=== PATIENT | male | born 1940 | race Caucasian/White ===

== ENCOUNTER 2018-02-08 20:47 | Inpatient (IN) | payer OTHER ==
[~2018-02-08] VITALS: Ht 165.1 cm; Wt 65.0 kg
--- NOTE | 2018-02-08 21:52 | ED GENERAL ADULT ---
History of Present Illness General Chief Complaint: General Adult Stated Complaint: HEMATURIA/COUGH, FAMILY WANTS HIM CHECKED OUT Source: family, EMS Exam Limitations: dementia Vital Signs & Intake/Output Vital Signs & Intake/Output Vital Signs Date Time Temp Pulse Resp B/P B/P Pulse O2 O2 Flow FiO2 Mean Ox Delivery Rate 02/09 0331 99 Nasal 2.0L Cannula 02/09 0224 98.7 91 18 130/75 99 Nasal 2.0L Cannula 02/09 0033 989.0 89 18 112/56 99 Nasal 2.0L Cannula 02/08 2254 98.6 96 18 134/63 94 Room Air 02/08 2237 Room Air 02/08 2130 100.3 02/082 99.3 96 20 129/59 95 Room Air ED Intake and Output 02/09 0000 02/08 1200 Intake Total Output Total 50 Balance -50 Output, Urine 50 Patient 170 lb Weight Weight Estimated Measurement Method Allergies Coded Allergies: No Known Allergies (02/09/18) Triage Note: [facility]IBA FROM [facility] PER REQUEST OF FAMILY. REPORTEDLY PT HAS HAD A COUGH AND HEMATURIA. PT ARRIVED AWAKE ALERT, SAWANT IN PLACE WTIH CLOUDY YELLOW URINE. PT WITH HISTORY OF DEMENTIA. NOT ABLE TO CARRY ON COHERENT CONVERSATION OR ANSWER THIS NURSES QUESTIONS . Triage Nurses Notes Reviewed? yes Onset: Gradual Duration: day(s): Timing: constant HPI: 77 y/o male with h/o dementia, BPH (chronic indwelling sawant catheter), HTN, DM, hypothyroid presenting from [facility] with worsening of his baseline dementia, cough, and hematuria over the past few days. Pt is unable to provider any hx, has no complaints on arrival. VS are WNL. (oNa Frank) Reconcile Medications Atenolol 25 MG TABLET 1 TAB PO DAILY BP (Reported) Donepezil HCl (Aricept) 10 MG TABLET 1 TAB PO DAILY DEMENTIA (Reported) Insulin Glargine,Hum.rec.anlog (Lantus Solostar) 100 UNIT/ML (3 ML) INSULN.PEN 36 UNIT SC QPM DIABETES (Reported) Levothyroxine Sodium 88 MCG TABLET 1 TAB PO DAILY HYPOTHYROIDISM (Reported) Magnesium Oxide (Magnesium) 400 MG TABLET 1 TAB PO DAILY LOW ELECTROLYTES ( Reported) Melatonin 5 MG TABLET 1 TAB PO QPM SLEEP (Reported) Memantine HCl (Namenda) 10 MG TABLET 1 TAB PO DAILY DEMENTIA (Reported) Metformin HCl 1,000 MG TABLET 1 TAB PO BID DIABETES (Reported) Rivaroxaban (Xarelto) 20 MG TABLET 1 TAB PO QPM ? DVT (Reported) with food (Isha WASSERMAN,Ugo Ortega) Past History Travel History Traveled to [place] past 21 day No Medical History Any Pertinent Medical History? see below for history Neurological: dementia Cardiovascular: hypertension Renal: benign prost hyperplasia Endocrine: diabetes, hypothyroidism Surgical History Surgical History: none Psychosocial History What is your primary language Gibraltarian Tobacco Use: Cognitive Impairment ETOH Use: 6 Illicit Drug Use: UTD Family History Hx Contributory? No (Noa Frank) Review of Systems Review of Systems Constitutional: Reports: no symptoms. EENTM: Reports: no symptoms. Respiratory: Reports: see HPI. Cardiovascular: Reports: no symptoms. GI: Reports: no symptoms. Genitourinary: Reports: see HPI. Musculoskeletal: Reports: no symptoms. Skin: Reports: no symptoms. Neurological/Psychological: Reports: no symptoms. Hematologic/Endocrine: Reports: no symptoms. Immunologic/Allergic: Reports: no symptoms. (Noa Frank) Physical Exam Physical Exam General Appearance: well developed/nourished, no apparent distress, alert, awake , comfortable Head: atraumatic, normal appearance Eyes: Bilateral: normal appearance. Neck: normal inspection Respiratory: normal breath sounds, lungs clear Cardiovascular: regular rate/rhythm Gastrointestinal: soft, non-tender Back: normal inspection Extremities: normal inspection Neurologic/Psych: awake, alert Skin: intact, normal color, warm/dry Comments: Sawant in place with bright red drainage. Core Measures ACS in differential dx? No CVA/TIA Diagnosis: No Sepsis Present: No Sepsis Focused Exam Completed? No (Noa Frank) Progress Differential Diagnoses I considered the following diagnoses in my evaluation of the patient: [Infection vs metabolic derangement, low concern for acute neuro event] Plan of Care: Orders Procedure Date/time Status Nothing by Mouth 02/09 B Active CBC WITHOUT DIFFERENTIAL 02/09 600 Active BASIC ELECTROLYTES PLUS BUN&CR 02/09 600 Active Turn and Reposition 02/09 033 Active Skin Integrity Protocol 02/09 033 Active Weight 02/09 025 Active Vital Signs 02/09 253 Active Teach/Educate 02/09 253 Active Pain Treatment and Response 05/30 0253 Active Nutritional Intake, Monitor 02/09 0253 Active Isolation 02/09 0253 Active Intake & Output 02/09 0253 Active Patient Care Conference 02/09 0253 Active Activity/Ambulation 02/09 0253 Active SPECIMEN TO BE OBTAINED 02/09 0245 Active FingerStick- Glucose 02/09 0233 Active SWALLOW EVALUATION 02/09 0225 Active PT Evaluate & Treat 02/09 0225 Active Pathway - chart 02/09 022 Active House Staff 02/09 0225 Active Code Status 02/09 0225 Active Patient Data 02/09 0054 Active Saline Lock 02/09 0021 Active Misc Message 02/09 0021 Active ED Holding Orders 02/09 0021 Active Admit to inpatient 02/09 0021 Active Vital Signs 02/09 0021 Active Code Status 02/09 0021 Complete FingerStick- Glucose 02/09 0016 Active Lab Add-on Test 02/09 UNK Active VTE Mechanical Prophylaxis 02/09 UNK Active Vital Signs 02/09 UNK Complete Intake & Output 02/09 UNK Active ACETONE 02/09 UNK Active STREP PNEUMO URINARY ANTIGEN 02/08 224 Complete LEGIONELLA URINARY ANTIGEN 02/08 224 Complete Intake & Output 02/08 223 Complete CULTURE,URINE 02/08 2153 Active URINALYSIS 02/08 2153 Complete TROPONIN LEVEL 02/08 2153 Complete CBC WITHOUT DIFFERENTIAL 02/08 2153 Complete BASIC METABOLIC PANEL 02/08 2153 Complete EKG 02/08 2153 Active Current Medications Sig/Nu Start time Last Medication Dose Stop Time Status Admin Ceftazidime 2,000 MG ONCE ONE 02/09 2345 CAN (Fortaz) 02/09 2346 Atenolol 25 MG DAILY 02/09 09 AC (Tenormin) Donepezil HCl 10 MG DAILY 02/09 09 AC (Aricept) Memantine 10 MG DAILY 02/09 09 AC (Namenda) Levothyroxine Sodium 0.088 MG DAILY AC 02/09 0700 AC (Synthroid) Insulin Human Regular 0 Q6 02/09 0232 AC (NovoLIN R) Insulin Detemir 15 UNITS BID 02/09 023 AC (Levemir) Ceftazidime 2,000 MG ONCE ONE 02/09 0015 CAN (Fortaz) 02/09 0016 Non-Formulary 3.375 UNIT ONCE ONE 02/085 CAN Medication 05/29 2346 (NON FORMULARY) Ceftriaxone Sodium 1,000 MG ONCE ONE 02/08 233 CAN (Rocephin) 02/081 Laboratory Tests 02/08/182248: Urinalysis MOD H, Urine Color PINK H, Urine Clarity HAZY H, Urine pH 6.0, Ur Specific [place] 1.010, Urine Protein 100 H, Urine Ketones NEG, Urine Nitrite NEG, Urine Bilirubin NEG, Urine Urobilinogen 0.2, Ur Leukocyte Esterase MOD H, Ur Microscopic SEDIMENT EXAMINED, Urine RBC >75 H, Urine WBC 15-25 H, Ur Epithelial Cells FEW, Urine Bacteria FEW H, Urine Mucus FEW, Urine Hemoglobin LARGE H, Urine Glucose 500 H 02/08/182211: Anion Gap 12, Estimated GFR > 60, BUN/Creatinine Ratio 39.0 H, Glucose 345 H, Calcium 8.9, Troponin I < 0.01, CBC w Diff NO MAN DIFF REQ, RBC 3.61 L, MCV 87.9, MCH 30.2, MCHC 34.3, RDW 14.7 H, MPV 8.6, Gran % 76.1 H, Lymphocytes % 12.1 L, Monocytes % 10.9 H, Eosinophils % 0.8, Basophils % 0.1, Absolute Granulocytes 5.1, Absolute Lymphocytes 0.8 L, Absolute Monocytes 0.7 H, Absolute Eosinophils 0.1, Absolute Basophils 0 Microbiology 02/08 2249 URINE ROUT: Legionella Antigen - COMP 02/08 2249 URINE ROUT: Streptococcus pneumoniae Antigen (M - COMP 02/08 2249 URINE ROUT: Urine Culture - RECD CXR suspicious for pneumonia UA suspicious for UTI Covered with vanc/zosyn to cover for both UTI and HCAP Labs remarkable for hypoNa to 127, hypoCl to 93, and hyperK to 5.5 (no EKG changes) EKG is non-ischemic, trop neg Will admit to gen med Discussed with hospitalist, MOD, and EDMD. Initial ED EKG: rhythm (sinus), no ST T wave changes (Noa Frank) Departure Departure Disposition: STILL A PATIENT Condition: Stable Clinical Impression Primary Impression: Pneumonia Secondary Impressions: UTI (urinary tract infection) Referrals: Ryley WASSERMAN,Shannon Alcocer (PCP/Family) Departure Forms: Customer Survey General Discharge Information (Noa Frank) PA/COUNCILMAN Co-Sign Statement Statement: ED Attending supervision documentation- [x I saw and evaluated the patient. I have also reviewed all the pertinent lab results and diagnostic results. I agree with the findings and the plan of care as documented in the PA's/COUNCILMAN's documentation. 02/09/18, 0:23... Pt comfortable in ED, resting, labs/imaging suggestive of pneumonia, possible uti. pt merits iv fluids, 02 support, iv abx. [] I have reviewed the ED Record and agree with the PA's/COUNCILMAN's documentation. [] Additions or exceptions (if any) to the PAs/COUNCILMAN's note and plan are summarized below: [] (Isha WASSERMAN,Ugo Ortega) Critical Care Note Critical Care Note Critical Care Time: non-applicable (Noa Frank)
[2018-02-08 22:29] LABS: ABSOLUTE BASOPHIL COUNT 0 /CUMM (0.0-0.2); ABSOLUTE EOSINOPHIL COUNT 0.1 /CUMM (0.0-0.7); ABSOLUTE GRANULOCYTE CT 5.1 /CUMM (1.4-6.5); ABSOLUTE LYMPH COUNT 0.8 /CUMM (1.2-3.4); ABSOLUTE MONOCYTE COUNT 0.7 /CUMM (0.10-0.60); BASOPHIL % 0.1 % (0.0-2.0); EOSINOPHIL % 0.8 % (0-5); GRANULOCYTE % 76.1 % (42.2-75.2); HEMATOCRIT 31.7 % (42-52); MEAN CORPUSCULAR HGB 30.2 PG (27.0-31.0); MEAN CORPUSCULAR HGB CONC 34.3 G/DL (33.0-37.0); MEAN CORPUSCULAR VOLUME 87.9 FL (80.0-94.0); MEAN PLATELET VOLUME 8.6 FL (7.4-10.4); PLATELET COUNT 180 /CUMM (130-400); RBC DISTRIBUTION WIDTH 14.7 % (11.5-14.5); RED BLOOD CELL CT 3.61 /CUMM (4.70-6.10); WHITE BLOOD CELL COUNT 6.8 /CUMM (4.8-10.8)
--- NOTE | 2018-02-08 23:01 | RADIOLOGY REPORT ---
EXAMINATION: XR PORTABLE CHEST CLINICAL INFORMATION: Cough COMPARISON: None TECHNIQUE: Portable frontal view of the chest was obtained. FINDINGS: Median sternotomy wires appear intact. Lung volumes are low. Patchy basilar opacities. No pleural effusion or pneumothorax. The cardiomediastinal silhouette is within normal limits. IMPRESSION: Hypoexpanded lungs with patchy basilar opacities which could represent atelectasis or developing pneumonia.
--- NOTE | 2018-02-09 00:12 | History & Physical ---
JeredLorena 02/09/18 0002: General Information and HPI MD Statement: I have seen and personally examined JUANA TEJEDA and documented this H&P. The patient is a 77 year old M who presented with a patient stated chief complaint of [AMS]. Source of Information: patient, old records, EMS, [facility] Exam Limitations: no limitations History of Present Illness: Ms. Tejeda is a 77yo M w/ PMH of osteomyelitis of sacral bones, stage 4 coccyx ulcer, dementia, BPH (chronic indwelling altamirano catheter), HTN, DM, hypothyroidism, hx of DVT (2017?) BIBA from [facility] with cough and hematuria. Patient was alert/awake however not conversational, only followed commands partially. [facility] was contacted for detailed history. Per staff, patient vomited x 1, non-bloody/liquid, 2 days ago, otherwise no symptoms not even today, however patient's visited today, and stated that patient was gasping for air, but all vital signs were normal, no cough or hematuria. However, would want to bring the patient out to the hospital for further evaluation. Per staff, patient 's roomate was sick with some cold symptoms in the past week. Patient had a low Temp 99 on 02/07 but no fever in the past week. At [facility], patient was alert but not oriented, and confused ever since he was admitted in [facility], came with chronic altamirano. Patient is in need of assisted feeding, mechanical soft/thin liquid, and nursing staff denied any previous choking event. Nursing staff was unsure why patient was started on Xarelto in 2017, possibly due to DVT based on document. Patient only sees Dr. Shannon Hedrick at [place] as PCP and not seeing other doctors. Per nursing staff from [facility], patient had no complain of recent travel/ sick contacts, fever/lightheadedness/diaphoresis/night sweat/weight change/cough /SOB/Chest Pain/Palpitation/Abdominal pain/bowel movement or urinary abnormality , or other skin/musculoskeletal/neurological/mood disorders, or dietary/appetite change. Allergies/Medications Allergies: Coded Allergies: No Known Allergies (02/09/18) Home Med list Atenolol 25 MG TABLET 1 TAB PO DAILY BP (Reported) Donepezil HCl (Aricept) 10 MG TABLET 1 TAB PO DAILY DEMENTIA (Reported) Insulin Glargine,Hum.rec.anlog (Lantus Solostar) 100 UNIT/ML (3 ML) INSULN.PEN 36 UNIT SC QPM DIABETES (Reported) Levothyroxine Sodium 88 MCG TABLET 1 TAB PO DAILY HYPOTHYROIDISM (Reported) Magnesium Oxide (Magnesium) 400 MG TABLET 1 TAB PO DAILY LOW ELECTROLYTES ( Reported) Melatonin 5 MG TABLET 1 TAB PO QPM SLEEP (Reported) Memantine HCl (Namenda) 10 MG TABLET 1 TAB PO DAILY DEMENTIA (Reported) Metformin HCl 1,000 MG TABLET 1 TAB PO BID DIABETES (Reported) Rivaroxaban (Xarelto) 20 MG TABLET 1 TAB PO QPM ? DVT (Reported) with food Past History Travel History Traveled to [place] past 21 day No Medical History Neurological: dementia Cardiovascular: hypertension Renal: benign prost hyperplasia Endocrine: diabetes, hypothyroidism Surgical History Surgical History: none Past Family/Social History Psychosocial History Smoking Status: Unknown If Ever Smoked ETOH Use: 6 Illicit Drug Use: UTD Review of Systems Review of Systems Constitutional: Reports: see HPI. Exam & Diagnostic Data Last 24 Hrs of Vital Signs/I&O Vital Signs Date Time Temp Pulse Resp B/P B/P Pulse O2 O2 Flow FiO2 Mean Ox Delivery Rate 02/08 2254 98.6 96 18 134/63 94 Room Air 02/087 Room Air 02/08 2130 100.3 02/082 99.3 96 20 129/59 95 Room Air Intake & Output 02/09 0800 02/09 0000 02/08 1600 Intake Total Output Total 50 Balance -50 Output, Urine 50 Patient 77.111 kg Weight Weight Estimated Measurement Method Physical Exam General Appearance Alert, Cooperative, No Acute Distress, partially follow command minimally conversational Skin documented stage 4 decubitus ulcer Skin Temp/Moisture Exam: Warm/Dry Sepsis Skin Exam (color): Normal for Ethnicity HEENT Atraumatic, not opening his eyes Neck Supple, No JVD Cardiovascular Regular Rate, Normal S1, Normal S2 Lungs Normal Air Movement, distant rhonchi on left lung base Abdomen Normal Bowel Sounds, not soft, however no grimace when pressed Neurological demented and minimal conversational, could not assess Extremities No Edema, Normal Pulses Last 24 Hrs of Labs/Andrés: Laboratory Tests 02/08/182248: Urinalysis MOD H, Urine Color PINK H, Urine Clarity HAZY H, Urine pH 6.0, Ur Specific [place] 1.010, Urine Protein 100 H, Urine Ketones NEG, Urine Nitrite NEG, Urine Bilirubin NEG, Urine Urobilinogen 0.2, Ur Leukocyte Esterase MOD H, Ur Microscopic SEDIMENT EXAMINED, Urine RBC >75 H, Urine WBC 15-25 H, Ur Epithelial Cells FEW, Urine Bacteria FEW H, Urine Mucus FEW, Urine Hemoglobin LARGE H, Urine Glucose 500 H 02/08/18 2212: Anion Gap 12, Estimated GFR > 60, BUN/Creatinine Ratio 39.0 H, Glucose 345 H, Calcium 8.9, Troponin I < 0.01, CBC w Diff NO MAN DIFF REQ, RBC 3.61 L, MCV 87.9, MCH 30.2, MCHC 34.3, RDW 14.7 H, MPV 8.6, Gran % 76.1 H, Lymphocytes % 12.1 L, Monocytes % 10.9 H, Eosinophils % 0.8, Basophils % 0.1, Absolute Granulocytes 5.1, Absolute Lymphocytes 0.8 L, Absolute Monocytes 0.7 H, Absolute Eosinophils 0.1, Absolute Basophils 0 Microbiology 02/08 2249 URINE ROUT: Urine Culture - RECD Assessment/Plan Assessment: On admission, Vitals: Tmax 100.3, Tachycardia 96, RR 20, BP 134/63, 94% RA -CBC: H/H 10.9/31.7 stable at baseline -BMP: Hyponatremia 127, HyperK 5.5, -UA/Microbiology: ??UTI -CXR: Suspicious for PNA -EKG: NSR w/o significant ST-T abnormalities. no HyperK EKG changes Problem list/Assessment/Hospital Course: #HCAP vs Community acquired pneumonia #UTI? #Sepsis (fever, tachycardia, source of infection): however no leukocytosis #Hyponatremia #Hyperglycemia #Hyperkalemia #Chronic altamirano w/ ???hematuria? #Hx of DVT #PMHs of osteomyelitis of sacral bones, stage 4 coccyx ulcer, dementia, BPH ( chronic indwelling altamirano catheter), HTN, DM, hypothyroidism, - Admit to general medicine, vitals per protocol - supplemental O2 if needed. TRC/Nebulizer if needed. - Novolog SS/AccuChek - Start antibiotics including ceftazidine/azithromycin for pneumonia, and would also cover for possible UTI, with previous urine cx growing Proteus/Pseudomonas, however likely colonization due to chronic altamirano. - Hold xarelto for now for possible hematuria, however the urine collection bag showed mostly yellowish urine. - Continue all other home meds - Pending cultures. - Pending urology consult in the AM. - Pending wound consult for decubitus ulcer. - Contact patient's at [phone] for more info if needed in the AM. - Daily BEP and monitor Na with slow correction. - Pending swallow eval for advance diet. At [facility], patient was on Mechanical Soft/Thin Liquid with feeding assitant. DVT prophylaxis ALPS NPO Full Code As Ranked By This Provider Problem List: 1. UTI (urinary tract infection) 2. Pneumonia Core Measures/Misc (05/30) Acute Coronary Syndrome ACS Diagnosis: No Congestive Heart Failure Congestive Heart Failure Diagnosis No Cerebrovascular Accident CVA/TIA Diagnosis: No VTE (View Protocol) VTE Risk Factors Age>40 No Mechanical VTE Prophylaxis d/t N/A MechProphylax Ordered No VTE Pharm Prophylaxis d/t Other (hematuria) Sepsis (View protocol) Sepsis Present: Yes If YES complete Sepsis Event Note If YES complete Sepsis Event Note Juan Eagle 02/09/18 0422: Core Measures/Misc (05/30) Sepsis (View protocol) If YES complete Sepsis Event Note If YES complete Sepsis Event Note Resident Review Statement Resident Statement: examined this patient, discussed with financial analyst intern, agreed with financial analyst intern Other Findings: Mr Tejeda is a 77 year old man w/ a PMHx of Dementia, BPH ( chronic indwelling altamirano cath ), HTN, DM, hypothyroid was brought in from [facility] with a chief concern of dyspnea, that was noted by the patient's when she visited him. Most of the history was obtained from the extended facility, and was limited to only a few review of systems. The patient did not have any recent change in his mentation, illness in the last 2 years. He had one episode of vomiting, which was nonbloody. He was reported to have low-grade temperature of 99.0. No cough, chest pain or palpitations reported. He has chronic indwelling Altamirano catheter, which did not have any bloody tinge, until he was seen in the ER. Noted to have dyspnea by the patient 's family, but the F denied any such symptoms. Since the patient has dementia , the history and examination was limited. At the time of admission, vitals temp 98.9, ND 96, RR 18, 134/63, Ox 94 RA. General Exam: AAOx0, No acute distress, responding to verbal stimulus Skin: No rashes;HEENT: PERRLA, EOMI;Neck: Supple, No JVD; No cervical lymphadenopathy;CVS : Reg Rate, Normal S1,S2, No MGR;Resp: Limited examination of lungs, rhonchi; Abdomen: Soft, No tenderness, Normal Bowel Sounds;Neuro: Examination was limited ;Extremities: No cyanosis, no pedal edema. Stage 4 decubitus sacral ulcer, associated w/ bad odor. Pertinent lab findings- WBC 6.8( Gran 76% ), Hb 10.9, Plt count 180 Sodium 127 ( corrected 133 ), K 5.5, Cl 93, HCo3 22,AG 12, glucose 345 BUN 39, Cr 1.0 UA protein 100, ULE mod, RBC 75, WBC 15-25, urine glucose 500. CXR Hypoexpanded lungs with patchy basilar opacities which could represent atelectasis or developing pneumonia. Etiology in this case with no clear symptoms of any infection, but has possibility of having pneumonia, and urinary tract infection given chances of community-acquired pneumonia from atypical organisms and indwelling Altamirano catheter with previous growth of Pseudomonas. Although he has low-grade fever, there is no evidence of leukocytosis at this time. Mortality is usually higher in elderly patients with coexisting conditions such as diabetes. In regards to his hyponatremia, and elevated blood sugar levels is likely from uncontrolled diabetes. There is no evidence of anion gap metabolic acidosis, or has low bicarbonate that is suggestive of acidosis. Given possible history suggestive of aspiration, chemical pneumonitis with oral and gastric anaerobes, he is likely but would not cover for any anaerobes at this time. He also has hematuria, and chronic indwelling Altamirano catheter which needs to be evaluated. - Admit the patient to general medicine service. -Empiric antibiotics with ceftazidime to cover for pseudomonas, and azithromycin for atypical community-acquired pneumonia pending urine culture. -Follow blood culture, lower respiratory culture, strep pneumo and Legionella antigen. -Monitor vitals closely -Follow CBCs daily -Nothing by mouth at this time, pending swallow evaluation -Levemir 15 units twice a day -Novolin nothing by mouth sliding scale. -Check hemoglobin A1c -Check acetone, and follow labs especially basic electrolyte panel. -Continue Namenda and Aricept. -Hold Xarelto, given hematuria and pending urological evaluation. Restart when able. Housekeeping checklist: #1 DVT prophylaxis-subcutaneous heparin #2 CODE STATUS-full code #3 nothing by mouth pending swallow evaluation. Consults-urology. Davide WASSERMAN, [facility] 02/09/18 0442: Core Measures/Misc (05/30) Sepsis (View protocol) If YES complete Sepsis Event Note If YES complete Sepsis Event Note Attending MD Review Statement Attending Statement Attending MD Statement: examined this patient, discuss w/resident/PA/PURCHASING CLERK, agreed w/resident/PA/PURCHASING CLERK, reviewed images, amended to note Attending Assessment/Plan: 77 yo M a resident of [facility], with advanced alzheimer's dementia, BPH with chronic indwelling catheter, HTN, T2DM, DVT on xarelto, osteomyelitis of vertebral/ sacral region, decubitus ulcer, is sent in at the request of the family for evaluation of dyspnea and hematuria. Patient unable to provide any history due to dementia. Limited history obtained from [facility]CF. Patient was noted to dyspneic after an episode of vomiting. Sick contacts at the [facility] Vitals: Tmax 100.3, HR 90-96, BP 112/56, sats 99% on 2L. Chest: bilateral rhonchi anteriorly++. Patient does not respond to questions due to underlying dementia. Dry mucosa and gurgling sounds heard on inspiration. Sacral ulcer stage 4 +. Labs: no leukocytosis, Na 127, K 5.5, BUN 39, creat 1.0, glucose 345, trop neg. UA proteinuria with moderate LE, RBC> 75, WBC 15-25, few bacteria. CXR: hypoexpanded lungs with patchy basilar opacities possible atelectasis or developing pneumonia. EKG: sinus rhythm, PVC's, Qtc 435. Assessment and plan: 1. SIRS low grade fever and tachycardia, but no leukocytosis or tachypnea 2. Possible source could be pneumonia HCAP vs aspiration, or the stage 4 decubitus ulcer. He has a chronic indwelling altamirano and he will have chronic bacterial colonization. 3. Pseudohyponatremia corrected sodium is 131-133 4. Uncontrolled Type 2 diabetes 5. Hematuria in this patient with chronic indwelling altamirano catheter for BPH - Admit to General medicine - Panculture - Urine legionella and strep Ag - TRC nebs - IV ceftaz and vanco was given in ER, we will continue with Ceftaz and azithro - Gentle IV hydration - NPO, swallow eval - Diabetes management - Urology consult for hematuria this seems to be resolving, altamirano was changed in ER - Follow urine cultures - Hold xarelto and resume based on Urology recs - Wound consult for decubitus ulcer DVT ppx Alps. Full code.
[2018-02-09] MEDS ORDERED: XARELTO20 M2 PO (02:26)
[2018-02-09] MEDS ORDERED: ATENOLOL25 M1 PO (02:26)
[2018-02-09] MEDS ORDERED: LEVOTHYROXINE88 MCG PO (02:27)
[2018-02-09] MEDS ORDERED: MELATONIN5 M7 PO (02:27)
[2018-02-09] MEDS ORDERED: LANTUS SOL100 UNIT/1 SC (02:28)
[2018-02-09] MEDS ORDERED: NAMENDA10 M2 PO (02:29)
[2018-02-09] MEDS ORDERED: MAGNESIUM400 MG PO (02:29)
[2018-02-09] MEDS ORDERED: ARICEPT10 M1 PO (02:30)
[2018-02-09] MEDS ORDERED: METFORMIN HCL1000 M1 PO (02:44)
[2018-02-09 04:13] VITALS: BP 132/60
--- NOTE | 2018-02-09 05:34 | Admission Certification ---
Admission Certification Certification Statement - As attending physician, I certify that at the time of - admission, based on clinical presentation, severity of - symptoms, need for further diagnostic testing and - therapeutic interventions, and risk of adverse outcomes - without in-hospital treatment, in my clinical assessment, - this patient requires an acute hospital stay for a minimum - of two nights or longer. I have also considered psychsocial - factors such as support system, advanced age, financial - issues, cognitive issues, and failed out-patient treatments, - past re-admission history, safety of patient, and lack of - compliance as applicable. Specific rationale supporting this admission is: Pneumonia requiring antibiotics, hematuria that needs further evaluation.
--- NOTE | 2018-02-09 08:52 | Cons- Wound Care ---
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 Details are unavailable Allergies/Medications Allergies: Coded Allergies: No Known Allergies (02/09/18) Home Med List: Atenolol 25 MG TABLET 1 TAB PO DAILY BP (Reported) Donepezil HCl (Aricept) 10 MG TABLET 1 TAB PO DAILY DEMENTIA (Reported) Insulin Glargine,Hum.rec.anlog (Lantus Solostar) 100 UNIT/ML (3 ML) INSULN.PEN 36 UNIT SC QPM DIABETES (Reported) Levothyroxine Sodium 88 MCG TABLET 1 TAB PO DAILY HYPOTHYROIDISM (Reported) Magnesium Oxide (Magnesium) 400 MG TABLET 1 TAB PO DAILY LOW ELECTROLYTES ( Reported) Melatonin 5 MG TABLET 1 TAB PO QPM SLEEP (Reported) Memantine HCl (Namenda) 10 MG TABLET 1 TAB PO DAILY DEMENTIA (Reported) Metformin HCl 1,000 MG TABLET 1 TAB PO BID DIABETES (Reported) Rivaroxaban (Xarelto) 20 MG TABLET 1 TAB PO QPM ? DVT (Reported) with food Review of Systems Review of Systems: Unobtainable Past History Travel History Traveled to [place] past 21 day No Medical History Neurological: dementia Cardiovascular: hypertension Renal: benign prost hyperplasia Endocrine: diabetes, hypothyroidism Surgical History Surgical History: 1 Psychosocial History Where Do You Live? Extended Care Facility Smoking Status: Unknown If Ever Smoked ETOH Use: 6 Illicit Drug Use: UTD Exam & Diagnostic Data Vital Signs and I&O Vital Signs Result Date Time Pulse Ox 95 02/09 0413 B/P 132/60 02/09 0413 O2 Delivery Nasal Cannula 02/09 413 O2 Flow Rate 2.0L 02/09 041 Temp 98.1 02/09 041 Pulse 84 02/09 0413 Resp 18 02/09 0413 Intake & Output 02/09 0000 02/08 1600 02/08 0800 Intake Total Output Total 50 Balance -50 Output, Urine 50 Patient 170 lb Weight Weight Estimated Measurement Method Physical Exam: Exam of the coccyx shows there to be approximately 1.2 x 0.7 cm stage IV ulcer undermined red fill the wound is unable to be fully probe digitally because of its size there is no exposed bone there is no significant odor drainage or periwound erythema Assessment/Plan Impression/Plan: 77-year-old gentleman with advanced dementia reportedly has had a chronic stage IV decubitus ulcer of the coccyx complicated by osteomyelitis. Diagnostic and treatment interventions are unavailable. At this time recommend aggressive offloading wound care can be Aquacel silver AG. Obtain old records regarding diagnosis and treatment of sacral osteomyelitis to determine need for further evaluation Consult Acknowledgment - Thank you for your consult request.
[2018-02-09 09:17] LABS: ABSOLUTE BASOPHIL COUNT 0 /CUMM (0.0-0.2); ABSOLUTE EOSINOPHIL COUNT 0.1 /CUMM (0.0-0.7); ABSOLUTE LYMPH COUNT 0.9 /CUMM (1.2-3.4); ABSOLUTE MONOCYTE COUNT 0.6 /CUMM (0.10-0.60); BASOPHIL % 0.1 % (0.0-2.0); EOSINOPHIL % 1.4 % (0-5); GRANULOCYTE % 72.6 % (42.2-75.2); HEMATOCRIT 28.6 % (42-52); MEAN CORPUSCULAR HGB CONC 34.1 G/DL (33.0-37.0); MEAN CORPUSCULAR VOLUME 88.1 FL (80.0-94.0); PLATELET COUNT 159 /CUMM (130-400); RBC DISTRIBUTION WIDTH 14.8 % (11.5-14.5); RED BLOOD CELL CT 3.24 /CUMM (4.70-6.10); WHITE BLOOD CELL COUNT 5.5 /CUMM (4.8-10.8)
--- NOTE | 2018-02-09 12:30 | PN- Att Addend ---
Attending Addendum Attending Brief Note Patient seen and examined. No issues overnight reported by nursing staff. Remains afebrile and hemodynamically stable. Resting comfortably and not in any acute distress. Nonverbal although nursing staff reports that she occasionally responds to questioning. I spoke with the patient's PCP Dr. Shannon Belle. She reports that this is the patient's baseline. I reached out to the patient's but was unable to get through to her. Apparently patient was brought to the ER to be "checked out" Questionable basilar opacity was noted and therefore patient was admitted for management of pneumonia. Patient does not answer any questions. He is not coughing. He is not short of breath. He is saturating 99% on 2 L of oxygen. He did have low-grade fever of 100.3. Laboratory Tests 02/09/18 0758: Acetone Level Cancelled 02/09/18 0758: Anion Gap 8, Estimated GFR > 60, BUN/Creatinine Ratio 33.0 H, CBC w Diff NO MAN DIFF REQ, RBC 3.24 L, MCV 88.1, MCH 30.0, MCHC 34.1, RDW 14.8 H, MPV 9.0, Gran % 72.6, Lymphocytes % 15.7 L, Monocytes % 10.2 H, Eosinophils % 1.4, Basophils % 0.1, Absolute Granulocytes 4.0, Absolute Lymphocytes 0.9 L, Absolute Monocytes 0.6, Absolute Eosinophils 0.1, Absolute Basophils 0, Acetone Level NEGATIVE 02/08/18 2249: Urinalysis MOD H, Urine Color PINK H, Urine Clarity HAZY H, Urine pH 6.0, Ur Specific [place] 1.010, Urine Protein 100 H, Urine Ketones NEG, Urine Nitrite NEG, Urine Bilirubin NEG, Urine Urobilinogen 0.2, Ur Leukocyte Esterase MOD H, Ur Microscopic SEDIMENT EXAMINED, Urine RBC >75 H, Urine WBC 15-25 H, Ur Epithelial Cells FEW, Urine Bacteria FEW H, Urine Mucus FEW, Urine Hemoglobin LARGE H, Urine Glucose 500 H 02/08/18 2212: Anion Gap 12, Estimated GFR > 60, BUN/Creatinine Ratio 39.0 H, Glucose 345 H, Hemoglobin A1c 7.9 H, Calcium 8.9, Troponin I < 0.01, CBC w Diff NO MAN DIFF REQ, RBC 3.61 L, MCV 87.9, MCH 30.2, MCHC 34.3, RDW 14.7 H, MPV 8.6, Gran % 76.1 H, Lymphocytes % 12.1 L, Monocytes % 10.9 H, Eosinophils % 0.8, Basophils % 0.1, Absolute Granulocytes 5.1, Absolute Lymphocytes 0.8 L, Absolute Monocytes 0.7 H, Absolute Eosinophils 0.1, Absolute Basophils 0 Microbiology 02/09 09 BLOOD: Blood Culture - RECD 02/09 814 BLOOD: Blood Culture - RECD 02/08 2249 URINE ROUT: Legionella Antigen - COMP 02/08 2249 URINE ROUT: Streptococcus pneumoniae Antigen (M - COMP 02/08 2249 URINE ROUT: Urine Culture - RES Vital Signs Date Time Temp Pulse Resp B/P B/P Pulse O2 O2 Flow FiO2 Mean Ox Delivery Rate 02/09 0413 98.1 84 18 132/60 95 Nasal 2.0L Cannula 02/09 0331 99 Nasal 2.0L Cannula 02/09 0224 98.7 91 18 130/75 99 Nasal 2.0L Cannula 02/09 0033 989.0 89 18 112/56 99 Nasal 2.0L Cannula 02/08 2254 98.6 96 18 134/63 94 Room Air 02/08 2237 Room Air 02/08 2130 100.3 02/08 2052 99.3 96 20 129/59 95 Room Air General appearance: Not in any acute distress. HEENT: Anicteric, no pallor, pupils equal and reactive. Neck: Supple with no jugular venous distention. Heart: S1-S2 regular with no audible murmur. Lungs: Adequate and symmetric air entry bilaterally with no added sounds. Abdomen: Nondistended with normal bowel sounds. Soft, nontender with no palpable masses. Extremities: No pedal edema. No cyanosis. Skin: Intact Problems: 1. Systemic inflammatory response 2. Abnormal chest x-ray 3. Hyponatremia; resolving 4. Hyperkalemia; resolved 5. Dementia 6. Stage IV decubitus ulcer with a past history of osteomyelitis according to his PCP. Plan: -Obtain noncontrast CT scan of the chest to further evaluate the pulmonary lesion. -We will continue IV antibiotic therapy pending results of the CT scan. -Mobilize patient as tolerated. -Contact family to better understand their concerns -Resume anticoagulation therapy. -Discharge planning back to the [facility] facility in the next 24-48 hours
--- NOTE | 2018-02-09 12:46 | Cons- Urology ---
General Information and HPI Consulting Request Date of Consult: 02/09/18 Requested By: Davide WASSERMAN,Ehsan Reason for Consult: gross hematuria Source of Information: old records Exam Limitations: poor historian History of Present Illness: This is a 77yo male w PMH of osteomyelitis of sacral bones with a stage 4 coccyx ulcer, dementia, BPH (chronic indwelling altamirano catheter), HTN, DM, hypothyroidism, hx of DVT on Xarelto BIBA from [facility] with cough and hematuria. As reported in the H&P- [facility] was contacted for detailed history. Per staff, patient vomited x 1, non-bloody/liquid, 2 days ago, otherwise no symptoms not even today, however patient's visited today, and stated that patient was gasping for air, but all vital signs were normal, no cough or hematuria. However, would want to bring the patient out to the hospital for further evaluation. Per staff, patient's roomate was sick with some cold symptoms in the past week. Patient had a low Temp 99 on 02/07 but no fever in the past week. At [facility], patient was alert but not oriented, and confused ever since he was admitted in [facility], came with chronic altamirano. Patient is in need of assisted feeding, mechanical soft/thin liquid, and nursing staff denied any previous choking event. Patient only sees Dr. Shannon Hedrick at [place] as PCP and not seeing other doctors. Allergies/Medications Allergies: Coded Allergies: No Known Allergies (02/09/18) Home Med List: Atenolol 25 MG TABLET 1 TAB PO DAILY BP (Reported) Donepezil HCl (Aricept) 10 MG TABLET 1 TAB PO DAILY DEMENTIA (Reported) Insulin Glargine,Hum.rec.anlog (Lantus Solostar) 100 UNIT/ML (3 ML) INSULN.PEN 36 UNIT SC QPM DIABETES (Reported) Levothyroxine Sodium 88 MCG TABLET 1 TAB PO DAILY HYPOTHYROIDISM (Reported) Magnesium Oxide (Magnesium) 400 MG TABLET 1 TAB PO DAILY LOW ELECTROLYTES ( Reported) Melatonin 5 MG TABLET 1 TAB PO QPM SLEEP (Reported) Memantine HCl (Namenda) 10 MG TABLET 1 TAB PO DAILY DEMENTIA (Reported) Metformin HCl 1,000 MG TABLET 1 TAB PO BID DIABETES (Reported) Rivaroxaban (Xarelto) 20 MG TABLET 1 TAB PO QPM ? DVT (Reported) with food Past History Medical History Neurological: dementia Cardiovascular: hypertension Renal: benign prost hyperplasia Endocrine: diabetes, hypothyroidism Surgical History Pertinent Surgical History: 1 Psychosocial History Where Do You Live? Extended Care Facility Smoking Status: Unknown If Ever Smoked ETOH Use: 6 Illicit Drug Use: UTD Review of Systems Review of Systems Constitutional: Reports: see HPI. EENTM: Reports: see HPI. Cardiovascular: Reports: see HPI. Respiratory: Reports: see HPI. GI: Reports: see HPI. Genitourinary: Reports: hematuria. Musculoskeletal: Reports: see HPI. Skin: Reports: see HPI. Neurological/Psychological: Reports: see HPI. Hematologic/Endocrine: Reports: see HPI. Immunologic/Allergic: Reports: see HPI. Exam & Diagnostic Data Vital Signs and I&O Vital Signs Date Time Temp Pulse Resp B/P B/P Pulse O2 O2 Flow FiO2 Mean Ox Delivery Rate 02/09 0413 98.1 84 18 132/60 95 Nasal 2.0L Cannula 02/09 0331 99 Nasal 2.0L Cannula 02/09 0224 98.7 91 18 130/75 99 Nasal 2.0L Cannula 02/09 0033 989.0 89 18 112/56 99 Nasal 2.0L Cannula 02/08 2254 98.6 96 18 134/63 94 Room Air 02/08 2237 Room Air 02/08 2130 100.3 02/08 2052 99.3 96 20 129/59 95 Room Air Intake & Output 02/09 1600 02/09 0800 02/09 0000 02/08 1600 02/08 0800 02/08 0000 Intake Total Output Total 1200 50 Balance -1200 -50 Number 1 Bowel Movements Output, Urine 1200 50 Patient 58.967 kg 77.111 kg Weight Weight Bed scale Estimated Measurement Method Physical Exam: asleep and comfortable ABD; soft, ND/NT altamirano in place with pink tinged urine output Physical Exam General Appearance: no apparent distress, comfortable Head: atraumatic, normal appearance Eyes: Bilateral: normal appearance. Respiratory: no respiratory distress, quiet respiration Gastrointestinal: soft, non-tender Rectal: deferred Neurologic/Psych: no motor/sensory deficits (asleep) Skin: normal color, warm/dry Last 24 Hours of Labs: Laboratory Tests 02/09 02/09 0758 0758 Chemistry Sodium (137 - 145 mmol/L) 134 L Potassium (3.5 - 5.1 mmol/L) 4.9 Chloride (98 - 107 mmol/L) 101 Carbon Dioxide (22 - 30 mmol/L) 25 Anion Gap (5 - 16) 8 BUN (9 - 20 mg/dL) 33 H Creatinine (0.7 - 1.2 mg/dL) 1.0 Estimated GFR (>60 ml/min) > 60 BUN/Creatinine Ratio (7 - 25 %) 33.0 H Hematology CBC w Diff NO MAN DIFF REQ WBC (4.8 - 10.8 /CUMM) 5.5 RBC (4.70 - 6.10 /CUMM) 3.24 L Hgb (14.0 - 18.0 G/DL) 9.7 L Hct (42 - 52 %) 28.6 L MCV (80.0 - 94.0 [place]) 88.1 MCH (27.0 - 31.0 PG) 30.0 MCHC (33.0 - 37.0 G/DL) 34.1 RDW (11.5 - 14.5 %) 14.8 H Plt Count (130 - 400 /CUMM) 159 MPV (7.4 - 10.4 FL) 9.0 Gran % (42.2 - 75.2 %) 72.6 Lymphocytes % (20.5 - 51.1 %) 15.7 L Monocytes % (1.7 - 9.3 %) 10.2 H Eosinophils % (0 - 5 %) 1.4 Basophils % (0.0 - 2.0 %) 0.1 Absolute Granulocytes (1.4 - 6.5 /CUMM) 4.0 Absolute Lymphocytes (1.2 - 3.4 /CUMM) 0.9 L Absolute Monocytes (0.10 - 0.60 /CUMM) 0.6 Absolute Eosinophils (0.0 - 0.7 /CUMM) 0.1 Absolute Basophils (0.0 - 0.2 /CUMM) 0 Toxicology Acetone Level (NEGATIVE) Cancelled NEGATIVE 02/08 02/08 6386 [id number] Chemistry Sodium (137 - 145 mmol/L) 127 L Potassium (3.5 - 5.1 mmol/L) 5.5 H Chloride (98 - 107 mmol/L) 93 L Carbon Dioxide (22 - 30 mmol/L) 22 Anion Gap (5 - 16) 12 BUN (9 - 20 mg/dL) 39 H Creatinine (0.7 - 1.2 mg/dL) 1.0 Estimated GFR (>60 ml/min) > 60 BUN/Creatinine Ratio (7 - 25 %) 39.0 H Glucose (65 - 99 mg/dL) 345 H Hemoglobin A1c (4.2 - 5.8 %) 7.9 H Calcium (8.4 - 10.2 mg/dL) 8.9 Troponin I (<0.11 ng/ml) < 0.01 Hematology CBC w Diff NO MAN DIFF REQ WBC (4.8 - 10.8 /CUMM) 6.8 RBC (4.70 - 6.10 /CUMM) 3.61 L Hgb (14.0 - 18.0 G/DL) 10.9 L Hct (42 - 52 %) 31.7 L MCV (80.0 - 94.0 FL) 87.9 MCH (27.0 - 31.0 PG) 30.2 MCHC (33.0 - 37.0 G/DL) 34.3 RDW (11.5 - 14.5 %) 14.7 H Plt Count (130 - 400 /CUMM) 180 MPV (7.4 - 10.4 FL) 8.6 Gran % (42.2 - 75.2 %) 76.1 H Lymphocytes % (20.5 - 51.1 %) 12.1 L Monocytes % (1.7 - 9.3 %) 10.9 H Eosinophils % (0 - 5 %) 0.8 Basophils % (0.0 - 2.0 %) 0.1 Absolute Granulocytes (1.4 - 6.5 /CUMM) 5.1 Absolute Lymphocytes (1.2 - 3.4 /CUMM) 0.8 L Absolute Monocytes (0.10 - 0.60 /CUMM) 0.7 H Absolute Eosinophils (0.0 - 0.7 /CUMM) 0.1 Absolute Basophils (0.0 - 0.2 /CUMM) 0 Urines Urinalysis MOD H Urine Color (YEL,AMB,STR) PINK H Urine Clarity (CLEAR) HAZY H Urine pH (5.0 - 8.0) 6.0 Ur Specific [place] (1.001 - 1.035) 1.010 Urine Protein (NEG,<30 MG/DL) 100 H Urine Ketones (NEG) NEG Urine Nitrite (NEG) NEG Urine Bilirubin (NEG) NEG Urine Urobilinogen (0.1 - 1.0 EU/dl) 0.2 Ur Leukocyte Esterase (NEG) MOD H Ur Microscopic SEDIMENT EXAMINED Urine RBC (0 - 5 /HPF) >75 H Urine WBC (0 - 2 /HPF) 15-25 H Ur Epithelial Cells (NONE,FEW) FEW Urine Bacteria (NEG/NONE) FEW H Urine Mucus (FEW,NONE) FEW Urine Hemoglobin (NEG) LARGE H Urine Glucose (N MG/DL) 500 H Assessment/Plan Assessment/Plan 77yo male with chronic med issues including BPH with chronic indwelling altamirano. He had pink urine on admission and has a hx of Xarelto due to DVT. Given his indwelling cathter, he likely has an Urologist. No need for intervention at this time. He can FU with his Urologist or FU in [facility] offices but no need for intervention at this time as an inpatient. Neg urine culture. FU prn. Consult Acknowledgment - Thank you for your consult request.
--- NOTE | 2018-02-09 14:28 | Discharge Summary ---
See Addendum Visit Information Visit Dates Admission Date: 02/09/18 Discharge Date: 02/15/18 Hospital Course Course Attending Physician: Shubham Clarke MD Primary Care Physician: Ryley WASSERMAN,Shannon Alcocer Hospital Course: The patient is 77-year-old gentleman with past medical history of osteomyelitis of sacral bone, stage IV coccyx ulcer dementia and BPH chronic indwelling Foleys catheter, hypertension, diabetes mellitus, hypothyroidism, DVT on Xarelto. He was brought in from [facility] for evaluation of infectious process, because when he was visited by family he appeared to be gasping for air. Vitals on admission stable. He was afebrile. He did not have any white count on admission labs however had few electrolyte abnormalities like hyponatremia and hyperkalemia. UA was dirty chest x-ray showed Hypoexpanded lungs with patchy basilar opacities which could represent atelectasis or developing pneumonia. Patient has dementia and sometimes his verbal and sometimes does not speak at all. So history taking was not possible. Our differentials included hospital- acquired pneumonia since he is coming from a facility and UTI in the presence of dirty urine. Urine culture did not show any growth and he was started on a treatment for gram-negative pneumonia with ceftazidime and azithromycin. Patient remained afebrile without a white count, and we were not convinced that he has HCAP. Hence a CT scan without contrast was ordered which showed -Mass in the right lower lobe measuring 4.6 cm. -Mottled destruction of the left posterior seventh rib related to metastatic disease. -Bulky metastases within the liver with largest lesion measuring on the order of 8.5 cm. The patient antibiotics have been discontinued after the CAT scan result. LFTs show elevated transaminases along with elevated alkaline phosphatase and total bilirubin and direct bilirubin are within normal limits. Likely secondary to metastatic process. Dr. Clarke reached out to patient's insisted on getting inpatient biopsy. IR was contacted for IR guided liver biopsy and Xarelto was held for 3 days in anticipation of biopsy Patient has been having episodes of hypoglycemia in the morning hence his night Levemir dose is being adjusted 9 units at present . The episodes of hypoglycemia most likely secondary to liver metastasis. I have reached out to oncology services and palliative services. They want to wait up on biopsy results to decide future management. IR guided liver biopsy was done on 02/14. Xarelto is resumed post IR biopsy. Of note pt has history of DVT probably due to hypercoagulable state secondary to cancer and remains high risk for PE/DVT. For now will continue Levemir as the previous dose, we advise to check finger sticks q 4 and adjust insulin accordingly. Patient will require outpatient hematology/oncology follow-up for further management. Pending biopsy results there should be goals of discussion and follow-up with palliative services. Patient is being maintained on Puree Nector diet after swallow evaluation. FC at present, Code status needs to be addressed pending biopsy results. Patient has a chronic indwelling Cameron's catheter and which was changed in ED and he will be discharged with it Allergies: Coded Allergies: No Known Allergies (02/09/18) Disposition Summary Disposition Principal Diagnosis: Liver and Lung mass Additional Diagnosis: liver mass Discharge Disposition: SNF Discharge Instructions General Discharge Information Code Status: Full Code Patient's Diet: puree and nector Patient's Activity: as tolerated Follow-Up Instructions/Appts: please follow up with PCP upon discharge. Medications at Discharge Discharge Medications: Stop taking the following medications: Insulin Glargine,Hum.rec.anlog (Lantus Solostar) 100 UNIT/ML (3 ML) INSULN.PEN Inject into fatty tissue Every night Continue taking these medications: Rivaroxaban (Xarelto) 20 MG TABLET 1 Tablet ORAL Every night Instructions: with food Comments: Last Taken: 02/15/18 Time: 1020AM Atenolol (Atenolol) 25 MG TABLET 1 Tablet ORAL DAILY Comments: Last Taken: 02/15/18 Time: 1020AM Levothyroxine Sodium (Levothyroxine Sodium) 88 MCG TABLET 1 Tablet ORAL DAILY Comments: Last Taken: 02/15/18 Time: 600AM Melatonin (Melatonin) 5 MG TABLET 1 Tablet ORAL Every night Comments: NOT GIVEN Memantine HCl (Namenda) 10 MG TABLET 1 Tablet ORAL DAILY Magnesium Oxide (Magnesium) 400 MG TABLET 1 Tablet ORAL DAILY Comments: NOT GIVEN Donepezil HCl (Aricept) 10 MG TABLET 1 Tablet ORAL DAILY Comments: Last Taken: 02/15/18 Time: 1020AM Metformin HCl (Metformin HCl) 1,000 MG TABLET 1 Tablet ORAL TWICE DAILY Comments: NOT GIVEN Start taking the following new medications: Insulin-Lantus (Lantus) 100 UNIT/ML VIAL 0 Inject into fatty tissue SEE INSTRUCTIONS Qty = 1 No Refills Instructions: TAKE 15 UNITS IN MORNING TAKE 9 UNITS AT BEDTIME Comments: NOT GIVEN Copies To: Ryley WASSERMAN,Shannon Alcocer Attending MD Review Statement Documenting Attending: Shubham Clarke MD Other Findings: Discharged in stable condition.
[2018-02-09 15:32] VITALS: BP 120/60
--- NOTE | 2018-02-09 16:13 | CT SCAN REPORT ---
EXAMINATION: CT CHEST WITHOUT CONTRAST CLINICAL INFORMATION: Patchy basilar opacity on chest x-ray. Atelectasis versus pneumonia. COMPARISON: Chest radiograph 02/08/2018. TECHNIQUE: Multidetector volumetric CT imaging of the chest was done. Axial MIP volume rendering provided. Sagittal and coronal reformatted images were obtained. DLP: 338 mGy-cm FINDINGS: LUNGS/PLEURA: There is a 4.6 x 3.0 cm mass in the right lower lobe. There is bulky right hilar adenopathy and right-sided bronchovascular nodular thickening measuring up to 3.5 cm. Left-sided bronchovascular thickening is also noted. There is diffuse bronchial wall thickening. Mild areas of patchy atelectasis are present in the left lower lobe. There is no pleural effusion. MEDIASTINUM: Bilateral hilar adenopathy as above. 1.0 cm carinal lymph node. Top normal heart size without pericardial effusion. Postoperative changes of CABG. Atheromatous changes in the aorta, great vessel origins, and coronary arteries. AXILLA: No lymphadenopathy. UPPER ABDOMEN: Multiple bulky hepatic disease the largest in the right lobe is ill-defined but measures on the order of 8.5 cm. No definite intrahepatic ductal dilatation. Cholelithiasis without cholecystitis. Adrenal glands appear normal. OSSEOUS STRUCTURES: Mottled destruction of the left posterior seventh rib compatible with metastatic disease involvement. No evidence of pathologic fracture in the thoracic spine. IMPRESSION: - Mass in the right lower lobe measuring 4.6 cm. - Mottled destruction of the left posterior seventh rib related to metastatic disease. - Bulky metastases within the liver with largest lesion measuring on the order of 8.5 cm. This critical result was discussed with Blanca Alston on 02/09/2018 4:08 PM, and it was ascertained that the content and urgency of the report was understood at the time of direct communication.
--- NOTE | 2018-02-09 16:59 | Event Note ---
Event Note Event Note: S: Received a call from [facility] radiology regarding critical imaging results. B the patient is 77-year-old gentleman with past medical history of osteomyelitis of sacral bone, stage IV coccyx ulcer dementia and BPH chronic indwelling Foleys catheter, hypertension, diabetes mellitus, hypothyroidism, DVT on Xarelto. He was brought in from [facility] for evaluation of underlying infection. -Differential included pneumonia versus UTI. Urine culture does not show any growth use was currently being treated for HCAP With ceftazidime and azithromycin. -We ordered a CT scan without contrast for better evaluation. Because patient was not having a white count and chest x-ray was suspicious for pneumonia versus atelectasis with patchy basilar opacities. A/P -CT scan was positive for Mass in the right lower lobe measuring 4.6 cm. - Mottled destruction of the left posterior seventh rib related to metastatic disease. - Bulky metastases within the liver with largest lesion measuring on the order of 8.[address] Clarke and resident have been notified It does not appear like that patient has pneumonia We are going to discontinue the IV antibiotics We are going to get in touch with IR in the morning for possible biopsy I'm going to update patient's family regarding results. Going to order a baseline LFTs considering a hepatic metastasis Update tried to call the listed number in the system. It goes to machine and was not given option to record the message
[2018-02-09 22:05] VITALS: BP 132/60
[2018-02-10 05:23] VITALS: BP 134/62
[2018-02-10 08:33] LABS: ABSOLUTE BASOPHIL COUNT 0 /CUMM (0.0-0.2); ABSOLUTE EOSINOPHIL COUNT 0.1 /CUMM (0.0-0.7); ABSOLUTE GRANULOCYTE CT 4.9 /CUMM (1.4-6.5); ABSOLUTE LYMPH COUNT 0.9 /CUMM (1.2-3.4); ABSOLUTE MONOCYTE COUNT 0.6 /CUMM (0.10-0.60); BASOPHIL % 0.1 % (0.0-2.0); EOSINOPHIL % 1.4 % (0-5); GRANULOCYTE % 75.4 % (42.2-75.2); HEMATOCRIT 30.2 % (42-52); MEAN CORPUSCULAR HGB CONC 34.1 G/DL (33.0-37.0); MEAN PLATELET VOLUME 9.2 FL (7.4-10.4); PLATELET COUNT 173 /CUMM (130-400); RBC DISTRIBUTION WIDTH 14.5 % (11.5-14.5); RED BLOOD CELL CT 3.43 /CUMM (4.70-6.10); WHITE BLOOD CELL COUNT 6.6 /CUMM (4.8-10.8)
--- NOTE | 2018-02-10 09:16 | PN- Housestaff ---
Gamaliel WASSERMAN,Blanca 02/10/18 0916: Subjective Follow-up For: Lung mass Hepatic metastasis is suspected Subjective: Seen and examined. Resting comfortably. Does not offer any complaints. Talking today Review of Systems Constitutional: Reports: see HPI. Objective Last 24 Hrs of Vital Signs/I&O Vital Signs Date Time Temp Pulse Resp B/P B/P Pulse O2 O2 Flow FiO2 Mean Ox Delivery Rate 02/10 1149 80 90/50 02/10 0523 98.2 70 20 134/62 97 Room Air 02/10 0000 Room Air 02/09 2205 98.6 74 20 132/60 97 Room Air 02/09 1600 Room Air 02/09 1532 120/60 Intake & Output 02/10 1600 02/10 0800 02/10 0000 Intake Total 360 600 Output Total 650 650 Balance -290 -50 Intake, Oral 360 600 Number 1 3 Bowel Movements Output, Urine 650 650 Physical Exam General Appearance: Alert, Oriented X3, Cooperative Cardiovascular: Normal S1, Normal S2 Lungs: Clear to Auscultation Abdomen: Normal Bowel Sounds, Soft, No Tenderness Neurological: Normal Speech Current Medications: Current Medications Sig/Nu Start time Last Medication Dose Route Stop Time Status Admin Atenolol 25 MG DAILY 02/09 0900 AC 02/10 PO 1149 Azithromycin 500 MG 0700 02/10 0700 CAN Sodium Chloride 250 ML IV Ceftazidime 1,000 MG Q8 02/09 1400 DC 02/09 IV 1526 Donepezil HCl 10 MG DAILY 02/09 0900 AC 02/10 PO 1142 Insulin Aspart 0 TIDAC 02/09 1700 AC SC Insulin Detemir 15 UNITS BID 02/09 0231 AC 02/10 SC 1146 Insulin Human Regular 0 Q6 02/09 0232 DC 02/09 SC 0652 Levothyroxine Sodium 0.088 MG DAILY AC 02/09 0700 AC 02/10 PO 0620 Memantine 10 MG DAILY 02/09 0900 AC 02/10 PO 1144 Rivaroxaban 20 MG 1700 02/09 1700 AC 02/09 PO 1631 Last 24 Hrs of Lab/Andrés Results Last 24 Hrs of Labs/Mics: Laboratory Tests 02/10/18 0650: Anion Gap 8, Estimated GFR > 60, BUN/Creatinine Ratio 25.6 H, Total Bilirubin 0.3, Direct Bilirubin 0.1, AST 159 H, ALT 78 H, Alkaline Phosphatase 316 H, Total Protein 6.1 L, Albumin 3.1 L, CBC w Diff NO MAN DIFF REQ, RBC 3.43 L, MCV 88.0, MCH 30.0, MCHC 34.1, RDW 14.5, MPV 9.2, Gran % 75.4 H, Lymphocytes % 14.5 L, Monocytes % 8.6, Eosinophils % 1.4, Basophils % 0.1, Absolute Granulocytes 4.9, Absolute Lymphocytes 0.9 L, Absolute Monocytes 0.6, Absolute Eosinophils 0.1, Absolute Basophils 0 Assessment/Plan Assessment: The patient is 77-year-old gentleman with past medical history of osteomyelitis of sacral bone, stage IV coccyx ulcer dementia and BPH chronic indwelling Foleys catheter, hypertension, diabetes mellitus, hypothyroidism, DVT on Xarelto. He was brought in from [facility] for evaluation of underlying infection. Differential included pneumonia versus UTI. Urine culture does not show any growth , he was being treated for HCAP gram-negative pneumonia with ceftazidime and azithromycin. We ordered a CT scan without contrast for better evaluation. Because patient was not having a white count and chest x-ray was suspicious for pneumonia versus atelectasis with patchy basilar opacities. -CT scan was positive for Mass in the right lower lobe measuring 4.6 cm. - Mottled destruction of the left posterior seventh rib related to metastatic disease. - Bulky metastases within the liver with largest lesion measuring on the order of 8.5 cm. The patient's antibiotics were discontinued yesterday. LFTs show elevated transaminases along with elevated alkaline phosphatase and total bilirubin and direct bilirubin are within normal limits. Attending Dr. Clarke tried to reach patient's regarding the diagnosis of malignancy and discussion of goals of care however we are unable to reach will try later during the evening as well. I have talked to interventional radiology Dr. Milan who believed that ultrasound -guided liver biopsy can be done after discussion with patient's . Patient will require to come off anticoagulation for biopsy. The patient does not need to be inpatient for biopsy. He will require further follow-up with hematology/ oncology services We will continue symptomatic management along with management of the sacral ulcer.H/H remained stable on Xarelto. After discussion with patient's and his Xarelto might need to be held in anticipation of biopsy Problem List: 1. Lung mass 2. Liver mass Pain Ratin Pain Location: prn Pain Goal: Pain 4 or less Pain Plan: prn Tomorrow's Labs & Rationales: none Nilton Clarke MDjose daviddanae 02/10/18 1318: Attending MD Review Statement Attending Statement Attending MD Statement: examined this patient, discuss w/resident/PA/PATROL POLICE LIEUTENANT, agreed w/resident/PA/PATROL POLICE LIEUTENANT, reviewed EMR data (avail), discussed with nursing, discussed with case mgmt, amended to note Attending Assessment/Plan: Patient seen and examined. No issues overnight reported by nursing staff. Affect remains unchanged. He remains nonverbal. He is afebrile. He is hemodynamically stable. Results of CT scan ordered yesterday noted. We did reach out to the patient's today. I did ask for family meeting however patient reported to the mental health case manager that she is unable to come to the hospital for a meeting. I did call her number but did not get through and was unable to leave a voice message. (Ryanne Tejeda [phone]) This was discussed with the interventional radiology service. The liver lesion is amenable to biopsy should the family wish to proceed with any further workup. Plan: -Antibiotic therapy has been discontinued in the absence of evidence of pneumonia on CT imaging. -No evidence of bleeding acutely. Continue anticoagulation therapy. -Continue efforts to reach out to the patient's to discuss CT findings of malignancy and to discuss goals of care. -Continue management of his decubitus ulcer as recommended by the wound care service. -Further disposition to be determined after discussion with patients .
[2018-02-10 14:37] VITALS: BP 100/60
[2018-02-10 22:46] VITALS: BP 135/56
[2018-02-11 06:04] VITALS: BP 128/62
--- NOTE | 2018-02-11 08:52 | PN- Housestaff ---
Gamaliel WASSERMAN,[facility] 02/11/18 0851: Subjective Follow-up For: Lung mass Hepatic metastasis is suspected Subjective: Seen and examined. episode of hypoglycemia today in the morning with blood sugar ranges 50, improved up to 175 after juice and breakfast. Patient is not as verbal today. Review of Systems Constitutional: Reports: see HPI. Objective Last 24 Hrs of Vital Signs/I&O Vital Signs Date Time Temp Pulse Resp B/P B/P Pulse O2 O2 Flow FiO2 Mean Ox Delivery Rate 02/11 1400 97.9 63 18 100/72 93 Room Air 02/11 1124 84 132/60 02/11 0604 98.0 70 20 128/62 94 Room Air 02/10 2246 98.0 71 20 135/56 92 Intake & Output 02/11 1600 02/11 0800 02/11 0000 Intake Total 490 450 360 Output Total 400 240 350 Balance 90 210 10 Intake, IV 10 Intake, Oral 480 450 360 Number 4 Bowel Movements Output, Urine 400 240 350 Physical Exam General Appearance: Alert, Oriented X3, Cooperative Cardiovascular: Normal S1, Normal S2 Lungs: Clear to Auscultation Abdomen: Soft Current Medications: Current Medications Sig/Nu Start time Last Medication Dose Route Stop Time Status Admin Atenolol 25 MG DAILY 02/09 0900 AC 02/11 PO 1124 Donepezil HCl 10 MG DAILY 02/09 0900 AC 02/11 PO 1124 Insulin Aspart 0 TIDAC 02/09 1700 AC 02/10 SC 1731 Insulin Detemir 10 UNITS AT BEDTIME 02/11 2100 AC SC Insulin Detemir 15 UNITS DAILY 02/11 1100 AC 02/11 SC 1125 Insulin Detemir 15 UNITS BID 02/09 0231 DC 02/10 SC 2112 Levothyroxine Sodium 0.088 MG DAILY AC 02/09 0700 AC 02/11 PO 0541 Memantine 10 MG DAILY 02/09 0900 AC 02/11 PO 1124 Patient Medication 1 ED ONE ONE 02/11 1545 DC Teaching ED 02/11 1546 Rivaroxaban 20 MG 1700 02/09 1700 DC 02/10 PO 1734 Assessment/Plan Assessment: The patient is 77-year-old gentleman with past medical history of osteomyelitis of sacral bone, stage IV coccyx ulcer dementia and BPH chronic indwelling Foleys catheter, hypertension, diabetes mellitus, hypothyroidism, DVT on Xarelto. He was brought in from [facility] for evaluation of underlying infection. Differential included pneumonia versus UTI. Urine culture does not show any growth , he was being treated for HCAP gram-negative pneumonia with ceftazidime and azithromycin. We ordered a CT scan without contrast for better evaluation. Because patient was not having a white count and chest x-ray was suspicious for pneumonia versus atelectasis with patchy basilar opacities. -CT scan was positive for Mass in the right lower lobe measuring 4.6 cm. - Mottled destruction of the left posterior seventh rib related to metastatic disease. - Bulky metastases within the liver with largest lesion measuring on the order of 8.5 cm. The patient antibiotics have been discontinued after the CAT scan result. LFTs show elevated transaminases along with elevated alkaline phosphatase and total bilirubin and direct bilirubin are within normal limits. Attending reached out pt's today. She was very emotional about patient's diagnosis and wants the biopsy to be done inpatient.t Xarelto has to be held for 3 days. Anticoagulation has been discontinued and patient will be planned for IR guided liver biopsy on Wednesday. I have reached out to oncology services and palliative services. they want to wait up on biopsy results to decide future management. To address patient's hypoglycemic episodes were going to reduce the Levemir dose of night to 10 units and hold off night insulin coverage. Problem List: 1. Lung mass Pain Ratin Pain Location: prn Pain Goal: Pain 4 or less Pain Plan: n/a Tomorrow's Labs & Rationales: cbc bep [facility] 02/11/18 1125: Attending MD Review Statement Attending Statement Attending MD Statement: examined this patient, discuss w/resident/PA/RAILWAY SIGNAL OPERATOR, agreed w/resident/PA/RAILWAY SIGNAL OPERATOR, discussed with family, reviewed EMR data (avail), discussed with nursing, discussed with case mgmt, amended to note Attending Assessment/Plan: Patient seen and examined. Nursing staff reports that this morning glucose levels were less than 50. Level improved after eating breakfast. Nursing staff reports that he has been compliant with his meals. He has been eating about 75% of his meals. Patient is on his home insulin regimen. It is unclear why he became hypoglycemic this morning. I was finally able to reach his this morning. I did discuss with her the imaging findings and concern for malignancy. She became very emotional. She was very adamant about having diagnostic testing done. She however did state that she would likely not pursue any treatment if it does automatic glove turner and former to be malignancy. I did suggest that further testing in the form of biopsy could be done in the outpatient setting. Patient however became very emotionally again and wants the biopsy to be done while the patient is in the hospital. Patient remains lethargic. Nonverbal. Does not appear to be in acute distress. Problems: 1. Hepatic and pulmonary mass; likely malignant. 2. Dementia 3. Stage IV decubitus ulcer 4. History of DVT on anticoagulation with Xarelto. 5. Insulin-dependent diabetes mellitus with episode of hypoglycemia this morning. Plan: -Reduced dose of nighttime long-acting insulin to 10 units daily. No bedtime insulin coverage. -Monitor glucose levels over the next 24-48 hours ratio no repeat episodes of hypoglycemia and ensure that patient does not become significantly hypoglycemic with the adjustment of his insulin regimen. -Oncology consultation. -Hold Xarelto. Schedule patient for liver biopsy by the interventional radiology service. -Palliative care consultation.
[2018-02-11 14:00] VITALS: BP 100/72
[2018-02-11] MEDS ORDERED: LANTUS100 UNIT/1 SC (14:39)
--- NOTE | 2018-02-11 14:39 | Patient Discharge Instructions ---
Discharge Instructions General Discharge Information You were seen/treated for: Lung Mass Liver Mass Diabetes - Episodes of low sugar Special Instructions: -Please follow-up with your primary care doctor for biopsy results -Please follow-up with hematology services for further management -Please follow-up with palliative care -Please note that your insulin has been changed -Please check your blood sugar every 4 hours for low blood sugar Diet Recommended Diet: Diabetic Additional DIET Information: Nector Puree Activity Activity Self Limited: Yes Acute Coronary Syndrome Inclusion Criteria At DC or during hospital stay patient has or had the following: ACS DIAGNOSIS No Discharge Core Measures Meds if any: Prescribed or Continued at Discharge Meds if any: NOT Prescribed or Continued at Discharge Congestive Heart Failure Inclusion Criteria At DC or during hospital stay patient has or had the following: CHF DIAGNOSIS No Discharge Core Measures Meds if any: Prescribed or Continued at Discharge Meds if any: NOT Prescribed or Continued at Discharge Cerebrovascular accident Inclusion Criteria At DC or during hospital stay patient has or had the following: CVA/TIA Diagnosis No Discharge Core Measures Meds if any: Prescribed or Continued at Discharge Meds if any: NOT Prescribed or Continued at Discharge Venous thromboembolism Inclusion Criteria VTE Diagnosis No VTE Type NONE VTE Confirmed by (Test) NONE Discharge Core Measures - Per Current guidelines, there needs to be overlap - treatment for the first 5 days of Warfarin therapy. - If discharged on Warfarin prior to 5 days of - overlap therapy, the patient will need to be - assessed for post discharge needs including - *Post discharge parental anticoagulation - *Warfarin and/or parental anticoagulation education - *Follow up date to check INR post discharge At least 5 days overlap therapy as Inpatient No Meds if any: Prescribed or Continued at Discharge Note: Overlap Therapy is Warfarin and Anticoagulant Meds if any: NOT Prescribed or Continued at Discharge
--- NOTE | 2018-02-11 15:10 | Cons- Palliative Care ---
General Information and HPI Consulting Request Date of Consult: 02/11/18 Requested By: Vince WASSERMAN,Shubham Reason for Consult: care/transition planning Source old records, W10, housestaff Exam Limitations unable to give history History of Present Illness: 77M admitted from [facility] for evaluation of change in level of consciousness - now identified with mass on CT scan. Scan is suggestive of advanced metastatic disease based on bony destruction, hilar adenopathy, and presence of hepatic lesion. Histologic identification is pending. Review of patient's records indicates that he resides at [facility] - suffers from multiple medical problems in addition to advanced dementia. He is unable to offer any medical history. No advance directives or treatment limitations are in place at this time. Allergies/Medications Allergies: Coded Allergies: No Known Allergies (02/09/18) Home Med List: Atenolol 25 MG TABLET 1 TAB PO DAILY BP (Reported) Donepezil HCl (Aricept) 10 MG TABLET 1 TAB PO DAILY DEMENTIA (Reported) Insulin Glargine,Hum.rec.anlog (Lantus Solostar) 100 UNIT/ML (3 ML) INSULN.PEN 36 UNIT SC QPM DIABETES (Reported) Insulin-Lantus (Lantus) 100 UNIT/ML VIAL 0 SC SEE ADMIN CRITERIA DM TAKE 15 UNITS IN MORNING TAKE 10 UNITS AT BEDTIME Levothyroxine Sodium 88 MCG TABLET 1 TAB PO DAILY HYPOTHYROIDISM (Reported) Magnesium Oxide (Magnesium) 400 MG TABLET 1 TAB PO DAILY LOW ELECTROLYTES ( Reported) Melatonin 5 MG TABLET 1 TAB PO QPM SLEEP (Reported) Memantine HCl (Namenda) 10 MG TABLET 1 TAB PO DAILY DEMENTIA (Reported) Metformin HCl 1,000 MG TABLET 1 TAB PO BID DIABETES (Reported) Rivaroxaban (Xarelto) 20 MG TABLET 1 TAB PO QPM ? DVT (Reported) with food Current Medications: Current Medications Sig/Nu Start time Last Medication Dose Route Stop Time Status Admin Atenolol 25 MG DAILY 02/09 0900 AC 02/11 PO 1124 Donepezil HCl 10 MG DAILY 02/09 0900 AC 02/11 PO 1124 Insulin Aspart 0 TIDAC 02/09 1700 AC 02/10 SC 1731 Insulin Detemir 10 UNITS AT BEDTIME 02/11 2100 AC SC Insulin Detemir 15 UNITS DAILY 02/11 1100 AC 02/11 SC 1125 Insulin Detemir 15 UNITS BID 02/09 0231 DC 02/10 SC 2112 Levothyroxine Sodium 0.088 MG DAILY AC 02/09 0700 AC 02/11 PO 0541 Memantine 10 MG DAILY 02/09 0900 AC 02/11 PO 1124 Patient Medication 1 ED ONE ONE 02/10 1630 DC 02/10 Teaching ED 02/10 1631 1734 Rivaroxaban 20 MG 1700 02/09 1700 DC 02/10 PO 1734 Review of Systems Review of Systems: unable to provide ROS secondary to advanced dementia Past History Medical History Neurological: dementia Cardiovascular: hypertension Renal: benign prost hyperplasia Endocrine: diabetes, hypothyroidism Surgical History Surgical History: 1 Psychosocial History Where Do You Live? Extended Care Facility Smoking Status: Unknown If Ever Smoked ETOH Use: 6 Illicit Drug Use: UTD Karnofsky Performance Scale: 30 Living Will? unknown Power of Gradall Operator/HCP? yes Name of POA/HCP: spouse Other Social History: resides at [facility] Employment History Employment: Retired Exam & Diagnostic Data Last 24 Hrs of Vitals/I&Os: Vital Signs Date Time Temp Pulse Resp B/P B/P Pulse O2 O2 Flow FiO2 Mean Ox Delivery Rate 02/11 1400 97.9 63 18 100/72 93 Room Air 02/11 1124 84 132/60 02/11 0604 98.0 70 20 128/62 94 Room Air 02/10 2246 98.0 71 20 135/56 92 Intake & Output 02/11 1600 02/11 0800 02/11 0000 Intake Total 490 450 360 Output Total 400 240 350 Balance 90 210 10 Intake, IV 10 Intake, Oral 480 450 360 Number 4 Bowel Movements Output, Urine 400 240 350 Physical Exam General Appearance: no apparent distress, awake, comfortable, thin Head: atraumatic, normal appearance Eyes: Bilateral: normal appearance. Neck: normal inspection, supple, full range of motion Respiratory: normal breath sounds, lungs clear Cardiovascular: regular rate/rhythm Gastrointestinal: normal bowel sounds, soft, non-tender Extremities: normal inspection, no edema Neurologic/Psych: awake, alert, disoriented x 3, legs held in flexion + orobuccal dyskinesia Skin: intact Assessment/Plan Assessment [address] evidence of lung mass - likely representing metasatic neoplasm Patient's Condition: serious Prognosis: poor Is Patient Decisional? no Case Discussed With: house staff Other Recommendations: 1. At this time, it will be important to gather adequate information necessary to enable patient's decision-maker(s) to make informed descisions. 2. While biopsy may not be absolutely necessary to decision making, it can be of use in terms of guiding care. After this occurs, it will be helpful to identify the medically indicated interventions/options the team wishes to offer or recommend. There is no need to discuss interventions that are not medically indicated (eg. curative treatments). 3. By definition, cure of metastatic disease is not likely, hence aggressive treatment should be avoided as it offers no benefit to patient. 4. Once diagnosis has been confirmed, a hospice consultation may also be considered - hospice care can be provided to patient in facility 5. Goals of care and advance directives should be ascertained as soon as possible - performing resuscitation in the setting of terminal disease offers little benefit to the patient and may in fact lead to unnecessary suffering for patient and family. 6. The palliative care team will be available for a meeting if required. Consult Acknowledgment - Thank you for your consult request.
[2018-02-11 21:58] VITALS: BP 112/52
[2018-02-12 06:20] VITALS: BP 116/58
--- NOTE | 2018-02-12 08:09 | PN- Housestaff ---
Gamaliel WASSERMAN,Blanca 02/12/18 0808: Subjective Follow-up For: Lung mass suspected malignancy Hepatic metastasis Subjective: Seen and examined resting comfortably does not offer any complaints no more. Review of Systems Constitutional: Reports: see HPI. Objective Last 24 Hrs of Vital Signs/I&O Vital Signs Date Time Temp Pulse Resp B/P B/P Pulse O2 O2 Flow FiO2 Mean Ox Delivery Rate 02/12 1400 97.7 78 20 100/58 95 Room Air 02/12 0832 119/61 02/12 0800 93 Room Air 02/12 0620 97.9 73 16 116/58 94 Room Air 02/12 0000 Room Air 02/11 2158 98.3 72 18 112/52 96 Intake & Output 02/12 1600 02/12 0800 02/12 0000 Intake Total 450 600 Output Total 200 350 Balance 250 -350 600 Intake, Oral 450 600 Number 1 1 Bowel Movements Output, Urine 200 350 Patient 137 lb 137 lb Weight Weight Bed scale Measurement Method Physical Exam General Appearance: Alert, Oriented X3 Cardiovascular: Normal S1, Normal S2 Lungs: Clear to Auscultation Abdomen: Soft Current Medications: Current Medications Sig/Nu Start time Last Medication Dose Route Stop Time Status Admin Atenolol 25 MG DAILY 02/09 09 AC 02/12 PO 0832 Donepezil HCl 10 MG DAILY 02/09 0900 AC 02/12 PO 0833 Insulin Aspart 0 TIDAC 02/09 1700 AC 02/10 GA 1731 Insulin Detemir 10 UNITS AT BEDTIME 02/11 2100 AC 02/11 SC 2047 Insulin Detemir 15 UNITS DAILY 02/11 1100 AC 02/12 SC 0833 Levothyroxine Sodium 0.088 MG DAILY AC 02/09 0700 AC 02/12 PO 0638 Memantine 10 MG DAILY 02/09 0900 AC 02/12 PO 0833 Patient Medication 1 ED ONE ONE 02/11 1545 TN Teaching ED 02/11 1546 Last 24 Hrs of Lab/Andrés Results Last 24 Hrs of Labs/Mics: Laboratory Tests 02/12/18 0750: PT 12.1, INR 1.11 Assessment/Plan Assessment: The patient is 77-year-old gentleman with past medical history of osteomyelitis of sacral bone, stage IV coccyx ulcer dementia and BPH chronic indwelling Foleys catheter, hypertension, diabetes mellitus, hypothyroidism, DVT on Xarelto. He was brought in from [facility] for evaluation of underlying infection. Differential included pneumonia versus UTI. Urine culture does not show any growth , he was being treated for HCAP gram-negative pneumonia with ceftazidime and azithromycin. We ordered a CT scan without contrast for better evaluation. Because patient was not having a white count and chest x-ray was suspicious for pneumonia versus atelectasis with patchy basilar opacities. -CT scan was positive for Mass in the right lower lobe measuring 4.6 cm. - Mottled destruction of the left posterior seventh rib related to metastatic disease. - Bulky metastases within the liver with largest lesion measuring on the order of 8.5 cm. The patient antibiotics have been discontinued after the CAT scan result. LFTs show elevated transaminases along with elevated alkaline phosphatase and total bilirubin and direct bilirubin are within normal limits. Patient'S anticoagulation remains on hold for 3 days planning for IR guided liver biopsy on Wednesday I have reached out to oncology services and palliative services. they want to wait up on biopsy results to decide future management. To address patient's hypoglycemic episodes reduceD the Levemir dose of night to 10 units and hold off night insulin coverage. Patient's insulin in the morning was 89 Problem List: 1. Lung mass 2. Liver mass Pain Ratin Pain Location: N/A Pain Goal: Pain 4 or less Pain Plan: PRN Tomorrow's Labs & Rationales: NONE Carlitos Cortez MD 02/12/18 0939: Attending MD Review Statement Attending Statement Attending Statement: examined this patient, discuss w/resident/PA/MORGUE TECHNICIAN, agreed w/resident/PA/MORGUE TECHNICIAN, discussed with family, reviewed EMR data (avail), discussed with nursing, discussed with case mgmt, reviewed images, amended to note Attending Assessment/Plan: Carlitos Samuel M.D. have examined this patient, reviewed available EMR data, personally reviewed images, discussed with resident/PA/MORGUE TECHNICIAN, discussed management plan with housestaff and nursing staff, discussed managment plan all of healthcare providers, discussed management plan with patient and/or family, agreed with resident/PA/MORGUE TECHNICIAN. The past history and parts of the chart have been autopopulated. Impression 77 year old man * lung mass RLL 4.6cm with liver masses likely mets, and likely mets to bone ( 7th rib) * hypoglycemia resolved - likely secondary to liver process * dementia * stage IV decubitus ulcer * hx of DVT on xarelto * DM/insulin dependent Plan -IR guided bx of liver on Wednesday -xarelto held -monitor glucose, currently stable -palliative care consultation appreciated DVT prophylaxis at all times - ALPS
[2018-02-12 09:12] LABS: PT 12.1 SEC (9.4-12.5)
[2018-02-12 14:00] VITALS: BP 100/58
[2018-02-12 22:40] VITALS: BP 125/59
[2018-02-13 06:20] VITALS: BP 120/58
--- NOTE | 2018-02-13 08:13 | PN- Housestaff ---
Gamaliel WASSERMAN,Blanca 02/13/18 0813: Subjective Follow-up For: Lung mass Hepatic metastases Subjective: Seen and examined. Condition remains unchanged. Hemodynamically stable. Morning blood sugars are continuing to be running low, I'm going to adjust the night dose of Levemir and decrease it to 8 units. Closely follow the morning sugars Review of Systems Constitutional: Reports: see HPI. Objective Last 24 Hrs of Vital Signs/I&O Vital Signs Date Time Temp Pulse Resp B/P B/P Pulse O2 O2 Flow FiO2 Mean Ox Delivery Rate 02/13 0907 110/60 / 0620 98.2 65 20 120/58 95 Room Air 02/12 2240 98.2 69 20 125/59 97 Room Air 02/12 1400 97.7 78 20 100/58 95 Room Air Intake & Output 02/13 1600 02/13 0800 02/13 0000 Intake Total 600 Output Total 400 350 Balance -400 250 Intake, Oral 600 Number 1 Bowel Movements Output, Stool 0 Output, Urine 400 350 Patient 143 lb Weight Weight Bed scale Measurement Method Physical Exam General Appearance: Cooperative Cardiovascular: Normal S1, Normal S2 Lungs: Clear to Auscultation Abdomen: Soft Current Medications: Current Medications Sig/Nu Start time Last Medication Dose Route Stop Time Status Admin Atenolol 25 MG DAILY 02/09 0900 AC 02/13 PO 0907 Donepezil HCl 10 MG DAILY 02/09 09 AC 02/13 PO 0905 Insulin Aspart 0 TIDAC 02/09 1700 AC 02/12 SC 1658 Insulin Detemir 10 UNITS AT BEDTIME 02/11 2100 AC 02/12 SC 2155 Insulin Detemir 15 UNITS DAILY 02/11 1100 AC 02/13 SC 0917 Levothyroxine Sodium 0.088 MG DAILY AC 02/09 0700 AC 02/13 PO 0557 Memantine 10 MG DAILY 02/09 0900 AC 02/13 PO 0905 Assessment/Plan Assessment: The patient is 77-year-old gentleman with past medical history of osteomyelitis of sacral bone, stage IV coccyx ulcer dementia and BPH chronic indwelling Foleys catheter, hypertension, diabetes mellitus, hypothyroidism, DVT on Xarelto. He was brought in from [facility] for evaluation of underlying infection. Differential included pneumonia versus UTI. Urine culture does not show any growth , he was being treated for HCAP gram-negative pneumonia with ceftazidime and azithromycin. We ordered a CT scan without contrast for better evaluation. Because patient was not having a white count and chest x-ray was suspicious for pneumonia versus atelectasis with patchy basilar opacities. -CT scan was positive for Mass in the right lower lobe measuring 4.6 cm. - Mottled destruction of the left posterior seventh rib related to metastatic disease. - Bulky metastases within the liver with largest lesion measuring on the order of 8.5 cm. The patient antibiotics have been discontinued after the CAT scan result. LFTs show elevated transaminases along with elevated alkaline phosphatase and total bilirubin and direct bilirubin are within normal limits. Patient'S anticoagulation remains on hold for 3 days planning for IR guided liver biopsy on Wednesday I have reached out to oncology services and palliative services. they want to wait up on biopsy results to decide future management. He continues to have morning fingersticks with today being 80. I am going to further adjust patient's night Levemir to 8 units At present patient's CODE STATUS is full code as of care will be discussed after liver biopsy results/DVT prophylaxis achieved with the ALPSDaniella remains on her for biopsy/Puree Nector diet Problem List: 1. Lung mass 2. Liver mass Pain Ratin Pain Location: prn Pain Goal: Pain 4 or less Pain Plan: prn Tomorrow's Labs & Rationales: none Carlitos Cortez MD 02/13/18 0947: Attending MD Review Statement Attending Statement Attending Statement: examined this patient, discuss w/resident/PA/ROLLING MILL OPERATOR, agreed w/resident/PA/ROLLING MILL OPERATOR, discussed with family, reviewed EMR data (avail), discussed with nursing, discussed with case mgmt, reviewed images, amended to note Attending Assessment/Plan: Attending Assessment/Plan: Carlitos Samuel M.D. have examined this patient, reviewed available EMR data, personally reviewed images, discussed with resident/PA/ROLLING MILL OPERATOR, discussed management plan with housestaff and nursing staff, discussed managment plan all of healthcare providers, discussed management plan with patient and/or family, agreed with resident/PA/ROLLING MILL OPERATOR. The past history and parts of the chart have been autopopulated. Impression 77 year old man * lung mass RLL 4.6cm with liver masses likely mets, and likely mets to bone ( 7th rib) * hypoglycemia resolved - likely secondary to liver process * dementia * stage IV decubitus ulcer * hx of DVT on xarelto * DM/insulin dependent Plan -IR guided bx of liver on Wednesday -xarelto held -monitor glucose, currently stable -palliative care consultation appreciated DVT prophylaxis at all times - ALPS
[2018-02-13 15:07] VITALS: BP 112/60
[2018-02-13 22:10] VITALS: BP 116/53
[2018-02-14 06:20] VITALS: BP 114/58
--- NOTE | 2018-02-14 07:07 | PN- Housestaff ---
Gamaliel WASSERMAN,Blanca 02/14/18 0706: Subjective Follow-up For: Lung mass liver mass Subjective: Seen and examined. Not talking today. Going to IR for liver biopsy Review of Systems Constitutional: Reports: see HPI. Objective Last 24 Hrs of Vital Signs/I&O Vital Signs Date Time Temp Pulse Resp B/P B/P Pulse O2 O2 Flow FiO2 Mean Ox Delivery Rate 02/14 0855 63 114/58 02/14 0620 98.5 63 20 114/58 95 Room Air 02/13 2210 98.8 89 24 116/53 96 Room Air 02/13 1507 97.6 74 20 112/60 97 Intake & Output 02/14 1600 02/14 0800 02/14 0000 Intake Total 400 600 Output Total 300 350 Balance 400 -300 250 Intake, IV 400 Intake, Oral 600 Number 1 2 2 Bowel Movements Output, Urine 300 350 Physical Exam General Appearance: Alert, Oriented X3 Cardiovascular: Normal S1, Normal S2 Lungs: Clear to Auscultation, Normal Air Movement Abdomen: Normal Bowel Sounds, Soft Current Medications: Current Medications Sig/Nu Start time Last Medication Dose Route Stop Time Status Admin Atenolol 25 MG DAILY 02/09 0900 AC 02/14 PO 0855 Dextrose/Sodium 1,000 ML Q20H 02/14 0830 DC 02/14 Chloride IV 02/15 0429 0904 Donepezil HCl 10 MG DAILY 02/09 0900 AC 02/14 PO 0855 Fentanyl Citrate 0 .STK-MED ONE 02/14 1335 DC .ROUTE Insulin Aspart 0 TIDAC 02/09 1700 AC 02/13 TN 1625 Insulin Detemir 8 UNITS ONCE ONE 02/14 0830 DC 02/14 SC 02/14 0831 0855 Insulin Detemir 8 UNITS AT BEDTIME 02/13 2100 AC 02/13 TN 2026 Insulin Detemir 15 UNITS DAILY 02/11 1100 AC 02/13 SC 0917 Insulin Human Regular 0 Q6 02/14 0822 DC 02/14 TN 1148 Levothyroxine Sodium 0.088 MG DAILY AC 02/09 0700 AC 02/14 PO 0547 Memantine 10 MG DAILY 02/09 0900 AC 02/14 PO 0855 Midazolam HCl 0 .STK-MED ONE 02/14 1335 DC .ROUTE Assessment/Plan Assessment: The patient is 77-year-old gentleman with past medical history of osteomyelitis of sacral bone, stage IV coccyx ulcer dementia and BPH chronic indwelling Foleys catheter, hypertension, diabetes mellitus, hypothyroidism, DVT on Xarelto. He was brought in from [facility] for evaluation of infectious process, because when he was visited by family he appeared to be gasping for air. Vitals on admission stable. He was afebrile. He did not have any white count on admission labs however had few electrolyte abnormalities like hyponatremia and hyperkalemia. UA was dirty chest x-ray showed Hypoexpanded lungs with patchy basilar opacities which could represent atelectasis or developing pneumonia. Patient has dementia and sometimes his verbal and sometimes does not speak at all. So history taking was not possible. Our differentials included hospital- acquired pneumonia since he is coming from a facility and UTI in the presence of stability urine. Urine culture did not show any growth and he was started on a treatment for gram-negative pneumonia with ceftazidime and azithromycin. Patient remained afebrile without a white count, and we were not convinced that he has HCAP. Hence a CT scan without contrast was ordered which showed -Mass in the right lower lobe measuring 4.6 cm. -Mottled destruction of the left posterior seventh rib related to metastatic disease. -Bulky metastases within the liver with largest lesion measuring on the order of 8.5 cm. The patient antibiotics have been discontinued after the CAT scan result. LFTs show elevated transaminases along with elevated alkaline phosphatase and total bilirubin and direct bilirubin are within normal limits. Likely secondary to metastatic process. Dr. Clarke reached out to patient's insisted on getting inpatient biopsy. IR was contacted for IR guided liver biopsy and Xarelto was held for 3 days in anticipation of biopsy Patient has been having episodes of hypoglycemia in the morning hence his Levemir dose was adjusted from 15 units to 10 and later decreased to 8 units. The episodes of hypoglycemia most likely secondary to liver metastasis. I have reached out to oncology services and palliative services. They want to wait up on biopsy results to decide future management. * IR guided liver biopsy was done on 02/14 * Xarelto needs to be resumed from tomorrow 02/15. Of note pt has history of DVT and probably due to hypercoagulable state secondary to cancer and remains high risk for PE/DVT * we will djust patient's night dose of Levemir as per morning readings * Patient will require outpatient hematology/oncology follow-up for further management * Pending biopsy results there should be goals of discussion and follow-up with palliative services * Patient is being maintained on Puree Nector diet after swallow evaluation * FC at present, Code status needs to be addressed pending biopsy results Problem List: 1. UTI (urinary tract infection) Pain Ratin Pain Location: n/a Pain Goal: Pain 4 or less Pain Plan: prn Tomorrow's Labs & Rationales: cbc after biopsy Shubham Clarke MD 02/14/18 1317: Attending MD Review Statement Attending Statement Attending MD Statement: examined this patient, discuss w/resident/PA/ESE TEACHER, agreed w/resident/PA/ESE TEACHER, reviewed EMR data (avail), discussed with nursing, discussed with case mgmt, amended to note Attending Assessment/Plan: Patient seen and examined. No issues overnight reported by nursing staff. Remains nonverbal. On examination is not in any acute distress. He has remained afebrile hemodynamically stable altered his admission. He has no clinical evidence of urinary tract infection. Urine cultures grew multiple colony-forming units suggesting contamination. Plan: -Patient is scheduled to undergo liver biopsy today. -Postprocedure pain management with Tylenol as needed for pain. -Anticipate discharge back to his custodial facility tomorrow. -Check hemoglobin level in a.m. -If patient remains clinically stable overnight with no bleeding and hemoglobin level is stable, may resume anticoagulation therapy tomorrow. - wishes to pursue hospice care once the patient returns to the custodial facility. I would recommend following up with on-call service for results of the biopsy and any treatment options if indicated.
--- NOTE | 2018-02-14 07:07 | Transfer of Care Summary ---
Hospital Course Course Hospital Course: The patient is 77-year-old gentleman with past medical history of osteomyelitis of sacral bone, stage IV coccyx ulcer dementia and BPH chronic indwelling Foleys catheter, hypertension, diabetes mellitus, hypothyroidism, DVT on Xarelto. He was brought in from [facility] for evaluation of infectious process, because when he was visited by family he appeared to be gasping for air. Vitals on admission stable. He was afebrile. He did not have any white count on admission labs however had few electrolyte abnormalities like hyponatremia and hyperkalemia. UA was dirty chest x-ray showed Hypoexpanded lungs with patchy basilar opacities which could represent atelectasis or developing pneumonia. Patient has dementia and sometimes his verbal and sometimes does not speak at all. So history taking was not possible. Our differentials included hospital- acquired pneumonia since he is coming from a facility and UTI in the presence of dirty urine. Urine culture did not show any growth and he was started on a treatment for gram-negative pneumonia with ceftazidime and azithromycin. Patient remained afebrile without a white count, and we were not convinced that he has HCAP. Hence a CT scan without contrast was ordered which showed -Mass in the right lower lobe measuring 4.6 cm. -Mottled destruction of the left posterior seventh rib related to metastatic disease. -Bulky metastases within the liver with largest lesion measuring on the order of 8.5 cm. The patient antibiotics have been discontinued after the CAT scan result. LFTs show elevated transaminases along with elevated alkaline phosphatase and total bilirubin and direct bilirubin are within normal limits. Likely secondary to metastatic process. Dr. Clarke reached out to patient's insisted on getting inpatient biopsy. IR was contacted for IR guided liver biopsy and Xarelto was held for 3 days in anticipation of biopsy Patient has been having episodes of hypoglycemia in the morning hence his night Levemir dose is being adjusted 9 units at present . The episodes of hypoglycemia most likely secondary to liver metastasis. I have reached out to oncology services and palliative services. They want to wait up on biopsy results to decide future management. * IR guided liver biopsy was done on 02/14 * Xarelto needs to be resumed from tomorrow 02/15. Of note pt has history of DVT probably due to hypercoagulable state secondary to cancer and remains high risk for PE/DVT * Please adjust patient's night dose of Levemir as per morning readings tomorrow at present 9 units and adjust on CMR as well * Please follow up on H/H after biopsy in am * Patient will require outpatient hematology/oncology follow-up for further management * Pending biopsy results there should be goals of discussion and follow-up with palliative services * Patient is being maintained on Puree Nector diet after swallow evaluation * FC at present, Code status needs to be addressed pending biopsy results * Patient has a chronic indwelling Cameron's catheter and which was changed in ED and he will be discharged with it Assessment/Plan: see above
[2018-02-14] MEDS ORDERED: LANTUS SOL100 UNIT/1 SC (14:47)
[2018-02-14] MEDS ORDERED: LANTUS100 UNIT/1 SC ×2 (14:50→14:52)
[2018-02-14 16:00] VITALS: BP 145/64
--- NOTE | 2018-02-14 16:23 | ULTRASOUND REPORT ---
EXAMINATION: Ultrasound-guided liver biopsy CLINICAL INFORMATION: 77-year-old male with lung and hepatic lesions. COMPARISON: Chest CT 02/09/2018 INTERVENTIONAL RADIOLOGIST: Dimitris Milan M.D. MEDICATION: -1% lidocaine was used for local anesthetic. TECHNIQUE/FINDINGS: Informed consent was obtained from the patient's prior to the procedure. During this process, the procedure and potential alternatives were explained, along with the intended outcome and benefits. The risks of the procedure, as well as the risk of not doing the procedure, were discussed. The patient's was given the opportunity to ask questions regarding the procedure. A consent form which documents this discussion was placed in the medical record. A time out procedure was performed. Sonographic evaluation of the liver demonstrates a suitable percutaneous window for biopsy of a lesion within the inferior right hepatic lobe. The skin of the right upper quadrant was sterilely prepped and draped. 1% lidocaine was administered for local anesthesia. Under continuous sonographic guidance, a 17-gauge guiding needle was advanced into the hepatic parenchyma. Two 18-gauge cores were sequentially obtained and sent to pathology. The needle stayed within the liver parenchyma throughout the entire procedure. Gelfoam was injected into the needle as it was withdrawn. Pressure was held until hemostasis was achieved. A sterile dressing was placed. The patient tolerated the procedure well without evidence of immediate complication. The patient was then monitored post procedure and discharged back to the floor in stable condition with written instructions. IMPRESSION: Successful ultrasound-guided liver biopsy. Pathology pending.
[2018-02-14 22:38] VITALS: BP 135/50
[2018-02-15 05:55] VITALS: BP 148/56
--- NOTE | 2018-02-15 07:14 | PN- Housestaff ---
Ady WASSERMAN,Cornell 02/15/18 0714: Subjective Follow-up For: Lung mass Liver mass s/p biopsy H/O DVT on Xarelto DM- labile sugars Subjective: Patient was seen and examined today. Patient answering in one word. Reports no pain. Denies pain at site of biospy. Denies fever, chills, sweats, chest pain, SOB, abdominal pain, n/v. No acute events overnight. Review of Systems Constitutional: Reports: see HPI. Objective Last 24 Hrs of Vital Signs/I&O Vital Signs Date Time Temp Pulse Resp B/P B/P Pulse O2 O2 Flow FiO2 Mean Ox Delivery Rate 02/15 0555 97.4 72 22 148/56 95 Room Air / 2238 97.9 88 20 135/50 95 /04 1600 98.0 62 18 145/64 95 Room Air / 0855 63 114/58 Intake & Output 02/15 0800 02/15 0000 02/14 1600 Intake Total 130 600 400 Output Total 400 700 350 Balance -270 -100 50 Intake, IV 10 400 Intake, Oral 120 600 Number 1 2 2 Bowel Movements Output, Urine 400 700 350 Physical Exam General Appearance: Alert, Cooperative, No Acute Distress, resting comfortably in bed, one word answers Skin Temp/Moisture Exam: Warm/Dry HEENT: Atraumatic, Mucous Membr. moist/pink Cardiovascular: Regular Rate, Normal S1, Normal S2 Lungs: Clear to Auscultation, Normal Air Movement Abdomen: Normal Bowel Sounds, Soft, No Tenderness, dressing in place at site of biopsy on RUQ, no tenderness or erythema aroud the area Extremities: No Clubbing, No Cyanosis, No Edema, Normal Pulses, No Tenderness/ Swelling Current Medications: Current Medications Sig/Nu Start time Last Medication Dose Route Stop Time Status Admin Atenolol 25 MG DAILY 02/09 0900 AC 02/14 PO 0855 Dextrose 25 GM ONCE ONE 02/14 1730 DC 02/14 IV 02/14 1731 1731 Dextrose/Sodium 1,000 ML Q20H 02/14 0830 DC 02/14 Chloride IV 02/15 0429 0904 Donepezil HCl 10 MG DAILY 02/09 0900 AC 02/14 PO 0855 Fentanyl Citrate 0 .STK-MED ONE 02/14 1335 DC .ROUTE Gelatin 1 UNIT .STK-MED ONE 02/14 1619 DC TOP 02/14 1620 Insulin Aspart 0 TIDAC 02/09 1700 AC 02/13 WA 1625 Insulin Detemir 4 UNITS ONCE ONE 02/14 2200 DC 02/14 SC 02/14 220 2209 Insulin Detemir 9 UNITS AT BEDTIME 02/14 2100 AC SC Insulin Detemir 8 UNITS ONCE ONE 02/14 0830 DC 02/14 SC 02/14 0831 0855 Insulin Detemir 8 UNITS AT BEDTIME 02/13 2100 DC 02/13 WA 2026 Insulin Detemir 15 UNITS DAILY 02/11 1100 AC 02/13 SC 0917 Insulin Human Regular 0 Q6 02/14 0822 DC 02/14 SC 1148 Levothyroxine Sodium 0.088 MG DAILY AC 02/09 0700 AC 02/15 PO 0557 Lidocaine 1 ML .STK-MED ONE 02/14 1619 DC ID 02/14 1620 Memantine 10 MG DAILY 02/09 0900 AC 02/14 PO 0855 Midazolam HCl 0 .STK-MED ONE 02/14 1335 DC .ROUTE Rivaroxaban 20 MG DAILY 02/15 0900 AC PO Last 24 Hrs of Lab/Andrés Results Last 24 Hrs of Labs/Mics: Laboratory Tests 02/15/18 0635: CBC w Diff Pending, WBC Pending, RBC Pending, Hgb Pending, Hct Pending, MCV Pending, MCH Pending, MCHC Pending, RDW Pending, Plt Count Pending, MPV Pending Assessment/Plan Assessment: Patient is a 77 y/o male with PMH of osteomyelitis of sacral bone, sacral decubitus ulcer - stage IV at the area of the coccyx, dementia, HTN, DM, Hypothyroidism, DVT on Xarelto presenting this admission from [facility] due to concern for infection after appearing to be gasping for air. Patient was worked up for infection and initial concern for pneumonia with Xray showing hypoexpanded lungs with patchy basilar opacities leading to further work up with Chest CT which revealed a RLL lung mass, mottled destruction of the 7th posterior rib and liver mets with a large liver mass of approximately 8.5 cm. Patient has dementia and at baseline is minimally verbal. Patient's makes his healthcare decisions and requested patient undergo biopsy for further evaluation. Patient had a liver biopsy performed by IR on 02/14 after his xarelto was held for 72 hours. H/H is stable. Patient's xarelto was continued today. Work up for an infectious process which included HCAP and UTI was done. Patient was initially covered with Ceftaz and Azithromycin for 1 day. Patient remained afebrile with no leukocytosis, improvement in his breathing and Chest CT showing no evidence of pneumonia. While the u/a was +leukocyte esterase and 15-25 WBC, there was no growth in urine culture and antibiotics were not continued. Patient's sugars throughout the admission were labile. Patient had multiple episodes of BG of 50s. Patient's insulin regimen was adjusted. Patient will be discharged levemir 9 units qhs and 15 units qam and novolog SS. Patient is to be have his sugars checked every 4 hours for closer monitoring. Problems: 1. Presumed lung cancer with metastatic disease to liver and bone, biopsy results of liver mass pending 2. Hyponatremia - resolved 3. Hyperkalemia - resolved 4. H/O DM - with labile sugars 5. H/O DVT on Xarelto, HTN, Dementia - minimally verbal, bedbound with brando lift Plan: [facility] Palliative care consulted Follow up biopsy results with oncology and primary care physician Will discharge on adjusted levemir - 9units qHS and 15 units AM Will resume Xarelto today Continue home meds Patient will be discharge to [facility] today Patient is to follow up with palliative care pending biopsy results. DVT PPx: Xarelto Diet: Diabetic Code: Full code - discussion of hospice was started with - however she would like to consider this after discharge and once biospy results are obtained. Problem List: 1. Lung mass 2. Liver mass Pain Ratin Pain Location: n/a Pain Goal: Remain pain free Pain Plan: n/a Tomorrow's Labs & Rationales: none - dc to [facility] today Shubham Clarke MD 02/15/18 1438: Attending MD Review Statement Attending Statement Attending MD Statement: examined this patient, discuss w/resident/PA/SUBSTATION OPERATOR CONVERSION, agreed w/resident/PA/SUBSTATION OPERATOR CONVERSION, reviewed EMR data (avail), discussed with nursing, discussed with case mgmt, amended to note Attending Assessment/Plan: Patient seen and examined. Liver biopsy was successfully done yesterday. Patient tolerated procedure well. No complaints of pain this morning. Hemoglobin level is stable. Examination of the site shows no evidence of bleeding or erythema that would suggest infection. Is medically stable to be returned back to residential facility. We are recommending that patient follow up with the oncology service as an outpatient for results of the biopsy and discussion regarding treatment options if indicated. is looking to proceed with hospice care at the residential facility. Patient was hypoglycemic last evening. He was hypoglycemic earlier on during this hospitalization. His insulin regimen was adjusted at that time. His hypoglycemia yesterday may have been related to his n.p.o. status for the biopsy. Recommend continuing him on the adjusted insulin regimen with close monitoring of his glucose levels at the residential facility.
[2018-02-15 08:29] LABS: ABSOLUTE BASOPHIL COUNT 0 /CUMM (0.0-0.2); ABSOLUTE EOSINOPHIL COUNT 0.1 /CUMM (0.0-0.7); ABSOLUTE GRANULOCYTE CT 6.5 /CUMM (1.4-6.5); ABSOLUTE LYMPH COUNT 1.2 /CUMM (1.2-3.4); ABSOLUTE MONOCYTE COUNT 0.7 /CUMM (0.10-0.60); BASOPHIL % 0.3 % (0.0-2.0); EOSINOPHIL % 1.2 % (0-5); GRANULOCYTE % 76.8 % (42.2-75.2); HEMATOCRIT 30.9 % (42-52); MEAN CORPUSCULAR HGB 29.8 PG (27.0-31.0); MEAN CORPUSCULAR HGB CONC 33.9 G/DL (33.0-37.0); MEAN CORPUSCULAR VOLUME 88.1 FL (80.0-94.0); MEAN PLATELET VOLUME 9.4 FL (7.4-10.4); PLATELET COUNT 207 /CUMM (130-400); RBC DISTRIBUTION WIDTH 14.7 % (11.5-14.5); RED BLOOD CELL CT 3.51 /CUMM (4.70-6.10); WHITE BLOOD CELL COUNT 8.5 /CUMM (4.8-10.8)
[2018-02-15 13:00] VITALS: BP 148/56
== END 2018-02-15 13:00 | DRG 435 ==
LOC: ERH 20:47 → ERHI 02-09 00:21 → 2NA 02-09 00:21 → ENRESERV 02-09 02:17 → 2NA 02-09 02:58 → ENPENDDIS 02-15 12:17 → 2NA 02-15 13:00
PROVIDERS: Internal Medicine; Internal Medicine Endocrinology, Diabetes & Metabolism; Physician Assistant
PROC: 0FB03ZX Excision of Liver, Percutaneous Approach, Diagnostic (ICD-10-PCS; principal; 2018-02-14)
DX: C78.7 Secondary malignant neoplasm of liver and intrahepatic bile duct (principal); L89.154 Pressure ulcer of sacral region, stage 4; E87.1 Hypo-osmolality and hyponatremia; C79.51 Secondary malignant neoplasm of bone; E11.649 Type 2 diabetes mellitus with hypoglycemia without coma; R31.9 Hematuria, unspecified; E87.5 Hyperkalemia; G30.9 Alzheimer's disease, unspecified; N40.1 Benign prostatic hyperplasia with lower urinary tract symptoms; E03.9 Hypothyroidism, unspecified; Z79.01 Long term (current) use of anticoagulants; Z79.84 Long term (current) use of oral hypoglycemic drugs; Z79.4 Long term (current) use of insulin; Z86.718 Personal history of other venous thrombosis and embolism; Z74.01 Bed confinement status
CPT/HCPCS: 2NASP; 36415; 36592; 71045; 81001; 82436; 87040; 87086; 87449; 87450; 88307; 93005; 93010; 96365; 96375; J0456; J0713; J1815; J2001; J3370; J3490; J7040; J7042

== ENCOUNTER 2018-03-28 23:38 | Inpatient (IN) | payer OTHER ==
[~2018-03-28] VITALS: Ht 165.1 cm; Wt 69.2 kg
[~2018-03-28 23:38] MED LIST: ARICEPT10 M1 PO; ATENOLOL25 M1 PO; LANTUS SOL100 UNIT/1 SC; LANTUS100 UNIT/1 SC; LEVOTHYROXINE88 MCG PO; MAGNESIUM400 MG PO; MELATONIN5 M7 PO; METFORMIN HCL1000 M1 PO; NAMENDA10 M2 PO; XARELTO20 M2 PO
--- NOTE | 2018-03-28 23:54 | ED GENERAL ADULT ---
History of Present Illness General Chief Complaint: General Adult Stated Complaint: BIBA ECF 'LETHARGIC, TEMP, COUGH' Source: old records, EMS, [facility] Exam Limitations: dementia Vital Signs & Intake/Output Vital Signs & Intake/Output Vital Signs Date Time Temp Pulse Resp B/P B/P Pulse O2 O2 Flow FiO2 Mean Ox Delivery Rate 03/298 98.1 03/29 0211 98.1 85 18 101/65 95 Room Air 03/29 0106 98.6 03/29 0047 98.6 03/28 2342 100.7 102 18 112/55 98 Nasal 2.0L Cannula Allergies Coded Allergies: No Known Allergies (02/09/18) Reconcile Medications Atenolol 25 MG TABLET 1 TAB PO DAILY BP (Reported) Donepezil HCl (Aricept) 10 MG TABLET 1 TAB PO DAILY DEMENTIA (Reported) Insulin-Lantus (Lantus) 100 UNIT/ML VIAL 0 SC SEE ADMIN CRITERIA DM TAKE 15 UNITS IN MORNING TAKE 9 UNITS AT BEDTIME Levothyroxine Sodium 88 MCG TABLET 1 TAB PO DAILY HYPOTHYROIDISM (Reported) Magnesium Oxide (Magnesium) 400 MG TABLET 1 TAB PO DAILY LOW ELECTROLYTES ( Reported) Melatonin 5 MG TABLET 1 TAB PO QPM SLEEP (Reported) Memantine HCl (Namenda) 10 MG TABLET 1 TAB PO DAILY DEMENTIA (Reported) Metformin HCl 1,000 MG TABLET 1 TAB PO BID DIABETES (Reported) Rivaroxaban (Xarelto) 20 MG TABLET 1 TAB PO QPM ? DVT (Reported) with food Triage Nurses Notes Reviewed? yes HPI: Patient sent in from his nursing facility for a low-grade temp and fatigue. Patient has dementia and is unable to provide any history. Past History Travel History Traveled to [place] past 21 day No Medical History Any Pertinent Medical History? 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 No Review of Systems Review of Systems Constitutional: Reports: see HPI. Physical Exam Physical Exam General Appearance: well developed/nourished, awake Head: atraumatic Eyes: Bilateral: PERRL, EOMI. Ears, Nose, Throat: normal pharynx, normal ENT inspection Neck: normal inspection, supple Respiratory: normal breath sounds, chest non-tender, no respiratory distress, lungs clear Cardiovascular: regular rate/rhythm, normal peripheral pulses Gastrointestinal: normal bowel sounds, soft, non-tender Back: normal inspection Extremities: normal inspection, normal capillary refill, normal range of motion, no edema Neurologic/Psych: awake Skin: intact, normal color, warm/dry Core Measures ACS in differential dx? No CVA/TIA Diagnosis: No Sepsis Present: No Sepsis Focused Exam Completed? No Progress Differential Diagnoses I considered the following diagnoses in my evaluation of the patient: [PNEUMONIA , UTI, ELECTROLYTE ABNORMALITY] Plan of Care: Orders Procedure Date/time Status LACTIC ACID 03/29 0312 Active Add-on Test (ER Only) 03/29 0150 Active CULTURE,URINE 03/29 0100 Active BLOOD CULTURE 03/29 0012 Active LACTIC ACID 03/29 0012 Complete URINALYSIS 03/28 2351 Complete TROPONIN LEVEL 03/28 2351 Complete COMPREHENSIVE METABOLIC PANEL 03/28 2351 Complete CBC WITHOUT DIFFERENTIAL 03/28 2351 Complete EKG 03/28 2351 Active Current Medications Sig/Nu Start time Last Medication Dose Stop Time Status Admin Sodium Chloride 1,000 ML BOLUS ONE 03/29 0345 UNVr (Normal Saline 0.9%) 03/29 0444 Laboratory Tests 03/29/18 0328: Lactic Acid Pending 03/29/18 0100: Urinalysis HEAVY H, Urine Color YEL, Urine Clarity CLDY H, Urine pH 8.5 H, Ur Specific [place] 1.020, Urine Protein 100 H, Urine Ketones TRACE H, Urine Nitrite NEG, Urine Bilirubin NEG, Urine Urobilinogen 1.0, Ur Leukocyte Esterase LARGE H, Ur Microscopic SEDIMENT EXAMINED, Urine RBC 5-10 H, Urine WBC 5-10 H , Urine Bacteria MANY H, Urine Mucus FEW, Urine Hemoglobin MOD H, Urine Glucose NEG 03/29/18 0013: Lactic Acid 5.2 H 03/29/18 0013: Anion Gap 13, Estimated GFR > 60, BUN/Creatinine Ratio 40.9 H, Glucose 307 H, Calcium 8.7, Total Bilirubin 0.5, AST 254 H, ALT 122 H, Alkaline Phosphatase 399 H, Troponin I < 0.01, Total Protein 6.0 L, Albumin 2.8 L, Globulin 3.2, Albumin/Globulin Ratio 0.9 L, CBC w Diff MAN DIFF ORDERED, RBC 3.00 L, MCV 83.3, MCH 27.9, MCHC 33.4, RDW 15.5 H, MPV 9.5, Gran % 84.7 H, Lymphocytes % 6.5 L, Monocytes % 8.7, Eosinophils % 0, Basophils % 0.1, Absolute Granulocytes 10.0 H, Segmented Neutrophils 76 H, Band Neutrophils 12 H, Absolute Lymphocytes 0.8 L, Lymphocytes 6 L, Monocytes 6, Absolute Monocytes 1.0 H, Absolute Eosinophils 0, Absolute Basophils 0, Platelet Estimate ADEQUATE, Basophilic Stippling 1+ Microbiology 03/29 0100 URINE ROUT: Urine Culture - RECD 03/29 0055 BLOOD: Blood Culture - RECD 03/29 0013 BLOOD: Blood Culture - RECD Diagnostic Imaging: Viewed by Me: Radiology Read. Discussed w/RAD: Radiology Read. Radiology Impression: PATIENT: JUANA LEON PRESENT AGE: 77 PATIENT ACCOUNT NO: [id number] : 42 LOCATION: [facility] ORDERING PHYSICIAN: Perry Talavera MD SERVICE DATE: 03/29/18 EXAM TYPE: CAT - CT ABD & PELVIS W IV CONTRAST EXAMINATION: CT ABDOMEN AND PELVIS WITH CONTRAST CLINICAL INFORMATION: Elevated LFTs, fever COMPARISON: Chest CT without contrast TECHNIQUE: Multidetector volumetric imaging was performed of the abdomen and pelvis following IV administration of 95 mL of Optiray 320 intravenous contrast. Sagittal and coronal reformatted images were obtained on the technologist's workstation. DLP: 502.83 mGy-cm FINDINGS: LUNG BASES: There is partial visualization of a masslike density in the right lower lobe measuring approximately 4.9 x 3.4 cm. Right hilar/peribronchial adenopathy is suspected. Overall appearance is similar to chest CT of 02/09/2018. LIVER, GALLBLADDER, AND BILIARY TREE: Several hepatic masses are again identified, the largest of which lies in the region of the margie hepatis and measures approximately 9.7 cm in diameter. Most of the remaining lesions are present in the inferior right lobe. Abnormal appearance of the right and left portal veins with regions of hypoattenuation is suspicious for partial mass extension into the vasculature without complete occlusion. No biliary ductal dilatation is present. The gallbladder is contracted and not adequately evaluated. PANCREAS: Unremarkable. SPLEEN: Unremarkable. ADRENAL GLANDS: Unremarkable. KIDNEYS AND URETERS: No hydronephrosis or obstructing calculus bilaterally. There are several scattered right renal calculi measuring up to approximately 6 mm in size. BLADDER: Collapsed with a Cameron catheter in place. Diffuse mural prominence. A calcification is present along the left aspect of the Cameron catheter balloon measuring 5 mm in diameter. GASTROINTESTINAL TRACT: The small and large bowel are unremarkable. The appendix is unremarkable. ABDOMINAL WALL: No significant hernia is appreciated. LYMPH NODES: Normal. VASCULAR: There is atherosclerotic calcification along the aorta and iliac arteries. PELVIC VISCERA : Unremarkable. OSSEOUS STRUCTURES: There is partial visualization of a posterolateral left seventh rib fracture. Degenerative changes are noted in the spine. IMPRESSION: 1. Several hepatic masses, largest in the region of the margie hepatis measuring approximately 9.7 cm in diameter. Appearance is suspicious for metastatic disease and similar to noncontrast CT of 02/09/2018. Suspect tumor extension into portions of the right and left portal veins with partial thrombosis. 2. Collapsed gallbladder, not adequately evaluated. 3. Partial visualization of right lower lobe pulmonary mass and suspected right hilar/peribronchial adenopathy. Overall appearance is similar to chest CT of . 4. Partial visualization of posterolateral left seventh rib fracture. 5. Collapsed urinary bladder with Cameron catheter in place. A 5 mm calcification is present adjacent to the catheter balloon, favoring a bladder calculus. DICTATED BY: Ruiz Rodrigues MD DATE/TIME DICTATED:03/29/18305 COTTON AGENT:SERGIO DATE/TIME TRANSCRIBED:03/29/18305 CONFIDENTIAL, DO NOT COPY WITHOUT APPROPRIATE AUTHORIZATION. <Electronically signed in Other Vendor System> SIGNED BY: Ruiz Rodrigues MD 03/29/18 0321 CXR Impression: PATIENT: JUANA LEON PRESENT AGE: 77 PATIENT ACCOUNT NO: [id number] : 42 LOCATION: [facility] ORDERING PHYSICIAN: Perry Talavera MD SERVICE DATE: 03/28/184384 EXAM TYPE: RAD - XRY-PORTABLE CHEST XRAY EXAMINATION: XR PORTABLE CHEST CLINICAL INFORMATION: Weakness COMPARISON: 02/09/2018 TECHNIQUE: Portable frontal view of the chest was obtained. FINDINGS: The lungs are hypoinflated. Previously identified right lower lobe mass is not well visualized radiographically. Prominence of the right infrahilar region may reflect adenopathy. No appreciable pneumothorax, though the right lung apex is not fully included in the [id number]. No significant pleural effusion or overt pulmonary edema. The cardiomediastinal contour is unremarkable. Sternal wires are present. No acute osseous findings are seen. IMPRESSION: No acute consolidation identified. Previously identified right lower lobe mass is not adequately visualized radiographically; right infrahilar prominence may reflect adenopathy. DICTATED BY: Ruiz Rodrigues MD DATE/TIME DICTATED:03/29/1829 COTTON AGENT:SERGIO DATE/TIME TRANSCRIBED:29 CONFIDENTIAL, DO NOT COPY WITHOUT APPROPRIATE AUTHORIZATION. < Electronically signed in Other Vendor System> SIGNED BY: Ruiz Rodrigues MD 03/29/1835 Initial ED EKG: s tach at 104, nsstt changes, no change from prior Prior EKG: unchanged Comments: CALLED: SHE NOTICED AN ACUTE CHANGE IN HIS MENTATION TODAY. Departure Departure Disposition: STILL A PATIENT Condition: Stable Clinical Impression Primary Impression: Lactic acidosis Secondary Impressions: Elevated LFTs, Fever Referrals: Ryley WASSERMAN,Shannon Alcocer (PCP/Family) Departure Forms: Customer Survey General Discharge Information Admission Note Spoke With: Shubham Clarke MD Documentation of Exam: Documentation of any treatments & extenuating circumstances including Concerns Regarding Discharge (functional status, medication knowledge or non-compliance, living conditions, etc.) that warrant an admission rather than observation: [ Patient has an elevated lactic acid as well as an elevated white count in the setting of a low-grade fever. 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
--- NOTE | 2018-03-29 00:36 | RADIOLOGY REPORT ---
EXAMINATION: XR PORTABLE CHEST CLINICAL INFORMATION: Weakness COMPARISON: 02/09/2018 TECHNIQUE: Portable frontal view of the chest was obtained. FINDINGS: The lungs are hypoinflated. Previously identified right lower lobe mass is not well visualized radiographically. Prominence of the right infrahilar region may reflect adenopathy. No appreciable pneumothorax, though the right lung apex is not fully included in the [id number]. No significant pleural effusion or overt pulmonary edema. The cardiomediastinal contour is unremarkable. Sternal wires are present. No acute osseous findings are seen. IMPRESSION: No acute consolidation identified. Previously identified right lower lobe mass is not adequately visualized radiographically; right infrahilar prominence may reflect adenopathy.
[2018-03-29 01:16] LABS: ABSOLUTE BASOPHIL COUNT 0 /CUMM (0.0-0.2); ABSOLUTE EOSINOPHIL COUNT 0 /CUMM (0.0-0.7); ABSOLUTE LYMPH COUNT 0.8 /CUMM (1.2-3.4); BASOPHIL % 0.1 % (0.0-2.0); EOSINOPHIL % 0 % (0-5); GRANULOCYTE % 84.7 % (42.2-75.2); MEAN CORPUSCULAR HGB 27.9 PG (27.0-31.0); MEAN CORPUSCULAR HGB CONC 33.4 G/DL (33.0-37.0); MEAN CORPUSCULAR VOLUME 83.3 FL (80.0-94.0); MEAN PLATELET VOLUME 9.5 FL (7.4-10.4); PLATELET COUNT 163 /CUMM (130-400); RBC DISTRIBUTION WIDTH 15.5 % (11.5-14.5); WHITE BLOOD CELL COUNT 11.8 /CUMM (4.8-10.8)
--- NOTE | 2018-03-29 03:21 | CT SCAN REPORT ---
EXAMINATION: CT ABDOMEN AND PELVIS WITH CONTRAST CLINICAL INFORMATION: Elevated LFTs, fever COMPARISON: Chest CT 02/09/2018 without contrast TECHNIQUE: Multidetector volumetric imaging was performed of the abdomen and pelvis following IV administration of 95 mL of Optiray 320 intravenous contrast. Sagittal and coronal reformatted images were obtained on the technologist's workstation. DLP: 502.83 mGy-cm FINDINGS: LUNG BASES: There is partial visualization of a masslike density in the right lower lobe measuring approximately 4.9 x 3.4 cm. Right hilar/peribronchial adenopathy is suspected. Overall appearance is similar to chest CT of 02/09/2018. LIVER, GALLBLADDER, AND BILIARY TREE: Several hepatic masses are again identified, the largest of which lies in the region of the margie hepatis and measures approximately 9.7 cm in diameter. Most of the remaining lesions are present in the inferior right lobe. Abnormal appearance of the right and left portal veins with regions of hypoattenuation is suspicious for partial mass extension into the vasculature without complete occlusion. No biliary ductal dilatation is present. The gallbladder is contracted and not adequately evaluated. PANCREAS: Unremarkable. SPLEEN: Unremarkable. ADRENAL GLANDS: Unremarkable. KIDNEYS AND URETERS: No hydronephrosis or obstructing calculus bilaterally. There are several scattered right renal calculi measuring up to approximately 6 mm in size. BLADDER: Collapsed with a Cameron catheter in place. Diffuse mural prominence. A calcification is present along the left aspect of the Cameron catheter balloon measuring 5 mm in diameter. GASTROINTESTINAL TRACT: The small and large bowel are unremarkable. The appendix is unremarkable. ABDOMINAL WALL: No significant hernia is appreciated. LYMPH NODES: Normal. VASCULAR: There is atherosclerotic calcification along the aorta and iliac arteries. PELVIC VISCERA: Unremarkable. OSSEOUS STRUCTURES: There is partial visualization of a posterolateral left seventh rib fracture. Degenerative changes are noted in the spine. IMPRESSION: 1. Several hepatic masses, largest in the region of the margie hepatis measuring approximately 9.7 cm in diameter. Appearance is suspicious for metastatic disease and similar to noncontrast CT of 02/09/2018. Suspect tumor extension into portions of the right and left portal veins with partial thrombosis. 2. Collapsed gallbladder, not adequately evaluated. 3. Partial visualization of right lower lobe pulmonary mass and suspected right hilar/peribronchial adenopathy. Overall appearance is similar to chest CT of 02/09/2018. 4. Partial visualization of posterolateral left seventh rib fracture. 5. Collapsed urinary bladder with Cameron catheter in place. A 5 mm calcification is present adjacent to the catheter balloon, favoring a bladder calculus.
--- NOTE | 2018-03-29 04:04 | History & Physical ---
Oswaldo Arriaza 03/29/18 0404: General Information and HPI MD Statement: I have seen and personally examined JUANA TEJEDA and documented this H&P. The patient is a 77 year old M who presented with a patient stated chief complaint of [fever and AMS]. 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 He was BIBA from [facility] with low grade fever and lethargy. Patient has advanced dementia and is mostly nonverbal therefore hx obtained from chart and speaking with [facility] retirement facility caregivers. Patient had a previous hospitalization at [facility] from January - February 2018 for what was originally thought to be pneumonia but clinical investigation revealed to be malignancy of right lung. After biopsy, patient was sent back to [facility]. After confirmation of biopsy results, patient was put on hospice care at the SNF. Patient was brought to ED today, after decided she wanted him to be treated for recent fever and altered mental status. According to Marcos Baltazar, she changed advanced care directives from 'hospice care with CPR'. According to Marcos Baltazar, patient was more lethargic and less responsive than baseline along with a low grade fever from Wednesday (February 24) onwards. Patient was placed on 2L oxygen and there was still no improvement in his symptoms. SNF caregivers deny pt had any cough, chills, nightsweats, significant weight loss, loss of appeitite, abdominal pain, change in urinary frequency. He was on only nectar thick diet for past 6 weeks. Since arrival in the ED, patient has spiked a max temperature of 100.7F, and has had mutlitple loose bowel movements. Allergies/Medications Allergies: Coded Allergies: No Known Allergies (02/09/18) Home Med list Atenolol 25 MG TABLET 1 TAB PO DAILY BP (Reported) Donepezil HCl (Aricept) 10 MG TABLET 1 TAB PO DAILY DEMENTIA (Reported) Insulin-Lantus (Lantus) 100 UNIT/ML VIAL 0 SC SEE ADMIN CRITERIA DM TAKE 15 UNITS IN MORNING TAKE 9 UNITS AT BEDTIME Levothyroxine Sodium 88 MCG TABLET 1 TAB PO DAILY HYPOTHYROIDISM (Reported) Magnesium Oxide (Magnesium) 400 MG TABLET 1 TAB PO DAILY LOW ELECTROLYTES ( Reported) Melatonin 5 MG TABLET 1 TAB PO QPM SLEEP (Reported) Memantine HCl (Namenda) 10 MG TABLET 1 TAB PO DAILY DEMENTIA (Reported) Metformin HCl 1,000 MG TABLET 1 TAB PO BID DIABETES (Reported) Rivaroxaban (Xarelto) 20 MG TABLET 1 TAB PO QPM ? DVT (Reported) with food Compliance With Home Meds: UNKNOWN Past History Travel History Traveled to [place] past 21 day No Medical History Neurological: dementia EENT: NONE Cardiovascular: hypertension, hyperlipidemia, ATHEROSCLEROTIC HEART HEART FAILURE Respiratory: NONE Gastrointestinal: NONE Hepatic: NONE Renal: benign prost hyperplasia Musculoskeletal: MALNUTRITION Psychiatric: NONE Endocrine: diabetes, hypothyroidism Blood Disorders: NONE Cancer(s): MALIGNANT NEOPLASM R LUNG ACOUSTICAL ENGINEER/Reproductive: NONE History of MRSA: No History of VRE: No History of CDIFF: No Surgical History Surgical History: none Past Family/Social History Psychosocial History Smoking Status: Unknown If Ever Smoked Living Will? unknown Power of Military Analyst/HCP? yes Name of POA/HCP: spouse Review of Systems Review of Systems Constitutional: Reports: see HPI. EENTM: Reports: see HPI. Cardiovascular: Reports: see HPI. Respiratory: Reports: see HPI. GI: Reports: see HPI. Genitourinary: Reports: see HPI. Musculoskeletal: Reports: see HPI. Skin: Reports: see HPI. Neurological/Psychological: Reports: see HPI. Hematologic/Endocrine: Reports: see HPI. Immunologic/Allergic: Reports: see HPI. All Other Systems: Reviewed and Negative Exam & Diagnostic Data Last 24 Hrs of Vital Signs/I&O Vital Signs Date Time Temp Pulse Resp B/P B/P Pulse O2 O2 Flow FiO2 Mean Ox Delivery Rate 03/29 0845 98.0 95 18 121/58 99 Nasal 2.0L Cannula 03/29 0619 97.7 95 18 122/57 95 Room Air 03/29 0440 94 18 122/70 98 Nasal 2.0L Cannula 03/29 0218 98.1 03/29 021 98.1 85 18 101/65 95 Room Air 03/29 0106 98.6 03/29 0047 98.6 03/28 2342 100.7 102 18 112/55 98 Nasal 2.0L Cannula Intake & Output 03/29 1600 03/29 0800 03/29 0000 Intake Total 2100 Output Total 725 Balance 1375 Intake, IV 2100 Output, Urine 725 Patient 135 lb Weight Weight Estimated Measurement Method Physical Exam General Appearance Mild Distress Skin Temp/Moisture Exam: Warm/Dry Sepsis Skin Exam (color): Normal for Ethnicity HEENT Atraumatic Neck Supple Cardiovascular Regular Rate, Normal S1, Normal S2 Lungs Clear to Auscultation Abdomen Normal Bowel Sounds, Soft Neurological awake Extremities Normal Pulses Last 24 Hrs of Labs/Andrés: Laboratory Tests 03/29/18 0624: Anion Gap 10, Estimated GFR > 60, BUN/Creatinine Ratio 43.3 H, Lactic Acid 3.0 H, CBC w Diff NO MAN DIFF REQ, RBC 2.92 L, MCV 83.6, MCH 27.5, MCHC 32.9 L, RDW 15.6 H, MPV 8.4, Gran % 84.0 H, Lymphocytes % 7.5 L, Monocytes % 8.4, Eosinophils % 0.1, Basophils % 0, Absolute Granulocytes 7.0 H, Absolute Lymphocytes 0.6 L, Absolute Monocytes 0.7 H, Absolute Eosinophils 0, Absolute Basophils 0 03/29/18 0328: Lactic Acid 3.6 H 03/29/18 0100: Urinalysis HEAVY H, Urine Color YEL, Urine Clarity CLDY H, Urine pH 8.5 H, Ur Specific [place] 1.020, Urine Protein 100 H, Urine Ketones TRACE H, Urine Nitrite NEG, Urine Bilirubin NEG, Urine Urobilinogen 1.0, Ur Leukocyte Esterase LARGE H, Ur Microscopic SEDIMENT EXAMINED, Urine RBC 5-10 H, Urine WBC 5-10 H , Urine Bacteria MANY H, Urine Mucus FEW, Urine Hemoglobin MOD H, Urine Glucose NEG 03/29/18 0013: Lactic Acid 5.2 H 03/29/18 0013: Anion Gap 13, Estimated GFR > 60, BUN/Creatinine Ratio 40.9 H, Glucose 307 H, Calcium 8.7, Total Bilirubin 0.5, AST 254 H, ALT 122 H, Alkaline Phosphatase 399 H, Troponin I < 0.01, Total Protein 6.0 L, Albumin 2.8 L, Globulin 3.2, Albumin/Globulin Ratio 0.9 L, CBC w Diff MAN DIFF ORDERED, RBC 3.00 L, MCV 83.3, MCH 27.9, MCHC 33.4, RDW 15.5 H, MPV 9.5, Gran % 84.7 H, Lymphocytes % 6.5 L, Monocytes % 8.7, Eosinophils % 0, Basophils % 0.1, Absolute Granulocytes 10.0 H, Segmented Neutrophils 76 H, Band Neutrophils 12 H, Absolute Lymphocytes 0.8 L, Lymphocytes 6 L, Monocytes 6, Absolute Monocytes 1.0 H, Absolute Eosinophils 0, Absolute Basophils 0, Platelet Estimate ADEQUATE, Basophilic Stippling 1+ Microbiology 03/29 548 STOOL: Clostridium difficile Toxin A & B - RECD 03/29 548 STOOL: Stool Culture - RECD 03/29 100 URINE ROUT: Urine Culture - RECD 03/29 005 BLOOD: Blood Culture - RECD 03/29 001 BLOOD: Blood Culture - RECD Diagnostic Data EKG Results Qtc 435 AR 145 HR 108 Assessment/Plan Assessment: #Fever could be 2/2 UTI, Osteomyelitis, C difficile, or Metastatic Lung Ca - Pt received Vanco and Ceftazidime - Follow up blood, urine, stool cx #Lactic Acidosis - Trend lactic acid #Chronic Anemia - trend CBC - guaic stool #Hx of DVT - Continue Xarelto #Sacral Decubitus Ulcer - MRI spine to evaluate for osetomyelitis #Dementia & Immobility - PT #Metastaic Cancer & Hospice Care -Contact to discuss care options -Pain pathway Admit pt to general medicine service DVT ppx Full Code for now (unless Proxy/ changes) As Ranked By This Provider Problem List: 1. Altered mental status 2. Lactic acidosis 3. Elevated LFTs 4. Fever 5. Lung mass 6. Liver mass Core Measures/Misc (05/30) Acute Coronary Syndrome ACS Diagnosis: No Congestive Heart Failure Congestive Heart Failure Diagnosis No Cerebrovascular Accident CVA/TIA Diagnosis: No VTE (View Protocol) VTE Risk Factors Cancer/chemo/othr therapy No Mechanical VTE Prophylaxis d/t N/A MechProphylax Ordered No VTE Pharm Prophylaxis d/t NA PharmProphylax ordered Sepsis (View protocol) Sepsis Present: Yes If YES complete Sepsis Event Note If YES complete Sepsis Event Note Inpatient Sepsis Exam Sepsis Cardiac Exam: Tachycardia Sepsis Resp Exam: CTA Sepsis Cap Refill Exam: <2 Sec Sepsis Peripheral Pulse Exam: Normal Sepsis Peripheral Pulse Location: Dorsalis Pedis Sepsis Skin Color Exam: Normal for Ethnicity Skin Temp/Moisture Exam: Warm/Dry Chelo Buckner MD 03/29/18 0410: Core Measures/Misc (05/30) Sepsis (View protocol) If YES complete Sepsis Event Note If YES complete Sepsis Event Note Resident Review Statement Resident Statement: examined this patient, discussed with international bank manager, agreed with international bank manager, reviewed EMR data (avail), discussed with nursing, reviewed images Other Findings: Ms. Tejeda is a 77yo M w/ PMH of osteomyelitis of sacral bones, stage 4 coccyx ulcer, dementia, BPH (chronic indwelling altamirano catheter), HTN, DM, hypothyroidism, hx of DVT (2017?),poorly differenciated Lung Ca , BIBA from [facility] with low grade fever and lethargy. Patient has hx of dementia, unable to provide any hx. Hx obtained from [facility] who reported patient being more lethargic than usual(less responsive than his baseline) and had a low grade fever. Denied any cough, SOB, diarrhea, constipation, urinary incontinence or frequency. Patient was put on 2L of oxygen per the 's request without any change in O2 sat. IN the ER patient was reported to have multiple episodes of loose/watery bowel movements which were guaiac positive. Vitals on admission were TMax of 100.7, heart rate 102, respiratory rate 18, BP 112/55 and O2 sat 98% on 2 L later 95% on RA. Patient non-verbal on exam,Poor attempt to follow commands. Heart regular with Normal S1, S2, Lungs CTA, Abdomen Non-tender with hyeractive bowel sounds. No peripheral edema. Non stagable Sacral Decubitus Ulcer. altamirano in place but migrated through the penile shaft. Labs were significant for WBC count of 11.8 with left shift and bandemia, hemoglobin 8.4/25.0, RDW 15.5, sodium 132, potassium 4.5, chloride 97, BUN/3045/ 1.1, glucose 307, lactic acid 5.2, AST 254, ALC 122, alkaline phosphatase 399 with normal total bilirubin. Urine positive with 5-10 WBCs and possibly leukocyte esterase in the setting of an indwelling catheter. CXR; negative for any acute pathology. CT abdomen and pelvis with Contrast was negative for any acute pathology but showed multiple hepatic masses suspicious for metastatic disease. Problem List; 1. Fever could be 2/2 UTI, Osteomyelitis, OR Metastatic Lung Ca 2. Lactic acidosis 3. Mild transaminitis 4. Chronic Anemia, H&H currently lower than baseline(10.5/30.9 on february 15 --> 8.4/25.0). Stools are guaiac positive. 5. Chronic medical conditions. - Admit the Patient to Gen Med Floor - Patient received vancomycin and ceftaz in the ER, will continue. - Trend Lactic acid - f/u blood, urine and stool cx - Follow-up C. difficile - MRI of the lumbosacral spine to rule out osteomyelitis. - Hold Metformin and start the patient on NSS. - Continue rest of home medications including Xarelto. - Discussion with regarding further goals of care, as according to the Nursing Facility he was hopsice Care and recently made ?? "Hospice care with CPR " per the wishes. Will Keep him full code until further discussion with the . DVT Prophylaxis; ALPS and Xarelto Further discussion with regarding code status Shubham Clarke MD 03/29/18 0518: Core Measures/Misc (05/30) Sepsis (View protocol) If YES complete Sepsis Event Note If YES complete Sepsis Event Note Attending MD Review Statement Attending Statement Attending MD Statement: examined this patient, discuss w/resident/PA/METAL TESTER, agreed w/resident/PA/METAL TESTER, reviewed EMR data (avail), discussed with nursing, amended to note Attending Assessment/Plan: Patient is a 77-year-old male with medical history significant for chronic stage IV decubitus ulcer with osteomyelitis of the underlying bone, benign prostatic hypertrophy with chronic indwelling Altamirano catheter, deep vein thrombosis on anticoagulation with Xarelto, Hypertension, diabetes mellitus and dementia. Patient was hospitalized in [facility] from January - February 2018 after family members reported that he was gasping for air. Initially thought to have pneumonia however workup revealed a right lower lobe lung mass with motor destruction of the ribs as well as bulky metastatic liver lesions. Biopsy was done and patient was transferred back to the retirement facility. Biopsy results revealed poorly differentiated carcinoma. It was confirmed that his primary care provider Dr. Shannon Belle received this report as well as a retirement facility. After obtaining the results patient was placed on hospice care at the retirement facility. According to the ER provider patient was brought to the emergency room today with complaints of fever and altered mental status. According to the ER provider patient's wanted patient evaluated and treated. In the emergency room he had a temperature 100.7 with an elevated white cell count. Chest x-ray showed previously identified lung mass. CT abdomen and pelvis showed previously identified metastatic liver disease. Patient was started on vancomycin and cefazolin and referred to the medical service for further evaluation and management. On evaluating the patient is nonverbal. It is noted that during his last hospitalization patient was nonverbal for the most part during the hospitalization currently afebrile and hemodynamically stable. Nursing staff reports that he has had several loose bowel movements while in the mid and serum. On examination heart sounds are regular. Lungs are clear to auscultation bilaterally. Abdomen is soft and nontender. He has no peripheral edema. He has a stage IV decubitus ulcer with no surrounding erythema or drainage. He was having profuse watery diarrhea. Altamirano catheter is in place however it appears to have migrated through the penile shaft and is directly inserted at the base of the penile shaft. Laboratory data showed mild leukocytosis of 11.8. No function is stable. He has transaminitis elevated compared to previous. Problems: 1. Fever 2. Metastatic cancer 3. History of deep vein thrombosis 4. Partial portal vein thrombosis 5. Dementia 6. Hospice care at the retirement [facility] Plan: -Admit to inpatient medical service. -Continue attempts to reach patient's to discuss goals of care. -Differential for his fever include his malignancy, osteomyelitis, urinary tract infections, bacteremia. -Continue broad-spectrum antibiotic coverage with vancomycin and ceftaz. -Follow-up on ng-cultures. -Obtain MRI of the lumbosacral spine to evaluate for osteomyelitis. Obtain records from the [facility] for comparison. -Continue anticoagulation therapy with Xarelto. -Please recall the palliative care service to help in goals of care discussion with the patient's family.
--- NOTE | 2018-03-29 05:19 | Admission Certification ---
Admission Certification Certification Statement - As attending physician, I certify that at the time of - admission, based on clinical presentation, severity of - symptoms, need for further diagnostic testing and - therapeutic interventions, and risk of adverse outcomes - without in-hospital treatment, in my clinical assessment, - this patient requires an acute hospital stay for a minimum - of two nights or longer. I have also considered psychsocial - factors such as support system, advanced age, financial - issues, cognitive issues, and failed out-patient treatments, - past re-admission history, safety of patient, and lack of - compliance as applicable. Specific rationale supporting this admission is: Hospitalization is required for further workup for patient's fever.
[2018-03-29] MEDS ORDERED: LANTUS100 UNIT/1 SC (05:25)
[2018-03-29 06:28] LABS: ABSOLUTE BASOPHIL COUNT 0 /CUMM (0.0-0.2); ABSOLUTE EOSINOPHIL COUNT 0 /CUMM (0.0-0.7); ABSOLUTE LYMPH COUNT 0.6 /CUMM (1.2-3.4); ABSOLUTE MONOCYTE COUNT 0.7 /CUMM (0.10-0.60); BASOPHIL % 0 % (0.0-2.0); EOSINOPHIL % 0.1 % (0-5); HEMATOCRIT 24.4 % (42-52); MEAN CORPUSCULAR HGB 27.5 PG (27.0-31.0); MEAN CORPUSCULAR HGB CONC 32.9 G/DL (33.0-37.0); MEAN CORPUSCULAR VOLUME 83.6 FL (80.0-94.0); MEAN PLATELET VOLUME 8.4 FL (7.4-10.4); PLATELET COUNT 136 /CUMM (130-400); RBC DISTRIBUTION WIDTH 15.6 % (11.5-14.5); RED BLOOD CELL CT 2.92 /CUMM (4.70-6.10); WHITE BLOOD CELL COUNT 8.3 /CUMM (4.8-10.8)
--- NOTE | 2018-03-29 07:14 | PN- Housestaff ---
Delmar Azul 03/29/18 0714: Subjective Follow-up For: AMS and fever Subjective: Patient was seen and examined at the bedside. Patient is largely nonverbal, but did respond that he did not need anything. Review of Systems Constitutional: Reports: see HPI. Objective Last 24 Hrs of Vital Signs/I&O Vital Signs Date Time Temp Pulse Resp B/P B/P Pulse O2 O2 Flow FiO2 Mean Ox Delivery Rate 03/29 1518 98.3 90 20 118/50 96 Nasal 2.0L Cannula 03/29 1500 97 Room Air 2.0L 03/29 1416 98.7 78 20 114/64 98 Nasal 2.0L Cannula 03/29 1055 98.0 88 20 118/64 97 Room Air 03/29 0845 98.0 95 18 121/58 99 Nasal 2.0L Cannula 03/29 0619 97.7 95 18 122/57 95 Room Air 03/29 0440 94 18 122/70 98 Nasal 2.0L Cannula 03/29 0218 98.1 03/29 0211 98.1 85 18 101/65 95 Room Air 03/29 0106 98.6 03/29 0047 98.6 03/28 2342 100.7 102 18 112/55 98 Nasal 2.0L Cannula Intake & Output 03/29 1600 03/29 0800 03/29 0000 Intake Total 2100 Output Total 700 725 Balance -700 1375 Intake, IV 2100 Output, Urine 700 725 Patient 135 lb 135 lb Weight Weight Bed scale Estimated Measurement Method Physical Exam General Appearance: Alert, No Acute Distress, nonverbal, altered mental status on presentation assumed to continue Skin: significant lesion on coccyx Skin Temp/Moisture Exam: Warm/Dry HEENT: Atraumatic, PERRLA, EOMI Neck: Supple, No JVD, No thryomegaly Cardiovascular: Regular Rate, Normal S1, Normal S2, No Murmurs Lungs: Clear to Auscultation, Normal Air Movement Abdomen: Soft, No Hepatospenomegaly Neurological: nonverbal; decreased muscular tone and strength; unable to assess sensation Extremities: No Clubbing, No Cyanosis, No Edema Current Medications: Current Medications Sig/Nu Start time Last Medication Dose Route Stop Time Status Admin Acetaminophen 0 .STK-MED ONE 03/29 0044 DC IV Acetaminophen 1,000 MG ONCE ONE 03/29 0015 DC 03/29 N/A 1 UNIT IV 03/29 0029 0047 Ceftazidime 1,000 MG Q8H 03/29 1200 AC 03/29 IV 1207 Ceftazidime 0 .STK-MED ONE 03/29 0407 DC .ROUTE Ceftazidime 1,000 MG ONCE ONE 03/29 0400 DC 03/29 IV 03/29 0401 0415 Donepezil HCl 10 MG AT BEDTIME 03/29 2100 AC PO Donepezil HCl 10 MG DAILY 03/29 0900 CAN PO Insulin Aspart 0 TIDAC 03/29 0800 AC 03/29 SC 1744 Insulin Detemir 9 UNITS AT BEDTIME 03/29 2100 AC SC Insulin Detemir 15 UNITS DAILY 03/29 0900 AC 03/29 SC 1028 Levothyroxine Sodium 0.088 MG DAILY 03/29 0900 CAN PO Levothyroxine Sodium 0.088 MG 0900 03/29 0900 AC 03/29 PO 1030 Levothyroxine Sodium 0.088 MG DAILY AC 03/29 0700 DC PO Magnesium Oxide 400 MG DAILY 03/29 0900 CAN PO Magnesium Oxide 400 MG DAILY 03/29 0900 AC 03/29 PO 1028 Melatonin 5 MG QPM 03/29 2100 CAN PO Melatonin 5 MG QPM 03/29 2100 AC PO Memantine 10 MG DAILY 03/29 0900 CAN PO Memantine 10 MG DAILY 03/29 0900 AC 03/29 PO 1028 Rivaroxaban 20 MG 1700 03/29 1700 AC 03/29 PO 1743 Rivaroxaban 20 MG DAILY 03/29 0900 CAN PO Sodium Chloride 1,000 ML Q10H 03/29 0630 AC 03/29 IV 1727 Sodium Chloride 1,000 ML BOLUS ONE 03/29 0400 DC 03/29 IV 03/29 0459 0404 Sodium Chloride 1,000 ML BOLUS ONE 03/29 0345 DC 03/29 IV 03/29 0444 0404 Sodium Chloride 1,000 ML BOLUS ONE 03/29 0200 DC 03/29 IV 03/29 0259 0202 Vancomycin HCl 1,000 MG Q12H 03/29 1600 AC 03/29 Sodium Chloride 250 ML IV 1726 Vancomycin HCl 0 .STK-MED ONE 03/29 0407 DC .ROUTE Vancomycin HCl 1,000 MG ONCE ONE 03/29 0400 DC 03/29 Sodium Chloride 250 ML IV 03/29 0459 0415 Last 24 Hrs of Lab/Andrés Results Last 24 Hrs of Labs/Mics: Laboratory Tests 03/29/18 0624: Anion Gap 10, Estimated GFR > 60, BUN/Creatinine Ratio 43.3 H, Lactic Acid 3.0 H, CBC w Diff NO MAN DIFF REQ, RBC 2.92 L, MCV 83.6, MCH 27.5, MCHC 32.9 L, RDW 15.6 H, MPV 8.4, Gran % 84.0 H, Lymphocytes % 7.5 L, Monocytes % 8.4, Eosinophils % 0.1, Basophils % 0, Absolute Granulocytes 7.0 H, Absolute Lymphocytes 0.6 L, Absolute Monocytes 0.7 H, Absolute Eosinophils 0, Absolute Basophils 0 03/29/18 0328: Lactic Acid 3.6 H 03/29/18 0100: Urinalysis HEAVY H, Urine Color YEL, Urine Clarity CLDY H, Urine pH 8.5 H, Ur Specific [place] 1.020, Urine Protein 100 H, Urine Ketones TRACE H, Urine Nitrite NEG, Urine Bilirubin NEG, Urine Urobilinogen 1.0, Ur Leukocyte Esterase LARGE H, Ur Microscopic SEDIMENT EXAMINED, Urine RBC 5-10 H, Urine WBC 5-10 H , Urine Bacteria MANY H, Urine Mucus FEW, Urine Hemoglobin MOD H, Urine Glucose NEG 03/29/18 0013: Lactic Acid 5.2 H 03/29/18 0013: Anion Gap 13, Estimated GFR > 60, BUN/Creatinine Ratio 40.9 H, Glucose 307 H, Calcium 8.7, Total Bilirubin 0.5, AST 254 H, ALT 122 H, Alkaline Phosphatase 399 H, Troponin I < 0.01, Total Protein 6.0 L, Albumin 2.8 L, Globulin 3.2, Albumin/Globulin Ratio 0.9 L, CBC w Diff MAN DIFF ORDERED, RBC 3.00 L, MCV 83.3, MCH 27.9, MCHC 33.4, RDW 15.5 H, MPV 9.5, Gran % 84.7 H, Lymphocytes % 6.5 L, Monocytes % 8.7, Eosinophils % 0, Basophils % 0.1, Absolute Granulocytes 10.0 H, Segmented Neutrophils 76 H, Band Neutrophils 12 H, Absolute Lymphocytes 0.8 L, Lymphocytes 6 L, Monocytes 6, Absolute Monocytes 1.0 H, Absolute Eosinophils 0, Absolute Basophils 0, Platelet Estimate ADEQUATE, Basophilic Stippling 1+ Microbiology 03/29 1528 URINE ROUT: Urine Culture - ORD 03/29 0548 STOOL: Clostridium difficile Toxin A & B - RES 03/29 0548 STOOL: Stool Culture - RES 03/29 0100 URINE ROUT: Urine Culture - RECD 03/29 0055 BLOOD: Blood Culture - RECD 03/29 0013 BLOOD: Blood Culture - RECD Orders Radiology Findings: Several hepatic masses, largest ~10 cm in area of margie hepatis Posterolateral left seventh rib fracture Assessment/Plan Assessment: Patient is a 77yo M w/ PMH significant for 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 He was BIBA from [facility] with low grade fever and lethargy. Problem list/plan Fever -could be due to UTI, osteo, metastatic lung ca -patient received vanc and ceftaz in ER, continued -f/u blood,urine,stool cultures -f/u C diff -MRI of lumbosacral spine to rule out osteomyelitis Lactic acidosis -trend lactic acid Diabetes -Hold metformin and start patient on NSS Anemia -watchful waiting Chronic medical conditions -continue home meds DVT prophylaxis: Continued with xarelto Patient is "full code"; meeting needed to discuss goals of care with patient's ; she was unable by phone today Problem List: 1. Fever 2. Lactic acidosis 3. Lung mass 4. Liver mass Pain Ratin (unable to assess) Pain Location: none elicited Pain Goal: maintain comfort Pain Plan: Acetaminophen Tomorrow's Labs & Rationales: CBC, BEP, Lactic acid Abelardo Vallecillo 03/29/18 1329: Attending Review Statement Attending Statement Attending MD Statement: examined this patient, discuss w/resident/PA/MILK OF LIME SLAKER, agreed w/resident/PA/MILK OF LIME SLAKER, discussed with family, reviewed EMR data (avail), discussed with nursing, discussed with case mgmt, reviewed images, amended to note Attending Assessment/Plan: 77 o/m with pmh of metastatic cancer with poorly differentiated cacrinoma of liver biopsy, h/o DVT on xarelto, stage 4 decubiti ulcer, benign prostatic hypertrophy with chronic indwelling Altamirano catheter, Hypertension, diabetes mellitus and dementia resident of retirement facility. Patient presented with low grade fevers tmax 100.7 with mild leukocytosis on admission. He is started on broad spectrum antibiotics. He is poor historian. History obtained from previos charts. Lactic acidosis could be from severe dehydration resulting form diarrhea which is impriovng with fluids. C diff negative. Fever with malignancy. Abnormal UA raises concern for UTI. Continue broad- spectrum antibiotic coverage with vancomycin and ceftaz. Follow-up on ng- cultures. Continue anticoagulation therapy with Xarelto. Palliative care consulted and planned family meeting tomorrow.
--- NOTE | 2018-03-29 13:17 | Cons- Palliative Care ---
General Information and HPI Consulting Request Date of Consult: 03/29/18 Requested By: Abelardo Vallecillo MD Reason for Consult: care/transition planning, eval for hospice care Source old records, W10, Nursing admitting supervisor at [facility] Exam Limitations unable to give history, dementia History of Present Illness: Mr. 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 Patient was on hospice services after discovering the metastatic lesion however was full code and insisted to continue have INSURANCE PLAN SPECIALIST visits and treatments while he was in [facility] per nursing admitting supervisor. Per nursing admitting supervisor at [facility], multiple conversation with the patient's regarding his advanced medical directives were held however the insists to be aggressive with his treatment and continue to have the full code. Note that the used to speak only to the supervisors and does not like to talk to other medical team members including nurses or aids. is his only significant others, patient does not have any other relatives or children per nursing admitting supervisor. In ED patient was found to have low-grade fever with T-max 100.7, mild leukocytosis with left shift and elevated lactic acid. Currently afebrile, leukocytosis improved. He had multiple loose stool and C. difficile was sent. There are no radiological evidence of any new infection. Patient is on IV antibiotic vancomycin and ceftazidime for presumptively aspiration pneumonia. Patient was unable to give us any history or answer any of our questions. Allergies/Medications Allergies: Coded Allergies: No Known Allergies (02/09/18) Home Med List: Atenolol 25 MG TABLET 1 TAB PO DAILY BP (Reported) Donepezil HCl (Aricept) 10 MG TABLET 1 TAB PO DAILY DEMENTIA (Reported) Insulin-Lantus (Lantus) 100 UNIT/ML VIAL 0 SC SEE ADMIN CRITERIA DM TAKE 15 UNITS IN MORNING TAKE 9 UNITS AT BEDTIME Levothyroxine Sodium 88 MCG TABLET 1 TAB PO DAILY HYPOTHYROIDISM (Reported) Magnesium Oxide (Magnesium) 400 MG TABLET 1 TAB PO DAILY LOW ELECTROLYTES ( Reported) Melatonin 5 MG TABLET 1 TAB PO QPM SLEEP (Reported) Memantine HCl (Namenda) 10 MG TABLET 1 TAB PO DAILY DEMENTIA (Reported) Metformin HCl 1,000 MG TABLET 1 TAB PO BID DIABETES (Reported) Rivaroxaban (Xarelto) 20 MG TABLET 1 TAB PO QPM ? DVT (Reported) with food Review of Systems Review of Systems Constitutional: Denies: see HPI. 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 unknown Power of Doweler/HCP? yes Name of POA/HCP: spouse Exam & Diagnostic Data Last 24 Hrs of Vitals/I&Os: Vital Signs Date Time Temp Pulse Resp B/P B/P Pulse O2 O2 Flow FiO2 Mean Ox Delivery Rate 03/29 1416 98.7 78 20 114/64 98 Nasal 2.0L Cannula 03/29 1055 98.0 88 20 118/64 97 Room Air 03/29 0845 98.0 95 18 121/58 99 Nasal 2.0L Cannula 03/29 0619 97.7 95 18 122/57 95 Room Air 03/29 0440 94 18 122/70 98 Nasal 2.0L Cannula 03/29 0218 98.1 03/29 0211 98.1 85 18 101/65 95 Room Air 03/29 0106 98.6 03/29 0047 98.6 03/28 2342 100.7 102 18 112/55 98 Nasal 2.0L Cannula Intake & Output 03/29 1600 03/29 0800 03/29 0000 Intake Total 2100 Output Total 725 Balance 1375 Intake, IV 2100 Output, Urine 725 Patient 61.235 kg Weight Weight Estimated Measurement Method Physical Exam General Appearance: no apparent distress, comfortable Head: atraumatic, normal appearance Cardiovascular: regular rate/rhythm Gastrointestinal: normal bowel sounds, soft, non-tender Back: cocxyigeal ulcer bandged Extremities: normal inspection, normal capillary refill, normal range of motion, no edema Neurologic/Psych: lethergic Diagnostic Data Lab/Micro/Pathology Results: Laboratory Tests 03/29/18 0624: Anion Gap 10, Estimated GFR > 60, BUN/Creatinine Ratio 43.3 H, Lactic Acid 3.0 H, CBC w Diff NO MAN DIFF REQ, RBC 2.92 L, MCV 83.6, MCH 27.5, MCHC 32.9 L, RDW 15.6 H, MPV 8.4, Gran % 84.0 H, Lymphocytes % 7.5 L, Monocytes % 8.4, Eosinophils % 0.1, Basophils % 0, Absolute Granulocytes 7.0 H, Absolute Lymphocytes 0.6 L, Absolute Monocytes 0.7 H, Absolute Eosinophils 0, Absolute Basophils 0 03/29/18 0328: Lactic Acid 3.6 H 03/29/18 0100: Urinalysis HEAVY H, Urine Color YEL, Urine Clarity CLDY H, Urine pH 8.5 H, Ur Specific [place] 1.020, Urine Protein 100 H, Urine Ketones TRACE H, Urine Nitrite NEG, Urine Bilirubin NEG, Urine Urobilinogen 1.0, Ur Leukocyte Esterase LARGE H, Ur Microscopic SEDIMENT EXAMINED, Urine RBC 5-10 H, Urine WBC 5-10 H , Urine Bacteria MANY H, Urine Mucus FEW, Urine Hemoglobin MOD H, Urine Glucose NEG 03/29/18 0013: Lactic Acid 5.2 H 03/29/18 0013: Anion Gap 13, Estimated GFR > 60, BUN/Creatinine Ratio 40.9 H, Glucose 307 H, Calcium 8.7, Total Bilirubin 0.5, AST 254 H, ALT 122 H, Alkaline Phosphatase 399 H, Troponin I < 0.01, Total Protein 6.0 L, Albumin 2.8 L, Globulin 3.2, Albumin/Globulin Ratio 0.9 L, CBC w Diff MAN DIFF ORDERED, RBC 3.00 L, MCV 83.3, MCH 27.9, MCHC 33.4, RDW 15.5 H, MPV 9.5, Gran % 84.7 H, Lymphocytes % 6.5 L, Monocytes % 8.7, Eosinophils % 0, Basophils % 0.1, Absolute Granulocytes 10.0 H, Segmented Neutrophils 76 H, Band Neutrophils 12 H, Absolute Lymphocytes 0.8 L, Lymphocytes 6 L, Monocytes 6, Absolute Monocytes 1.0 H, Absolute Eosinophils 0, Absolute Basophils 0, Platelet Estimate ADEQUATE, Basophilic Stippling 1+ Assessment/Plan Assessment Mr. Tejeda a 77 year old gentleman with multiple comorbidities including advanced dementia nonambulatory, none verbal. 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 Patient was on hospice care however specifically requested transfer to [facility] for management of his low-grade fever and some lethargy. Patient is currently full code and receiving full treatment including IV antibiotics. By reviewing patient's palliative care consultation from last admission less than 2 months ago (February 09 to February 15 2018) for presumably aspiration pneumonia and new discovery of lung and liver masses, it seemed like there is an unrealistic understanding of the current patient clinical condition by family given the fact that patient underwent liver biopsy for diagnosis with no wishes to pursue treatment if it turned to be malignancy. Recommendation 1-Please arrange for family meeting with patient's (Ryanne Tejeda [phone]) on 03/30 at 11 AM to discuss goals of care. 2-A DNR order is appropriate as a resuscitation will almost certainly be a futile exercise. This will require a discussion with the patient's decision- maker. 3-Case management consultation. Consult Acknowledgment - Thank you for your consult request. Attending MD Review Statement Attending Statement Attending MD Statement: examined this patient, discuss w/resident/PA/EXCAVATING CONTRACTOR, agreed w/resident/PA/EXCAVATING CONTRACTOR, reviewed EMR data (avail), discussed w/case mgmt Attending Assessment/Plan: Patient has a poor prognosis given his pre-existing medical conditions, not to mention recent diagnosis of metastatic cancer. A goals of care discussion is essential to provide the best care for this patient as pursuit of aggresisve medical care in the face of advancing medical illness is unlikely to be of benefit to the patient in either promoting longevity or quality of life. 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 Patient is at risk for decline in his condition during hospitalization and hence stabilization and return to his ECF as quickly as possible should be a priority. Close f/u by staff at [facility] (to the best extent possible) may help to reduce the need for rehospitalization.
[2018-03-29 15:18] VITALS: BP 118/50
[2018-03-29 22:00] VITALS: BP 119/66
[2018-03-30 07:00] VITALS: BP 139/64
--- NOTE | 2018-03-30 07:04 | PN- Housestaff ---
Delmar Azul 03/30/18 0704: Subjective Follow-up For: AMS and fever Complaints: no complaints (nonverbal) Subjective: Seen and examined at the bedside. Patient is largely nonverbal, responds that he does not require anything and that he is okay. Plan is to have family meeting with patient's at noon today. Awaiting report from palliative care team after meeting. Review of Systems Constitutional: Reports: see HPI. Objective Last 24 Hrs of Vital Signs/I&O Vital Signs Date Time Temp Pulse Resp B/P B/P Pulse O2 O2 Flow FiO2 Mean Ox Delivery Rate 03/30 0800 94 Nasal 2.0L Cannula 03/30 0700 97.5 97 20 139/64 99 Nasal 2.0L Cannula 03/30 0000 Nasal 2.0L Cannula 03/29 2200 98.5 88 18 119/66 99 Nasal 2.0L Cannula 03/29 1600 Nasal 2.0L Cannula 03/29 1518 98.3 90 20 118/50 96 Nasal 2.0L Cannula 03/29 1500 97 Room Air 2.0L 03/29 1416 98.7 78 20 114/64 98 Nasal 2.0L Cannula Intake & Output 03/30 1600 03/30 0800 03/30 0000 Intake Total 800 940 Output Total 350 450 Balance 450 490 Intake, IV 800 700 Intake, Oral 240 Number 1 Bowel Movements Output, Urine 350 450 Patient 153 lb Weight Weight Bed scale Measurement Method Physical Exam General Appearance: Alert, No Acute Distress, nonverbal, no voiced complaints. unable to assess orientation Skin: significant decubitus ulcer on lumbosacral spine Skin Temp/Moisture Exam: Warm/Dry HEENT: Atraumatic, PERRLA, EOMI, difficult to assess; patient opened eyese intermittently Neck: Supple, No JVD, No thryomegaly Cardiovascular: Regular Rate, Normal S1, Normal S2, No Murmurs Lungs: Clear to Auscultation, Normal Air Movement Abdomen: Soft, No Tenderness, No Hepatospenomegaly Neurological: nonverbal Extremities: No Clubbing, No Cyanosis, No Edema Current Medications: Current Medications Sig/Nu Start time Last Medication Dose Route Stop Time Status Admin Ceftazidime 1,000 MG Q8H 03/29 1200 AC 03/30 IV 1232 Donepezil HCl 10 MG AT BEDTIME 072099 AC 03/29 PO 2010 Insulin Aspart 0 TIDAC 03/29 0800 AC 03/29 SC 1744 Insulin Detemir 9 UNITS AT BEDTIME 03/29 2100 AC 03/29 SC 2010 Insulin Detemir 15 UNITS DAILY 03/29 0900 AC 03/29 SC 1028 Levothyroxine Sodium 0.088 MG 0900 03/29 0900 AC 03/30 PO 0954 Magnesium Oxide 400 MG DAILY 03/29 0900 AC 03/30 PO 0954 Melatonin 5 MG QPM 03/29 2100 AC 03/29 PO 2010 Memantine 10 MG DAILY 03/29 0900 AC 03/30 PO 0954 Rivaroxaban 20 MG 1700 03/29 1700 AC 03/29 PO 1743 Sodium Chloride 1,000 ML Q10H 03/29 0630 AC 03/30 IV 1233 Vancomycin HCl 1,000 MG Q12H 03/29 1600 AC 03/30 Sodium Chloride 250 ML IV 0356 Last 24 Hrs of Lab/Andrés Results Last 24 Hrs of Labs/Mics: Laboratory Tests 03/30/18 0610: Anion Gap 10, Estimated GFR > 60, BUN/Creatinine Ratio 30.0 H, Lactic Acid 1.3, CBC w Diff NO MAN DIFF REQ, RBC 2.74 L, MCV 83.6, MCH 27.5, MCHC 32.9 L, RDW 15.9 H, MPV 9.4, Gran % 83.9 H, Lymphocytes % 7.6 L, Monocytes % 8.3, Eosinophils % 0.2, Basophils % 0, Absolute Granulocytes 6.4, Absolute Lymphocytes 0.6 L, Absolute Monocytes 0.6, Absolute Eosinophils 0, Absolute Basophils 0 Microbiology 03/29 2020 URINE ROUT: Urine Culture - RES Assessment/Plan Assessment: Several hepatic masses, largest ~10 cm in area of margie hepatis Posterolateral left seventh rib fracture Assessment/Plan Assessment: Patient is a 77yo M w/ PMH significant for 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 He was BIBA from [facility] with low grade fever and lethargy. Problem list/plan Fever -could be due to UTI, osteo, metastatic lung ca -patient received vanc and ceftaz in ER, continued -f/u blood,urine,stool cultures -C diff negative -MRI of lumbosacral spine to rule out osteomyelitis suggested - not done yet Lactic acidosis -trend lactic acid Diabetes -Hold metformin and start patient on NSS Anemia -watchful waiting Chronic medical conditions -continue home meds Overall, continue current treatment plan DVT prophylaxis: Continued with xarelto Patient is "full code" after meeting with /palliative care Pending final decision - likely return to [facility] Problem List: 1. Altered mental status 2. Lactic acidosis 3. Fever Pain Ratin Pain Location: none Pain Goal: Remain pain free Pain Plan: none Tomorrow's Labs & Rationales: none Abelardo Vallecillo 03/30/18 1127: Attending MD Review Statement Attending Statement Attending MD Statement: examined this patient, discuss w/resident/PA/LIQUOR BRIDGE OPERATOR HELPER, agreed w/resident/PA/LIQUOR BRIDGE OPERATOR HELPER, discussed with family, reviewed EMR data (avail), discussed with nursing, discussed with case mgmt, reviewed images, amended to note Attending Assessment/Plan: 77 o/m with pmh of metastatic cancer with poorly differentiated cacrinoma of liver biopsy, h/o DVT on xarelto, stage 4 decubiti ulcer, benign prostatic hypertrophy with chronic indwelling Altamirano catheter, Hypertension, diabetes mellitus and dementia resident of senior living facility. Overnight aferbile. Vitals stable. Spoke to . Phone Number intially given was wrong, obtained her from directly today. alert today. Impresison: Fever with malignancy. Abnormal UA. Continue broad-spectrum antibiotic coverage with vancomycin and ceftaz. Follow-up on ng-cultures. Consider disconintuation of abx of cultures remain negative. Continue anticoagulation therapy with Xarelto. Palliative care consulted and planned family meeting today around noon.
[2018-03-30 08:01] LABS: ABSOLUTE BASOPHIL COUNT 0 /CUMM (0.0-0.2); ABSOLUTE EOSINOPHIL COUNT 0 /CUMM (0.0-0.7); ABSOLUTE GRANULOCYTE CT 6.4 /CUMM (1.4-6.5); ABSOLUTE LYMPH COUNT 0.6 /CUMM (1.2-3.4); ABSOLUTE MONOCYTE COUNT 0.6 /CUMM (0.10-0.60); BASOPHIL % 0 % (0.0-2.0); EOSINOPHIL % 0.2 % (0-5); GRANULOCYTE % 83.9 % (42.2-75.2); HEMATOCRIT 22.9 % (42-52); MEAN CORPUSCULAR HGB 27.5 PG (27.0-31.0); MEAN CORPUSCULAR HGB CONC 32.9 G/DL (33.0-37.0); MEAN CORPUSCULAR VOLUME 83.6 FL (80.0-94.0); MEAN PLATELET VOLUME 9.4 FL (7.4-10.4); PLATELET COUNT 138 /CUMM (130-400); RBC DISTRIBUTION WIDTH 15.9 % (11.5-14.5); RED BLOOD CELL CT 2.74 /CUMM (4.70-6.10)
[2018-03-30 09:49] LABS: WHITE BLOOD CELL COUNT 7.7 /CUMM (4.8-10.8)
[2018-03-30 13:35] VITALS: BP 145/65
--- NOTE | 2018-03-30 18:37 | PN- Palliative Care ---
Subjective Subjective: Patient seen for f/u of encephalopathy - Family meeting held today for over 1 hour with patient's who is his healthcare agent. Also attending were Dr. Jules Lawton and Dr. Guy Grajeda. After introducing myself as Dr. Kirby, a member of the medical staff taking care of Mr. Alberto, she proceeded to inform me "I want him to be resuscitated when his heart stops. I'm not signing a DNR order. I've worked in hospice before ". I proceeded to explain that our job and the reasons for meeting were not to obtain a DNR order, but to find out by sitting down how we all can best take care of Mr. Alberto. She expressed understanding when updated by Dr. Lawton that while patient has experienced fever and lethargy leading to this hospitalization, the tests ordered to date do not reveal an obvious source of infection and hence the risk of adverse events associated with continued use of abx outweighs potential benefits. We provided ample opportunity for Mrs. Alberto to share her observations - during our attempts to answer questions and offer guidance she frequently interrupted and offered tangential comments despite frequent attempts to redirect the conversation to address goals of care. At this time, she seems clear in her wish to pursue aggressive life prolonging interventions to alter any course leading to end of life, however, there are no plans at this time to pursue treatment of the underlying malignancy nor are there offers of such to do so from any of her physicians. I proposed to her that this hospitalization could have been avoided by treatment in place at the patient's SNF - however, she expresses concern that medical treatment is not to her expectation. She expressed displeasure in her interactions with a midlevel practitioner and she is unable to name Mr. Alberto's attending physician. She is pleased with her interactions with the income tax administrator and nursing water treatment plant supervisor as they have listened to her when she alerts them to her dissatisfaction. She indicated that she does not value the role of the hospice nurse, jai alai player, or social economist and that she wants hospice to continue (despite her goals of life prolongation over quality of life ) so that she may continue to obtain the services of an aide provided by hospice. I did indicate to her that this may not be an appropriate use of hospice. We have jointly agreed that once the medical team deems Mr. Alberto stable, he will return to his facility. I have assured her that I will speak with administration to determine if we may of assistance to Mr. Alberto's care even after he returns to the SNF. Incidentally - discussion with case management indicates that Mrs. Alberto became irate when questioned about advance directives and promptly discontinued such conversation. Objective Last 24 Hrs of Vital Signs/I&O Vital Signs Date Time Temp Pulse Resp B/P B/P Pulse O2 O2 Flow FiO2 Mean Ox Delivery Rate 03/30 1631 Nasal 2.0L Cannula 03/30 1335 98.5 95 18 145/65 100 Nasal 2.0L Cannula 03/30 0800 94 Nasal 2.0L Cannula 03/30 0700 97.5 97 20 139/64 99 Nasal 2.0L Cannula 03/30 0000 Nasal 2.0L Cannula 03/29 2200 98.5 88 18 119/66 99 Nasal 2.0L Cannula Intake & Output 03/30 1600 03/30 0800 03/30 0000 Intake Total 1040 800 940 Output Total 760 350 450 Balance 280 450 490 Intake, IV 800 800 700 Intake, Oral 240 240 Number 1 Bowel Movements Output, Urine 760 350 450 Patient 153 lb Weight Weight Bed scale Measurement Method Assessment/Plan Assessment 77M admitted for workup of fever, lethargy. Now improved. Ongoing chronic medical conditions remain unchanged. 1. At this time, I recommend no unprompted attempts to discuss advance directives as these attempts may be misperceived and lead to further distance between the patient's decision maker and the healthcare team. Repeated unwanted or unwelcome inquiries re: advance directives may lead to a paradoxical increase in the use of healthcare resources as their is a misperception of the medical team in trying to limit care. A question (rather than discussion) of "do wish to indicate an advance directive" or "have you given any more thought to an advance directive" may be asked at appropriate intervals such as: 1) transfer to hospital, 2) change in condition, or 3) at mutually agreed intervals such as at quarterly reviews as such occur in the SNF. Obviously, if the HCA brings the issue up, it is always appropriate to explore any interest at that time. 2. The medical team should complete their care and the patient should return to the SNF as soon as possible. 3. We will explore options available to support the SNF in their care of the patient to reduce unnecessary and repeated admissions to 4. When speaking with his HCA, it may be helpful to qualify information to her in a framework which clearly states 1) Facts, 2) Opinions (strong or weak), and 3) Hopes. This framework should reduce misunderstandings and help to keep information accurate. 5. Strong consideration should be given to discontunuation or modificationof the hospice benefit as the current goals of care may be inconsistent with the hospice program Prognosis: poor Is Patient Decisional? no Case Discussed With: family, house staff, case management
[2018-03-30 22:28] VITALS: BP 142/70
[2018-03-31 06:19] VITALS: BP 124/60
--- NOTE | 2018-03-31 06:54 | PN- Housestaff ---
See Addendum Delmar Azul 03/31/18 0653: Subjective Follow-up For: AMS and fever Complaints: no complaints (patient is largely nonverbal) Subjective: She is seen and examined at the bedside. Patient largely nonverbal, does respond "no" when asked if he needed anything or ifhe was experiencing pain and "certainly" when asked if we can continue to discuss his care with his . Otherwise patient clearly confused and demented, and decreased responsiveness. Review of Systems Constitutional: Reports: no symptoms, see HPI. Objective Last 24 Hrs of Vital Signs/I&O Vital Signs Date Time Temp Pulse Resp B/P B/P Pulse O2 O2 Flow FiO2 Mean Ox Delivery Rate 03/31 0619 98.0 97 18 124/60 95 Nasal 2.0L Cannula 03/31 0000 Nasal 2.0L Cannula 03/30 2228 98.7 106 18 142/70 100 Nasal 2.0L Cannula 03/30 1631 Nasal 2.0L Cannula 03/30 1600 96 Nasal 2.0L Cannula 03/30 1335 98.5 95 18 145/65 100 Nasal 2.0L Cannula Intake & Output 03/31 1600 03/31 0800 03/31 0000 Intake Total 800 800 Output Total 300 300 Balance 500 500 Intake, IV 800 800 Number 3 1 Bowel Movements Output, Urine 300 300 Physical Exam General Appearance: Cooperative, No Acute Distress, decreased alertness, unable to assess orientation due to nonverbal Skin: No Rashes, No Breakdown Skin Temp/Moisture Exam: Warm/Dry HEENT: Atraumatic, PERRLA Neck: Supple, No JVD, No thryomegaly Cardiovascular: Regular Rate, Normal S1, Normal S2, No Murmurs Lungs: Clear to Auscultation, Normal Air Movement Abdomen: Soft, No Tenderness, No Hepatospenomegaly Neurological: see hpi Extremities: No Clubbing, No Cyanosis, No Edema Current Medications: Current Medications Sig/Nu Start time Last Medication Dose Route Stop Time Status Admin Ceftazidime 1,000 MG Q8H 03/29 1200 DC 03/30 IV 1232 Donepezil HCl 10 MG AT BEDTIME 03/29 2100 AC 03/30 PO 2051 Insulin Aspart 0 TIDAC 03/29 0800 AC 03/30 SC 1700 Insulin Detemir 9 UNITS AT BEDTIME 03/29 2100 AC 03/30 SC 2051 Insulin Detemir 15 UNITS DAILY 03/29 09 AC 03/31 SC 819 Levothyroxine Sodium 0.088 MG 0903/29 0900 AC 03/31 PO 08 Magnesium Oxide 400 MG DAILY 03/29 0900 AC 03/31 PO 08 Melatonin 5 MG QPM 03/29 2100 AC 03/30 PO 2051 Memantine 10 MG DAILY 03/29 09 AC 03/31 PO 08 Povidone Iodine 1 ANETA DAILY 03/30 1601 AC 03/31 TOP 0815 Rivaroxaban 20 MG 1700 03/29 1700 AC 03/30 PO 1700 Sodium Chloride 1,000 ML Q10H 03/29 0630 AC 03/31 IV 0821 Sodium Hypochlorite 1 ANETA DAILY NEEDED 03/30 1615 AC TOP Vancomycin HCl 1,000 MG Q12H 03/29 1600 DC 03/30 Sodium Chloride 250 ML IV 0356 Orders Radiology Findings: Several hepatic masses, largest ~10 cm in area of margie hepatis Posterolateral left seventh rib fracture Lines/Diet/Fluids Catheters/Tubes: altamirano (see H&P for state of altamirano) Altamirano Still Needed? 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 He was BIBA from [facility] with low grade fever and lethargy. After discussion w/ palliative and yesterday, patient will likely be returning to [facility] today. Problem list/plan Fever -could be due to UTI, osteo, metastatic lung ca most likely -patient received vanc and ceftaz in ER, now stopped -Blood cultures and stool cultures negative -C diff negative - removed from contact precautions -Urine growing GPC and GNR -Patient's altamirano and penile injury are old/chronic and do not need addressing at this time Lactic acidosis -trend lactic acid Diabetes -Hold metformin and start patient on NSS Anemia -watchful waiting Chronic medical conditions -continue home meds Overall, continue current treatment plan DVT prophylaxis: Continued with xarelto Patient is "full code" after meeting with /palliative care Pending final decision, but likely return to care home later today Problem List: 1. Altered mental status 2. Fever Pain Ratin Pain Location: none Pain Goal: Remain pain free Pain Plan: none in place Tomorrow's Labs & Rationales: none, likelyl discharged Abelardo Vallecillo 03/31/18 1128: Attending MD Review Statement Attending Statement Attending MD Statement: examined this patient, discuss w/resident/PA/RUMPER, agreed w/resident/PA/RUMPER, discussed with family, reviewed EMR data (avail), discussed with nursing, discussed with case mgmt, reviewed images, amended to note Attending Assessment/Plan: Pateint non verbal. He is alert. No new complaints reported. Patient has chronic altamirano cathter placement from old injury to penis and altamirano care appears stable with good urine output and no blood in urine or penile shaft. Pateint fever is thought to be from underliying malignancy T max 72 hrs 100.7. Culture remian negative since past 48-72 hrs. Antibiotics were disocntinue and he is afebrile for pst 24 hrs. Pallaitive care was consulted and had detailed discussion with who is POA. Please refer to immigration consultant notes Chronic sarcal decubitus ucler present on admission stage 4 with no active infection, purulent drainage, Wound care done suring the hospital stay Chronic indwelling altamirano urine culture appears contaminant repeat negative. Patient can be discharged to [facility], however he remains high risk of readmission. Cosnider outpatient pallaitive at [facility]. FUll code.
--- NOTE | 2018-03-31 08:38 | Patient Discharge Instructions ---
Discharge Instructions General Discharge Information Special Instructions: - Please follow up with your primary care physician within 1-2 weeks of discharge. Inform your primary care physician of this admission to [facility]. - Continue your current medications per discharge instructions. - Please watch for these problems: Fever, Chills, Nausea, Vomiting, Shortness of Breath, Productive Cough, Chest Pain/Discomfort, Abdominal Pain, Active Bleeding or Bloody urine/stool. Diet Continue normal diet: Yes Activity Full Activity/No Limits: Yes Acute Coronary Syndrome Inclusion Criteria At DC or during hospital stay patient has or had the following: ACS DIAGNOSIS No Discharge Core Measures Meds if any: Prescribed or Continued at Discharge Meds if any: NOT Prescribed or Continued at Discharge Congestive Heart Failure Inclusion Criteria At DC or during hospital stay patient has or had the following: CHF DIAGNOSIS No Discharge Core Measures Meds if any: Prescribed or Continued at Discharge Meds if any: NOT Prescribed or Continued at Discharge Cerebrovascular accident Inclusion Criteria At DC or during hospital stay patient has or had the following: CVA/TIA Diagnosis No Discharge Core Measures Meds if any: Prescribed or Continued at Discharge Meds if any: NOT Prescribed or Continued at Discharge Venous thromboembolism Inclusion Criteria VTE Diagnosis No VTE Type NONE VTE Confirmed by (Test) NONE Discharge Core Measures - Per Current guidelines, there needs to be overlap - treatment for the first 5 days of Warfarin therapy. - If discharged on Warfarin prior to 5 days of - overlap therapy, the patient will need to be - assessed for post discharge needs including - *Post discharge parental anticoagulation - *Warfarin and/or parental anticoagulation education - *Follow up date to check INR post discharge At least 5 days overlap therapy as Inpatient No Meds if any: Prescribed or Continued at Discharge Note: Overlap Therapy is Warfarin and Anticoagulant Meds if any: NOT Prescribed or Continued at Discharge
--- NOTE | 2018-03-31 10:42 | Discharge Summary ---
See Addendum Visit Information Visit Dates Admission Date: 03/29/18 Discharge Date: 03/31/2018 Hospital Course Course Attending Physician: Ruth Ann WASSERMAN,Abelardo Primary Care Physician: Shannon Hedrick MD Hospital Course: Ms. Tejeda is a 77yo M w/ PMH of chronic osteomyelitis of sacral bones, stage 4 coccyx ulcer, dementia, BPH (chronic indwelling altamirano catheter), HTN, DM , hypothyroidism, hx of DVT (2017?),poorly differenciated Lung Ca , BIBA from [facility] with low grade fever and lethargy. Patient has hx of dementia, unable to provide any hx. Hx obtained from [facility] who reported patient being more lethargic than usual(less responsive than his baseline) and had a low grade fever. Denied any cough, SOB, diarrhea, constipation, urinary incontinence or frequency. Patient was put on 2L of oxygen per the 's request without any change in O2 sat. IN the ER patient was reported to have multiple episodes of loose/watery bowel movements which were guaiac positive. Vitals on admission were TMax of 100.7, heart rate 102, respiratory rate 18, BP 112/55 and O2 sat 98% on 2 L later 95% on RA. Patient non-verbal on exam,Poor attempt to follow commands. Heart regular with Normal S1, S2, Lungs CTA, Abdomen Non-tender with hyeractive bowel sounds. No peripheral edema. Non stagable Sacral Decubitus Ulcer. altamirano in place but migrated through the penile shaft. Labs were significant for WBC count of 11.8 with left shift and bandemia, hemoglobin 8.4/25.0, RDW 15.5, sodium 132, potassium 4.5, chloride 97, BUN/3045/ 1.1, glucose 307, lactic acid 5.2, AST 254, ALC 122, alkaline phosphatase 399 with normal total bilirubin. Urine positive with 5-10 WBCs and possibly leukocyte esterase in the setting of an indwelling catheter. CXR; negative for any acute pathology. CT abdomen and pelvis with Contrast was negative for any acute pathology but showed multiple hepatic masses suspicious for metastatic disease. Patient was admitted to for following management Problem list: #Fever w/ multifactorial etiology including 2/2 UTI w/ chronic altamirano, Metastatic Lung Ca #AMS, resolved to baseline #Lactic acidosis, resolved #Mild reactive transaminitis, resolved #Chronic normacytic Anemia 2/2 chronic illness w/ guaiac positive stool. #PMH of chronic osteomyelitis of sacral bones, stage 4 coccyx ulcer, dementia, BPH (chronic indwelling altamirano catheter), HTN, DM, hypothyroidism, hx of DVT ( 2017?),poorly differenciated Lung Ca on admission, as no clear source of fever was definitely identified, patient was started on broad spectrum Vancomycin/Ceftazidine for coverage of possible aspiration PNA as patient has been on nectar/thick diet, however no CXR findings except lung mass from previous imaging, also for possible UTI w/ chronic altamirano indwelling (inserted at bottom of penis shaft per [place] urologist, not injured, free flow of urine without hematuria. Patient's fever could also be due to underlying metastatic malignancy especially in the case of hepatic mass. Patient 's fever resolved on hospital day 2 without recurrence, and mental status improved over the hospital stay and continued on nectar/thick liquid diet per speech therapist recommendation without witnessed choking event. Patient received a total of 3 days of antibiotics and then monitored off ABX. Palliative consult on board recommended to continue care at [facility] after detailed discussion of plan of care to the (see palliative consult note for details). DVT PPX: Xarelto + ALPS Full Code [place]/Thick liquid diet Allergies: Coded Allergies: No Known Allergies (02/09/18) Pertinent Lab Results: SERVICE DATE: 03/28/18673 EXAM TYPE: RAD - XRY-PORTABLE CHEST XRAY IMPRESSION: No acute consolidation identified. Previously identified right lower lobe mass is not adequately visualized radiographically; right infrahilar prominence may reflect adenopathy. SERVICE DATE: 03/29/18 EXAM TYPE: CAT - CT ABD & PELVIS W IV CONTRAST IMPRESSION: 1. Several hepatic masses, largest in the region of the margie hepatis measuring approximately 9.7 cm in diameter. Appearance is suspicious for metastatic disease and similar to noncontrast CT of 02/09/2018. Suspect tumor extension into portions of the right and left portal veins with partial thrombosis. 2. Collapsed gallbladder, not adequately evaluated. 3. Partial visualization of right lower lobe pulmonary mass and suspected right hilar/peribronchial adenopathy. Overall appearance is similar to chest CT of 02/09/2018. 4. Partial visualization of posterolateral left seventh rib fracture. 5. Collapsed urinary bladder with Altamirano catheter in place. A 5 mm calcification is present adjacent to the catheter balloon, favoring a bladder calculus. Disposition Summary Disposition Principal Diagnosis: #Fever w/ multifactorial etiology including 2/2 UTI w/ chronic altamirano, Metastatic Lung Ca #AMS, resolved to baseline #Lactic acidosis, resolved #Mild reactive transaminitis, resolved #Chronic normacytic Anemia 2/2 chronic illness w/ guaiac positive stool. #PMH of chronic osteomyelitis of sacral bones, stage 4 coccyx ulcer, dementia, BPH (chronic indwelling altamirano catheter), HTN, DM, hypothyroidism, hx of DVT ( 2017?),poorly differenciated Lung Ca Additional Diagnosis: as above Discharge Disposition: SNF Discharge Instructions General Discharge Information Code Status: Full Code Patient's Diet: as tolerated Patient's Activity: as tolerated Follow-Up Instructions/Appts: - Please continue your care at [facility] - Please follow up with your primary care physician within 1-2 weeks of discharge. Inform your primary care physician of this admission to . - Continue your current medications per discharge instructions. - Please watch for these problems: Fever, Chills, Nausea, Vomiting, Shortness of Breath, Productive Cough, Chest Pain/Discomfort, Abdominal Pain, Active Bleeding or Bloody urine/stool. Medications at Discharge Discharge Medications: Continue taking these medications: Rivaroxaban (Xarelto) 20 MG TABLET 1 Tablet ORAL Every night Instructions: with food Comments: Last Taken: 02/15/18 Time: 1020AM Atenolol (Atenolol) 25 MG TABLET 1 Tablet ORAL DAILY Comments: Last Taken: 02/15/18 Time: 1020AM Levothyroxine Sodium (Levothyroxine Sodium) 88 MCG TABLET 1 Tablet ORAL DAILY Comments: Last Taken: 02/15/18 Time: 600AM Melatonin (Melatonin) 5 MG TABLET 1 Tablet ORAL Every night Comments: NOT GIVEN Memantine HCl (Namenda) 10 MG TABLET 1 Tablet ORAL DAILY Magnesium Oxide (Magnesium) 400 MG TABLET 1 Tablet ORAL DAILY Comments: NOT GIVEN Donepezil HCl (Aricept) 10 MG TABLET 1 Tablet ORAL DAILY Comments: Last Taken: 02/15/18 Time: 1020AM Metformin HCl (Metformin HCl) 1,000 MG TABLET 1 Tablet ORAL TWICE DAILY Comments: NOT GIVEN Insulin-Lantus (Lantus) 100 UNIT/ML VIAL 0 SC SEE INSTRUCTIONS Qty = 1 Instructions: TAKE 15 UNITS IN MORNING TAKE 9 UNITS AT BEDTIME Comments: NOT GIVEN This prescription has been renewed Copies To: Ryley WASSERMAN,Shannon Alcocer
[2018-03-31 14:36] VITALS: BP 124/64
--- NOTE | 2018-03-31 18:43 | PN- Palliative Care ---
Subjective Subjective: No significant changes in condition. Patient appears stable and appropriate for return to SNF for [facility] care. Case was discussed extensively at palliative care conference today at which time it was repored that discharge plan not yet agreed to by patient's spouse. In fact, it was also reported that she may not want him to return to [facility]. Patient is without complaints. Review of Systems: unable to obtain Objective Last 24 Hrs of Vital Signs/I&O Vital Signs Date Time Temp Pulse Resp B/P B/P Pulse O2 O2 Flow FiO2 Mean Ox Delivery Rate 03/31 1436 97.8 92 24 124/64 98 Nasal 2.0L Cannula 03/31 0800 96 Nasal 2.0L Cannula 03/31 06 98.0 97 18 124/60 95 Nasal 2.0L Cannula 03/31 0000 Nasal 2.0L Cannula 03/30 2228 98.7 106 18 142/70 100 Nasal 2.0L Cannula Intake & Output 03/31 1600 03/31 0800 03/31 0000 Intake Total 1320 800 800 Output Total 1100 300 300 Balance 220 500 500 Intake, IV 700 800 800 Intake, Oral 620 Number 1 3 1 Bowel Movements Output, Urine 1100 300 300 Physical Exam: elderly male - in bed, NAD arousable but not able to participate in conversation Current Medications Current Medications: Current Medications Sig/Nu Start time Last Medication Dose Route Stop Time Status Admin Donepezil HCl 10 MG AT BEDTIME 03/29 2100 AC 03/30 PO 2051 Insulin Aspart 0 TIDAC 03/29 08 AC 03/30 SC 1700 Insulin Detemir 9 UNITS AT BEDTIME 03/29 2100 AC 03/30 SC 2051 Insulin Detemir 15 UNITS DAILY 03/29 09 AC 03/31 SC 0820 Levothyroxine Sodium 0.088 MG 03/29 0900 AC 03/31 PO 0813 Magnesium Oxide 400 MG DAILY 03/29 09 AC 03/31 PO 0813 Melatonin 5 MG QPM 03/29 2100 AC 03/30 PO 205 Memantine 10 MG DAILY 03/29 09 AC 03/31 PO 0813 Patient Medication 1 ED ONE ONE 03/31 1800 DC Teaching ED 03/31 1801 Povidone Iodine 1 ANETA DAILY 03/30 1601 AC 03/31 TOP 0815 Rivaroxaban 20 MG 1700 03/29 1700 AC 03/30 PO 1700 Sodium Chloride 1,000 ML Q10H 03/29 0630 AC 03/31 IV 0821 Sodium Hypochlorite 1 ANETA DAILY NEEDED 03/30 1615 TOP Assessment/Plan Assessment Patient with advanced dementia, metastatic cancer, decubitus ulcer, other chronic medical conditions. Please refer to recommendation issued 03/30/2018. At this time, if patient is stable and does not meet criteria for continued inpatient care, he should return to his facility. If spouse wishes for him to transfer to another facility, this can be accomplished as an outpatient and does not require hospitalization. He continues to suffer from multiple, life-threatening conditions, that are of a chronic nature. After extensive discussion with his , it appears that she is desiring of aggressive care - mostly as it relates to change in condition or if he should rapidly approach end of life. He is not pursuing treatment of his metastatic cancer - and such treatment is not likely to benefit the patient. A trusting relationship must be developed with Mrs. Tejeda if there will be any hope of establishing a jointly agreed upon plan of care that makes medical sense and meets the needs of the patient and his . To that end, please ensure that information provided to Mrs. Tejeda is accurate, explained in simple terms, and appropiately qualified (fact, opinion, hope) so as to reduce the chances for misunderstandings.
[2018-03-31 22:35] VITALS: BP 122/60
[2018-04-01 06:34] VITALS: BP 123/58
--- NOTE | 2018-04-01 07:02 | PN- Housestaff ---
Delmar Azul 04/01/18 0702: Subjective Follow-up For: AMS and fever Complaints: no complaints (largely nonverbal) Subjective: Patient was seen and examined at the bedside. Though nonverbal, did verbalize ( possibly by reflex) "no" to "are you in pain" and "no" to "can we do anything for you". Plan is to discharge back to [facility] Review of Systems Constitutional: Reports: see HPI. Objective Last 24 Hrs of Vital Signs/I&O Vital Signs Date Time Temp Pulse Resp B/P B/P Pulse O2 O2 Flow FiO2 Mean Ox Delivery Rate 04/01 0634 98.2 93 20 123/58 98 Nasal 2.0L Cannula 04/01 0000 Nasal 2.0L Cannula 03/31 2235 97.4 94 24 122/60 100 Nasal 5.0L Cannula 03/31 1436 97.8 92 24 124/64 98 Nasal 2.0L Cannula Intake & Output 04/01 1600 04/01 0800 04/01 0000 Intake Total 900 750 Output Total 1300 Balance -400 750 Intake, IV 800 400 Intake, Oral 100 350 Output, Urine 1300 Physical Exam General Appearance: Cooperative, No Acute Distress, NOT ALERT, NOT ORIENTED ( DIFFICULT TO ASSESS GIVEN NONVERBAL) Skin: No Rashes, STAGE 4 DECUBITUS ULCER ON COCCYX; ULCER ON LEFT 2ND TOE Skin Temp/Moisture Exam: Warm/Dry HEENT: Atraumatic, EYES MINIMALLY OPEN; UNABLE TO ASSESS Neck: Supple, No JVD, No thryomegaly Abdomen: Soft, No Tenderness Neurological: SEE HPI Extremities: No Clubbing, No Cyanosis, No Edema Current Medications: Current Medications Sig/Nu Start time Last Medication Dose Route Stop Time Status Admin Donepezil HCl 10 MG AT BEDTIME 03/29 2100 AC 03/31 PO 2122 Insulin Aspart 0 TIDAC 03/29 08 AC 03/31 SC 1800 Insulin Detemir 9 UNITS AT BEDTIME 03/29 2100 AC 03/31 SC 2122 Insulin Detemir 15 UNITS DAILY 03/29 900 AC 03/31 SC 08 Levothyroxine Sodium 0.088 MG 0900 03/29 09 AC 03/31 PO 08 Magnesium Oxide 400 MG DAILY 03/29 900 AC 03/31 PO 08 Melatonin 5 MG QPM 03/29 2100 AC 03/31 PO 2123 Memantine 10 MG DAILY 03/29 0900 AC 03/31 PO 0813 Patient Medication 1 ED ONE ONE 03/31 1800 DC 03/31 Teaching ED 03/31 1801 1800 Povidone Iodine 1 ANETA DAILY 03/30 1601 AC 03/31 TOP 0815 Rivaroxaban 20 MG 1700 03/29 1700 AC 03/31 PO 1700 Sodium Chloride 1,000 ML Q10H 03/29 0630 AC 04/01 IV 0506 Sodium Hypochlorite 1 ANETA DAILY NEEDED 03/30 1615 TOP Lines/Diet/Fluids Catheters/Tubes: altamirano (IN PLACE AT BASE OF PENIS) Altamirano Still Needed? 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 He was BIBA from [facility] with low grade fever and lethargy. After discussion w/ palliative and yesterday, patient will likely be returning to [facility] today. Patient's will be in to the hospital today to accompany him back to the [facility]. Problem list/plan Fever -could be due to UTI, osteo (unlikely given chronic nature), metastatic lung cancer most likely -patient received vanc and ceftaz in ER, now stopped -Blood cultures and stool cultures negative -C diff negative - removed from contact precautions -Urine growing GPC and GNR, likely contaminant, repeat is still positive for MSSA -Patient's altamirano and penile injury are old/chronic and do not need addressing at this time -Urine output via altamirano good Lactic acidosis -resolved Diabetes -Hold metformin and start patient on NSS Anemia -watchful waiting Chronic medical conditions -continue home meds -patient received wound care as per treatment note while inhouse here. Overall, continue current treatment plan DVT prophylaxis: Continued with xarelto Consistent carbohydrate 3 diet Patient is "full code" after meeting with /palliative care Pending final decision, but likely return to [facility] later today Problem List: 1. Altered mental status 2. Fever 3. Decubital ulcer 4. Lactic acidosis 5. Liver mass Pain Ratin Pain Location: none Pain Goal: Remain pain free Pain Plan: none Tomorrow's Labs & Rationales: none; anticipated discharge DVT/Prophylaxis: pharmacological (home xarelto) Discharge Plan Discharge Disposition: STR/NH Stable for Discharge? Yes Anticipated Discharge (Day): today If Discharged Today/In 24 Hrs: CMR done Abelardo Vallecillo 04/01/18 1048: Attending MD Review Statement Attending Statement Attending MD Statement: examined this patient, discuss w/resident/PA/SCULPTURE INSTRUCTOR, agreed w/resident/PA/SCULPTURE INSTRUCTOR, discussed with family, reviewed EMR data (avail), discussed with nursing, discussed with case mgmt, reviewed images, amended to note Attending Assessment/Plan: Pateint non verbal. He is alert. No new complaints reported. Patient has chronic altamirano cathter placement from old injury to penis and altamirano care appears stable with good urine output and no blood in urine or penile shaft. Pateint fever is thought to be from underliying malignancy T max 96 hrs 100.7. Culture remian negative since past 48-72 hrs. Antibiotics were discontinued and he is afebrile for past 48 hrs. Pallaitive care is following and had detailed discussion with who is POA. Please refer to solutions architect consultant notes Chronic OM/Chronic sarcal decubitus ucler present on admission stage 4 with no active infection, purulent drainage, Wound care done during the hospital stay. Chronic indwelling altamirano urine culture appears contaminant repeat negative. Patient can be discharged to [facility], however he remains high risk of readmission. Cosnider outpatient pallaitive at [facility]. Family/ aware about discharge planning however not coperative. FUll code.
[2018-04-01 11:37] VITALS: BP 123/58
== END 2018-04-01 12:10 | DRG 180 ==
LOC: DELPENDDIS → ERH 23:38 → ERHI 03-29 03:52 → 2NB 03-29 03:52 → ERHI 03-29 07:41 → ENRESERV 03-29 12:58 → ENTRNSPT 03-29 14:18 → 2NB 03-29 14:45 → EDTRNSPTSTS 03-29 14:46 → EDTRNSPT 03-29 14:46 → CMPTRNSPT 03-29 15:06 → ENPENDDIS 03-31 10:41 → 2NB 04-01 12:10
PROVIDERS: Emergency Medicine; General Practice; Internal Medicine
PROC: 0HB6XZZ Excision of Back Skin, External Approach (ICD-10-PCS; principal; 2018-03-30)
DX: C34.91 Malignant neoplasm of unspecified part of right bronchus or lung (principal); L89.154 Pressure ulcer of sacral region, stage 4; C78.7 Secondary malignant neoplasm of liver and intrahepatic bile duct; E46 Unspecified protein-calorie malnutrition; C79.51 Secondary malignant neoplasm of bone; E87.2 Acidosis; Z51.5 Encounter for palliative care; R50.9 Fever, unspecified; F03.90 Unspecified dementia, unspecified severity, without behavioral disturbance, psychotic disturbance, mood disturbance, and anxiety; Z68.22 Body mass index [BMI] 22.0-22.9, adult; E11.9 Type 2 diabetes mellitus without complications; N40.1 Benign prostatic hyperplasia with lower urinary tract symptoms; R33.8 Other retention of urine; E03.9 Hypothyroidism, unspecified; Z86.718 Personal history of other venous thrombosis and embolism; Z79.01 Long term (current) use of anticoagulants; L97.521 Non-pressure chronic ulcer of other part of left foot limited to breakdown of skin; Z79.4 Long term (current) use of insulin; Z79.51 Long term (current) use of inhaled steroids; E78.5 Hyperlipidemia, unspecified; I10 Essential (primary) hypertension; R74.0 Nonspecific elevation of levels of transaminase and lactic acid dehydrogenase [LDH]; B95.62 Methicillin resistant Staphylococcus aureus infection as the cause of diseases classified elsewhere; B96.4 Proteus (mirabilis) (morganii) as the cause of diseases classified elsewhere
CPT/HCPCS: 87184; ERO; 36592; 71045; 74177; 81001; 82436; 87015; 87040; 87045; 87086; 87147; 87899; 87899-59; 93005; 93010; 96361; 96365; 96375; 99291; J0131; J0713; J3370; J3490; J7040

== ENCOUNTER 2018-04-16 12:52 | Inpatient (IN) | payer OTHER ==
[~2018-04-16] VITALS: Ht 177.8 cm; Wt 69.4 kg
--- NOTE | 2018-04-16 13:21 | ED DYSPNEA/ASTHMA COMPLAINT ---
History of Present Illness General Chief Complaint: Dyspnea (COPD, CHF, Other) Stated Complaint: BIBA ?ASPERATION Source: family, old records Exam Limitations: clinical condition, dementia Vital Signs & Intake/Output Vital Signs & Intake/Output Vital Signs Date Time Temp Pulse Resp B/P B/P Pulse O2 O2 Flow FiO2 Mean Ox Delivery Rate 04/16 1555 98.5 85 20 144/76 100 Nasal Cannula 04/16 1304 98.4 86 23 101/51 98 Nasal 2.0L Cannula Allergies Coded Allergies: No Known Allergies (02/09/18) Reconcile Medications Acetaminophen (Pain Relief) 325 MG TABLET 2 TAB PO Q6H PRN PAIN/TEMP>101 ( Reported) Acetaminophen (Acephen) 650 MG SUPP.RECT 1 SUPP OR Q6H PRN PAIN/TEMP>101 ( Reported) Atenolol 25 MG TABLET 1 TAB PO DAILY BP (Reported) Bisacodyl (Dulcolax) 10 MG SUPP.RECT 1 SUP RC DAILY PRN CONSTIPATION ( Reported) Donepezil HCl (Aricept) 10 MG TABLET 1 TAB PO DAILY DEMENTIA (Reported) Erythromycin Base (Erythromycin) 5 MG/GRAM (0.5 %) OINT...G. 1 CM OD 4XD ABX (Reported) apply 1 cm ribbon into the lower conjunctival sac Guaifenesin (Cough Syrup) 100 MG/5 ML LIQUID 10 ML PO Q6H PRN COUGH/CONGESTION (Reported) Hyoscyamine Sulfate 125 MCG/5 ML ELIXIR 1 ML SL Q4H PRN SECRETIONS (Reported) Insulin Glargine,Hum.rec.anlog (Lantus Solostar) 100 UNIT/ML (3 ML) INSULN.PEN 15 UNITS SC QAM DM (Reported) Insulin Lispro (Humalog) 100 UNIT/ML VIAL DM (Reported) Insulin-Lantus (Lantus) 100 UNIT/ML VIAL 9 UNITS SQ QHS DM (Reported) Latanoprost 0.005 % DROPS 1 GTT OS QHS LEFT EYE (Reported) Levothyroxine Sodium 88 MCG TABLET 1 TAB PO DAILY HYPOTHYROIDISM (Reported) Magnesium Hydroxide (Milk Of Magnesia) 400 MG/5 ML ORAL.SUSP 30 ML PO Q3D PRN CONSTIPATION (Reported) Magnesium Oxide (Magnesium) 400 MG TABLET 1 TAB PO DAILY LOW ELECTROLYTES ( Reported) Melatonin 5 MG TABLET 1 TAB PO QPM SLEEP (Reported) Memantine HCl (Namenda) 10 MG TABLET 1 TAB PO DAILY DEMENTIA (Reported) Metformin HCl 1,000 MG TABLET 1 TAB PO BID DIABETES (Reported) Mirtazapine (Remeron) 15 MG TABLET 1 TAB PO QPM UNKNOWN (Reported) Naloxone HCl (Narcan) 4 MG/ACTUATION SPRAY 4 MG JESUS ALBERTO AD PRN OPIOID INDUCED RESP. DEPRESSIO (Reported) Ondansetron HCl (Zofran) 4 MG TABLET 1 TAB PO Q4H PRN N/V (Reported) Rivaroxaban (Xarelto) 20 MG TABLET 1 TAB PO QPM ? DVT (Reported) with food Triage Note: PT BIBA FROM SNF FOR "COUGH & POSSIBLE ASPIRATION" PER EMS. EMS WAS TOLD PT IS BASELINE NONVERBAL. @ BS STATES PT IS USUALLY VERBAL. PT HAS A WET NONPRODUCTIVE COUGH. NAD NOTED SATS WNL Triage Nurses Notes Reviewed? 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 does state the patient was able tolerate by mouth prior to arrival. History is limited due to patient's initial clinical presentation of profound lethargy Patient was given nebulizer treatment and route VIA EMS (Helder Chanel) Past History Travel History Traveled to [place] past 21 day No Medical History Any Pertinent Medical History? 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 No (Helder Chanel) Review of Systems Review of Systems Constitutional: Reports: see HPI, malaise, weakness. EENTM: Reports: no symptoms. Respiratory: Reports: see HPI, cough. Cardiovascular: Reports: no symptoms. GI: Reports: no symptoms. Genitourinary: Reports: no symptoms. Musculoskeletal: Reports: no symptoms. Skin: Reports: no symptoms. Neurological/Psychological: Reports: no symptoms. Hematologic/Endocrine: Reports: no symptoms. Immunologic/Allergic: Reports: no symptoms. All Other Systems: Reviewed and Negative (Helder Chanel) Physical Exam Physical Exam General Appearance: no apparent distress, lethargic Head: atraumatic Eyes: Bilateral: normal appearance. Neck: normal inspection Respiratory: no respiratory distress, quiet respiration, decreased breath sounds Cardiovascular: regular rate/rhythm Gastrointestinal: normal bowel sounds, soft, non-tender Extremities: no edema Diagram Chest, Abdomen, Back: 1) Noted stage II decubitus ulcer with surrounding erythema 2) Noted superficial decubitus ulcer Core Measures ACS in differential dx? No CVA/TIA Diagnosis No Sepsis Present: Yes Sepsis Focused Exam Completed? Yes (Helder Chanel) ED Sepsis Exam Date of Focused Sepsis Exam: 04/16/18 Time of Focused Sepsis Exam: 1458 Sepsis Cardiac Exam: Regular Rate/Rhythm Sepsis Resp Exam: DECREASED BREATH SOUNDS Sepsis Cap Refill Exam: <2 Sec Sepsis Peripheral Pulse Exam: Normal Sepsis Peripheral Pulse Location: Radial Sepsis Skin Color Exam: Normal for Ethnicity Skin Temp/Moisture Exam: Warm/Dry (Helder Chanel) Progress Differential Diagnosis: asthma, AMI, bronchitis, costochondritis, CHF, COPD, musculoskeletal pain, pericarditis, pulmonary embolism, pneumonia, pneumothorax, rib fracture, unstable angina Plan of Care: Orders Procedure Date/time Status Heart Healthy Diet 04/17 B Active LACTIC ACID 04/16 1622 Active ED Holding Orders 04/16 1613 Active Admit to inpatient 04/16 1613 Active Vital Signs 04/16 1613 Active Code Status 04/16 1613 Active CULTURE,URINE 04/16 1322 Active BLOOD CULTURE 04/16 1322 Active URINALYSIS 04/16 1322 Complete TROPONIN LEVEL 04/16 1322 Complete LACTIC ACID 04/16 1322 Complete COMPREHENSIVE METABOLIC PANEL 04/16 1322 Complete CBC WITHOUT DIFFERENTIAL 04/16 1322 Complete EKG 04/16 1256 Active Current Medications Sig/Nu Start time Last Medication Dose Stop Time Status Admin Sodium Chloride 1,000 ML BOLUS ONE 04/16 154 AC (Normal Saline 0.9%) 04/16 164 Vancomycin HCl 1,000 MG ONCE ONE 04/16 1545 AC 04/16 Sodium Chloride 250 ML 04/16 1644 1554 (Normal Saline 0.9%) Laboratory Tests 04/16/18 1405: Urinalysis LIGHT H, Urine Color YEL, Urine Clarity HAZY H, Urine pH 6.0, Ur Specific [place] 1.025, Urine Protein 100 H, Urine Ketones NEG, Urine Nitrite NEG, Urine Bilirubin NEG, Urine Urobilinogen 0.2, Ur Leukocyte Esterase LARGE H , Ur Microscopic SEDIMENT EXAMINED, Urine RBC >75 H, Urine WBC > 75 H, Ur Epithelial Cells RARE, Urine Bacteria MANY H, Micro UA Comment BUDDING YEAST H , Urine Hemoglobin LARGE H, Urine Glucose NEG 04/16/18 1400: Anion Gap 12, Estimated GFR 39 L, BUN/Creatinine Ratio 44.7 H, Glucose 115 H, Lactic Acid 4.0 H, Calcium 8.0 L, Total Bilirubin 0.8, AST 220 H, ALT 73 H, Alkaline Phosphatase 883 H, Troponin I < 0.01, Total Protein 6.0 L, Albumin 2.8 L, Globulin 3.2, Albumin/Globulin Ratio 0.9 L, CBC w Diff NO MAN DIFF REQ, RBC 3.25 L, MCV 80.0, MCH 26.3 L, MCHC 32.9 L, RDW 18.3 H, MPV 9.0, Gran % 74.2, Lymphocytes % 19.0 L, Monocytes % 6.3, Eosinophils % 0.4, Basophils % 0.1 , Absolute Granulocytes 7.2 H, Absolute Lymphocytes 1.8, Absolute Monocytes 0.6 , Absolute Eosinophils 0, Absolute Basophils 0 Microbiology 04/16 154 BLOOD: Blood Culture - RECD 04/16 140 URINE ROUT: Urine Culture - RECD 04/16 1400 BLOOD: Blood Culture - RECD Differential diagnosis includes sepsis, decubitus ulcer osteomyelitis cellulitis Initial presentation patient noted to be profoundly lethargic Scans were resulted showing concerns of pneumonia patient will be treated for concerns of hospital-acquired pneumonia, there is consideration of infection and cellulitis to the sacral region patient will require wound care, discussed admission with family member who is aware IV fluids were administered No concerns of septic shock on admission Discussed admission with family member who is aware Diagnostic Imaging: Viewed by Me: CT Scan. Radiology Impression: acute abnormality Initial ED EKG: normal QRS complex, NSR, 79 BPM Comments: PATIENT: JUANA LEON PRESENT AGE: 77 PATIENT ACCOUNT NO: [id number] : 42 LOCATION: [facility] ORDERING PHYSICIAN: Helder VILLALBA SERVICE DATE: 04/16/18 EXAM TYPE: CAT - CT ABD & PELVIS W/O IV CONTRAS; CT CHEST WO IV CONTRAST EXAMINATION: CT CHEST WITHOUT IV CONTRAST CT ABDOMEN AND PELVIS WITHOUT IV CONTRAST CLINICAL INFORMATION: 77-year-old male with profound lethargy and cough. COMPARISON: Prior CT exams from 02/09/2018 and 03/29/2018. TECHNIQUE: Noncontrast multidetector CT imaging examination of the chest, abdomen and pelvis was performed. Axial images are displayed at 0.65 mm and 5 mm slice thickness. Coronal and sagittal reformatted images were generated at the technologist's workstation and submitted for review. DLP: 537 mGy-cm FINDINGS: CHEST - LUNGS and PLEURA: The mass of the right lower lobe has slightly increased in size compared to 02/09/2018; it currently measures approximately 4.8 x 3.4 cm. Bronchial verdugo are thickened in the right lower lobe. Again noted is peribronchial nodular opacity from infiltrative tumor and/or peribronchial lymphadenopathy. New ill-defined centrilobular nodularity and groundglass opacity in the right lower lobe, posterior right upper lobe and lateral segment of right middle lobe, consistent with infection/inflammation of small airways and pneumonia. Small right pleural effusion is present. Several scattered micronodular opacities in right upper lobe, including 0.3 cm noncalcified nodule within the right upper lobe (image 195, series 4). Multiple small nodules in left upper and left lower lobe could represent neoplastic or inflammatory nodules. Findings include a 0.5 cm solid, noncalcified, pleural-based nodule of the anterior left upper lobe (image 261, series 4). The mild patchy opacity in the dependent aspect of left lower lobe could represent a combination of atelectasis and infectious infiltrate. Small left pleural effusion is present. MEDIASTINUM: Severe atherosclerotic disease of coronary arteries, status post coronary artery bypass graft surgery. The mitral valve annulus is calcified. Atherosclerosis of the thoracic aorta without aneurysm. No pericardial effusion. The esophagus has normal wall thickness. Thyroid gland is atrophied. LYMPHATICS: No axillary lymphadenopathy. Again noted is bulky lymphadenopathy of the right hilum. At the level of the aortic arch, a right paratracheal lymph node is 0.8 cm short axis dimension. The subcarinal lymphadenopathy measures 1.8 cm AP. CHEST WALL/BONES: Status post midline sternotomy. The sternum is healed; however, there is a persistent gap within the manubrium. Several ill-defined lucencies in multiple bilateral ribs are suspicious for metastases. Again noted is the mottled destruction and pathologic fracture of the left posterior seventh rib. The 0.6 cm lucent focus within the T11 vertebral body could represent a metastasis. ABDOMEN AND PELVIS - HEPATOBILIARY: Again noted are hypodense hepatic masses from metastatic disease. These lesions were better visualized on the contrast-enhanced examination of 03/29/2018. No intrahepatic bile duct dilatation. Cholelithiasis. PANCREAS: Diffuse pancreatic atrophy without focal lesion or pancreatic ductal dilatation. SPLEEN: Unremarkable. ADRENAL GLANDS: Unremarkable. KIDNEYS, URETERS, BLADDER: Kidneys are normal in size. Multiple calyceal stones of the right kidney, largest measuring up to 0.7 cm. No ureterolithiasis or hydronephrosis. The bladder is decompressed by a Cameron catheter. 0.5 cm calcified stone within the lumen of the bladder. BOWEL AND PERITONEUM: Loops of bowel are normal in caliber. Appendix is normal. No overt evidence of acute inflammation or obstruction along the gastrointestinal tract. No ascites or pneumoperitoneum. ABDOMINAL WALL: There is edema in subcutaneous tissues of the abdominal wall. VASCULAR: There is extensive atherosclerotic calcification of the abdominal aorta and branch vessels. No aortic aneurysm. LYMPH NODES: No retroperitoneal, iliac or inguinal lymphadenopathy. Large lymph node in the periportal region is 2.3 cm short axis dimension, unchanged compared to 03/29/2018. PELVIC VISCERA: Prostate gland is grossly unremarkable. No pelvic free fluid. MUSCULOSKELETAL: There is a 1.9 x 2.3 cm lytic, destructive metastatic lesion of the left posterior superior iliac spine. Within the lumbar spine, disc degeneration is worst at L4-L5 as manifest by marked loss of disc height, vacuum disc phenomenon and traction osteophyte formation. IMPRESSION: 1. The 4.8 x 3.4 cm mass of the right lower lobe has slightly increased in size compared to 02/09/2018. Again noted is peribronchial/hilar lymphadenopathy and subcarinal lymphadenopathy. 2. Interval development of pneumonia in the posterior segment of the right upper lobe, lateral segment of the middle lobe and right lower lobe. Small right pleural effusion is present. Probable pneumonia in the posterior left lower lobe with small left pleural effusion, as well. 3. Hypodense masses in the liver, consistent with metastatic disease, and periportal lymphadenopathy. 4. Metastatic disease involvement of the ribs is most conspicuous in the posterior left seventh rib where there is a pathologic fracture and surrounding soft tissue thickening. Also, metastasis is present within the left posterosuperior iliac spine. The small, 0.6 cm lucent lesion in the T11 vertebral body could represent a metastasis. 5. Cholelithiasis. 6. Nonobstructive calculi of the right kidney. DICTATED BY: Ludwin Ferguson MD DATE/TIME DICTATED:04/16/181455 WORKERS COMPENSATION ADJUSTER:SERGIO DATE/TIME TRANSCRIBED:04/16/181455 CONFIDENTIAL, DO NOT COPY WITHOUT APPROPRIATE AUTHORIZATION. <Electronically signed in Other Vendor System> SIGNED BY: Dustin PATIENT: JUANA LEON PRESENT AGE: 77 PATIENT ACCOUNT NO: [id number] : 42 LOCATION: [facility] ORDERING PHYSICIAN: Helder VILLALBA SERVICE DATE: 04/16/18 EXAM TYPE: CAT - CT HEAD WO IV CONTRAST EXAMINATION: CT HEAD WITHOUT CONTRAST CLINICAL INFORMATION: Profound lethargy. Cough. Altered mental status. COMPARISON: None TECHNIQUE: Contiguous axial imaging was performed from the skull base to vertex without intravenous administration of contrast. DLP: 621 mGy-cm FINDINGS: Atherosclerotic calcification of vertebral arteries and cavernous carotid arteries. Patchy and confluent hypoattenuation of supratentorial white matter is consistent with chronic, severe small vessel ischemic change. Old lacunar infarction in deep white matter adjacent to the body of the right lateral ventricle. The hughes-white matter differentiation is maintained. No acute major vascular territory infarction, hemorrhage, extra-axial fluid collection, mass or midline shift. Diffuse atrophy of cerebral and cerebellar hemispheres with commensurate prominence of ventricles and sulci. The calvarium is intact and mastoid air cells and middle ear cavities are well aerated. There is likely a small mucous retention cyst of the right sphenoid sinus. A 1 cm mucous retention cyst of the left maxillary sinus is partially included in the [id number]. The orbits and globes are unremarkable. IMPRESSION: - No acute intracranial pathology. - Chronic small vessel ischemic changes of the supratentorial white matter. - Moderate atrophy of the cerebral and cerebellar hemispheres. (Helder Chanel) Comments: 77-year-old male seen and evaluated by me. He has metastatic carcinoma now presents with community-acquired pneumonia and acute kidney injury. Infected decubitus ulcer. He is being admitted for IV fluids and IV antibiotics and further care. (Mykel Mchugh DO) Departure Departure Disposition: STILL A PATIENT Condition: Stable Clinical Impression Primary Impression: Hospital acquired PNA Secondary Impressions: KINZA (acute kidney injury), Decubital ulcer, Sepsis Referrals: Ryley WASSERMAN,Shannon Alcocer (PCP/Family) Departure Forms: Customer Survey General Discharge Information Admission Note Spoke With: Glenis Gambino MD Documentation of Exam: Documentation of any treatments & extenuating circumstances including Concerns Regarding Discharge (functional status, medication knowledge or non-compliance, living conditions, etc.) that warrant an admission rather than observation: [ Patient requires repeat labs blood culture pending urine culture pending IV antibiotics, wound care, infectious disease consultation, IV fluids,] (Helder Chanel) PA/SMALL ENGINE TRAINER Co-Sign Statement Statement: ED Attending supervision documentation- [X] I saw and evaluated the patient. I have also reviewed all the pertinent lab results and diagnostic results. I agree with the findings and the plan of care as documented in the PA's/SMALL ENGINE TRAINER's documentation. [] I have reviewed the ED Record and agree with the PA's/SMALL ENGINE TRAINER's documentation. [] Additions or exceptions (if any) to the PAs/SMALL ENGINE TRAINER's note and plan are summarized below: [] (Mykel Mchugh DO) Critical Care Note Critical Care Note Critical Care Time: 30-74 min (Helder Chanel)
[2018-04-16 14:17] LABS: ABSOLUTE BASOPHIL COUNT 0 /CUMM (0.0-0.2); ABSOLUTE EOSINOPHIL COUNT 0 /CUMM (0.0-0.7); ABSOLUTE GRANULOCYTE CT 7.2 /CUMM (1.4-6.5); ABSOLUTE LYMPH COUNT 1.8 /CUMM (1.2-3.4); ABSOLUTE MONOCYTE COUNT 0.6 /CUMM (0.10-0.60); BASOPHIL % 0.1 % (0.0-2.0); EOSINOPHIL % 0.4 % (0-5); GRANULOCYTE % 74.2 % (42.2-75.2); MEAN CORPUSCULAR HGB 26.3 PG (27.0-31.0); MEAN CORPUSCULAR HGB CONC 32.9 G/DL (33.0-37.0); PLATELET COUNT 261 /CUMM (130-400); RBC DISTRIBUTION WIDTH 18.3 % (11.5-14.5); RED BLOOD CELL CT 3.25 /CUMM (4.70-6.10); WHITE BLOOD CELL COUNT 9.7 /CUMM (4.8-10.8)
--- NOTE | 2018-04-16 15:00 | CT SCAN REPORT ---
EXAMINATION: CT HEAD WITHOUT CONTRAST CLINICAL INFORMATION: Profound lethargy. Cough. Altered mental status. COMPARISON: None TECHNIQUE: Contiguous axial imaging was performed from the skull base to vertex without intravenous administration of contrast. DLP: 621 mGy-cm FINDINGS: Atherosclerotic calcification of vertebral arteries and cavernous carotid arteries. Patchy and confluent hypoattenuation of supratentorial white matter is consistent with chronic, severe small vessel ischemic change. Old lacunar infarction in deep white matter adjacent to the body of the right lateral ventricle. The hughes-white matter differentiation is maintained. No acute major vascular territory infarction, hemorrhage, extra-axial fluid collection, mass or midline shift. Diffuse atrophy of cerebral and cerebellar hemispheres with commensurate prominence of ventricles and sulci. The calvarium is intact and mastoid air cells and middle ear cavities are well aerated. There is likely a small mucous retention cyst of the right sphenoid sinus. A 1 cm mucous retention cyst of the left maxillary sinus is partially included in the [id number]. The orbits and globes are unremarkable. IMPRESSION: - No acute intracranial pathology. - Chronic small vessel ischemic changes of the supratentorial white matter. - Moderate atrophy of the cerebral and cerebellar hemispheres.
[2018-04-16] MEDS ORDERED: REMERON15 M2 PO (15:06)
[2018-04-16] MEDS ORDERED: NARCAN4 MG NAS (15:09)
[2018-04-16] MEDS ORDERED: LANTUS100 UNIT/1 SQ (15:12)
[2018-04-16] MEDS ORDERED: LANTUS SOL100 UNIT/1 SC (15:13)
[2018-04-16] MEDS ORDERED: PAIN RELIEF325 MG PO (15:16)
[2018-04-16] MEDS ORDERED: ACEPHEN650 M1 PR (15:17)
[2018-04-16] MEDS ORDERED: ZOFRAN4 M2 PO (15:22)
[2018-04-16] MEDS ORDERED: HUMALOG100 UNIT/2 SC (15:23)
[2018-04-16] MEDS ORDERED: MILK OF MA400 MG/52 PO (15:24)
[2018-04-16] MEDS ORDERED: DULCOLAX10 M1 RC (15:25)
--- NOTE | 2018-04-16 15:28 | CT SCAN REPORT ---
EXAMINATION: CT CHEST WITHOUT IV CONTRAST CT ABDOMEN AND PELVIS WITHOUT IV CONTRAST CLINICAL INFORMATION: 77-year-old male with profound lethargy and cough. COMPARISON: Prior CT exams from 02/09/2018 and 03/29/2018. TECHNIQUE: Noncontrast multidetector CT imaging examination of the chest, abdomen and pelvis was performed. Axial images are displayed at 0.65 mm and 5 mm slice thickness. Coronal and sagittal reformatted images were generated at the technologist's workstation and submitted for review. DLP: 537 mGy-cm FINDINGS: CHEST - LUNGS and PLEURA: The mass of the right lower lobe has slightly increased in size compared to 02/09/2018; it currently measures approximately 4.8 x 3.4 cm. Bronchial verdugo are thickened in the right lower lobe. Again noted is peribronchial nodular opacity from infiltrative tumor and/or peribronchial lymphadenopathy. New ill-defined centrilobular nodularity and groundglass opacity in the right lower lobe, posterior right upper lobe and lateral segment of right middle lobe, consistent with infection/inflammation of small airways and pneumonia. Small right pleural effusion is present. Several scattered micronodular opacities in right upper lobe, including 0.3 cm noncalcified nodule within the right upper lobe (image 195, series 4). Multiple small nodules in left upper and left lower lobe could represent neoplastic or inflammatory nodules. Findings include a 0.5 cm solid, noncalcified, pleural-based nodule of the anterior left upper lobe (image 261, series 4). The mild patchy opacity in the dependent aspect of left lower lobe could represent a combination of atelectasis and infectious infiltrate. Small left pleural effusion is present. MEDIASTINUM: Severe atherosclerotic disease of coronary arteries, status post coronary artery bypass graft surgery. The mitral valve annulus is calcified. Atherosclerosis of the thoracic aorta without aneurysm. No pericardial effusion. The esophagus has normal wall thickness. Thyroid gland is atrophied. LYMPHATICS: No axillary lymphadenopathy. Again noted is bulky lymphadenopathy of the right hilum. At the level of the aortic arch, a right paratracheal lymph node is 0.8 cm short axis dimension. The subcarinal lymphadenopathy measures 1.8 cm AP. CHEST WALL/BONES: Status post midline sternotomy. The sternum is healed; however, there is a persistent gap within the manubrium. Several ill-defined lucencies in multiple bilateral ribs are suspicious for metastases. Again noted is the mottled destruction and pathologic fracture of the left posterior seventh rib. The 0.6 cm lucent focus within the T11 vertebral body could represent a metastasis. ABDOMEN AND PELVIS - HEPATOBILIARY: Again noted are hypodense hepatic masses from metastatic disease. These lesions were better visualized on the contrast-enhanced examination of 03/29/2018. No intrahepatic bile duct dilatation. Cholelithiasis. PANCREAS: Diffuse pancreatic atrophy without focal lesion or pancreatic ductal dilatation. SPLEEN: Unremarkable. ADRENAL GLANDS: Unremarkable. KIDNEYS, URETERS, BLADDER: Kidneys are normal in size. Multiple calyceal stones of the right kidney, largest measuring up to 0.7 cm. No ureterolithiasis or hydronephrosis. The bladder is decompressed by a Cameron catheter. 0.5 cm calcified stone within the lumen of the bladder. BOWEL AND PERITONEUM: Loops of bowel are normal in caliber. Appendix is normal. No overt evidence of acute inflammation or obstruction along the gastrointestinal tract. No ascites or pneumoperitoneum. ABDOMINAL WALL: There is edema in subcutaneous tissues of the abdominal wall. VASCULAR: There is extensive atherosclerotic calcification of the abdominal aorta and branch vessels. No aortic aneurysm. LYMPH NODES: No retroperitoneal, iliac or inguinal lymphadenopathy. Large lymph node in the periportal region is 2.3 cm short axis dimension, unchanged compared to 03/29/2018. PELVIC VISCERA: Prostate gland is grossly unremarkable. No pelvic free fluid. MUSCULOSKELETAL: There is a 1.9 x 2.3 cm lytic, destructive metastatic lesion of the left posterior superior iliac spine. Within the lumbar spine, disc degeneration is worst at L4-L5 as manifest by marked loss of disc height, vacuum disc phenomenon and traction osteophyte formation. IMPRESSION: 1. The 4.8 x 3.4 cm mass of the right lower lobe has slightly increased in size compared to 02/09/2018. Again noted is peribronchial/hilar lymphadenopathy and subcarinal lymphadenopathy. 2. Interval development of pneumonia in the posterior segment of the right upper lobe, lateral segment of the middle lobe and right lower lobe. Small right pleural effusion is present. Probable pneumonia in the posterior left lower lobe with small left pleural effusion, as well. 3. Hypodense masses in the liver, consistent with metastatic disease, and periportal lymphadenopathy. 4. Metastatic disease involvement of the ribs is most conspicuous in the posterior left seventh rib where there is a pathologic fracture and surrounding soft tissue thickening. Also, metastasis is present within the left posterosuperior iliac spine. The small, 0.6 cm lucent lesion in the T11 vertebral body could represent a metastasis. 5. Cholelithiasis. 6. Nonobstructive calculi of the right kidney.
[2018-04-16] MEDS ORDERED: HYOSCYAMIN125 MCG/5 SL (15:35)
[2018-04-16] MEDS ORDERED: LATANOPROST2.5 ML OS (15:38)
[2018-04-16] MEDS ORDERED: COUGH SYRU100 MG/5 M PO (15:38)
[2018-04-16] MEDS ORDERED: ERYTHROMYCIN1 GM OD (15:46)
--- NOTE | 2018-04-16 17:36 | PN- Att Addend ---
Attending Addendum Attending Brief Note 77 y/o M with pmh sig for poorly differentiated malignancy (malignant melanoma?? 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 Patient is still lethargic when I saw him. He has received some IV fluids. He did have acute renal failure with increased creatinine on the blood work. He also had lactic acidosis this admission also. Chest CT in the emergency room showed possibility of pneumonia. According to patient's , his care at the correction is not great and he has developed more decubiti. He has a chronic Altamirano. Vital Signs Date Time Temp Pulse Resp B/P B/P Pulse O2 O2 Flow FiO2 Mean Ox Delivery Rate 04/16 1555 98.5 85 20 144/76 100 Nasal Cannula 04/16 1304 98.4 86 23 101/51 98 Nasal 2.0L Cannula on exam; leathrgy, difficult to arouse. cv; s1,s2, rrr resp; + junky bs b/l abd; soft, nt, bs+ ext; no edema Laboratory Tests 04/16 04/16 1635 1405 Chemistry Lactic Acid (0.7 - 2.1 mmol/L) 2.4 H Urines Urinalysis LIGHT H Urine Color (YEL,AMB,STR) YEL Urine Clarity (CLEAR) HAZY H Urine pH (5.0 - 8.0) 6.0 Ur Specific [place] (1.001 - 1.035) 1.025 Urine Protein (NEG,<30 MG/DL) 100 H Urine Ketones (NEG) NEG Urine Nitrite (NEG) NEG Urine Bilirubin (NEG) NEG Urine Urobilinogen (0.1 - 1.0 EU/dl) 0.2 Ur Leukocyte Esterase (NEG) LARGE H Ur Microscopic SEDIMENT EXAMINED Urine RBC (0 - 5 /HPF) >75 H Urine WBC (0 - 2 /HPF) > 75 H Ur Epithelial Cells (NONE,FEW) RARE Urine Bacteria (NEG/NONE) MANY H Micro UA Comment BUDDING YEAST H Urine Hemoglobin (NEG) LARGE H Urine Glucose (N MG/DL) NEG 04/16 1400 Chemistry Sodium (137 - 145 mmol/L) 133 L Potassium (3.5 - 5.1 mmol/L) 4.4 Chloride (98 - 107 mmol/L) 101 Carbon Dioxide (22 - 30 mmol/L) 19 L Anion Gap (5 - 16) 12 BUN (9 - 20 mg/dL) 76 H Creatinine (0.7 - 1.2 mg/dL) 1.7 H Estimated GFR (>60 ml/min) 39 L BUN/Creatinine Ratio (7 - 25 %) 44.7 H Glucose (65 - 99 mg/dL) 115 H Lactic Acid (0.7 - 2.1 mmol/L) 4.0 H Calcium (8.4 - 10.2 mg/dL) 8.0 L Total Bilirubin (0.2 - 1.3 mg/dL) 0.8 AST (17 - 59 U/L) 220 H ALT (21 - 72 U/L) 73 H Alkaline Phosphatase (< 127 U/L) 883 H Troponin I (<0.11 ng/ml) < 0.01 Total Protein (6.3 - 8.2 g/dL) 6.0 L Albumin (3.5 - 5.0 g/dL) 2.8 L Globulin (1.9 - 4.2 gm/dL) 3.2 Albumin/Globulin Ratio (1.1 - 2.2 %) 0.9 L Hematology CBC w Diff NO MAN DIFF REQ WBC (4.8 - 10.8 /CUMM) 9.7 RBC (4.70 - 6.10 /CUMM) 3.25 L Hgb (14.0 - 18.0 G/DL) 8.5 L Hct (42 - 52 %) 26.0 L MCV (80.0 - 94.0 FL) 80.0 MCH (27.0 - 31.0 PG) 26.3 L MCHC (33.0 - 37.0 G/DL) 32.9 L RDW (11.5 - 14.5 %) 18.3 H Plt Count (130 - 400 /CUMM) 261 MPV (7.4 - 10.4 FL) 9.0 Gran % (42.2 - 75.2 %) 74.2 Lymphocytes % (20.5 - 51.1 %) 19.0 L Monocytes % (1.7 - 9.3 %) 6.3 Eosinophils % (0 - 5 %) 0.4 Basophils % (0.0 - 2.0 %) 0.1 Absolute Granulocytes (1.4 - 6.5 /CUMM) 7.2 H Absolute Lymphocytes (1.2 - 3.4 /CUMM) 1.8 Absolute Monocytes (0.10 - 0.60 /CUMM) 0.6 Absolute Eosinophils (0.0 - 0.7 /CUMM) 0 Absolute Basophils (0.0 - 0.2 /CUMM) 0 EKG>> Sinus rythm, no acute change. CT head: IMPRESSION: - No acute intracranial pathology. - Chronic small vessel ischemic changes of the supratentorial white matter. - Moderate atrophy of the cerebral and cerebellar hemispheres. CT chest abdomen and pelvis: IMPRESSION: 1. The 4.8 x 3.4 cm mass of the right lower lobe has slightly increased in size compared to 02/09/2018. Again noted is peribronchial/hilar lymphadenopathy and subcarinal lymphadenopathy. 2. Interval development of pneumonia in the posterior segment of the right upper lobe, lateral segment of the middle lobe and right lower lobe. Small right pleural effusion is present. Probable pneumonia in the posterior left lower lobe with small left pleural effusion, as well. 3. Hypodense masses in the liver, consistent with metastatic disease, and periportal lymphadenopathy. 4. Metastatic disease involvement of the ribs is most conspicuous in the posterior left seventh rib where there is a pathologic fracture and surrounding soft tissue thickening. Also, metastasis is present within the left posterosuperior iliac spine. The small, 0.6 cm lucent lesion in the T11 vertebral body could represent a metastasis. 5. Cholelithiasis. 6. Nonobstructive calculi of the right kidney. 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 Patient was given IV antibiotics in the emergency room. This can be continued. Will follow up on the cultures and adjust antibiotics. Please do a swallow evaluation. Trend lactic acid. Please obtain a wound care consult for the decubitus ulcer. Also noted worsening liver enzymes. I spoke with patient's and she claims that his oncologist and his doctors are at [facility] and there is no plan to do any active treatment for the cancer. His urinalysis also looks dirty but will follow on the urine culture. He has a chronic indwelling Altamirano. Please confirm home medications. DVT prophylaxis: Patient on Xarelto. She is a full code as discussed with his .
[2018-04-16 18:46] VITALS: BP 106/52
--- NOTE | 2018-04-16 18:46 | CT SCAN REPORT ---
EXAMINATION: CT HEAD WITHOUT CONTRAST CLINICAL INFORMATION: Weakness. Unresponsive. Stroke protocol. COMPARISON: Head CT earlier 04/16/2018. TECHNIQUE: Contiguous axial imaging was performed from the skull base to vertex without intravenous administration of contrast. DLP: 614 mGy-cm FINDINGS: There is no evidence of acute intracranial hemorrhage or territorial infarction. No abnormal mass effect or midline shift is seen. Cordero to white matter differentiation is well preserved. No extra-axial fluid collections are identified. Ventricles and sulcal spaces are proportionately prominent. There is diffuse periventricular white matter hypoattenuation, consistent with sequela of ischemic microangiopathy. The osseous structures and soft tissues are unremarkable. The mastoid air cells and visualized portions of the paranasal sinuses are aerated. Suspected small mucous retention cyst with central calcification in the sphenoid sinus. IMPRESSION: No acute intracranial pathology. Chronic cerebral volume loss and changes of ischemic microangiopathy. No significant interval change compared to head CT earlier today. This critical result was discussed with Dr. Buckner at 6:42 PM on 04/16/2018 and it was ascertained that the content and urgency of the report was understood at the time of direct communication.
--- NOTE | 2018-04-16 18:53 | History & Physical ---
Sita WASSERMAN,[facility], [place] 04/16/18 3776: General Information and HPI MD Statement: I have seen and personally examined JUANA TEJEDA and documented this H&P. The patient is a 77 year old M who presented with a patient stated chief complaint of [Lethargy and cough]. Source of Information: family Exam Limitations: no limitations History of Present Illness: Mr. Tejeda is a 77yo M w/ PMH of osteomyelitis of sacral bones, stage 4 coccyx ulcer, dementia, BPH (chronic indwelling altamirano catheter), HTN, DM, hypothyroidism, hx of DVT (2017?), ?? poorly differenciated metastatic Lung Ca , BIBA from [facility] for cough and lethargy. Patient is minimally Verbal at baseline, hx obtained from the . Per the , patient has been very lethargic for the past 1 week. He is usually able to recognize her and also talks to her when usual state of health but has not been doing that for the past 1 week. Also has a cough, which is nonproductive but he sounds congested. Denies any fever/chills. Also endorses decreased by mouth intake and dark urine. Allergies/Medications Allergies: Coded Allergies: No Known Allergies (02/09/18) Home Med list Acetaminophen (Pain Relief) 325 MG TABLET 2 TAB PO Q6H PRN PAIN/TEMP>101 ( Reported) Acetaminophen (Acephen) 650 MG SUPP.RECT 1 SUPP NH Q6H PRN PAIN/TEMP>101 ( Reported) Atenolol 25 MG TABLET 1 TAB PO DAILY BP (Reported) Bisacodyl (Dulcolax) 10 MG SUPP.RECT 1 SUP RC DAILY PRN CONSTIPATION ( Reported) Donepezil HCl (Aricept) 10 MG TABLET 1 TAB PO DAILY DEMENTIA (Reported) Erythromycin Base (Erythromycin) 5 MG/GRAM (0.5 %) OINT...G. 1 CM OD 4XD ABX (Reported) apply 1 cm ribbon into the lower conjunctival sac Guaifenesin (Cough Syrup) 100 MG/5 ML LIQUID 10 ML PO Q6H PRN COUGH/CONGESTION (Reported) Hyoscyamine Sulfate 125 MCG/5 ML ELIXIR 1 ML SL Q4H PRN SECRETIONS (Reported) Insulin Glargine,Hum.rec.anlog (Lantus Solostar) 100 UNIT/ML (3 ML) INSULN.PEN 15 UNITS SC QAM DM (Reported) Insulin Lispro (Humalog) 100 UNIT/ML VIAL DM (Reported) Insulin-Lantus (Lantus) 100 UNIT/ML VIAL 9 UNITS SQ QHS DM (Reported) Latanoprost 0.005 % DROPS 1 GTT OS QHS LEFT EYE (Reported) Levothyroxine Sodium 88 MCG TABLET 1 TAB PO DAILY HYPOTHYROIDISM (Reported) Magnesium Hydroxide (Milk Of Magnesia) 400 MG/5 ML ORAL.SUSP 30 ML PO Q3D PRN CONSTIPATION (Reported) Magnesium Oxide (Magnesium) 400 MG TABLET 1 TAB PO DAILY LOW ELECTROLYTES ( Reported) Melatonin 5 MG TABLET 1 TAB PO QPM SLEEP (Reported) Memantine HCl (Namenda) 10 MG TABLET 1 TAB PO DAILY DEMENTIA (Reported) Metformin HCl 1,000 MG TABLET 1 TAB PO BID DIABETES (Reported) Mirtazapine (Remeron) 15 MG TABLET 1 TAB PO QPM UNKNOWN (Reported) Naloxone HCl (Narcan) 4 MG/ACTUATION SPRAY 4 MG JESUS ALBERTO AD PRN OPIOID INDUCED RESP. DEPRESSIO (Reported) Ondansetron HCl (Zofran) 4 MG TABLET 1 TAB PO Q4H PRN N/V (Reported) Rivaroxaban (Xarelto) 20 MG TABLET 1 TAB PO QPM ? 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 unknown Power of Bakery Chef/HCP? yes Name of POA/HCP: spouse Review of Systems Review of Systems Constitutional: Reports: no symptoms ([place] to provide any Hx). Exam & Diagnostic Data Last 24 Hrs of Vital Signs/I&O Vital Signs Date Time Temp Pulse Resp B/P B/P Pulse O2 O2 Flow FiO2 Mean Ox Delivery Rate 04/16 1924 Nasal 2.0L Cannula 04/16 1846 98.3 84 22 106/52 100 Nasal Cannula 04/16 1555 98.5 85 20 144/76 100 Nasal Cannula 04/16 1304 98.4 86 23 101/51 98 Nasal 2.0L Cannula Intake & Output 04/16 1600 04/16 0800 04/16 0000 Intake Total 1500 Output Total 50 Balance 1450 Intake, IV 1500 Output, Urine 50 Patient 205 lb Weight Physical Exam General Appearance Cooperative, sleepy Skin Decubitus Ulcer on the back HEENT Atraumatic, PERRLA, dry mucous membrance Cardiovascular Regular Rate, Normal S1, Normal S2 Lungs Normal Air Movement Abdomen Normal Bowel Sounds, Soft, No Tenderness Extremities No Clubbing, No Cyanosis, Normal Pulses Last 24 Hrs of Labs/Andrés: Laboratory Tests 04/16/18 1635: Lactic Acid 2.4 H 04/16/18 1405: Urinalysis LIGHT H, Urine Color YEL, Urine Clarity HAZY H, Urine pH 6.0, Ur Specific [place] 1.025, Urine Protein 100 H, Urine Ketones NEG, Urine Nitrite NEG, Urine Bilirubin NEG, Urine Urobilinogen 0.2, Ur Leukocyte Esterase LARGE H , Ur Microscopic SEDIMENT EXAMINED, Urine RBC >75 H, Urine WBC > 75 H, Ur Epithelial Cells RARE, Urine Bacteria MANY H, Micro UA Comment BUDDING YEAST H , Urine Hemoglobin LARGE H, Urine Glucose NEG 04/16/18 1400: Anion Gap 12, Estimated GFR 39 L, BUN/Creatinine Ratio 44.7 H, Glucose 115 H, Lactic Acid 4.0 H, Calcium 8.0 L, Total Bilirubin 0.8, AST 220 H, ALT 73 H, Alkaline Phosphatase 883 H, Troponin I < 0.01, Total Protein 6.0 L, Albumin 2.8 L, Globulin 3.2, Albumin/Globulin Ratio 0.9 L, CBC w Diff NO MAN DIFF REQ, RBC 3.25 L, MCV 80.0, MCH 26.3 L, MCHC 32.9 L, RDW 18.3 H, MPV 9.0, Gran % 74.2, Lymphocytes % 19.0 L, Monocytes % 6.3, Eosinophils % 0.4, Basophils % 0.1 , Absolute Granulocytes 7.2 H, Absolute Lymphocytes 1.8, Absolute Monocytes 0.6 , Absolute Eosinophils 0, Absolute Basophils 0 Microbiology 04/16 1543 BLOOD: Blood Culture - RECD 04/16 1405 URINE ROUT: Urine Culture - RECD 04/16 1400 BLOOD: Blood Culture - RECD Diagnostic Data Other Results CT ABD & PELVIS W/O IV CONTRAS; CT CHEST WO IV CONTRAST IMPRESSION: 1. The 4.8 x 3.4 cm mass of the right lower lobe has slightly increased in size compared to 02/09/2018. Again noted is peribronchial/hilar lymphadenopathy and subcarinal lymphadenopathy. 2. Interval development of pneumonia in the posterior segment of the right upper lobe, lateral segment of the middle lobe and right lower lobe. Small right pleural effusion is present. Probable pneumonia in the posterior left lower lobe with small left pleural effusion, as well. 3. Hypodense masses in the liver, consistent with metastatic disease, and periportal lymphadenopathy. 4. Metastatic disease involvement of the ribs is most conspicuous in the posterior left seventh rib where there is a pathologic fracture and surrounding soft tissue thickening. Also, metastasis is present within the left posterosuperior iliac spine. The small, 0.6 cm lucent lesion in the T11 vertebral body could represent a metastasis. 5. Cholelithiasis. 6. Nonobstructive calculi of the right kidney. CT HEAD WO IV CONTRAST IMPRESSION: - No acute intracranial pathology. - Chronic small vessel ischemic changes of the supratentorial white matter. - Moderate atrophy of the cerebral and cerebellar hemispheres. Assessment/Plan Assessment: Mr. Tejeda is a 77yo M w/ PMH of osteomyelitis of sacral bones, stage 4 coccyx ulcer, dementia, BPH (chronic indwelling altamirano catheter), HTN, DM, hypothyroidism, hx of DVT (2017?), ?? poorly differenciated metastatic Lung Ca , BIBA from [facility] for cough and lethargy. Patient is minimally Verbal at baseline, hx obtained from the . Problem List; 1. HCAP 2. Lactic Acidosis 3. KINZA likely prerenal from dehydration 4. Lung Ca with Metastasis 5. Transaminitis likely 2/2 to liver mets 6. Sacral decubitus ulcer 7. Chronic Altamirano 8. Other chronic medical conditions - Admit the Patient to gen Med floor - Patient was given vancomycin and ceftaz in the ER, will continue. - Patient was also given 4 L of normal saline in the ER, will continue gentle IV fluids. - Trend lactic acid. - Repeat CBC and BMP in a.m. - Aspiration precautions - Swallow evaluation - Wound Care consult - Hold metformin and start the patient on NovoLog sliding scale, continue Levemir. - Continue rest of the home medications. DVT prophylaxis; Alps and xarelto Patient is full code. As Ranked By This Provider Problem List: 1. Pneumonia 2. Lung mass 3. Liver mass 4. Elevated LFTs 5. Lactic acidosis Core Measures/Misc (05/30) Acute Coronary Syndrome ACS Diagnosis: No Congestive Heart Failure Congestive Heart Failure Diagnosis No Cerebrovascular Accident CVA/TIA Diagnosis: No VTE (View Protocol) VTE Risk Factors Age>40 No Mechanical VTE Prophylaxis d/t N/A MechProphylax Ordered No VTE Pharm Prophylaxis d/t NA PharmProphylax ordered Sepsis (View protocol) Sepsis Present: No If YES complete Sepsis Event Note If YES complete Sepsis Event Note [facility] 1304: Core Measures/Misc (05/30) Sepsis (View protocol) If YES complete Sepsis Event Note If YES complete Sepsis Event Note Attending MD Review Statement Attending Statement Attending MD Statement: examined this patient, discuss w/resident/PA/PURSE SEINER, agreed w/resident/PA/PURSE SEINER, discussed with family, reviewed EMR data (avail), discussed with nursing, reviewed images, amended to note Attending Assessment/Plan: Please see my separate addendum.
--- NOTE | 2018-04-16 18:59 | Event Note ---
Event Note Event Note: Rapid response was called after Mr. Tejeda was found to be less responsive/ unresponsive by the nurse. Per the nurse she tried to wake him up and tried to talk to him but he was not responding even after the sternal rub. He was admitted today with HCAP and KINZA and was started on Vanco/ Ceftaz and aggresively hydrated. His Vitals were stable at that time except for O2 sats for 88% on 2 L, which increased to 98% on 3L. Patient was awake on exam, trying to follow commands and answering questions in single words. Heart was regular with normal S1,S2, normal air movement on lubng ausculation but with poor respiratory effort, and normal abdominal exam. Stroke alert was called and Head CT was obtained which was unchanged from prior exam. Spoke with neurology, Dr. Smyth, as well who did not think patient had a stroke(no weakness/numbness, no facial droop). Will monitor on tele for 24 hrs and transfer to [facility] tomorrow if stable. Plan was discussed with the Attending, Dr. Oshea.
[2018-04-16 21:54] VITALS: BP 100/50
--- NOTE | 2018-04-17 06:28 | PN- Housestaff ---
Agustín Mcgregor 04/17/18 0628: Subjective Follow-up For: H CAP Complaints: pt unable to provide hx Tele-Events Since Last Visit: NSVT Subjective: Patient is demented. He was not able to provide any history. Did not eat food in the morning so was made n.p.o. Review of Systems Constitutional: Reports: see HPI. Objective Last 24 Hrs of Vital Signs/I&O Vital Signs Date Time Temp Pulse Resp B/P B/P Pulse O2 O2 Flow FiO2 Mean Ox Delivery Rate 04/17 1652 94 Nasal 2.0L Cannula 04/17 1509 97.9 86 20 102/60 96 04/17 0910 94 Nasal 2.0L Cannula 04/17 0634 97.4 79 20 108/58 97 Nasal Cannula 04/17 0000 100 Nasal 2.0L Cannula 04/16 2350 98 Nasal 2.0L Cannula 04/16 2154 96.5 80 20 100/50 98 Nasal Cannula 04/16 1924 Nasal 2.0L Cannula 04/16 1846 98.3 84 22 106/52 100 Nasal Cannula Intake & Output 04/17 1600 04/17 0800 08/05 0000 Intake Total 060 114 1230 Output Total 600 650 650 Balance 0 -35 1650 Intake, IV 153 792 6155 Number 1 Bowel Movements Output, Urine 600 650 650 Patient 146 lb Weight Weight Bed scale Measurement Method Physical Exam General Appearance: demented, not cooperative, not oriented Cardiovascular: Normal S1, Normal S2 Lungs: Normal Air Movement Abdomen: Soft Neurological: cannot be performed Assessment/Plan Assessment: Mr. Tejeda is a 77yo M w/ PMH of osteomyelitis of sacral bones, stage 4 coccyx ulcer, dementia, BPH (chronic indwelling altamirano catheter), HTN, DM, hypothyroidism, hx of DVT (2017?), ?? poorly differenciated metastatic Lung Ca , BIBA from [facility] for cough and lethargy for the past 1 week. He was admitted to [facility] with HCAP and KINZA and was started on Vanco/ Ceftaz and aggresively hydrated . Patient was minimally Verbal at baseline. But became unresponsive on 04/16/18. Problem List; 1. HCAP 2. Lactic Acidosis 3. KINZA likely prerenal from dehydration 4. Lung Ca with Metastasis 5. Transaminitis likely 2/2 to liver mets 6. Sacral decubitus ulcer 7. Chronic Altamirano 8. Other chronic medical conditions Admit the Patient to [facility] floor - CT head- No acute intracranial pathology. Chronic cerebral volume loss and changes of ischemic microangiopathy - Neurology was consulted for unresponsiveness and Dr. Smyth thought it did not look like stroke. - Continue vancomycin and ceftaz. - Continue gentle IV fluids, NC oxygen 2L. - lactic acid going down, midnight- 1.7(N). - Hb - 8.5 , Repeat CBC , hb- 7.5. Probably because of hemodilution. Follow-up CBCs - GFR 39, Na- 133 BMP in a.m. follow-up BeP - HCO3 - 18, with anion gap of 12 - Aspiration precautions -Bedside swallow evaluation, patient coughed after swallow . Follow swallow evaluation. - Wound Care consulted- may need surgical consult for wound debridement - patient on NovoLog sliding scale CHANGED TO nOVOLIN R, DIScontinue Levemir, NPO DUE TO DROWSINESS, ON D5. -FINGER STICK GLUCOSE 6 HOURLY - BP 108/80 .SO MORNING DOSE NOT GIOVEN, , HR IS LOW. - ORAL MEDS COULD NOT BE GIVEN except Eliquis - FL-guaiac negative -Echocardiogram ordered follow-up with results -Cardiology consult placed for NSVT - Continue rest of the home medications. DVT prophylaxis; Alps and xarelto Patient is full code. Problem List: 1. Hospital acquired PNA 2. Decubital ulcer 3. KINZA (acute kidney injury) Pain Ratin Pain Location: None Pain Goal: Remain pain free Pain Plan: None Tomorrow's Labs & Rationales: CBC, BMP, echo Immanuel WASSERMAN,[facility] 04/17/18 1155: Attending MD Review Statement Attending Statement Attending MD Statement: examined this patient, discuss w/resident/PA/CARDIAC TECHNOLOGIST, agreed w/resident/PA/CARDIAC TECHNOLOGIST, reviewed EMR data (avail), discussed with nursing, discussed with case mgmt, reviewed images, amended to note Attending Assessment/Plan: Patient seen and examined, he is more awake today. He had a rapid response and a stroke alert last evening and a CT head was negative. Patient remains afebrile. Noted a drop in H&H but all the cell lines are down. Vital Signs Date Time Temp Pulse Resp B/P B/P Pulse O2 O2 Flow FiO2 Mean Ox Delivery Rate 04/17 0910 94 Nasal 2.0L Cannula 08/05 0634 97.4 79 20 108/58 97 Nasal Cannula 04/17 0000 100 Nasal 2.0L Cannula 04/16 2350 98 Nasal 2.0L Cannula 04/16 2154 96.5 80 20 100/50 98 Nasal Cannula 04/16 1924 Nasal 2.0L Cannula 04/16 1846 98.3 84 22 106/52 100 Nasal Cannula 04/16 1555 98.5 85 20 144/76 100 Nasal Cannula 04/16 1304 98.4 86 23 101/51 98 Nasal 2.0L Cannula On exam: Awake, not oriented cv; s1,s2, rrr resp; somewhat coarse bs. abd; soft, nt, bs+ ext; no edema Laboratory Tests 04/17 04/17 0841 0015 Chemistry Sodium (137 - 145 mmol/L) 139 Potassium (3.5 - 5.1 mmol/L) 4.1 Chloride (98 - 107 mmol/L) 109 H Carbon Dioxide (22 - 30 mmol/L) 21 L Anion Gap (5 - 16) 9 BUN (9 - 20 mg/dL) 65 H Creatinine (0.7 - 1.2 mg/dL) 1.5 H Estimated GFR (>60 ml/min) 46 L BUN/Creatinine Ratio (7 - 25 %) 43.3 H Lactic Acid (0.7 - 2.1 mmol/L) 1.7 Hematology CBC w Diff MAN DIFF ORDERED WBC (4.8 - 10.8 /CUMM) 6.6 RBC (4.70 - 6.10 /CUMM) 2.87 L Hgb (14.0 - 18.0 G/DL) 7.5 L Hct (42 - 52 %) 23.0 L MCV (80.0 - 94.0 FL) 80.3 MCH (27.0 - 31.0 PG) 26.1 L MCHC (33.0 - 37.0 G/DL) 32.5 L RDW (11.5 - 14.5 %) 17.9 H Plt Count (130 - 400 /CUMM) 194 MPV (7.4 - 10.4 FL) 8.4 Segmented Neutrophils (42.2 - 75.2 %) 78 H Band Neutrophils (0.0 - 5.0 %) 3 Lymphocytes (20.5 - 51.1 %) 12 L Monocytes (1.7 - 9.3 %) 7 Platelet Estimate (ADEQUATE) VERIFIED BY SMEAR Anisocytosis 1+ 04/17 04/16 0005 1635 Blood Gas pH (7.35 - 7.45 PH) 7.44 pCO2 (35 - 45 TORR) 27 L pO2 (80 - 100 TORR) 107 H HCO3 (21 - 28 MEQ/L) 18 L ABG O2 Sat (Measured) (>96.0 %) 98.0 P-50 (Temp Corrected) Y Carboxyhemoglobin (1.5 - 5.0 %) 0.3 L O2 Concentration % 2 LPM Temperature (97.0 - 100.0 FARH) 97.4 O2 Delivery Method N/C Chemistry Lactic Acid (0.7 - 2.1 mmol/L) 2.4 H Miscellaneous Phlebotomy Draw Site RIGHT BRACHIAL 04/16 04/16 1405 1400 Chemistry Sodium (137 - 145 mmol/L) 133 L Potassium (3.5 - 5.1 mmol/L) 4.4 Chloride (98 - 107 mmol/L) 101 Carbon Dioxide (22 - 30 mmol/L) 19 L Anion Gap (5 - 16) 12 BUN (9 - 20 mg/dL) 76 H Creatinine (0.7 - 1.2 mg/dL) 1.7 H Estimated GFR (>60 ml/min) 39 L BUN/Creatinine Ratio (7 - 25 %) 44.7 H Glucose (65 - 99 mg/dL) 115 H Lactic Acid (0.7 - 2.1 mmol/L) 4.0 H Calcium (8.4 - 10.2 mg/dL) 8.0 L Total Bilirubin (0.2 - 1.3 mg/dL) 0.8 AST (17 - 59 U/L) 220 H ALT (21 - 72 U/L) 73 H Alkaline Phosphatase (< 127 U/L) 883 H Troponin I (<0.11 ng/ml) < 0.01 Total Protein (6.3 - 8.2 g/dL) 6.0 L Albumin (3.5 - 5.0 g/dL) 2.8 L Globulin (1.9 - 4.2 gm/dL) 3.2 Albumin/Globulin Ratio (1.1 - 2.2 %) 0.9 L Hematology CBC w Diff NO MAN DIFF REQ WBC (4.8 - 10.8 /CUMM) 9.7 RBC (4.70 - 6.10 /CUMM) 3.25 L Hgb (14.0 - 18.0 G/DL) 8.5 L Hct (42 - 52 %) 26.0 L MCV (80.0 - 94.0 FL) 80.0 MCH (27.0 - 31.0 PG) 26.3 L MCHC (33.0 - 37.0 G/DL) 32.9 L RDW (11.5 - 14.5 %) 18.3 H Plt Count (130 - 400 /CUMM) 261 MPV (7.4 - 10.4 FL) 9.0 Gran % (42.2 - 75.2 %) 74.2 Lymphocytes % (20.5 - 51.1 %) 19.0 L Monocytes % (1.7 - 9.3 %) 6.3 Eosinophils % (0 - 5 %) 0.4 Basophils % (0.0 - 2.0 %) 0.1 Absolute Granulocytes (1.4 - 6.5 /CUMM) 7.2 H Absolute Lymphocytes (1.2 - 3.4 /CUMM) 1.8 Absolute Monocytes (0.10 - 0.60 /CUMM) 0.6 Absolute Eosinophils (0.0 - 0.7 /CUMM) 0 Absolute Basophils (0.0 - 0.2 /CUMM) 0 Urines Urinalysis LIGHT H Urine Color (YEL,AMB,STR) YEL Urine Clarity (CLEAR) HAZY H Urine pH (5.0 - 8.0) 6.0 Ur Specific Tea (1.001 - 1.035) 1.025 Urine Protein (NEG,<30 MG/DL) 100 H Urine Ketones (NEG) NEG Urine Nitrite (NEG) NEG Urine Bilirubin (NEG) NEG Urine Urobilinogen (0.1 - 1.0 EU/dl) 0.2 Ur Leukocyte Esterase (NEG) LARGE H Ur Microscopic SEDIMENT EXAMINED Urine RBC (0 - 5 /HPF) >75 H Urine WBC (0 - 2 /HPF) > 75 H Ur Epithelial Cells (NONE,FEW) RARE Urine Bacteria (NEG/NONE) MANY H Micro UA Comment BUDDING YEAST H Urine Hemoglobin (NEG) LARGE H Urine Glucose (N MG/DL) NEG A/P; 77 y/o M with pmh sig for poorly differentiated malignancy (malignant melanoma??) of right lower lobe, secondary destruction of right 7th ribs, and secondary malignancy of liver, stage 4 decubitus ulcer with osteomyelitis of underlying cocxyx bone, BPH with chronic indwelling altamirano catheter (now breached through fascia of penile tissue), HTN, T2DM, hypothyroidism, hx of DVT now on AC with xarelto, and dementia recently admitted with fever, UTI, altered mental state and lactic acidosis, suspected gram-negative/ mrsa versus aspiration pneumonia, acute renal failure secondary to dehydration, altered mental state, metabolic encephalopathy. Continue gentle IV hydration. Noted a drop in his blood counts today. Please check stool for guaiac. Follow-up on all the cultures. Creatinine slightly better today. Continue to monitor renal function. Please get a swallow evaluation. Continue the rest of the medications. DVt px; Xarelto.
[2018-04-17 06:34] VITALS: BP 108/58
[2018-04-17 08:55] LABS: MEAN CORPUSCULAR HGB 26.1 PG (27.0-31.0); MEAN CORPUSCULAR HGB CONC 32.5 G/DL (33.0-37.0); MEAN CORPUSCULAR VOLUME 80.3 FL (80.0-94.0); MEAN PLATELET VOLUME 8.4 FL (7.4-10.4); PLATELET COUNT 194 /CUMM (130-400); RBC DISTRIBUTION WIDTH 17.9 % (11.5-14.5); RED BLOOD CELL CT 2.87 /CUMM (4.70-6.10); WHITE BLOOD CELL COUNT 6.6 /CUMM (4.8-10.8)
--- NOTE | 2018-04-17 14:22 | Cons- Cardiology ---
General Information and HPI Consulting Request Date of Consult: 04/17/18 Requested By: Glenis Gambino MD Reason for Consult: SVT History of Present Illness: The patient is a 77-year-old male with history of CAD, status post CABG 20 years ago, hypertension, diabetes mellitus, DVT, and lung cancer. He was sent to the hospital from his longterm for increased lethargy over the past week. He also has recent nonproductive cough. He was admitted for treatment of pneumonia. While on the floor he had an episode of decreased responsiveness and a rapid response was called. He was transferred to telemetry where he was noted to have intermittent brief episodes of SVT. The patient is a poor historian secondary to dementia. He denies chest pain, shortness of breath, or palpitations per Allergies/Medications Allergies: Coded Allergies: No Known Allergies (02/09/18) Home Med List: Acetaminophen (Pain Relief) 325 MG TABLET 2 TAB PO Q6H PRN PAIN/TEMP>101 ( Reported) Acetaminophen (Acephen) 650 MG SUPP.RECT 1 SUPP ME Q6H PRN PAIN/TEMP>101 ( Reported) Atenolol 25 MG TABLET 1 TAB PO DAILY BP (Reported) Bisacodyl (Dulcolax) 10 MG SUPP.RECT 1 SUP RC DAILY PRN CONSTIPATION ( Reported) Donepezil HCl (Aricept) 10 MG TABLET 1 TAB PO DAILY DEMENTIA (Reported) Erythromycin Base (Erythromycin) 5 MG/GRAM (0.5 %) OINT...G. 1 CM OD 4XD ABX (Reported) apply 1 cm ribbon into the lower conjunctival sac Guaifenesin (Cough Syrup) 100 MG/5 ML LIQUID 10 ML PO Q6H PRN COUGH/CONGESTION (Reported) Hyoscyamine Sulfate 125 MCG/5 ML ELIXIR 1 ML SL Q4H PRN SECRETIONS (Reported) Insulin Glargine,Hum.rec.anlog (Lantus Solostar) 100 UNIT/ML (3 ML) INSULN.PEN 15 UNITS SC QAM DM (Reported) Insulin Lispro (Humalog) 100 UNIT/ML VIAL DM (Reported) Insulin-Lantus (Lantus) 100 UNIT/ML VIAL 9 UNITS SQ QHS DM (Reported) Latanoprost 0.005 % DROPS 1 GTT OS QHS LEFT EYE (Reported) Levothyroxine Sodium 88 MCG TABLET 1 TAB PO DAILY HYPOTHYROIDISM (Reported) Magnesium Hydroxide (Milk Of Magnesia) 400 MG/5 ML ORAL.SUSP 30 ML PO Q3D PRN CONSTIPATION (Reported) Magnesium Oxide (Magnesium) 400 MG TABLET 1 TAB PO DAILY LOW ELECTROLYTES ( Reported) Melatonin 5 MG TABLET 1 TAB PO QPM SLEEP (Reported) Memantine HCl (Namenda) 10 MG TABLET 1 TAB PO DAILY DEMENTIA (Reported) Metformin HCl 1,000 MG TABLET 1 TAB PO BID DIABETES (Reported) Mirtazapine (Remeron) 15 MG TABLET 1 TAB PO QPM UNKNOWN (Reported) Naloxone HCl (Narcan) 4 MG/ACTUATION SPRAY 4 MG JESUS ALBERTO AD PRN OPIOID INDUCED RESP. DEPRESSIO (Reported) Ondansetron HCl (Zofran) 4 MG TABLET 1 TAB PO Q4H PRN N/V (Reported) Rivaroxaban (Xarelto) 20 MG TABLET 1 TAB PO QPM ? DVT (Reported) with food Current Medications: Current Medications Sig/Nu Start time Last Medication Dose Route Stop Time Status Admin Acetaminophen 650 MG Q6PRN PRN 04/16 1915 AC PO Ceftazidime 1,000 MG Q12H 04/17 0400 AC 04/17 IV 0418 Ceftazidime 0 .STK-MED ONE 04/16 1548 DC .ROUTE Ceftazidime 1,000 MG ONCE ONE 04/16 1545 DC 04/16 IV 04/16 1546 1554 Dextrose/Sodium 1,000 ML Q20H 04/17 0930 AC 04/17 Chloride IV 1048 Donepezil HCl 10 MG DAILY 04/16 1923 AC PO Insulin Aspart 0 TIDAC/HS 04/16 2100 DC SC Insulin Detemir 15 UNITS DAILY AC 04/17 07 AC SC Insulin Detemir 9 UNITS AT BEDTIME 04/16 2100 DC SC Insulin Human Regular 0 Q6 04/17 1200 AC 04/17 SC 1250 Levothyroxine Sodium 44 MCG Q24 04/17 1100 AC 04/17 IV 1210 Levothyroxine Sodium 0.088 MG DAILY AC 04/16 1920 DC PO Magnesium Oxide 400 MG DAILY 04/16 1919 AC PO Melatonin 5 MG QPM 04/16 2100 AC PO Memantine 10 MG DAILY 04/16 1919 AC PO Rivaroxaban 20 MG DAILY 04/16 1919 AC PO Sodium Chloride 1,000 ML Q13H 08/04 1915 DC 08/ IV 2142 Sodium Chloride 500 ML BOLUS ONE 04/16 1630 DC 08/ IV 04/16 1729 1717 Sodium Chloride 1,000 ML BOLUS ONE 04/16 1545 DC 08/ IV 04/16 1644 1634 Sodium Chloride 1,000 ML BOLUS ONE 04/16 1500 DC 08/ IV / 1559 1509 Sodium Chloride 500 ML BOLUS ONE 04/16 1330 DC 08/ IV 04/16 1429 1358 Vancomycin HCl 1,000 MG DAILY@1600 04/17 1600 AC Sodium Chloride 250 ML IV Vancomycin HCl 0 .STK-MED ONE 04/16 1548 DC .ROUTE Vancomycin HCl 1,000 MG ONCE ONE 04/16 1545 DC 04/16 Sodium Chloride 250 ML IV 04/16 1644 1554 Review of Systems Review of Systems: No rash. No tremor. No melena. All other systems were reviewed, and were noted to be negative. 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 Extended Care Facility Smoking Status: Unknown If Ever Smoked Illicit Drug Use: UTD Living Will? unknown Power of Marketing Senior Recruiter/HCP? yes Name of POA/HCP: spouse Exam & Diagnostic Data Vital Signs and I&O Vital Signs Date Time Temp Pulse Resp B/P B/P Pulse O2 O2 Flow FiO2 Mean Ox Delivery Rate 04/17 0910 94 Nasal 2.0L Cannula 04/17 0634 97.4 79 20 108/58 97 Nasal Cannula 04/17 0000 100 Nasal 2.0L Cannula 04/160 98 Nasal 2.0L Cannula 04/16 2154 96.5 80 20 100/50 98 Nasal Cannula 04/16 1924 Nasal 2.0L Cannula 04/16 1846 98.3 84 22 106/52 100 Nasal Cannula 04/16 1555 98.5 85 20 144/76 100 Nasal Cannula Intake & Output 04/17 1600 04/17 0000 04/16 1600 04/16 0804 0000 Intake Total 615 2300 1500 Output Total 650 650 50 Balance -35 1650 1450 Intake, IV 615 2300 1500 Output, Urine 650 650 50 Patient 146 lb 205 lb Weight Weight Bed scale Measurement Method Physical Exam: Gen: The patient is in no acute distress HEENT: Normal nose, ears, and oropharynx. Pupils equal bilaterally. Conjunctiva normal. Neck: Supple with no JVD, no masses, and no thyromegaly Lungs: Clear to auscultation with normal respiratory effort Heart: RRR, S1, S2, no murmurs. No peripheral edema, 2+ pulses in the lower extremities bilaterally Abdomen: Soft, nontender, no masses. No hepatomegaly. No splenomegaly Extremities: No clubbing or cyanosis. Normal muscle strength in the upper and lower extremities Skin: Normal skin turgor with no skin ulcers or lesions noted. Neuro: Cranial nerves intact. Sensation intact Psych: Alert and oriented x 3 with appropriate affect Labs/Andrés Results: Laboratory Tests 04/17 04/17 0841 0015 Chemistry Sodium (137 - 145 mmol/L) 139 Potassium (3.5 - 5.1 mmol/L) 4.1 Chloride (98 - 107 mmol/L) 109 H Carbon Dioxide (22 - 30 mmol/L) 21 L Anion Gap (5 - 16) 9 BUN (9 - 20 mg/dL) 65 H Creatinine (0.7 - 1.2 mg/dL) 1.5 H Estimated GFR (>60 ml/min) 46 L BUN/Creatinine Ratio (7 - 25 %) 43.3 H Lactic Acid (0.7 - 2.1 mmol/L) 1.7 Hematology CBC w Diff MAN DIFF ORDERED WBC (4.8 - 10.8 /CUMM) 6.6 RBC (4.70 - 6.10 /CUMM) 2.87 L Hgb (14.0 - 18.0 G/DL) 7.5 L Hct (42 - 52 %) 23.0 L MCV (80.0 - 94.0 FL) 80.3 MCH (27.0 - 31.0 PG) 26.1 L MCHC (33.0 - 37.0 G/DL) 32.5 L RDW (11.5 - 14.5 %) 17.9 H Plt Count (130 - 400 /CUMM) 194 MPV (7.4 - 10.4 FL) 8.4 Segmented Neutrophils (42.2 - 75.2 %) 78 H Band Neutrophils (0.0 - 5.0 %) 3 Lymphocytes (20.5 - 51.1 %) 12 L Monocytes (1.7 - 9.3 %) 7 Platelet Estimate (ADEQUATE) VERIFIED BY SMEAR Anisocytosis 1+ 04/17 04/16 0005 1635 Blood Gas pH (7.35 - 7.45 PH) 7.44 pCO2 (35 - 45 TORR) 27 L pO2 (80 - 100 TORR) 107 H HCO3 (21 - 28 MEQ/L) 18 L ABG O2 Sat (Measured) (>96.0 %) 98.0 P-50 (Temp Corrected) Y Carboxyhemoglobin (1.5 - 5.0 %) 0.3 L O2 Concentration % 2 LPM Temperature (97.0 - 100.0 FARH) 97.4 O2 Delivery Method N/C Chemistry Lactic Acid (0.7 - 2.1 mmol/L) 2.4 H Miscellaneous Phlebotomy Draw Site RIGHT BRACHIAL 04/16 04/16 1405 1400 Chemistry Sodium (137 - 145 mmol/L) 133 L Potassium (3.5 - 5.1 mmol/L) 4.4 Chloride (98 - 107 mmol/L) 101 Carbon Dioxide (22 - 30 mmol/L) 19 L Anion Gap (5 - 16) 12 BUN (9 - 20 mg/dL) 76 H Creatinine (0.7 - 1.2 mg/dL) 1.7 H Estimated GFR (>60 ml/min) 39 L BUN/Creatinine Ratio (7 - 25 %) 44.7 H Glucose (65 - 99 mg/dL) 115 H Lactic Acid (0.7 - 2.1 mmol/L) 4.0 H Calcium (8.4 - 10.2 mg/dL) 8.0 L Total Bilirubin (0.2 - 1.3 mg/dL) 0.8 AST (17 - 59 U/L) 220 H ALT (21 - 72 U/L) 73 H Alkaline Phosphatase (< 127 U/L) 883 H Troponin I (<0.11 ng/ml) < 0.01 Total Protein (6.3 - 8.2 g/dL) 6.0 L Albumin (3.5 - 5.0 g/dL) 2.8 L Globulin (1.9 - 4.2 gm/dL) 3.2 Albumin/Globulin Ratio (1.1 - 2.2 %) 0.9 L Hematology CBC w Diff NO MAN DIFF REQ WBC (4.8 - 10.8 /CUMM) 9.7 RBC (4.70 - 6.10 /CUMM) 3.25 L Hgb (14.0 - 18.0 G/DL) 8.5 L Hct (42 - 52 %) 26.0 L MCV (80.0 - 94.0 FL) 80.0 MCH (27.0 - 31.0 PG) 26.3 L MCHC (33.0 - 37.0 G/DL) 32.9 L RDW (11.5 - 14.5 %) 18.3 H Plt Count (130 - 400 /CUMM) 261 MPV (7.4 - 10.4 FL) 9.0 Gran % (42.2 - 75.2 %) 74.2 Lymphocytes % (20.5 - 51.1 %) 19.0 L Monocytes % (1.7 - 9.3 %) 6.3 Eosinophils % (0 - 5 %) 0.4 Basophils % (0.0 - 2.0 %) 0.1 Absolute Granulocytes (1.4 - 6.5 /CUMM) 7.2 H Absolute Lymphocytes (1.2 - 3.4 /CUMM) 1.8 Absolute Monocytes (0.10 - 0.60 /CUMM) 0.6 Absolute Eosinophils (0.0 - 0.7 /CUMM) 0 Absolute Basophils (0.0 - 0.2 /CUMM) 0 Urines Urinalysis LIGHT H Urine Color (YEL,AMB,STR) YEL Urine Clarity (CLEAR) HAZY H Urine pH (5.0 - 8.0) 6.0 Ur Specific [place] (1.001 - 1.035) 1.025 Urine Protein (NEG,<30 MG/DL) 100 H Urine Ketones (NEG) NEG Urine Nitrite (NEG) NEG Urine Bilirubin (NEG) NEG Urine Urobilinogen (0.1 - 1.0 EU/dl) 0.2 Ur Leukocyte Esterase (NEG) LARGE H Ur Microscopic SEDIMENT EXAMINED Urine RBC (0 - 5 /HPF) >75 H Urine WBC (0 - 2 /HPF) > 75 H Ur Epithelial Cells (NONE,FEW) RARE Urine Bacteria (NEG/NONE) MANY H Micro UA Comment BUDDING YEAST H Urine Hemoglobin (NEG) LARGE H Urine Glucose (N MG/DL) NEG Diagnostic Data EKG Results EKG tracings and apparently reviewed, and reveals normal sinus rhythm at 78, normal EKG Other Results clinical research monitor strips reveal sinus rhythm with short runs of SVT CT scan of the chest, abdomen, and pelvis 04/16/18: 1. The 4.8 x 3.4 cm mass of the right lower lobe has slightly increased in size compared to 02/09/2018. Again noted is peribronchial/hilar lymphadenopathy and subcarinal lymphadenopathy. 2. Interval development of pneumonia in the posterior segment of the right upper lobe, lateral segment of the middle lobe and right lower lobe. Small right pleural effusion is present. Probable pneumonia in the posterior left lower lobe with small left pleural effusion, as well. 3. Hypodense masses in the liver, consistent with metastatic disease, and periportal lymphadenopathy. 4. Metastatic disease involvement of the ribs is most conspicuous in the posterior left seventh rib where there is a pathologic fracture and surrounding soft tissue thickening. Also, metastasis is present within the left posterosuperior iliac spine. The small, 0.6 cm lucent lesion in the T11 vertebral body could represent a metastasis. 5. Cholelithiasis. 6. Nonobstructive calculi of the right kidney. Head CT 04/16/18: No acute intracranial pathology. Chronic cerebral volume loss and changes of ischemic microangiopathy. No significant interval change compared to head CT earlier today. Assessment/Plan Assessment/Plan The patient is a 77-year-old male with history of CAD, CABG, hypertension, diabetes mellitus, metastatic lung cancer ,and DVT. He presented with mental status changes. He is noted to have pneumonia, and therapy has been initiated. He is noted to have brief episodes of SVT on telemetry. Recommendations: * Continue telemetry monitoring * Antibiotic therapy for pneumonia as per the medical service * Echocardiogram * Continue Xarelto. If unable to take p.o. medications, then IV heparin will be given in place of Xarelto. * Continue other medications Consult Acknowledgment - Thank you for your consult request.
[2018-04-17 15:09] VITALS: BP 102/60
[2018-04-17 22:15] VITALS: BP 120/60
[2018-04-18 04:23] LABS: HEMATOCRIT 23.9 % (42-52); MEAN CORPUSCULAR HGB CONC 32.1 G/DL (33.0-37.0); MEAN PLATELET VOLUME 8.2 FL (7.4-10.4); PLATELET COUNT 240 /CUMM (130-400); RBC DISTRIBUTION WIDTH 17.9 % (11.5-14.5); RED BLOOD CELL CT 2.95 /CUMM (4.70-6.10); WHITE BLOOD CELL COUNT 7.4 /CUMM (4.8-10.8)
[2018-04-18 04:29] LABS: PTT 65 SEC (25-37)
[2018-04-18 06:40] VITALS: BP 110/60
--- NOTE | 2018-04-18 08:35 | Cons- Wound Care ---
General Information and HPI Consulting Request Date of Consult: 04/18/18 Requested By: Glenis Gambino MD Reason for Consult: Stage IV ulcer of the coccyx present on admission and right buttock pressure ulcers present on admission History of Present Illness: Patient is 77-year-old with widely metastatic lung cancer chronic decubitus ulcer of the coccyx reportedly with osteomyelitis admitted with multiple medical problems. He is noncommunicative and unable to provide any history. Allergies/Medications Allergies: Coded Allergies: No Known Allergies (02/09/18) Home Med List: Acetaminophen (Pain Relief) 325 MG TABLET 2 TAB PO Q6H PRN PAIN/TEMP>101 ( Reported) Acetaminophen (Acephen) 650 MG SUPP.RECT 1 SUPP AK Q6H PRN PAIN/TEMP>101 ( Reported) Atenolol 25 MG TABLET 1 TAB PO DAILY BP (Reported) Bisacodyl (Dulcolax) 10 MG SUPP.RECT 1 SUP RC DAILY PRN CONSTIPATION ( Reported) Donepezil HCl (Aricept) 10 MG TABLET 1 TAB PO DAILY DEMENTIA (Reported) Erythromycin Base (Erythromycin) 5 MG/GRAM (0.5 %) OINT...G. 1 CM OD 4XD ABX (Reported) apply 1 cm ribbon into the lower conjunctival sac Guaifenesin (Cough Syrup) 100 MG/5 ML LIQUID 10 ML PO Q6H PRN COUGH/CONGESTION (Reported) Hyoscyamine Sulfate 125 MCG/5 ML ELIXIR 1 ML SL Q4H PRN SECRETIONS (Reported) Insulin Glargine,Hum.rec.anlog (Lantus Solostar) 100 UNIT/ML (3 ML) INSULN.PEN 15 UNITS SC QAM DM (Reported) Insulin Lispro (Humalog) 100 UNIT/ML VIAL DM (Reported) Insulin-Lantus (Lantus) 100 UNIT/ML VIAL 9 UNITS SQ QHS DM (Reported) Latanoprost 0.005 % DROPS 1 GTT OS QHS LEFT EYE (Reported) Levothyroxine Sodium 88 MCG TABLET 1 TAB PO DAILY HYPOTHYROIDISM (Reported) Magnesium Hydroxide (Milk Of Magnesia) 400 MG/5 ML ORAL.SUSP 30 ML PO Q3D PRN CONSTIPATION (Reported) Magnesium Oxide (Magnesium) 400 MG TABLET 1 TAB PO DAILY LOW ELECTROLYTES ( Reported) Melatonin 5 MG TABLET 1 TAB PO QPM SLEEP (Reported) Memantine HCl (Namenda) 10 MG TABLET 1 TAB PO DAILY DEMENTIA (Reported) Metformin HCl 1,000 MG TABLET 1 TAB PO BID DIABETES (Reported) Mirtazapine (Remeron) 15 MG TABLET 1 TAB PO QPM UNKNOWN (Reported) Naloxone HCl (Narcan) 4 MG/ACTUATION SPRAY 4 MG JESUS ALBERTO AD PRN OPIOID INDUCED RESP. DEPRESSIO (Reported) Ondansetron HCl (Zofran) 4 MG TABLET 1 TAB PO Q4H PRN N/V (Reported) Rivaroxaban (Xarelto) 20 MG TABLET 1 TAB PO QPM ? 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 Extended Care Facility Smoking Status: Unknown If Ever Smoked Illicit Drug Use: UTD Living Will? unknown Power of Fire Alarm Inspector/HCP? yes Name of POA/HCP: spouse Exam & Diagnostic Data Vital Signs and I&O Vital Signs Result Date Time Pulse Ox 90 04/18 0640 B/P 110/60 04/18 0640 O2 Delivery Nasal Cannula 04/18 0640 O2 Flow Rate 2.0L 04/18 0640 Temp 98.1 04/18 0640 Pulse 90 04/18 0640 Resp 20 04/18 0640 Intake & Output 04/18 0000 / 1600 04/17 0800 Intake Total 325 600 615 Output Total 350 600 650 Balance -25 0 -35 Intake, IV 325 600 615 Number 1 Bowel Movements Output, Urine 350 600 650 Patient 151 lb Weight Weight Bed scale Measurement Method Exam of the coccyx shows there to be approximately 2 x 1.5 cm stage IV ulcer with undermining at 12:00 and exposed bone. Over the right buttock are several areas of both stage II and stage III pressure ulcers the largest measuring approximately 2 x 0.8 cm there is no undermining sinus tracking or exposed bone. 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 Recommend offloading. Palliative care to the coccyx ulcer in view of his overall medical condition to include offloading and packing with Aquacel Ag. Right buttock ulcers can be treated with either barrier cream or a thin DuoDERM changed every several days Consult Acknowledgment - Thank you for your consult request.
--- NOTE | 2018-04-18 09:58 | PN- Housestaff ---
Oswaldo Arriaza 04/18/18 0958: Subjective Follow-up For: HCAP Tele-Events Since Last Visit: Overnight: NSR 73 - 81 Subjective: Patient was seen and examined lying comfortably in bed. No acute distress. No issues overnight per nusing. He was able to respond to certain questions with simple answers. Review of Systems Constitutional: Reports: see HPI. Objective Last 24 Hrs of Vital Signs/I&O Vital Signs Date Time Temp Pulse Resp B/P B/P Pulse O2 O2 Flow FiO2 Mean Ox Delivery Rate 04/19 0000 Nasal 2.0L Cannula 04/18 2247 98.9 93 18 156/70 98 Nasal Cannula 04/18 1600 Nasal 2.0L Cannula 04/18 1509 98.4 79 20 164/64 99 Nasal Cannula 04/18 0940 94 Nasal 2.0L Cannula 04/18 0640 98.1 90 20 110/60 90 Nasal 2.0L Cannula Intake & Output 04/19 0800 08/ 0000 04/18 1600 Intake Total 995 900 Output Total 400 875 Balance 595 25 Intake, IV 275 500 Intake, Oral 720 400 Number 1 Bowel Movements Output, Urine 400 875 Patient 154 lb 154 lb Weight Physical Exam General Appearance: Cooperative, No Acute Distress Skin Temp/Moisture Exam: Warm/Dry Sepsis Skin Exam (color): Normal for Ethnicity HEENT: Atraumatic Neck: Supple Cardiovascular: Regular Rate, Normal S1, Normal S2 Lungs: Decreased sounds lower left lobe Abdomen: Normal Bowel Sounds, Soft, No Tenderness Extremities: No Tenderness/Swelling Current Medications: Current Medications Sig/Nu Start time Last Medication Dose Route Stop Time Status Admin Acetaminophen 650 MG Q6PRN PRN 04/16 1915 AC PO Amoxicillin/ 875 MG Q12 04/19 09 AC Clavulanate Potassium PO Ceftazidime 1,000 MG Q12H / 0400 DC 04/18 IV 04/19 0200 1610 Dextrose/Sodium 1,000 ML Q13H 04/18 0830 DC Chloride IV Dextrose/Sodium 1,000 ML Q20H / 0930 DC 04/18 Chloride IV 0401 Donepezil HCl 10 MG DAILY 04/16 1923 AC / PO 1110 Heparin Sodium 25,000 UNIT Q24H 04/17 2000 DC 04/17 (Porcine) IV 2224 Sodium Chloride 500 ML Insulin Aspart 0 TIDAC/HS 04/18 1700 AC 04/18 SC 2030 Insulin Detemir 15 UNITS DAILY AC 04/17 0700 AC SC Insulin Human Regular 1 UNITS .STK-MED ONE 04/18 0607 DC IV 04/18 0608 Insulin Human Regular 0 Q6 04/17 1200 DC 04/18 SC 04/18 1700 0609 Levothyroxine Sodium 44 MCG Q24 04/17 1100 AC 04/18 IV 0814 Magnesium Oxide 400 MG DAILY 04/16 191 AC 04/18 PO 1110 Melatonin 5 MG QPM 04/16 2100 AC 04/18 PO 2030 Memantine 10 MG DAILY 04/16 191 AC 04/18 PO 1110 Rivaroxaban 20 MG DAILY 04/18 1135 AC 04/18 PO 1143 Vancomycin HCl 1,000 MG DAILY@1600 04/17 1600 AC 04/18 Sodium Chloride 250 ML IV 04/19 0500 1610 Last 24 Hrs of Lab/Andrés Results Last 24 Hrs of Labs/Mics: Laboratory Tests 04/18/18 1600: APTT Cancelled Assessment/Plan Assessment: Pt is a 77yo M w/ PMH of osteomyelitis of sacral bones, stage 4 coccyx ulcer, dementia, BPH (chronic indwelling altamirano catheter), HTN, DM, hypothyroidism, hx of DVT (2017?), poorly differenciated metastatic Lung Ca, BIBA from [facility] for cough and lethargy. Problem List: 1. HCAP 2. Progressive decline in H/H 3. 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 Transition patient to augmentin PO for 7 days 2. Aspiration precautions 3. Diet as recommended based on swallow eval 4. Repeat H/H tomorrow 5. Once PO xarelto can be taken, switch from IV heparin as per cardiology 6. Offloading and packing with Aquacel Ag for ulcer as per wound care Full Code DVT ppx Problem List: 1. Hospital acquired PNA Pain Ratin Pain Location: None Pain Goal: Remain pain free Pain Plan: Per pathway Tomorrow's Labs & Rationales: CHRIS Clarke MD,Shubham 04/18/18 1355: Attending MD Review Statement Attending Statement Attending MD Statement: examined this patient, discuss w/resident/PA/BLANKMAKER, agreed w/resident/PA/BLANKMAKER, reviewed EMR data (avail), discussed with nursing, discussed with case mgmt, amended to note Attending Assessment/Plan: Patient seen and examined. Lying in bed and not in any acute distress. No issues overnight reported by nursing staff. He did respond to some simple questions. He however did not engage in conversation. Swelling evaluation was done today. He was cleared for trial of pured diet with nectar thick liquids. He is being treated empirically for pneumonia based on abnormal chest CT which is suggestive of pneumonia. He did report cough on presentation however it was nonproductive and he does have underlying history of lung cancer. He was never febrile and never had a leukocytosis. He is pneumonia may be secondary to postobstructive pneumonia or aspiration. On examination he is not in any obvious acute distress. He is maintaining saturation on 2 L of oxygen however it is reported that prefers the patient to be maintained on oxygen supplementation. Breath sounds are diminished bilaterally with no significant added sounds. On telemetry monitoring he had nonsustained run of ectopy. Recommendations: -Transition patient to Augmentin to complete a total of 7 days of therapy. -Maintain aspiration precautions at all times. Diet as recommended by the speech pathologist. [facility] determine if his diet can be upgraded. -He is noted to have a progressive decline in his hemoglobin level. Stool guaiac was negative today. No clear evidence of bleeding. Repeat H&H in a.m. -If patient remains afebrile overnight and hemoglobin level is stable he may be discharged back to his [place] [facility] facility tomorrow. -Given his comorbidities including untreated metastatic cancer his clinical condition is only expected to continue to decline. Apparently repeated discussions have occurred with the patient's regarding goals of care. At this point in time she does not want to treat his metastatic malignancy however she wants treatment she will call for his other disease processes.
--- NOTE | 2018-04-18 10:01 | PN- Cardiology ---
Subjective Subjective: The patient is noted to have brief episodes of SVT on telemetry. He is not able to give any history secondary to dementia. Objective Vital Signs and I&Os Vital Signs Date Time Temp Pulse Resp B/P B/P Pulse O2 O2 Flow FiO2 Mean Ox Delivery Rate 04/18 0940 94 Nasal 2.0L Cannula 04/18 0640 98.1 90 20 110/60 90 Nasal 2.0L Cannula 04/18 0000 Nasal 2.0L Cannula 04/17 2215 97.8 94 20 120/60 94 Nasal 2.0L Cannula 04/17 1652 94 Nasal 2.0L Cannula 04/17 1509 97.9 86 20 102/60 96 Intake & Output 04/18 1600 04/18 0804/18 0000 04/17 1600 04/17 0804/17 0000 Intake Total 80 325 613 231 7218 Output Total 800 350 600 650 650 Balance -720 -25 0 -35 1650 Intake, IV 80 325 887 326 2485 Number 1 1 Bowel Movements Output, Urine 800 350 600 650 650 Patient 151 lb 146 lb Weight Weight Bed scale Bed scale Measurement Method Physical Exam: Gen: The patient is in no acute distress HEENT: Normal nose, ears, and oropharynx. Pupils equal bilaterally. Conjunctiva normal. Neck: Supple with no JVD, no masses, and no thyromegaly Lungs: Clear to auscultation with normal respiratory effort Heart: RRR, S1, S2, no murmurs. No peripheral edema, 2+ pulses in the lower extremities bilaterally Abdomen: Soft, nontender, no masses. No hepatomegaly. No splenomegaly Extremities: No clubbing or cyanosis. Normal muscle strength in the upper and lower extremities Skin: Normal skin turgor with no skin ulcers or lesions noted. Neuro: Cranial nerves intact. Sensation intact Current Medications: Current Medications Sig/Nu Start time Last Medication Dose Route Stop Time Status Admin Acetaminophen 650 MG Q6PRN PRN 04/16 191 AC PO Ceftazidime 1,000 MG Q12H 04/17 040 AC 04/18 IV 0402 Dextrose/Sodium 1,000 ML Q13H 04/18 0830 AC Chloride IV Dextrose/Sodium 1,000 ML Q20H 04/17 0930 DC 04/18 Chloride IV 0401 Donepezil HCl 10 MG DAILY 04/16 1923 AC PO Heparin Sodium 25,000 UNIT Q24H 04/17 2000 AC 04/17 (Porcine) IV 2224 Sodium Chloride 500 ML Insulin Detemir 15 UNITS DAILY AC 04/17 0700 AC SC Insulin Human Regular 0 Q6 04/17 1200 AC 04/18 SC 0609 Levothyroxine Sodium 44 MCG Q24 04/17 1100 AC 04/18 IV 0814 Levothyroxine Sodium 0.088 MG DAILY AC 04/16 192 DC PO Magnesium Oxide 400 MG DAILY 04/16 1919 AC PO Melatonin 5 MG QPM 04/16 2100 AC PO Memantine 10 MG DAILY 04/16 1919 AC PO Rivaroxaban 20 MG DAILY 04/16 1919 DC 04/17 PO 1520 Sodium Chloride 1,000 ML Q13H 04/16 1915 DC 04/16 IV 2142 Vancomycin HCl 1,000 MG DAILY@1600 04/17 1600 AC 04/17 Sodium Chloride 250 ML IV 1602 Results Last 48 Hrs of Labs/Mics: Laboratory Tests 04/18/18 0410: Anion Gap 4 L, Estimated GFR 49 L, BUN/Creatinine Ratio 37.9 H, Iron 23 L, TIBC 305, Ferritin 186.0, APTT 65 H, CBC w Diff MAN DIFF ORDERED, RBC 2.95 L, MCV 81.0, MCH 26.0 L, MCHC 32.1 L, RDW 17.9 H, MPV 8.2, Segmented Neutrophils 78 H, Band Neutrophils 4, Lymphocytes 8 L, Monocytes 6, Eosinophils 4, Platelet Estimate ADEQUATE, Polychromasia 1+, Hypochromic-Microcytic 2+, Anisocytosis 1+, Target Cells 1+ 04/17/18 0841: Anion Gap 9, Estimated GFR 46 L, BUN/Creatinine Ratio 43.3 H, CBC w Diff MAN DIFF ORDERED, RBC 2.87 L, MCV 80.3, MCH 26.1 L, MCHC 32.5 L, RDW 17.9 H, MPV 8.4, Segmented Neutrophils 78 H, Band Neutrophils 3, Lymphocytes 12 L, Monocytes 7, Platelet Estimate VERIFIED BY SMEAR, Anisocytosis 1+ 04/17/18 0015: Lactic Acid 1.7 04/17/18 0005: pH 7.44, pCO2 27 L, pO2 107 H, HCO3 18 L, ABG O2 Sat (Measured) 98.0, P-50 ( Temp Corrected) Y, Carboxyhemoglobin 0.3 L, O2 Concentration % 2 LPM, Temperature 97.4, O2 Delivery Method N/C, Phlebotomy Draw Site RIGHT BRACHIAL 04/16/18 1635: Lactic Acid 2.4 H 04/16/18 1405: Urinalysis LIGHT H, Urine Color YEL, Urine Clarity HAZY H, Urine pH 6.0, Ur Specific [place] 1.025, Urine Protein 100 H, Urine Ketones NEG, Urine Nitrite NEG, Urine Bilirubin NEG, Urine Urobilinogen 0.2, Ur Leukocyte Esterase LARGE H , Ur Microscopic SEDIMENT EXAMINED, Urine RBC >75 H, Urine WBC > 75 H, Ur Epithelial Cells RARE, Urine Bacteria MANY H, Micro UA Comment BUDDING YEAST H , Urine Hemoglobin LARGE H, Urine Glucose NEG 04/16/18 1400: Anion Gap 12, Estimated GFR 39 L, BUN/Creatinine Ratio 44.7 H, Glucose 115 H, Lactic Acid 4.0 H, Calcium 8.0 L, Total Bilirubin 0.8, AST 220 H, ALT 73 H, Alkaline Phosphatase 883 H, Troponin I < 0.01, Total Protein 6.0 L, Albumin 2.8 L, Globulin 3.2, Albumin/Globulin Ratio 0.9 L, CBC w Diff NO MAN DIFF REQ, RBC 3.25 L, MCV 80.0, MCH 26.3 L, MCHC 32.9 L, RDW 18.3 H, MPV 9.0, Gran % 74.2, Lymphocytes % 19.0 L, Monocytes % 6.3, Eosinophils % 0.4, Basophils % 0.1 , Absolute Granulocytes 7.2 H, Absolute Lymphocytes 1.8, Absolute Monocytes 0.6 , Absolute Eosinophils 0, Absolute Basophils 0 Assessment/Plan Assessment/Plan Assessment: 1. CAD, status post CABG 2. Diabetes mellitus 3. Hypertension 4. History of DVT 5. Metastatic lung cancer 6. Pneumonia 7. Brief episodes of SVT noted on telemetry Plan: * Antibiotics as per the medical service * Continue IV heparin while unable to take p.o. Xarelto. Once Xarelto can be taken, IV heparin may be discontinued * Continue to monitor on telemetry Continue telemetry? Yes
[2018-04-18 15:09] VITALS: BP 164/64
[2018-04-18] MEDS ORDERED: AUGMENTIN 875-1 EACH PO (15:55)
[2018-04-18 22:47] VITALS: BP 156/70
--- NOTE | 2018-04-19 06:19 | Patient Discharge Instructions ---
Discharge Instructions General Discharge Information You were seen/treated for: Healthcare Associated Pneumonia Watch for these problems: Fever, Sweats, Shortness of Breath, Chest Pain, Cough, Cough with sputum or blood, Diarrhea. If any of these symptoms occur please go to ER or see your closest healthcare provider. Special Instructions: Please follow up with your PCP within a week after discharge. You need a repeat blood work up on 04/25/18. Diet Continue normal diet: No (Consistent Carb 3) Activity Full Activity/No Limits: No (As tolerated) Activity Self Limited: Yes Acute Coronary Syndrome Inclusion Criteria At DC or during hospital stay patient has or had the following: ACS DIAGNOSIS No Discharge Core Measures Meds if any: Prescribed or Continued at Discharge Meds if any: NOT Prescribed or Continued at Discharge Congestive Heart Failure Inclusion Criteria At DC or during hospital stay patient has or had the following: CHF DIAGNOSIS No Discharge Core Measures Meds if any: Prescribed or Continued at Discharge Meds if any: NOT Prescribed or Continued at Discharge Cerebrovascular accident Inclusion Criteria At DC or during hospital stay patient has or had the following: CVA/TIA Diagnosis No Discharge Core Measures Meds if any: Prescribed or Continued at Discharge Meds if any: NOT Prescribed or Continued at Discharge Venous thromboembolism Inclusion Criteria VTE Diagnosis No VTE Type NONE VTE Confirmed by (Test) NONE Discharge Core Measures - Per Current guidelines, there needs to be overlap - treatment for the first 5 days of Warfarin therapy. - If discharged on Warfarin prior to 5 days of - overlap therapy, the patient will need to be - assessed for post discharge needs including - *Post discharge parental anticoagulation - *Warfarin and/or parental anticoagulation education - *Follow up date to check INR post discharge At least 5 days overlap therapy as Inpatient No Meds if any: Prescribed or Continued at Discharge Note: Overlap Therapy is Warfarin and Anticoagulant Meds if any: NOT Prescribed or Continued at Discharge
[2018-04-19 06:53] VITALS: BP 124/58
--- NOTE | 2018-04-19 07:28 | PN- Housestaff ---
Oswaldo Arriaza 04/19/18 0728: Subjective Follow-up For: HCAP Subjective: No events on tele. Patient was seen and examined lying comfortably in bed. No acute distress. No issues overnight per nusing. Per pt is able to respond to complex questions, but when health care providers speak to him he barely answers simple questions. His baseline cognition seems to waiver from day to day. Review of Systems Constitutional: Reports: see HPI. Objective Last 24 Hrs of Vital Signs/I&O Vital Signs Date Time Temp Pulse Resp B/P B/P Pulse O2 O2 Flow FiO2 Mean Ox Delivery Rate 04/20 0000 Nasal 2.0L Cannula 04/19 2132 98.2 97 20 116/50 98 Nasal Cannula 04/19 1600 Nasal 2.0L Cannula 04/19 1444 96.8 88 20 118/58 99 Nasal 2.0L Cannula 04/19 0912 97 Nasal 2.0L Cannula 04/19 0653 98.2 88 20 124/58 95 Nasal 2.0L Cannula Intake & Output 04/20 0804/20 0000 04/19 1600 Intake Total 300 Output Total 1300 100 Balance -1000 -100 Intake, Oral 300 Output, Urine 1300 100 Patient 153 lb Weight Physical Exam General Appearance: No Acute Distress Skin Temp/Moisture Exam: Warm/Dry HEENT: Atraumatic Neck: Supple Cardiovascular: Regular Rate, Normal S1, Normal S2 Lungs: Decreased breath sounds LLL Abdomen: Normal Bowel Sounds, Soft, No Tenderness Extremities: No Tenderness/Swelling Current Medications: Current Medications Sig/Nu Start time Last Medication Dose Route Stop Time Status Admin Acetaminophen 650 MG Q6PRN PRN 04/16 1915 AC PO Amoxicillin/ 875 MG Q12 04/19 0900 AC 04/19 Clavulanate Potassium PO 2024 Donepezil HCl 10 MG DAILY 04/16 1923 AC 04/19 PO 0838 Insulin Aspart 0 TIDAC/HS 04/18 1700 AC 04/19 SC 2130 Insulin Detemir 15 UNITS DAILY AC 04/17 07 AC 04/19 SC 0650 Levothyroxine Sodium 44 MCG Q24 04/17 1100 AC 04/19 IV 1020 Magnesium Oxide 400 MG DAILY 04/16 1919 AC 04/19 PO 0838 Melatonin 5 MG QPM 04/16 2100 AC 04/19 PO 202 Memantine 10 MG DAILY 04/16 1919 AC 04/19 PO 0838 Rivaroxaban 20 MG DAILY 04/18 1135 AC 04/18 PO 1143 Last 24 Hrs of Lab/Andrés Results Last 24 Hrs of Labs/Mics: Laboratory Tests 04/19/18 1240: CBC w Diff MAN DIFF ORDERED, RBC 2.95 L, MCV 81.1, MCH 25.9 L, MCHC 31.9 L, RDW 18.4 H, MPV 9.4, Gran % 68.2, Lymphocytes % 19.3 L, Monocytes % 10.8 H, Eosinophils % 1.7, Basophils % 0, Absolute Granulocytes 4.1, Segmented Neutrophils 78 H, Band Neutrophils 6 H, Absolute Lymphocytes 1.2, Lymphocytes 9 L, Monocytes 6, Absolute Monocytes 0.6, Eosinophils 1, Absolute Eosinophils 0.1, Absolute Basophils 0, Platelet Estimate ADEQUATE, Polychromasia 1+, Hypochromic-Microcytic 2+, Basophilic Stippling SLIGHT 04/19/18 0605: CBC w Diff MAN DIFF ORDERED, RBC 2.83 L, MCV 80.7, MCH 26.0 L, MCHC 32.3 L, RDW 18.7 H, MPV 9.0, Segmented Neutrophils 83 H, Band Neutrophils 3, Lymphocytes 9 L, Monocytes 5, Platelet Estimate ADEQUATE, Polychromasia 1+, Hypochromic-Microcytic 1+, Basophilic Stippling SLIGHT Assessment/Plan Assessment: Problem List: 1. HCAP 2. Progressive decline in H/H 3. 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 Transitioned to augmentin PO for 7 days 2. Aspiration precautions 3. Diet has been advanced after swallow eval 4. H/H relatively stable compared to his baseline 5. Can continue PO xarelto 6. Offloading and packing with Aquacel Ag for ulcer as per wound care Full Code DVT ppx Problem List: 1. Hospital acquired PNA Pain Ratin Pain Location: NA Pain Goal: Remain pain free Pain Plan: Per pathway Tomorrow's Labs & Rationales: BEP, CHRIS Clarke MD,Shubham 04/19/18 1436: Attending MD Review Statement Attending Statement Attending MD Statement: examined this patient, discuss w/resident/PA/PRIMER POWDER BLENDER WET, agreed w/resident/PA/PRIMER POWDER BLENDER WET, reviewed EMR data (avail), discussed with nursing, discussed with case mgmt, amended to note Attending Assessment/Plan: Patient seen and examined. Resting comfortably not in acute distress. No issues overnight. Tolerating his diet after being advanced yesterday. Remains afebrile and hemodynamically stable. Saturating 97% on 2 L of oxygen. Hemoglobin level was noted to have trended downwards today to 7.4 from a baseline of about 10.5 back in February. Patient is guaiac negative. Does not appear to have any evidence of active bleeding. Anemia likely related to his underlying chronic disease. Hemoglobin level was repeated today and found to be relatively stable compared to yesterday. Would recommend continuation of his anticoagulation therapy. He has been transitioned to Augmentin for his pneumonia. Completed 7 day course. Patient noted to have brief episodes of SVT on telemetry monitoring. Cardiology service continues to recommend Telemetry monitoring at present. He will be monitored overnight. If no further events and no further intervention recommended by the cardiology service patient [facility].
--- NOTE | 2018-04-19 07:44 | Discharge Summary ---
Visit Information Visit Dates Admission Date: 04/16/18 Discharge Date: 04/16/18 Hospital Course Course Attending Physician: Shubham Clarke MD Primary Care Physician: Shannon Hedrick MD Hospital Course: Pt is a 77yo M w/ PMH of osteomyelitis of sacral bones, stage 4 coccyx ulcer, dementia, BPH (chronic indwelling altamirano catheter), HTN, DM, hypothyroidism, hx of DVT (2017?), poorly differenciated metastatic Lung Ca, BIBA from [facility] for cough and lethargy. Patient was initially admitted to general med and later transfered to telemetry floor for the management of following issues; 1. HCAP 2. NSVT 3. Chronic anemia likely secondary to metastatic lung cancer 4. Stage 4 coccyx ulcer with underlying osetomylitis Patient was started on vancomycin and surface to cover HCAP later transitioned to augmentin to complete a 7 day course of antibiotics. Swallow eval was obtained who recommended to continue Pure and honey thick diet. Patient was transferred to telemetry floor because of an episode of brief ?? unresponsiveness. Head CT was obtained which was negative. Patient was found to have a run of NSVT on monitoring manager, cardiology consult was obtained who recommended to continue current management. His H&h was also borderline with H&H of 7.4/23.0 on day of discharge. Patient was started on Iron supplements and advised to repeat CBC on 04/25/18. Xarelto was continued. Rest of the home medications were continued. Allergies: Coded Allergies: No Known Allergies (02/09/18) Significant Procedures: CT ABD & PELVIS W/O IV CONTRAS; CT CHEST WO IV CONTRAST IMPRESSION: 1. The 4.8 x 3.4 cm mass of the right lower lobe has slightly increased in size compared to 02/09/2018. Again noted is peribronchial/hilar lymphadenopathy and subcarinal lymphadenopathy. 2. Interval development of pneumonia in the posterior segment of the right upper lobe, lateral segment of the middle lobe and right lower lobe. Small right pleural effusion is present. Probable pneumonia in the posterior left lower lobe with small left pleural effusion, as well. 3. Hypodense masses in the liver, consistent with metastatic disease, and periportal lymphadenopathy. 4. Metastatic disease involvement of the ribs is most conspicuous in the posterior left seventh rib where there is a pathologic fracture and surrounding soft tissue thickening. Also, metastasis is present within the left posterosuperior iliac spine. The small, 0.6 cm lucent lesion in the T11 vertebral body could represent a metastasis. 5. Cholelithiasis. 6. Nonobstructive calculi of the right kidney. CT HEAD WO IV CONTRAST IMPRESSION: - No acute intracranial pathology. - Chronic small vessel ischemic changes of the supratentorial white matter. - Moderate atrophy of the cerebral and cerebellar hemispheres. Disposition Summary Disposition Principal Diagnosis: Pneumonia. Unclear if his pneumonia is related to aspiration. His history of lung malignancy also raises concern for postobstructive pneumonia. Additional Diagnosis: Metastatic cancer with lesions in the lungs and liver. Chronic Anemia likely secondary to metastatic lung cancer SVT. Discharge Disposition: SNF Discharge Instructions General Discharge Information Code Status: Full Code Patient's Diet: Puree and honey thick Patient's Activity: As tolerated Follow-Up Instructions/Appts: Please follow-up with your PCP within a week after discharge. Medications at Discharge Discharge Medications: Stop taking the following medications: Erythromycin Base (Erythromycin) 5 MG/GRAM (0.5 %) OINT...G. Right Eye 4XD Continue taking these medications: Rivaroxaban (Xarelto) 20 MG TABLET 1 Tablet ORAL Every night Instructions: with food Comments: Last Taken: 04/20/18 Time: 0930 AM Atenolol (Atenolol) 25 MG TABLET 1 Tablet ORAL DAILY Comments: NOT GIVEN IN HOSPITAL Levothyroxine Sodium (Levothyroxine Sodium) 88 MCG TABLET 1 Tablet ORAL DAILY Comments: Last Taken: 04/20/18 Time: 0930 AM IV DOSE GIVEN Melatonin (Melatonin) 5 MG TABLET 1 Tablet ORAL Every night Comments: Last Taken: 04/19/18 Time: 8:30 PM Memantine HCl (Namenda) 10 MG TABLET 1 Tablet ORAL DAILY Comments: Last Taken: 04/20/18 Time: 0830 AM Magnesium Oxide (Magnesium) 400 MG TABLET 1 Tablet ORAL DAILY Comments: Last Taken: 04/20/18 Time: 0830 AM Donepezil HCl (Aricept) 10 MG TABLET 1 Tablet ORAL DAILY Comments: Last Taken: 04/20/18 Time: 0845 AM Metformin HCl (Metformin HCl) 1,000 MG TABLET 1 Tablet ORAL TWICE DAILY Comments: NOT GIVEN Mirtazapine (Remeron) 15 MG TABLET 1 Tablet ORAL Every night Comments: NOT GIVEN IN HOSPITAL Naloxone HCl (Narcan) 4 MG/ACTUATION SPRAY 4 Milligram In the nose As Directed as needed for OPIOID INDUCED RESP. DEPRESSIO Comments: NOT GIVEN IN HOSPITAL Insulin-Lantus (Lantus) 100 UNIT/ML VIAL 9 Units SUB-Q TAKE AT BEDTIME Comments: Last Taken:04/19/18 Time:9:30 PM 3 UNITS GIVEN NOVOLOG Insulin Glargine,Hum.rec.anlog (Lantus Solostar) 100 UNIT/ML (3 ML) INSULN.PEN 15 Units SC Every Morning Comments: Last Taken:04/20/18 Time:0630 AM 15 UNITS LEVEMIR GIVEN Acetaminophen (Pain Relief) 325 MG TABLET 2 Tablet ORAL Q6H as needed for PAIN/TEMP>101 Comments: NOT GIVEN IN HOSPITAL Acetaminophen (Acephen) 650 MG SUPP.RECT 1 SUPPOSITORY RECTALLY Q6H as needed for PAIN/TEMP>101 Comments: NOT GIVEN IN HOSPITAL Ondansetron HCl (Zofran) 4 MG TABLET 1 Tablet ORAL Q4H as needed for N/V Comments: NOT GIVEN IN HOSPITAL Insulin Lispro (Humalog) 100 UNIT/ML VIAL 0 SC THREE TIMES DAILY Instructions: BEFORE MEALS Blood Insulin Sugar Units <80 0 81-100 2 101-200 4 201-250 6 251-300 8 301-350 10 351-400 12 >400 Call Doctor AT BEDTIME Blood Insulin Sugar Units <80 0 81-100 0 80-150 No change 151-200 1 201-250 2 251-300 3 301-350 4 351-400 6 >400 8 units Call Doctor Comments: Last Taken:04/20/18 Time:1130 AM ONE UNIT GIVEN; FINGER STICK 200 Magnesium Hydroxide (Milk Of Magnesia) 400 MG/5 ML ORAL.SUSP 30 Milliliters ORAL Every 3 days as needed for CONSTIPATION Comments: NOT GIVEN IN HOSPITAL Bisacodyl (Dulcolax) 10 MG SUPP.RECT 1 Suppository RECTAL DAILY as needed for CONSTIPATION Comments: NOT GIVEN IN HOSPITAL Hyoscyamine Sulfate (Hyoscyamine Sulfate) 125 MCG/5 ML ELIXIR 1 Milliliters SUBLINGUAL Q4H as needed for SECRETIONS Comments: NOT GIVEN IN HOSPITAL Guaifenesin (Cough Syrup) 100 MG/5 ML LIQUID 10 Milliliters ORAL Q6H as needed for COUGH/CONGESTION Comments: NOT GIVEN IN HOSPITAL Latanoprost (Latanoprost) 0.005 % DROPS 1 Drop Left Eye TAKE AT BEDTIME Comments: NOT GIVEN IN HOSPITAL Start taking the following new medications: Amoxicillin/Potassium Clav (Augmentin 875-125 Tablet) 875 MG-125 MG TABLET 1 Tablet ORAL TWICE DAILY Qty = 6 No Refills Comments: Last Taken:04/20/18 Time:0830 AM Ferrous Sulfate (Ferrous Sulfate) 325 MG (65 MG IRON) TABLET 1 Tablet ORAL TWICE DAILY Qty = 60 No Refills Comments: NOT GIVEN IN HOSPITAL Copies To: Ryley WASSERMAN,Shannon Alcocer Attending MD Review Statement Documenting Attending: Shubham Clarke MD Other Findings: Discharge in stable condition.
[2018-04-19 07:56] LABS: HEMATOCRIT 22.9 % (42-52); MEAN CORPUSCULAR VOLUME 80.7 FL (80.0-94.0); WHITE BLOOD CELL COUNT 6.2 /CUMM (4.8-10.8)
[2018-04-19 08:10] LABS: MEAN CORPUSCULAR HGB CONC 32.3 G/DL (33.0-37.0); PLATELET COUNT 171 /CUMM (130-400); RBC DISTRIBUTION WIDTH 18.7 % (11.5-14.5); RED BLOOD CELL CT 2.83 /CUMM (4.70-6.10)
--- NOTE | 2018-04-19 11:12 | PN- Cardiology ---
Subjective Subjective: The patient is comfortable. He is not able to give history secondary to dementia. No acute events overnight. After swallowing evaluation, he is able to resume p.o. intake. Sinus rhythm on telemetry with brief episodes of SVT Objective Vital Signs and I&Os Vital Signs Date Time Temp Pulse Resp B/P B/P Pulse O2 O2 Flow FiO2 Mean Ox Delivery Rate 04/19 0912 97 Nasal 2.0L Cannula 04/19 0653 98.2 88 20 124/58 95 Nasal 2.0L Cannula 04/19 0000 Nasal 2.0L Cannula 04/18 2247 98.9 93 18 156/70 98 Nasal Cannula 04/18 1600 Nasal 2.0L Cannula 04/18 1509 98.4 79 20 164/64 99 Nasal Cannula Intake & Output 04/19 1600 04/19 0000 04/18 1600 04/18 0804/18 0000 Intake Total 995 900 80 325 Output Total 200 400 875 800 350 Balance -200 595 25 -720 -25 Intake, IV 275 500 80 325 Intake, Oral 720 400 Number 1 1 Bowel Movements Output, Urine 200 400 875 800 350 Patient 154 lb 154 lb 151 lb Weight Weight Bed scale Measurement Method Physical Exam: Gen: The patient is in no acute distress HEENT: Normal nose, ears, and oropharynx. Pupils equal bilaterally. Conjunctiva normal. Neck: Supple with no JVD, no masses, and no thyromegaly Lungs: Clear to auscultation with normal respiratory effort Heart: RRR, S1, S2, no murmurs. No peripheral edema, 2+ pulses in the lower extremities bilaterally Abdomen: Soft, nontender, no masses. No hepatomegaly. No splenomegaly Extremities: No clubbing or cyanosis. Normal muscle strength in the upper and lower extremities Skin: Normal skin turgor with no skin ulcers or lesions noted. Neuro: Cranial nerves intact. Sensation intact Current Medications: Current Medications Sig/Nu Start time Last Medication Dose Route Stop Time Status Admin Acetaminophen 650 MG Q6PRN PRN 04/16 1915 AC PO Amoxicillin/ 875 MG Q12 04/19 0900 AC 04/19 Clavulanate Potassium PO 0838 Ceftazidime 1,000 MG Q12H 04/17 0400 DC / IV 04/19 0200 1610 Dextrose/Sodium 1,000 ML Q13H 04/18 0830 DC Chloride IV Donepezil HCl 10 MG DAILY 04/16 1923 AC 04/19 PO 0838 Heparin Sodium 25,000 UNIT Q24H 04/17 2000 DC 04/17 (Porcine) IV 2224 Sodium Chloride 500 ML Insulin Aspart 0 TIDAC/HS 04/18 1700 AC 04/19 SC 0844 Insulin Detemir 15 UNITS DAILY AC 04/17 0700 AC 04/19 SC 0650 Insulin Human Regular 0 Q6 04/17 1200 DC 04/18 SC 04/18 1700 0609 Levothyroxine Sodium 44 MCG Q24 04/17 1100 AC 04/19 IV 1020 Magnesium Oxide 400 MG DAILY 04/16 1919 AC 04/19 PO 0838 Melatonin 5 MG QPM 04/16 2100 AC 04/18 PO 2030 Memantine 10 MG DAILY 04/16 191 AC 04/19 PO 0838 Rivaroxaban 20 MG DAILY 04/18 1135 AC 04/18 PO 1143 Vancomycin HCl 1,000 MG DAILY@1600 04/17 1600 DC 04/18 Sodium Chloride 250 ML IV 04/19 0500 1610 Results Last 48 Hrs of Labs/Mics: Laboratory Tests 04/19/18 0605: CBC w Diff MAN DIFF ORDERED, RBC 2.83 L, MCV 80.7, MCH 26.0 L, MCHC 32.3 L, RDW 18.7 H, MPV 9.0, Segmented Neutrophils 83 H, Band Neutrophils 3, Lymphocytes 9 L, Monocytes 5, Platelet Estimate ADEQUATE, Polychromasia 1+, Hypochromic-Microcytic 1+, Basophilic Stippling SLIGHT 04/18/18 1600: APTT Cancelled 04/18/18 0410: Anion Gap 4 L, Estimated GFR 49 L, BUN/Creatinine Ratio 37.9 H, Iron 23 L, TIBC 305, Ferritin 186.0, APTT 65 H, CBC w Diff MAN DIFF ORDERED, RBC 2.95 L, MCV 81.0, MCH 26.0 L, MCHC 32.1 L, RDW 17.9 H, MPV 8.2, Segmented Neutrophils 78 H, Band Neutrophils 4, Lymphocytes 8 L, Monocytes 6, Eosinophils 4, Platelet Estimate ADEQUATE, Polychromasia 1+, Hypochromic-Microcytic 2+, Anisocytosis 1+, Target Cells 1+ Assessment/Plan Assessment/Plan Assessment: 1. CAD, status post CABG 2. Diabetes mellitus 3. Hypertension 4. History of DVT 5. Metastatic lung cancer 6. Pneumonia 7. Brief episodes of SVT noted on telemetry Plan: * Antibiotics as per the medical service * Continue Xarelto * Continue cardiac medications * Echocardiogram pending Continue telemetry? Yes
[2018-04-19 13:52] LABS: ABSOLUTE BASOPHIL COUNT 0 /CUMM (0.0-0.2); ABSOLUTE EOSINOPHIL COUNT 0.1 /CUMM (0.0-0.7); ABSOLUTE GRANULOCYTE CT 4.1 /CUMM (1.4-6.5); ABSOLUTE LYMPH COUNT 1.2 /CUMM (1.2-3.4); ABSOLUTE MONOCYTE COUNT 0.6 /CUMM (0.10-0.60); BASOPHIL % 0 % (0.0-2.0); EOSINOPHIL % 1.7 % (0-5); GRANULOCYTE % 68.2 % (42.2-75.2); HEMATOCRIT 23.9 % (42-52); MEAN CORPUSCULAR HGB 25.9 PG (27.0-31.0); MEAN CORPUSCULAR HGB CONC 31.9 G/DL (33.0-37.0); MEAN CORPUSCULAR VOLUME 81.1 FL (80.0-94.0); MEAN PLATELET VOLUME 9.4 FL (7.4-10.4); PLATELET COUNT 199 /CUMM (130-400); RBC DISTRIBUTION WIDTH 18.4 % (11.5-14.5); RED BLOOD CELL CT 2.95 /CUMM (4.70-6.10)
[2018-04-19 14:44] VITALS: BP 118/58
--- NOTE | 2018-04-19 16:54 | ECHOCARDIOGRAM REPORT ---
JUANA LEON Age: 77 : 1940 Gender: M Exam Date: 04/18/2018 16:42 Exam Location: 1 [address] Ht (in): 70 Wt (lb): 146 BSA: 1.80 BP: 110 / 60 Ordering Physician: Talia Costa MD Referring Physician: Larry Gallegos MD Technologist: Angie Roque [facility] Room Number: 171 Indications: Afib/flutter Rhythm: Technical Quality: FINDINGS Left Ventricle Normal size left ventricle. Normal left ventricular wall thickness. Normal left ventricular ejection fraction visually estimated at > 60%. Abnormal relaxation filling pattern of the left ventricle for age (stage 1 diastolic dysfunction). Right Ventricle Normal right ventricular size and function. Right Atrium Normal right atrial size. Left Atrium Normal left atrial size. Mitral Valve Mitral valve thickened. Mild mitral regurgitation. Moderate mitral annular calcification. Aortic Valve Diffuse thickening (sclerosis) of the aortic valve cusps without reduced excursion. No aortic stenosis. Mild aortic regurgitation. Tricuspid Valve Tricuspid valve not well visualized, grossly normal. No evidence of pulmonary hypertension. Mild tricuspid regurgitation. Pulmonic Valve Mild pulmonic regurgitation. Pericardium No pericardial effusion. Great Vessels Normal size aortic root. CONCLUSIONS Normal size left ventricle. Normal left ventricular ejection fraction visually estimated at > 60%. Abnormal relaxation filling pattern of the left ventricle for age (stage 1 diastolic dysfunction). Mild mitral regurgitation. Moderate mitral annular calcification. Mitral valve thickened. Mild aortic regurgitation. Mild tricuspid regurgitation. Larry Gallegos M.D. (Electronically Signed) Final Date: 19 April 2018 16:53 MEASUREMENTS (Male / Female) Normal Values 2D ECHO LV Diastolic Diameter PLAX 4.3 cm 4.2 - 5.9 / 3.9 - 5.3 cm LV Systolic Diameter PLAX 2.1 cm 2.1 - 4.0 cm LV Fractional Shortening PLAX 51.2 % 25 - 46 % LV Ejection Fraction 2D Teich 82.7 % IVS Diastolic Thickness 1.1 cm LVPW Diastolic Thickness 1.2 cm LV Relative Wall Thickness 0.5 RV Internal Dim ED PLAX 3.0 cm 1.9 - 3.8 cm LVOT Diameter 2.0 cm Aortic Root Diameter 3.1 cm LA Systolic Diameter LX 3.8 cm 3.0 - 4.0 / 2.7 - 3.8 cm LA Volume 35.0 cm 18 - 58 / 22 - 52 cm Ascending Aorta Diameter 2.6 cm DOPPLER AV Peak Velocity 176.0 cm/s AV Peak Gradient 12.4 mmHg AV Mean Velocity 113.0 cm/s AV Mean Gradient 6.0 mmHg AV Velocity Time Integral 38.7 cm LVOT Peak Velocity 117.0 cm/s LVOT Peak Gradient 5.5 mmHg LVOT Mean Velocity 82.9 cm/s LVOT Mean Gradient 3.0 mmHg LVOT Velocity Time Integral 23.5 cm LVOT Stroke Volume 73.8 cm AV Area Cont Eq vti 1.9 cm AV Area Cont Eq pk 2.1 cm MV Peak Velocity 165.0 cm/s MV Peak Gradient 10.9 mmHg MV Mean Velocity 95.9 cm/s MV Mean Gradient 4.0 mmHg Mitral E Point Velocity 138.0 cm/s Mitral A Point Velocity 158.0 cm/s Mitral E to A Ratio 0.9 MV PHT Velocity 126.0 cm/s MV Deceleration [place] 345.0 cm/s MV Pressure Half Time 109.6 ms MV Area PHT 2.0 cm MV Deceleration Time 267.0 ms TR Peak Velocity 264.0 cm/s TR Peak Gradient 27.9 mmHg Right Atrial Pressure 5.0 mmHg Pulmonary Artery Systolic Pressure 32.9 mmHg Right Ventricular Systolic Pressure 32.9 mmHg PV Peak Velocity 106.0 cm/s PV Peak Gradient 4.5 mmHg PV Mean Velocity 75.7 cm/s PV Mean Gradient 3.0 mmHg PV Velocity Time Integral 21.6 cm LV E' Lateral Velocity 9.6 cm/s Mitral E to LV E' Lateral Ratio 14.5 LV E' Septal Velocity 6.0 cm/s Mitral E to LV E' Septal Ratio 22.8
[2018-04-19 21:32] VITALS: BP 116/50
[2018-04-20 06:02] VITALS: BP 132/70
[2018-04-20] MEDS ORDERED: AUGMENTIN 875-1 EACH PO (07:32)
[2018-04-20 09:21] LABS: MEAN CORPUSCULAR HGB 26.5 PG (27.0-31.0); MEAN CORPUSCULAR HGB CONC 32.3 G/DL (33.0-37.0); MEAN CORPUSCULAR VOLUME 82.1 FL (80.0-94.0); MEAN PLATELET VOLUME 9.4 FL (7.4-10.4); PLATELET COUNT 194 /CUMM (130-400); RBC DISTRIBUTION WIDTH 18.4 % (11.5-14.5); RED BLOOD CELL CT 2.81 /CUMM (4.70-6.10); WHITE BLOOD CELL COUNT 6.7 /CUMM (4.8-10.8)
--- NOTE | 2018-04-20 10:25 | PN- Housestaff ---
Rolanda Arriazaesh 04/20/18 1024: Subjective Follow-up For: HCAP Subjective: Patient seen and examined in room. No acute distress. No events overnight. No events on tele monitoring. Review of Systems Constitutional: Reports: see HPI. Objective Last 24 Hrs of Vital Signs/I&O Vital Signs Date Time Temp Pulse Resp B/P B/P Pulse O2 O2 Flow FiO2 Mean Ox Delivery Rate 04/20 1226 97.6 90 20 132/70 04/20 1012 Nasal 2.0L Cannula 04/20 08 98 Nasal 2.0L Cannula 04/20 0602 97.6 90 20 132/70 98 Nasal Cannula Intake & Output 04/21 0804/21 0000 04/20 1600 Intake Total 850 Output Total 750 Balance 100 Intake, IV 10 Intake, Tube 840 Feeding Number 1 Bowel Movements Output, Urine 750 Physical Exam General Appearance: No Acute Distress Skin Temp/Moisture Exam: Warm/Dry HEENT: Atraumatic Cardiovascular: Regular Rate, Normal S1, Normal S2 Lungs: Decreased breath sounds left lower lobe Abdomen: Normal Bowel Sounds, Soft, No Tenderness Extremities: No Tenderness/Swelling Current Medications: Current Medications Sig/Nu Start time Last Medication Dose Route Stop Time Status Admin Acetaminophen 650 MG Q6PRN PRN 04/16 1915 DCD PO Amoxicillin/ 875 MG Q12 04/19 900 DCD 04/20 Clavulanate Potassium PO 0842 Donepezil HCl 10 MG DAILY 04/16 1923 DCD 04/20 PO 0842 Insulin Aspart 0 TIDAC/HS 04/18 1700 DCD 04/20 SC 1143 Insulin Detemir 15 UNITS DAILY AC 04/17 07 DCD 04/20 SC 0638 Levothyroxine Sodium 44 MCG Q24 04/17 1100 DCD 04/20 IV 0922 Magnesium Oxide 400 MG DAILY 04/16 1919 DCD 04/20 PO 0842 Melatonin 5 MG QPM 04/16 2100 DCD 04/19 PO 2025 Memantine 10 MG DAILY 04/16 1919 DCD 04/20 PO 0842 Rivaroxaban 20 MG DAILY 04/18 1135 DCD 04/20 PO 0922 Last 24 Hrs of Lab/Andrés Results Last 24 Hrs of Labs/Mics: Laboratory Tests 04/20/18 0755: Anion Gap 8, Estimated GFR > 60, BUN/Creatinine Ratio 37.0 H, CBC w Diff MAN DIFF ORDERED, RBC 2.81 L, MCV 82.1, MCH 26.5 L, MCHC 32.3 L, RDW 18.4 H, MPV 9.4, Segmented Neutrophils 71, Lymphocytes 18 L, Monocytes 8, Eosinophils 2, Basophils 1, Platelet Estimate VERIFIED BY SMEAR, Hypochromic-Microcytic 1+, Anisocytosis 1+ Assessment/Plan Assessment: 77yo M w/ PMH of osteomyelitis of sacral bones, stage 4 coccyx ulcer, dementia, BPH (chronic indwelling altamirano catheter), HTN, DM, hypothyroidism, hx of DVT ( 2017?), poorly differenciated metastatic Lung Ca , BIBA from [facility] for cough and lethargy for the past 1 week. He was admitted to [facility] with HCAP and KINZA and was started on Vanco/ Ceftaz and aggresively hydrated . Patient is minimally Verbal at baseline. Pt is afebrile and hemodynamically stable. Saturating 90% on 2L No evidence of obvious bleeding Stool guaic negative Pt will be D/C'd today and advised to continue abx, cardiac meds, and anti cogulation as per cardiolgy Problem List: 1. Hospital acquired PNA Pain Ratin Pain Location: NA Pain Goal: Remain pain free Pain Plan: None Tomorrow's Labs & Rationales: None Shubham Clarke MD 04/20/18 1053: Attending MD Review Statement Attending Statement Attending MD Statement: examined this patient, discuss w/resident/PA/HANDS PARTER, agreed w/resident/PA/HANDS PARTER, reviewed EMR data (avail), discussed with nursing, discussed with case mgmt, amended to note Attending Assessment/Plan: Patient seen and examined. Resting comfortably unless in any acute distress. Patient is overnight. No events on telemetry monitoring. He remains afebrile and hemodynamically stable. Saturating 90% on 2 L of oxygen. Examination he is not in any acute distress. He engages in conversation intermittently. Lungs are clear to auscultation bilaterally. Patient is very small bowel return of his hemoglobin level. Stool guaiac is negative. He shows no evidence of Obvious bleeding. Review of records shows that he does have chronic anemia. Hemoglobin level in March was 7.5 at the time of discharge. He presented with hemoglobin level of 8.5 that trended down the next day to 7.5. His hemoglobin level has been hovering around that value since admission. Laboratories show evidence of Iron deficiency. Recommend addition of iron supplements to his regimen. Patient is medically stable to be discharged today. He is to complete his antibiotic course for his pneumonia. It is unclear as his pneumonia is secondary to aspiration or postobstructive due to his malignancy. Recommend monitoring of his hemoglobin level while at the snf facility. Hemoglobin level may be repeated sometime next week.
[2018-04-20] MEDS ORDERED: FERROUS SULFAT325 M3 PO (11:19)
--- NOTE | 2018-04-20 11:25 | PN- Cardiology ---
Subjective Subjective: No obvious clinical change. Telemetry shows predominantly sinus rhythm with one very brief episode of nonsustained SVT noted. Objective Vital Signs and I&Os Vital Signs Date Time Temp Pulse Resp B/P B/P Pulse O2 O2 Flow FiO2 Mean Ox Delivery Rate 04/20 1012 Nasal 2.0L Cannula 04/20 08 98 Nasal 2.0L Cannula 04/20 0602 97.6 90 20 132/70 98 Nasal Cannula 04/20 0000 Nasal 2.0L Cannula 04/19 2132 98.2 97 20 116/50 98 Nasal Cannula 04/19 1600 Nasal 2.0L Cannula 04/19 1444 96.8 88 20 118/58 99 Nasal 2.0L Cannula Intake & Output 04/20 0804/20 0000 04/19 1600 04/19 0804/19 0000 Intake Total 300 995 Output Total 1300 100 200 400 Balance -1000 -100 -200 595 Intake, IV 275 Intake, Oral 300 720 Number 1 Bowel Movements Output, Urine 1300 100 200 400 Patient 153 lb 154 lb Weight Physical Exam: Gen: The patient is in no acute distress HEENT: Normal nose, ears, and oropharynx. Pupils equal bilaterally. Conjunctiva normal. Neck: Supple with no JVD, no masses, and no thyromegaly Lungs: Clear to auscultation with normal respiratory effort Heart: RRR, S1, S2, no murmurs. No peripheral edema, 2+ pulses in the lower extremities bilaterally Abdomen: Soft, nontender, no masses. No hepatomegaly. No splenomegaly Extremities: No clubbing or cyanosis. Normal muscle strength in the upper and lower extremities Skin: Normal skin turgor with no skin ulcers or lesions noted. Neuro: Cranial nerves intact. Sensation intact Current Medications: Current Medications Sig/Nu Start time Last Medication Dose Route Stop Time Status Admin Acetaminophen 650 MG Q6PRN PRN 04/16 1915 AC PO Amoxicillin/ 875 MG Q12 04/19 900 AC 04/20 Clavulanate Potassium PO 0842 Donepezil HCl 10 MG DAILY 04/16 192 AC 04/20 PO 0842 Insulin Aspart 0 TIDAC/HS 04/18 1700 AC 04/19 SC 2130 Insulin Detemir 15 UNITS DAILY AC 04/17 07 AC 04/20 SC 0638 Levothyroxine Sodium 44 MCG Q24 04/17 1100 AC 04/20 IV 0922 Magnesium Oxide 400 MG DAILY 04/16 1919 AC 04/20 PO 42 Melatonin 5 MG QPM 04/16 2100 AC 04/19 PO 5 Memantine 10 MG DAILY 04/16 1919 AC 04/20 PO 42 Rivaroxaban 20 MG DAILY 04/18 1135 AC 04/20 PO 09 Results Last 48 Hrs of Labs/Mics: Laboratory Tests 04/20/18 0755: Anion Gap 8, Estimated GFR > 60, BUN/Creatinine Ratio 37.0 H, CBC w Diff MAN DIFF ORDERED, RBC 2.81 L, MCV 82.1, MCH 26.5 L, MCHC 32.3 L, RDW 18.4 H, MPV 9.4, Segmented Neutrophils 71, Lymphocytes 18 L, Monocytes 8, Eosinophils 2, Basophils 1, Platelet Estimate VERIFIED BY SMEAR, Hypochromic-Microcytic 1+, Anisocytosis 1+ 04/19/18 1240: CBC w Diff MAN DIFF ORDERED, RBC 2.95 L, MCV 81.1, MCH 25.9 L, MCHC 31.9 L, RDW 18.4 H, MPV 9.4, Gran % 68.2, Lymphocytes % 19.3 L, Monocytes % 10.8 H, Eosinophils % 1.7, Basophils % 0, Absolute Granulocytes 4.1, Segmented Neutrophils 78 H, Band Neutrophils 6 H, Absolute Lymphocytes 1.2, Lymphocytes 9 L, Monocytes 6, Absolute Monocytes 0.6, Eosinophils 1, Absolute Eosinophils 0.1, Absolute Basophils 0, Platelet Estimate ADEQUATE, Polychromasia 1+, Hypochromic-Microcytic 2+, Basophilic Stippling SLIGHT 04/19/18 0605: CBC w Diff MAN DIFF ORDERED, RBC 2.83 L, MCV 80.7, MCH 26.0 L, MCHC 32.3 L, RDW 18.7 H, MPV 9.0, Segmented Neutrophils 83 H, Band Neutrophils 3, Lymphocytes 9 L, Monocytes 5, Platelet Estimate ADEQUATE, Polychromasia 1+, Hypochromic-Microcytic 1+, Basophilic Stippling SLIGHT 04/18/18 1600: APTT Cancelled Assessment/Plan Assessment/Plan Assessment: 1. CAD, status post CABG 2. Diabetes mellitus 3. Hypertension 4. History of DVT 5. Metastatic lung cancer 6. Pneumonia 7. Brief episodes of SVT noted on telemetry Plan: -Continue current management as per the medical team. -Continue oral anticoagulation -Continue current cardiac medications -Echocardiogram report noted. Continue telemetry? Yes
[2018-04-20 12:26] VITALS: BP 132/70
== END 2018-04-20 14:55 | DRG 193 ==
LOC: ERH 12:52 → 1NO 16:13 → ERHI 16:13 → ENRESERV 16:42 → ENTRNSPT 17:50 → EDTRNSPT 17:52 → EDTRNSPTSTS 17:52 → 2NA 18:07 → CMPTRNSPT 18:34 → 1NO 18:37 → ENPENDDIS 04-20 11:37 → 1NO 04-20 14:55
PROVIDERS: Internal Medicine; Internal Medicine Adolescent Medicine; Physical Medicine & Rehabilitation Pain Medicine; Physician Assistant; Student in an Organized Health Care Education/Training Program
DX: J18.9 Pneumonia, unspecified organism (principal); L89.154 Pressure ulcer of sacral region, stage 4; L89.313 Pressure ulcer of right buttock, stage 3; E87.2 Acidosis; L89.312 Pressure ulcer of right buttock, stage 2; N17.9 Acute kidney failure, unspecified; C34.91 Malignant neoplasm of unspecified part of right bronchus or lung; C78.7 Secondary malignant neoplasm of liver and intrahepatic bile duct; C79.51 Secondary malignant neoplasm of bone; I47.1 Supraventricular tachycardia; E03.9 Hypothyroidism, unspecified; F03.90 Unspecified dementia, unspecified severity, without behavioral disturbance, psychotic disturbance, mood disturbance, and anxiety; I25.10 Atherosclerotic heart disease of native coronary artery without angina pectoris; D63.0 Anemia in neoplastic disease; Z79.01 Long term (current) use of anticoagulants; Z86.718 Personal history of other venous thrombosis and embolism; Z79.4 Long term (current) use of insulin; Z95.1 Presence of aortocoronary bypass graft
CPT/HCPCS: 1NP; 36415; 36592; 74176; 81001; 82436; 87040; 87086; 87088; 93005; 93010; 93306; 96374; 96375; 99291; J0713; J1644; J1815; J3370; J3490; J7040; J7042

== ENCOUNTER 2018-05-22 05:12 | Inpatient (IN) | payer OTHER ==
[~2018-05-22] VITALS: Ht 167.6 cm; Wt 64.9 kg
[~2018-05-22 05:12] MED LIST changes: +ACEPHEN650 M1 PR; +AUGMENTIN 875-1 EACH PO; +COUGH SYRU100 MG/5 M PO; +DULCOLAX10 M1 RC; +ERYTHROMYCIN1 GM OD; +FERROUS SULFAT325 M3 PO; +HUMALOG100 UNIT/2 SC; +HYOSCYAMIN125 MCG/5 SL; +LANTUS100 UNIT/1 SQ; +LATANOPROST2.5 ML OS; +MILK OF MA400 MG/52 PO; +NARCAN4 MG NAS; +PAIN RELIEF325 MG PO; +REMERON15 M2 PO; +ZOFRAN4 M2 PO
--- NOTE | 2018-05-22 05:18 | ED GENERAL ADULT ---
See Addendum History of Present Illness General Chief Complaint: Altered Mental Status Stated Complaint: UNRESPONSIVE Source: old records, EMS, [facility]10 Exam Limitations: clinical condition Vital Signs & Intake/Output Vital Signs & Intake/Output Vital Signs Date Time Temp Pulse Resp B/P B/P Pulse O2 O2 Flow FiO2 Mean Ox Delivery Rate 05/22 0635 83 26 104/50 100 Non 100% ReBreather 05/22 0616 100 Non 100% ReBreather 05/22 0614 78 74/38 05/22 0610 92 26 74/38 100 Non 100% ReBreather 05/22 0515 96.3 84 33 76/40 100 Non 100% ReBreather Allergies Coded Allergies: No Known Allergies (02/09/18) Reconcile Medications Acetaminophen (Pain Relief) 325 MG TABLET 2 TAB PO Q6H PRN PAIN/TEMP>101 ( Reported) Acetaminophen (Acephen) 650 MG SUPP.RECT 1 SUPP VT Q6H PRN PAIN/TEMP>101 ( Reported) Amoxicillin/Potassium Clav (Augmentin 875-125 Tablet) 875 MG-125 MG TABLET 1 TAB PO BID Pneumonia Atenolol 25 MG TABLET 1 TAB PO DAILY BP (Reported) Bisacodyl (Dulcolax) 10 MG SUPP.RECT 1 SUP RC DAILY PRN CONSTIPATION ( Reported) Donepezil HCl (Aricept) 10 MG TABLET 1 TAB PO DAILY DEMENTIA (Reported) Ferrous Sulfate 325 MG (65 MG IRON) TABLET 1 TAB PO BID supplement Guaifenesin (Cough Syrup) 100 MG/5 ML LIQUID 10 ML PO Q6H PRN COUGH/CONGESTION (Reported) Hyoscyamine Sulfate 125 MCG/5 ML ELIXIR 1 ML SL Q4H PRN SECRETIONS (Reported) Insulin Glargine,Hum.rec.anlog (Lantus Solostar) 100 UNIT/ML (3 ML) INSULN.PEN 15 UNITS SC QAM DM (Reported) Insulin Lispro (Humalog) 100 UNIT/ML VIAL 0 SC TID DM (Reported) BEFORE MEALS Blood Insulin Sugar Units <80 0 81-100 2 101-200 4 201-250 6 251-300 8 301-350 10 351-400 12 >400 Call Doctor AT BEDTIME Blood Insulin Sugar Units <80 0 81-100 0 80-150 No change 151-200 1 201-250 2 251-300 3 301-350 4 351-400 6 >400 8 units Call Doctor Insulin-Lantus (Lantus) 100 UNIT/ML VIAL 9 UNITS SQ QHS DM (Reported) Latanoprost 0.005 % DROPS 1 GTT OS QHS LEFT EYE (Reported) Levothyroxine Sodium 88 MCG TABLET 1 TAB PO DAILY HYPOTHYROIDISM (Reported) Magnesium Hydroxide (Milk Of Magnesia) 400 MG/5 ML ORAL.SUSP 30 ML PO Q3D PRN CONSTIPATION (Reported) Magnesium Oxide (Magnesium) 400 MG TABLET 1 TAB PO DAILY LOW ELECTROLYTES ( Reported) Melatonin 5 MG TABLET 1 TAB PO QPM SLEEP (Reported) Memantine HCl (Namenda) 10 MG TABLET 1 TAB PO DAILY DEMENTIA (Reported) Metformin HCl 1,000 MG TABLET 1 TAB PO BID DIABETES (Reported) Mirtazapine (Remeron) 15 MG TABLET 1 TAB PO QPM UNKNOWN (Reported) Naloxone HCl (Narcan) 4 MG/ACTUATION SPRAY 4 MG JESUS ALBERTO AD PRN OPIOID INDUCED RESP. DEPRESSIO (Reported) Ondansetron HCl (Zofran) 4 MG TABLET 1 TAB PO Q4H PRN N/V (Reported) Rivaroxaban (Xarelto) 20 MG TABLET 1 TAB PO QPM ? DVT (Reported) with food Triage Nurses Notes Reviewed? yes HPI: Patient was found unresponsive on a pitch at this morning that his is standard care facility. Patient was last seen normal at 1 AM. Patient is diabetic. His fingerstick was 57. Patient received T10 without any response. Patient also noted to have pinpoint pupils received 2 mg of IV Narcan again without any affect. Patient has a history of dementia but is usually verbal and pleasantly confused. Patient was admitted a month ago for healthcare associated pneumonia. Patient is unable to provide any history. Patient is withdrawing to painful stimuli. Patient had an echocardiogram one month ago which showed an EF of 60%. Past History Travel History Traveled to [place] past 21 day No Medical History Any Pertinent Medical History? 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 No Review of Systems Review of Systems Constitutional: Reports: see HPI. Physical Exam Physical Exam General Appearance: lethargic, severe distress Head: atraumatic Eyes: Bilateral: other (1MM EQUAL, NONRREACTIVE). Ears, Nose, Throat: normal pharynx Neck: normal inspection, supple, full range of motion Respiratory: decreased breath sounds, rhonchi, respiratory distress Cardiovascular: tachycardia, ABSENT RADIAL PULSE Gastrointestinal: soft, DECREASED BOWEL SOUNDS Extremities: no edema Neurologic/Psych: WITHDRAWALS FRROM PAINFUL STIMULAE Core Measures ACS in differential dx? No CVA/TIA Diagnosis: No Sepsis Present: Yes Sepsis Focused Exam Completed? Yes ED Sepsis Exam Date of Focused Sepsis Exam: 05/22/18 Time of Focused Sepsis Exam: 606 Sepsis Cardiac Exam: Tachycardia Sepsis Resp Exam: Ronchi Sepsis Cap Refill Exam: >2 sec Sepsis Peripheral Pulse Exam: Weak Sepsis Peripheral Pulse Location: Radial Sepsis Skin Color Exam: Pale Skin Temp/Moisture Exam: Cool/Dry Progress Differential Diagnoses I considered the following diagnoses in my evaluation of the patient: [Sepsis, pneumonia, electrolyte abnormality, pontine hemorrhage, medication overdose] Plan of Care: Orders Procedure Date/time Status LACTIC ACID 05/22 818 Active Add-on Test (ER Only) 05/22 0632 Active Patient Data 05/22 627 Active BLOOD CULTURE 05/22 622 Active Admit to inpatient 05/22 06 Active Intake & Output 05/22 0554 Active FingerStick- Glucose 05/22 522 Active ARTERIAL BLOOD GAS (GEN) 05/22 518 Complete Telemetry/Steamtable Attendant Railroad 05/22 518 Active CULTURE,URINE 05/22 518 Active BLOOD CULTURE 05/22 518 Active URINALYSIS 05/22 0518 Active TROPONIN LEVEL 05/22 0518 Active LACTIC ACID 05/22 0518 Active COMPREHENSIVE METABOLIC PANEL 05/22 518 Active CBC WITHOUT DIFFERENTIAL 05/22 518 Complete EKG 05/22 518 Active Current Medications Sig/Nu Start time Last Medication Dose Stop Time Status Admin Sodium Chloride 1,000 ML BOLUS ONE 05/22 630 AC 05/22 (Normal Saline 0.9%) 05/22 0829 0554 Sodium Chloride See Dose ONCE ONE 05/22 530 UNir 05/22 (Normal Saline 0.9%) Insts (1) 09/09 0531 0515 Dose Instructions: (1)Sodium Chloride (Normal Saline 0.9%): FOR USE IN SEPSIS PROTOCOL INFUSE TOTAL AMOUNT OVER 2.5 HOURS Laboratory Tests 05/22/18617: Urine Color Pending, Urine Clarity Pending, Urine pH Pending, Ur Specific [place] Pending, Urine Protein Pending, Urine Ketones Pending, Urine Nitrite Pending, Urine Bilirubin Pending, Urine Urobilinogen Pending, Ur Leukocyte Esterase Pending, Ur Microscopic SEDIMENT EXAMINED, Urine RBC Pending, Urine Hemoglobin Pending, Urine Glucose Pending 05/22/18599: Anion Gap 7, Estimated GFR > 60, BUN/Creatinine Ratio 35.0 H, Glucose 105 H, Lactic Acid Pending, Calcium 6.8 L, Total Bilirubin 1.1, AST 163 H, ALT 61, Alkaline Phosphatase 554 H, Troponin I Pending, Total Protein 4.5 L, Albumin 1.8 L, Globulin 2.7, Albumin/Globulin Ratio 0.7 L, CBC w Diff MAN DIFF ORDERED , RBC 2.65 L, MCV 77.0 L, MCH 25.5 L, MCHC 33.1, RDW 20.7 H, MPV 8.4, Segmented Neutrophils 85 H, Band Neutrophils 10 H, Lymphocytes 3 L, Monocytes 2, Platelet Estimate ADEQUATE, Polychromasia 1+, Poikilocytosis 1+, Anisocytosis 1+, Microcytic Cells 1+, Ovalocytes 1+, Elliptocytes FEW, Fld Total RBCs Counted 100 05/22/18 0520: pH 7.48 H, pCO2 24 L, pO2 330 H, HCO3 17 L, ABG O2 Sat (Measured) 99.0, P-50 (Temp Corrected) N, Carboxyhemoglobin 0.3 L, O2 Concentration % 100, O2 Delivery Method NRB, Phlebotomy Draw Site RIGHT BRACHIAL Microbiology 05/22 627 BLOOD: Blood Culture - RECD 05/22 618 URINE ROUT: Urine Culture - RECD 05/22 607 BLOOD: Blood Culture - CAN Cancelled: Quantity not sufficient for both blood culture bottles. 05/22 600 BLOOD: Blood Culture - RECD Diagnostic Imaging: Viewed by Me: Radiology Read, CT Scan. Discussed w/RAD: Radiology Read, CT Scan. Radiology Impression: PATIENT: JUANA LEON PRESENT AGE: 77 PATIENT ACCOUNT NO: [id number] : 42 LOCATION: [facility] ORDERING PHYSICIAN: Perry Talvaera MD SERVICE DATE: 05/22/18 EXAM TYPE: CAT - CT HEAD WO IV CONTRAST EXAMINATION: CT HEAD WITHOUT CONTRAST CLINICAL INFORMATION: CVA. Unresponsive. COMPARISON: CT head April 16, 2018 TECHNIQUE: Contiguous axial imaging was performed from the skull base to vertex without intravenous administration of contrast. DLP: 715.23 mGy-cm FINDINGS: There is no evidence of acute intracranial hemorrhage or territorial infarction. No abnormal mass effect or midline shift is seen. Cordero to white matter differentiation is well preserved. No extra-axial fluid collections are identified. There is atrophy with prominence of the ventricles and the sulci and hypodensity of the periventricular white matter due to chronic small vessel ischemic disease. There is vascular calcifications of the internal carotid arteries bilaterally. The osseous structures and soft tissues are normal. Small retention cyst at the inferior left maxillary sinus. The mastoid air cells and middle ear cavities are normally aerated. IMPRESSION: No acute intracranial pathology. DICTATED BY: Prabhjot Skinner MD DATE/TIME DICTATED:05/22/18551 SSN/SSBN ASSISTANT NAVIGATOR:SERGIO DATE/TIME TRANSCRIBED:05/22/18551 CONFIDENTIAL, DO NOT COPY WITHOUT APPROPRIATE AUTHORIZATION. <Electronically signed in Other Vendor System> SIGNED BY: Prabhjot Skinner MD 05/22/18557 Initial ED EKG: AFIB, nonspecific ST T wave chg Prior EKG: unchanged Rhythm Strip: atrial fibrillation Comments: I supervised Dr. HERNANDEZ as he put in a triple lumen catheter into his right internal jugular under ultrasound guidance. The patient is in septic shock and required the triple lumen for IV access. D/WDR. MARC, HE WILL SEE PT IN CONSULT. Departure Departure Disposition: STILL A PATIENT Condition: Critical Clinical Impression Primary Impression: Septic shock Referrals: Ryley WSASERMAN,Shannon Alcocer (PCP/Family) Departure Forms: Customer Survey General Discharge Information Admission Note Spoke With: Garrett Ang MD Documentation of Exam: Documentation of any treatments & extenuating circumstances including Concerns Regarding Discharge (functional status, medication knowledge or non-compliance, living conditions, etc.) that warrant an admission rather than observation: [ICU admission, aggressive hydration, broad-spectrum antibiotics, ID consultation, pulmonary consultation, cardiology consultation] Critical Care Note Critical Care Note Critical Care Time: mins: (120 MIN)
--- NOTE | 2018-05-22 05:58 | CT SCAN REPORT ---
EXAMINATION: CT HEAD WITHOUT CONTRAST CLINICAL INFORMATION: CVA. Unresponsive. COMPARISON: CT head April 16, 2018 TECHNIQUE: Contiguous axial imaging was performed from the skull base to vertex without intravenous administration of contrast. DLP: 715.23 mGy-cm FINDINGS: There is no evidence of acute intracranial hemorrhage or territorial infarction. No abnormal mass effect or midline shift is seen. Cordero to white matter differentiation is well preserved. No extra-axial fluid collections are identified. There is atrophy with prominence of the ventricles and the sulci and hypodensity of the periventricular white matter due to chronic small vessel ischemic disease. There is vascular calcifications of the internal carotid arteries bilaterally. The osseous structures and soft tissues are normal. Small retention cyst at the inferior left maxillary sinus. The mastoid air cells and middle ear cavities are normally aerated. IMPRESSION: No acute intracranial pathology.
[2018-05-22 06:10] LABS: HEMATOCRIT 20.4 % (42-52); MEAN CORPUSCULAR HGB 25.5 PG (27.0-31.0); MEAN CORPUSCULAR HGB CONC 33.1 G/DL (33.0-37.0); MEAN PLATELET VOLUME 8.4 FL (7.4-10.4); PLATELET COUNT 146 /CUMM (130-400); RBC DISTRIBUTION WIDTH 20.7 % (11.5-14.5); RED BLOOD CELL CT 2.65 /CUMM (4.70-6.10); WHITE BLOOD CELL COUNT 14.4 /CUMM (4.8-10.8)
--- NOTE | 2018-05-22 06:37 | RADIOLOGY REPORT ---
EXAMINATION: XR PORTABLE CHEST CLINICAL INFORMATION: Unresponsive. COMPARISON: Chest x-ray March 28, 2018 TECHNIQUE: Portable frontal view of the chest was obtained. 6:09 AM FINDINGS: Right IJ catheter tip at cavoatrial junction. Status post median sternotomy. Lung volume is low. There is central pulmonary vascular congestion which is accentuated by the low inspiration. There is a focal area density in the right perihilar area which is new since prior chest x-ray. Could be a perihilar infiltrate. This is new since the chest x-ray March 28, 2018. There is no pleural effusion. There is no pneumothorax. IMPRESSION: 1. Right IJ catheter tip at cavoatrial junction. 2. Hazy right perihilar opacity. This could be due to infiltrate. This is new since chest x-ray March 30, 2018. A follow-up PA lateral view of chest would be helpful
--- NOTE | 2018-05-22 06:57 | History & Physical ---
Oswaldo Arriaza 05/22/18 0657: General Information and HPI MD Statement: I have seen and personally examined JUANA LEON and documented this H&P. The patient is a 77 year old M who presented with a patient stated chief complaint of unresponsiveness Source of Information: old records Exam Limitations: unable to give history, clinical condition, physical impairment History of Present Illness: Most of history was obtained from chart and by speaking with a nursing staff institutional asset manager at [facility] as patient is non-verbal. Multiple attempts were tried to reach at the given number, but we were unable to get through, therefore thus far it remains a very limited history. 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 During patent's last admission at [facility] in April, he was treated for chief complaint of lethargy most likely secondary to presumed HCAP and chronic anemia and was also treated for NSVT and subsequently discharged to [facility]. Today patient was brought in by ambulance from [facility] after being found unresponsive early this morning (5 AM) when patient was being routinely checked by nursing staff. According to nursing staff at [facility], at the previous check a few hours before, the patient was responsive but was noticed to be hypoglycemic so staff gave him a snack to raise his blood sugar. His caregiver noticed some red urine in his altamirano. Patient was then presumed to go to sleep. Then at the routine 5AM check patient was noted to be unresponive and unarousable with pinpoint pupils. When EMS arrived, they administed narcan without any affect. He was then brought to [facility] ER in an unresponsive state. A central line was placed, anticipating treatment and subsequently patient was seen by admiting team. Unable to elicit any proper review of systems due to patient's clinical condition. Allergies/Medications Allergies: Coded Allergies: No Known Allergies (02/09/18) Home Med list Acetaminophen (Pain Relief) 325 MG TABLET 2 TAB PO Q6H PRN PAIN/TEMP>101 ( Reported) Acetaminophen (Acephen) 650 MG SUPP.RECT 1 SUPP SD Q6H PRN PAIN/TEMP>101 ( Reported) Amoxicillin/Potassium Clav (Augmentin 875-125 Tablet) 875 MG-125 MG TABLET 1 TAB PO BID Pneumonia Atenolol 25 MG TABLET 1 TAB PO DAILY BP (Reported) Bisacodyl (Dulcolax) 10 MG SUPP.RECT 1 SUP RC DAILY PRN CONSTIPATION ( Reported) Donepezil HCl (Aricept) 10 MG TABLET 1 TAB PO DAILY DEMENTIA (Reported) Ferrous Sulfate 325 MG (65 MG IRON) TABLET 1 TAB PO BID supplement Guaifenesin (Cough Syrup) 100 MG/5 ML LIQUID 10 ML PO Q6H PRN COUGH/CONGESTION (Reported) Hyoscyamine Sulfate 125 MCG/5 ML ELIXIR 1 ML SL Q4H PRN SECRETIONS (Reported) Insulin Glargine,Hum.rec.anlog (Lantus Solostar) 100 UNIT/ML (3 ML) INSULN.PEN 15 UNITS SC QAM DM (Reported) Insulin Lispro (Humalog) 100 UNIT/ML VIAL 0 SC TID DM (Reported) BEFORE MEALS Blood Insulin Sugar Units <80 0 81-100 2 101-200 4 201-250 6 251-300 8 301-350 10 351-400 12 >400 Call Doctor AT BEDTIME Blood Insulin Sugar Units <80 0 81-100 0 80-150 No change 151-200 1 201-250 2 251-300 3 301-350 4 351-400 6 >400 8 units Call Doctor Insulin-Lantus (Lantus) 100 UNIT/ML VIAL 9 UNITS SQ QHS DM (Reported) Latanoprost 0.005 % DROPS 1 GTT OS QHS LEFT EYE (Reported) Levothyroxine Sodium 88 MCG TABLET 1 TAB PO DAILY HYPOTHYROIDISM (Reported) Magnesium Hydroxide (Milk Of Magnesia) 400 MG/5 ML ORAL.SUSP 30 ML PO Q3D PRN CONSTIPATION (Reported) Magnesium Oxide (Magnesium) 400 MG TABLET 1 TAB PO DAILY LOW ELECTROLYTES ( Reported) Melatonin 5 MG TABLET 1 TAB PO QPM SLEEP (Reported) Memantine HCl (Namenda) 10 MG TABLET 1 TAB PO DAILY DEMENTIA (Reported) Metformin HCl 1,000 MG TABLET 1 TAB PO BID DIABETES (Reported) Mirtazapine (Remeron) 15 MG TABLET 1 TAB PO QPM UNKNOWN (Reported) Naloxone HCl (Narcan) 4 MG/ACTUATION SPRAY 4 MG JESUS ALBERTO AD PRN OPIOID INDUCED RESP. DEPRESSIO (Reported) Ondansetron HCl (Zofran) 4 MG TABLET 1 TAB PO Q4H PRN N/V (Reported) Rivaroxaban (Xarelto) 20 MG TABLET 1 TAB PO QPM ? 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 unknown Power of Welder Explosion/HCP? yes Name of POA/HCP: spouse Review of Systems Review of Systems Constitutional: Reports: see HPI. Exam & Diagnostic Data Last 24 Hrs of Vital Signs/I&O Vital Signs Date Time Temp Pulse Resp B/P B/P Pulse O2 O2 Flow FiO2 Mean Ox Delivery Rate 05/22 0656 86 24 88/51 100 Non 100% ReBreather 05/22 0648 80 85/48 100 Non 100% ReBreather 05/22 0635 83 26 104/50 100 Non 100% ReBreather 05/22 0616 100 Non 100% ReBreather 05/22 0614 78 74/38 05/22 0610 92 26 74/38 100 Non 100% ReBreather 05/22 0515 96.3 84 33 76/40 100 Non 100% ReBreather Intake & Output 05/22 0800 05/22 0000 05/21 1600 Intake Total 2000 Output Total Balance 2000 Intake, IV 2000 Physical Exam General Appearance No Acute Distress Skin Stage IV coccygeal decubitus ulcer Skin Temp/Moisture Exam: Warm/Dry Sepsis Skin Exam (color): Pale HEENT Atraumatic, EOMI Neck Supple, No JVD Cardiovascular Normal S1, Normal S2 Lungs Clear to Auscultation, Normal Air Movement, Decreased breath sounds Abdomen Normal Bowel Sounds, Soft, No Tenderness Neurological Patient is demented at baseline, Responsive to touch Extremities No Cyanosis, No Edema, No Tenderness/Swelling Reproductive (MALE) Altamirano has migrated through penile fascia Last 24 Hrs of Labs/Andrés: Laboratory Tests 05/22/18 0701: Urine Opiates Screen < 100, Methadone Screen < 40, Barbiturate Screen < 60, Ur Phencyclidine Scrn < 6.00, Amphetamines Screen 305, U Benzodiazepines Scrn < 85, Urine Cocaine Screen < 50, Urine Cannabis Screen < 5.00 05/22/18 0618: Urinalysis MOD H, Urine Color YEL, Urine Clarity CLDY H, Urine pH 8.0, Ur Specific [place] 1.020, Urine Protein >=300 H, Urine Ketones TRACE H, Urine Nitrite POS H, Urine Bilirubin NEG@ICTO, Urine Urobilinogen 2.0 H, Ur Leukocyte Esterase LARGE H, Ur Microscopic SEDIMENT EXAMINED, Urine RBC 25-50 H, Urine WBC 50-75 H, Urine Bacteria MANY H, Urine Mucus FEW, Micro UA Comment [place]AST H, Urine Hemoglobin LARGE H, Urine Glucose NEG 05/22/18 0600: Anion Gap 7, Estimated GFR > 60, BUN/Creatinine Ratio 35.0 H, Glucose 105 H, Lactic Acid 3.7 H, Calcium 6.8 L, Phosphorus 2.6, Magnesium 1.2 L, Total Bilirubin 1.1, AST 163 H, ALT 61, Alkaline Phosphatase 554 H, Creatine Kinase 178 H, Troponin I < 0.01, Total Protein 4.5 L, Albumin 1.8 L, Globulin 2.7, Albumin/Globulin Ratio 0.7 L, CBC w Diff MAN DIFF ORDERED, RBC 2.65 L, MCV 77.0 L, MCH 25.5 L, MCHC 33.1, RDW 20.7 H, MPV 8.4, Segmented Neutrophils 85 H, Band Neutrophils 10 H, Lymphocytes 3 L, Monocytes 2, Platelet Estimate ADEQUATE, Polychromasia 1+, Poikilocytosis 1+, Anisocytosis 1+, Microcytic Cells 1+, Ovalocytes 1+, Elliptocytes FEW, Fld Total RBCs Counted 100 05/22/18 0520: pH 7.48 H, pCO2 24 L, pO2 330 H, HCO3 17 L, ABG O2 Sat (Measured) 99.0, P-50 (Temp Corrected) N, Carboxyhemoglobin 0.3 L, O2 Concentration % 100, O2 Delivery Method NRB, Phlebotomy Draw Site RIGHT BRACHIAL Microbiology 05/22 644 BLOOD: Blood Culture - ORD 05/22 639 URINE ROUT: Urine Culture - ORD 05/22 639 LOWER RESP: Respiratory Culture - ORD 05/22 639 LOWER RESP: Gram Stain - ORD 05/22 627 BLOOD: Blood Culture - RECD 05/22 618 URINE ROUT: Urine Culture - RECD 05/22 607 BLOOD: Blood Culture - CAN Cancelled: Quantity not sufficient for both blood culture bottles. 05/22 600 BLOOD: Blood Culture - RECD Assessment/Plan Assessment: 77yo M w/ PMH of dementia (mostly non-verbal), BPH (chronic indwelling altamirano catheter), HTN, DM2, hypothyroidism, hx of DVT previously on Xarelto, poorly differentiated metastatic lung cancer, chronic anemia secondary to metastatic lung cancer and stage IV coccygeal ulcer with underlying osteomyelitis. -Patient is demented, mostly non-verbal at baseline. -Early in the morning found to be unresponsive at SNF, even to sternal rub. -Was administered D10 and 2mg IV Narcan on route to hospital. -Upon arrival his vitals and stats: -T 96.3, BP 76/40, HR 84, RR 33, 100% on NRB, Glucose 57. -WBC 14.4 with 10 bands, H/H of 6.7/20.4 (baseline hemoglobin 7's), PLT 146. -Na 134, K 3.0, HCO3 18, BUN/Search Engine Optimization Manager 28/0.8, Lactic Acid 3.7, pH 7.4, Normal anion gap. -Calcium 6.8, AST 163, ALP 554, Mg 1.2. - CXR: hazy right perihilar opacity possibly infiltrate, new finding since March 2018. - CT head: no acute intracranial pathology. - CT chest: pending - CT abd/pelvis: pending -UA, UCx: pending -Blood Cx: pending -Sputum Cx: pending -Central line was placed via right IJ, blood cx were taken, and levophed drip was started -Patient will be admitted to ICU #Unresponsive State (Non responsive to sternal rub earlier) - CT head was negative - Monitor vitals Q4 - Monitor intake and output - Continuous Cardiac Monitoring - Monitor ICU bundle Q4H - Check serum ammonia #Likely Septic Shock (Low BP, Low Temp, Elevated RR, Elevated WBC with Bands) - IV hydration per sepsis protocol - Hold home anti-hypertensive meds - Levophed drip, maintain MAP > 60 - Vanco / Ceftaz - F/U Urine, Blood, Sputum Cx - F/U CT C/A/P - Consider ID consult #Metabolic Acidosis (Low bicarb) - Monitor ABGs - Recheck Lactic Acid #Acute blood loss anemia on chronic anemia (Decreasing H/H) - Type, screen and crossmatch - Transfuse 1 unit PRBC to bring Hb > 7 - Hold Xarelto for now - Monitor H/H - Consider iron panel - F/U CT C/A/P #Hematuria (Evidenced from altamirano bag) - F/U UA, and UCx - Monitor Altamirano daily - Consider Uro or Nephro consult #Hypokalemia - Replete Potassium Above 4 #Hypoglycemia with Hx of DM2 - Accuchecks - Hold home Diabetic Meds - Novolin SS - NPO, change PO meds to IV - D5W with 1/2 NS until Glucose > 100 - Keep pre TPN glucose under 120 #Hypoalbuminemia - Replete calcium - Albumin supplement - Nutrition Consult #Hypomagnesiemia - Replete until above 2.0 #Stage 4 Coccygeal Ulcer (Previously complicated with osteomyelitis) - Wound Care Consult #H/O Lung Ca with mets, HLD, Hypothyroidism - Continue management - Heme/Onc Courtesy Consult ICU Admission Full Code DVT ppx: ALPs no A/C due to H/H NPO As Ranked By This Provider Problem List: 1. Unresponsive Core Measures/Misc (05/30) Acute Coronary Syndrome ACS Diagnosis: No Congestive Heart Failure Congestive Heart Failure Diagnosis No Cerebrovascular Accident CVA/TIA Diagnosis: No VTE (View Protocol) VTE Risk Factors Age>40 No Mechanical VTE Prophylaxis d/t N/A MechProphylax Ordered No VTE Pharm Prophylaxis d/t Medical Contraindication Comment: Low H/H Sepsis (View protocol) Sepsis Present: No If YES complete Sepsis Event Note If YES complete Sepsis Event Note Monique Medina 05/22/18 0724: Core Measures/Misc (05/30) Sepsis (View protocol) If YES complete Sepsis Event Note If YES complete Sepsis Event Note Resident Review Statement Resident Statement: examined this patient, discussed with regulatory intern, agreed with regulatory intern Other Findings: This is a 77-year-old male with past medical history of osteomyelitis of sacral bones, stage IV coccygeal ulcer, dementia, benign prostatic hypertrophy (chronic indwelling Altamirano catheter), hypertension, diabetes mellitus, hypothyroidism, history of DVT (? 2017), poorly differentiated lung carcinoma was brought in by ambulance from [facility] after being found unresponsive at around 6 AM on the day of presentation. Apparently the patient was being checked by the nursing staff every 4 hours in the last time they saw him was around 1 AM when he was responding, however upon repeat checking it at around 5 AM he was completely unresponsive, not arousable, he had pinpoint pupils as per the W 10 and there was some blood in his urine. When the EMS arrived, they gave him some Narcan due to finding of pinpoint pupils, however they were not able to arouse him. He was brought into [facility] ER and continues to remain unresponsive. For now there was very limited history that could be obtained, in spite of calling [facility] the above history was all that could be elicited. Review of system as mentioned in HPI. 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 His vitals on presentation were temperature of 96.3, pulse of 84, respiration of 33, blood pressure was 76/40 on arrival, he was immediately put on nonrebreather and he was saturating 100% on nonrebreather. Upon arrival his fingerstick was 57, he received D10 and route to the hospital along with 2 mg of IV Narcan. At baseline he is demented, usually verbal and pleasantly confused. He was withdrawing to painful stimuli. HEENT pinpoint pupils reactive to light. RS air entry present. CVS S1-S2 present no murmur. Skin stage IV coccygeal ulcer present. Bilateral lower extremity no edema clubbing or cyanosis. Relevant labs white count of 14.4 with 10 bands, 8/H of 6.7/20.4 (baseline hemoglobin around 7-7.5), platelet of 146. Sodium of 134, potassium of 3.0, bicarb of 18, BUN/creatinine 28/0.8, normal anion gap. Glucose of 105, calcium of 6.8, AST elevated 163, alkaline phosphatase 554. PH 7.4 8/24/330/70. Right IJ line was placed at the emergency department. Chest x-ray showed hazy right perihilar opacity possibly infiltrate, this was new since the chest x-ray in March 2018. Ct head did not show any acute intracranial pathology. Ct chest C/A/P pending We will admit the patient to critical care unit for treatment of following problems 1.Unresponsiveness 2.Septic shock possible sepsis source - pneumonia versus coccygeal ulcer 3.Acute Blood Loss anemia 4.hypokalemia 5.hypoglycemia 6.Acute hypoxic respiratory failure 7.stage 4 coccygeal ulcer ? OM 8.h/o HTN 9.H/o DM 10.H/O hypothyroidism 11 h/o metastatic Lung cancer * We will admit the patient to critical care unit for septic shock possibly secondary to pneumonia versus coccygeal ulcer versus any other source. * Continue to monitor vitals, continue to monitor intake and output, continue to monitor blood pressure, continue IV hydration per sepsis protocol. * Patient was started on Levophed drip after securing central line, continue Levophed to maintain a map greater than 60. * He given initial dose of Vanco and ceftaz after obtaining blood cultures. * Well continue him on vanco ceftaz * Continue to follow blood cultures, continue Vanco and ceftaz for now. * Continue to follow lower respiratory cultures, urine cultures. * Lactic acid 2, continue to follow to left normal. * Crossmatching type, transfuse 1 unit to bring the hemoglobin above 7. * Replete potassium to keep above 4. * Replete magnesium to keep about 2. * Replete calcium as the calcium seems to be low. * Continue to monitor other ICU bundle at 4 hours. * Patient did not respond to IV Narcan, check serum ammonia. * Check check serum creatinine kinase. * Continue to monitor patient closely. * CT chest, abdomen and pelvis pending. * Hold Xarelto for now. * Hold other p.o. meds, if any medical necessity change p.o. meds to IV. * Will start d5 half normal while NPO. * ct to mmnitor FS * CK mildly elevated, montserrat cifuentes WNL. Patient is full code. DVT prophylaxis with Alps, as the patient is bleeding. PP npo Shaniqua Del Real 05/22/18 0936: Core Measures/Misc (05/30) Sepsis (View protocol) If YES complete Sepsis Event Note If YES complete Sepsis Event Note Attending MD Review Statement Attending Statement Attending MD Statement: examined this patient, discuss w/resident/PA/FINGERPRINT TECHNICIAN, agreed w/resident/PA/FINGERPRINT TECHNICIAN, reviewed EMR data (avail) Attending Assessment/Plan: 77 yr old male with pmh of PMH of osteomyelitis of sacral bones, stage 4 coccyx ulcer, dementia, BPH (chronic indwelling altamirano catheter), HTN, DM, hypothyroidism, afib on xarelto, hx of DVT , poorly differenciated metastatic Lung Ca, BIBA from [facility] as they called EMS on finding the pt unresponsvie around 5 am. Pt was last seen to be ok around 1 am. EMS found the pt with low BS of 57 and gave D10 and pt was also given narcan for pinpoint pupils. Pt was also found to be hypotensive with bp in 70's/ 40's and was given fluid boluses and had a central line placed in ER and was put on levophed drip. Pt was recently admitted at [facility] on April 16 for HCAP and was dced back to [facility]. Pt also found to he hypoxic by EMS with O2 sats around 75 % and was put on NRB with oxygen saturation in ER documented as 100% on 100% oxgyen. Pt was also found to have high wbc with bandemia and lactic acidosis. Septic shock secondary to ? pneumonia / intrabdominal pathology- ? appendicitis on CT abdomen/pelvis- Official read pending/ Cholelithiasis on previous CT in April/ LFT elevation( could be secondary to liver mets). Surgery has been consulted. pt received broad spectrum abx in ER with key. Will cont with that for now and will trend lactic acid and will also cont on levophed drip for now. Will f/u on CRCU consult. Anemia- hb of 6.7, will transfuse 1 U PRBC and will recheck serial H/H Hypoalbuminemia- Alb level of 1.8. - likely secondary to liver disease and poor nutrition . will give albumin supplement and will get nutrition consult. Hypokalemia and hypomagnesemia- will replace and recheck . Metabolic acidosis- will recheck bep to see if bicarbonate level improving with resolution of septic shock and will recheck lactic acid level . Pt has overall very poor prognosis. Currently responding to painful stimuli only and pupils remain pinpoint without much reaction. Will need to do goals of care discussion with family.
--- NOTE | 2018-05-22 07:07 | Proc Note Internal Medicine ---
Medicine Procedure Procedure Date: 05/22/18 Medical Procedure(s): central venous cath place Pre-Operative Diagnosis: sepsis/hypotension Post-Operative Diagnosis: same Estimated Blood Loss: scant Anesthesia: none Procedure Findings: Procedure: Central Line Physician(s): Sarah Indication: Hypotension/Sepsis Anesthesia: 2% Lidocaine A time-out was completed, verifying correct patient, procedure, site, and positioning. Patients right IJ area was prepped and draped in usual sterile fashion. 2% Lidocaine was used to anesthetize the area. A triple lumen central line was introduced over a guidewire via the Seldinger technique, then sutured in place, under ultrasound guidance. Good blood flow was noted from all ports. The patient tolerated the procedure well. Chest x-ray was ordered to assess for pneumothorax and catheter position. Complications: None Blood loss: Minimal
[2018-05-22 08:00] VITALS: BP 100/54
--- NOTE | 2018-05-22 08:27 | Cons- CRCU ---
Alvina Costa MD 05/22/18 0827: General Information and HPI Consulting Request Date of Consult: 05/22/18 Requested By: Garrett Ang MD Reason for Consult: Need critical care Source of Information: old records Exam Limitations: dementia History of Present Illness: Patient is 77-year-old male BIBA from [facility] after found unconscious. His vitals at the time - blood pressure 80/50, SPO2 75% on 2 L per nasal cannula, respiratory rate 16, temperature 96.9.F. His vitals night before was 116/60 and saturation 92% on 2 L of oxygen.He was following Dr. Ramires. We try to call family his many times but did not able to get hold on her.Most of the history from the documents. Past medical history- Poorly differentiated lung cancer Increase in size of a right paratracheal lymph node, 1.4 cm short axis compared to 0.8 cm on 04/16/2018. 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 Coronary artery disease, history of CABG Allergies/Medications Allergies: Coded Allergies: No Known Allergies (02/09/18) Home Med List: Acetaminophen (Pain Relief) 325 MG TABLET 2 TAB PO Q6H PRN PAIN/TEMP>101 ( Reported) Acetaminophen (Acephen) 650 MG SUPP.RECT 1 SUPP WA Q6H PRN PAIN/TEMP>101 ( Reported) Amoxicillin/Potassium Clav (Augmentin 875-125 Tablet) 875 MG-125 MG TABLET 1 TAB PO BID Pneumonia Atenolol 25 MG TABLET 1 TAB PO DAILY BP (Reported) Bisacodyl (Dulcolax) 10 MG SUPP.RECT 1 SUP RC DAILY PRN CONSTIPATION ( Reported) Donepezil HCl (Aricept) 10 MG TABLET 1 TAB PO DAILY DEMENTIA (Reported) Ferrous Sulfate 325 MG (65 MG IRON) TABLET 1 TAB PO BID supplement Guaifenesin (Cough Syrup) 100 MG/5 ML LIQUID 10 ML PO Q6H PRN COUGH/CONGESTION (Reported) Hyoscyamine Sulfate 125 MCG/5 ML ELIXIR 1 ML SL Q4H PRN SECRETIONS (Reported) Insulin Glargine,Hum.rec.anlog (Lantus Solostar) 100 UNIT/ML (3 ML) INSULN.PEN 15 UNITS SC QAM DM (Reported) Insulin Lispro (Humalog) 100 UNIT/ML VIAL 0 SC TID DM (Reported) BEFORE MEALS Blood Insulin Sugar Units <80 0 81-100 2 101-200 4 201-250 6 251-300 8 301-350 10 351-400 12 >400 Call Doctor AT BEDTIME Blood Insulin Sugar Units <80 0 81-100 0 80-150 No change 151-200 1 201-250 2 251-300 3 301-350 4 351-400 6 >400 8 units Call Doctor Insulin-Lantus (Lantus) 100 UNIT/ML VIAL 9 UNITS SQ QHS DM (Reported) Latanoprost 0.005 % DROPS 1 GTT OS QHS LEFT EYE (Reported) Levothyroxine Sodium 88 MCG TABLET 1 TAB PO DAILY HYPOTHYROIDISM (Reported) Magnesium Hydroxide (Milk Of Magnesia) 400 MG/5 ML ORAL.SUSP 30 ML PO Q3D PRN CONSTIPATION (Reported) Magnesium Oxide (Magnesium) 400 MG TABLET 1 TAB PO DAILY LOW ELECTROLYTES ( Reported) Melatonin 5 MG TABLET 1 TAB PO QPM SLEEP (Reported) Memantine HCl (Namenda) 10 MG TABLET 1 TAB PO DAILY DEMENTIA (Reported) Metformin HCl 1,000 MG TABLET 1 TAB PO BID DIABETES (Reported) Mirtazapine (Remeron) 15 MG TABLET 1 TAB PO QPM UNKNOWN (Reported) Naloxone HCl (Narcan) 4 MG/ACTUATION SPRAY 4 MG JESUS ALBERTO AD PRN OPIOID INDUCED RESP. DEPRESSIO (Reported) Ondansetron HCl (Zofran) 4 MG TABLET 1 TAB PO Q4H PRN N/V (Reported) Rivaroxaban (Xarelto) 20 MG TABLET 1 TAB PO QPM ? DVT (Reported) with food Review of Systems Review of Systems Constitutional: Denies: no symptoms. 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 unknown Power of Crew Leader/HCP? yes Name of POA/HCP: spouse Exam & Diagnostic Data Last 24 Hrs of Vital Signs/I&O Vital Signs Date Time Temp Pulse Resp B/P B/P Pulse O2 O2 Flow FiO2 Mean Ox Delivery Rate 05/22 1200 100 Nasal 4.0L Cannula 05/22 1200 95.9 84 16 86/54 100 Nasal 4.0L Cannula 05/22 0830 Nasal 3.0L Cannula 05/22 830 100 Nasal 50% Cannula 05/22 800 100 Non 60% ReBreather 05/22 800 95.6 84 16 100/54 100 Non 60% ReBreather 05/22 800 100 Non 100% ReBreather 05/22 0656 86 24 88/51 100 Non 100% ReBreather 05/22 0648 80 85/48 100 Non 100% ReBreather 05/22 0635 83 26 104/50 100 Non 100% ReBreather 05/22 0616 100 Non 100% ReBreather 05/22 0614 78 74/38 05/22 0610 92 26 74/38 100 Non 100% ReBreather 05/22 0515 96.3 84 33 76/40 100 Non 100% ReBreather Intake & Output 05/22 1600 05/22 0805/22 0000 Intake Total 2000 Output Total Balance 2000 Intake, IV 2000 Patient 64.864 kg Weight Weight Bed scale Measurement Method Physical Exam General Appearance: lethargic, thin, pallor, chechaxic, Head: atraumatic Eyes: Bilateral: other (pin point pupils). Respiratory: dereased/ absent air entry in right lower lobe, crackles, Cardiovascular: regular rate/rhythm, thready peripheral pulses, Peripheral Pulses: 1+ radial (R), 1+ radial (L), 1+ dorsalis pedis (R), 1+ dorsalis pedis (L) Gastrointestinal: abdoman soft,non tender, BS present but sluggish, dependent edema, Extremities: normal inspection, slow capillary refill Skin: pallor Last 48 Hrs of Labs/Andrés: Laboratory Tests 05/22/18 1120: Lactic Acid 2.6 H 05/22/18 1120: Ammonia 22 05/22/18 1120: Anion Gap 9, Estimated GFR > 60, Glucose 185 H, Calcium 7.4 L, Phosphorus 2.9, Magnesium 1.9, Total Bilirubin 1.9 H, AST 250 H, ALT 61, Albumin 2.4 L, TSH & T3 &Free T4 Intrp 3.030, PT 27.4 H, INR 2.49 H, CBC w Diff MAN DIFF ORDERED, RBC 3.05 L, MCV 78.9 L, MCH 26.6 L, MCHC 33.7, RDW 20.1 H, MPV 8.2, Segmented Neutrophils 77 H, Band Neutrophils 15 H, Lymphocytes 4 L, Monocytes 4, Platelet Estimate ADEQUATE, Polychromasia 1+, Hypochromic-Microcytic 2+, Poikilocytosis 2+, Anisocytosis 1+, Microcytic Cells 1+ 05/22/18 0939: Lactic Acid Cancelled 05/22/18 0800: Lactic Acid 3.4 H 05/22/18 0701: Urine Opiates Screen < 100, Methadone Screen < 40, Barbiturate Screen < 60, Ur Phencyclidine Scrn < 6.00, Amphetamines Screen 305, U Benzodiazepines Scrn < 85, Urine Cocaine Screen < 50, Urine Cannabis Screen < 5.00 05/22/18 0618: Urinalysis MOD H, Urine Color YEL, Urine Clarity CLDY H, Urine pH 8.0, Ur Specific [place] 1.020, Urine Protein >=300 H, Urine Ketones TRACE H, Urine Nitrite POS H, Urine Bilirubin NEG@ICTO, Urine Urobilinogen 2.0 H, Ur Leukocyte Esterase LARGE H, Ur Microscopic SEDIMENT EXAMINED, Urine RBC 25-50 H, Urine WBC 50-75 H, Urine Bacteria MANY H, Urine Mucus FEW, Micro UA Comment [place] H, Urine Hemoglobin LARGE H, Urine Glucose NEG 05/22/18 0600: Anion Gap 7, Estimated GFR > 60, BUN/Creatinine Ratio 35.0 H, Glucose 105 H, Lactic Acid 3.7 H, Calcium 6.8 L, Phosphorus 2.6, Magnesium 1.2 L, Total Bilirubin 1.1, AST 163 H, ALT 61, Alkaline Phosphatase 554 H, Creatine Kinase 178 H, Troponin I < 0.01, Total Protein 4.5 L, Albumin 1.8 L, Globulin 2.7, Albumin/Globulin Ratio 0.7 L, CBC w Diff MAN DIFF ORDERED, RBC 2.65 L, MCV 77.0 L, MCH 25.5 L, MCHC 33.1, RDW 20.7 H, MPV 8.4, Segmented Neutrophils 85 H, Band Neutrophils 10 H, Lymphocytes 3 L, Monocytes 2, Platelet Estimate ADEQUATE, Polychromasia 1+, Poikilocytosis 1+, Anisocytosis 1+, Microcytic Cells 1+, Ovalocytes 1+, Elliptocytes FEW, Fld Total RBCs Counted 100 05/22/18 0520: pH 7.48 H, pCO2 24 L, pO2 330 H, HCO3 17 L, ABG O2 Sat (Measured) 99.0, P-50 (Temp Corrected) N, Carboxyhemoglobin 0.3 L, O2 Concentration % 100, O2 Delivery Method NRB, Phlebotomy Draw Site RIGHT BRACHIAL Diagnostic Data EKG Results NSR, CXR Results 1. Right IJ catheter tip at cavoatrial junction. 2. Hazy right perihilar opacity. This could be due to infiltrate. This is new since chest x-ray March 30, 2018. Other Results CT Abd/Pelvis - CHEST: Interval increase in right pleural effusion. Dense opacification in the right lower lobe, in part related to known mass, however cannot exclude superimposed infectious process. Layering secretions within the trachea. Diffuse esophageal wall thickening as can be seen with esophagitis. ABDOMEN AND PELVIS: Large sacral decubitus ulcer with underlying bony erosions, and increased presacral edema compared to prior. There is presumed underlying osteomyelitis. There is rather focal fluid and fat stranding surrounding the tip of the retrocecal appendix. By imaging, acute appendicitis cannot be excluded. Right-sided nephrolithiasis. Currently, there are several calculi in the right renal pelvis and ureter. There is no significant upstream dilation. ADDITIONAL FINDINGS: Numerous large liver masses are otherwise not well delineated. There is metastatic disease including to the lungs, lymph nodes,and bones, which demonstrate interval increase. Assessment/Plan CRCU Impression/Plan: Patient is 77-year-old male BIBA from [facility] after found unconscious. His vitals at the time - blood pressure 80/50, SPO2 75% on 2 L per nasal cannula, respiratory rate 16, temperature 96.9.F. His vitals night before was 116/60 and saturation 92% on 2 L of oxygen.He was following Dr. Ramires. Ultimately the called at 11:30 AM. She was shouting over the phone that nobody informed her. I tried to tell her that many of us tried to connect her. She did not allowed to tell her the clinical situation of the patient. She was saying that he was not taken care of at [facility]. He was completely all right till yesterday evening around 8:00 PM when she talked to him. He had his dinner completely. We convinced her to come to the [facility] to discuss more about goals of care. Me and Dr. Ferrer both discussed with her about goals of care separately. She does understand that patient has terminally ill but she still think that there is a hope that he will recover. We did tell her that the prognosis is poor and there is very less chances are no chances that he will recover. She still wanted the patient should have complete resuscitation. Vital signs-temperature 95.9, pulse 84, respiratory 16, blood pressure 100/60 on Levophed, SPO2 100% on 4 L of nasal cannula. Altamirano catheter is in -his output is very poor, about 25 cc and 6 hours. Blood workup-WBC 14.4, hemoglobin 6.7, hematocrit 20.4, platelet count 146, segmented neutrophils 85, band neutrophils 10, lymphocyte 3, serum sodium 134, potassium 3.0, chloride 108, carbon dioxide 18, anion gap 7, BUN 28, creatinine 0.8, glucose 105, lactic acid 3.7, calcium 6.8, phosphorus 2.6, magnesium 1.2, total bilirubin 1.1, AST 163, ALT 61, alkaline phosphatase 554, creatinine kinase 178, troponin I 0.01, total protein 4.5, albumin 1.8, PT/INR 27.4/2.49, U tox is negative, urinalysis showed-yellow color, cloudy, urine protein more than 300, urine ketones trace, nitrite positive, urobilinogen 2.0, leukocyte esterase large, RBC 25-50, WBC 50-75, bacteria many, urine hemoglobin large Assessment and plan- Septicemia, septicemic shock, Oliguria, secondary to lung infection with underlying history of stage IV lung cancer with metastases to liver,(Pathology - primary hepatic carcinoma, a primary neuroendocrine neoplasm of the liver which is exceedingly rare, and a metastatic carcinoma with hepatoid differentiation) - * We will continue antibiotic injection ceftazidime, vancomycin * Norepinephrine drip as needed with target blood pressure of more than 100/80 * Strict intake output charting * IV fluid normal saline at the rate of 150 cc/h * Keep head end of the bed elevated * Aspiration precaution Multiple osteolytic lesion on the bone -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 - palliative management UTI and hematuria with baseline history of multiple bladder stone * Continue Antibiotics Large sacral decubitus ulcer with underlying osteomyelitis - * Wound care consult * Palliative care to the coccyx ulcer * Offloading * Packing with Aquacel AG * Right Decubitouse ulcer - barrier cream-thin DuoDERM changed every several days * Clinitrone bed Acute appendicitis ruled out possibility mesenteric edema secondary to severe hypoalbuminemia treated conservatively * We started patient on injection albumin 25%, 25 mg every 8 Dementia, metastatic cancer - Palliative care consult- * Consult for Dr. Kirby will consider History of NSVT, DVT (2017) - * We hold Xeralto because of acute anemia, will watch for bleeding. Anemia - * Transfused 1 units of blood Type 2 DM -Hx of recurrent hypoglycemia probably Liver dysfucntion due to Metastasis or pancreatic metastasis - * Finger stick - Q4 * Novalog according to sliding scale Code - FC Diet - NPO DVT prphylaxis - ALPS Problem List: 1. Unresponsive 2. Septic shock 3. Sepsis 4. KINZA (acute kidney injury) 5. Decubital ulcer 6. Altered mental status 7. Lactic acidosis 8. Elevated LFTs 9. Fever 10. Lung mass 11. Liver mass 12. Pneumonia Consult Acknowledgment - Thank you for your consult request. Carissa WASSERMAN,[facility] 05/22/18 1119: Assessment/Plan CRCU Other Findings/Comments: IMPRESSION: 1. The 4.8 x 3.4 cm mass of the right lower lobe has slightly increased in size compared to 02/09/2018. Again noted is peribronchial/hilar lymphadenopathy and subcarinal lymphadenopathy. 2. Interval development of pneumonia in the posterior segment of the right upper lobe, lateral segment of the middle lobe and right lower lobe. Small right pleural effusion is present. Probable pneumonia in the posterior left lower lobe with small left pleural effusion, as well. 3. Hypodense masses in the liver, consistent with metastatic disease, and periportal lymphadenopathy. 4. Metastatic disease involvement of the ribs is most conspicuous in the posterior left seventh rib where there is a pathologic fracture and surrounding soft tissue thickening. Also, metastasis is present within the left posterosuperior iliac spine. The small, 0.6 cm lucent lesion in the T11 vertebral body could represent a metastasis. 5. Cholelithiasis. 6. Nonobstructive calculi of the right kidney. Pt is a 77yo M w/ PMH of osteomyelitis of sacral bones, stage 4 coccyx ulcer, dementia, BPH (chronic indwelling altamirano catheter), HTN, DM, hypothyroidism, hx of DVT (2017?), poorly differenciated metastatic Lung Ca, hisory of NSVT, Chronic anemia etc now with * Septic shock - worsening pna vs osteo coccyx vs worsening terminal malignancy, Ct sugg of mild appy and surg to see * Poor mental status with bilateral pin point pupils - rule out brain stem stroke vs met issues * Sig hypoglycemia due to prob sepsis and liver mets with poor liver synthetic function * Advancing malignancy of the lung with multiple mets with a small effusion in the right not enought to safely tap PLAN cont iv abx, vasopressors, check cvp (keep at 8) Check glucose regulary Other rx as noted above PRog dismal Will discuss with the again If worse will intubate Consult Acknowledgment - Thank you for your consult request.
--- NOTE | 2018-05-22 09:13 | PN- General Surgery ---
Surgical Brief Attending Note Brief Attending Note: Patient to be seen. full consult to follow. apparent concern for appendicitis by imaging. report not formalized. I have seen the images. initial impression is that his overall condition is due to severe deconditioning and progression of his known metastatic poorly differentiated carcinoma. I will see patient when I get out of OR.
--- NOTE | 2018-05-22 09:24 | Admission Certification ---
Admission Certification Certification Statement - As attending physician, I certify that at the time of - admission, based on clinical presentation, severity of - symptoms, need for further diagnostic testing and - therapeutic interventions, and risk of adverse outcomes - without in-hospital treatment, in my clinical assessment, - this patient requires an acute hospital stay for a minimum - of two nights or longer. I have also considered psychsocial - factors such as support system, advanced age, financial - issues, cognitive issues, and failed out-patient treatments, - past re-admission history, safety of patient, and lack of - compliance as applicable. Specific rationale supporting this admission is: septic shock / hypoxic resp resp failure/ hypoglycemia/
--- NOTE | 2018-05-22 09:47 | CT SCAN REPORT ---
EXAMINATION: CT CHEST ABDOMEN AND PELVIS WITHOUT CONTRAST CLINICAL INFORMATION: 77-year-old man with lung and hepatic lesions, is unresponsive and septic. COMPARISON: CT chest abdomen and pelvis dated 04/16/2018, CT abdomen and pelvis dated 03/29/2018. TECHNIQUE: Multidetector volumetric imaging was performed from the thoracic inlet through the pubic symphysis. Sagittal and coronal reformatted images were obtained on the technologist's workstation. DLP: 621.86 mGy-cm. FINDINGS: CHEST: Lungs/pleura: Interval increase in right pleural effusion, moderate in size. Left pleural effusion has decreased, now trace. There is dense opacification of the right lower lobe which is increased compared to prior. Known right lower lobe mass is not well delineated. Previously seen groundglass opacities in the posterior right upper lobe have improved. There is subsegmental atelectasis in the left lower lobe. Additionally, the mass centered around the left posterior seventh rib is increased in size since CT dated 04/16/2018. Additional small nodules also noted, as can be seen in the medial right middle lobe, and left upper lobe which are also slightly increased in size. Layering secretions noted in the trachea. Mediastinum: There is a right IJ approach central line terminating near the superior cavoatrial junction. Heart size is within normal limits. No pericardial effusion. There are postsurgical changes of median sternotomy and CABG. There is extensive atherosclerosis of the [place] coronary arteries. Interval increase in size of a right paratracheal lymph node, 1.4 cm short axis compared to 0.8 cm on 04/16/2018. A subcarinal lymph node is also increased in size. There is diffuse esophageal wall thickening compatible with esophagitis. Chest wall/axilla: No axillary or internal mammary lymphadenopathy. ABDOMEN AND PELVIS: LIVER, GALLBLADDER, AND BILIARY TREE: Multiple low-density, ill-defined liver masses are again seen, not well characterized on this noncontrast CT. There is no intrahepatic biliary ductal dilation. The gallbladder is filled with hyperdense material, as well as calcification at the gallbladder neck, presumably representing a gallstone. This appearance is unchanged dating back to 02/09/2018. PANCREAS: There is parenchymal atrophy. Otherwise grossly unremarkable. SPLEEN: Unremarkable. ADRENAL GLANDS: Unremarkable. KIDNEYS AND URETERS: Again seen are numerous right renal calculi, now with a 0.5 cm calculus present in the right renal pelvis and additional calculi in the ureter, including a 0.5 cm distal ureteral calculus, new since prior. There is no significant hydronephrosis. The left kidney is unremarkable. There is mild bilateral nonspecific perinephric stranding. BLADDER: Decompressed with Cameron catheter in place. Numerous calcifications are again seen within the bladder. GASTROINTESTINAL TRACT: Diffuse esophageal wall thickening as mentioned above. The stomach is decompressed and unremarkable. The small bowel is nondilated. There are scattered colonic diverticula. The colon is otherwise decompressed and unremarkable. No focal pericolonic inflammation. The appendix is retrocecal with tip directed toward the tip of the liver. There is a small amount of fat stranding and fluid at the tip of the appendix. This appearance is new compared to the previous studies. There is trace fluid and mild mesenteric edema elsewhere within the abdomen. No pneumoperitoneum. There is also mild stranding of the perirectal fat and presacral edema. ABDOMINAL WALL: No significant hernia identified. LYMPH NODES: Interval increase in size of a peripancreatic lymph node, 1.1 cm in the short axis. VASCULAR: Extensive aortoiliac atherosclerosis as well as diffuse calcifications of small arterial branches. Abdominal aorta is normal in caliber. PELVIC VISCERA: Unremarkable. OSSEOUS STRUCTURES: Lytic lesion in the left posterior iliac bone is again seen. There is a large sacral decubitus ulcer with soft tissue gas and bony erosions of the underlying lower sacrum and coccyx with increase in presacral edema. Lytic lesion in the T11 vertebral body. There are also lucencies in other vertebral levels. Large lytic lesion centered around the left posterior seventh rib as discussed above, with osseous destruction and soft tissue mass. IMPRESSION: CHEST: Interval increase in right pleural effusion. Dense opacification in the right lower lobe, in part related to known mass, however cannot exclude superimposed infectious process. Layering secretions within the trachea. Diffuse esophageal wall thickening as can be seen with esophagitis. ABDOMEN AND PELVIS: Large sacral decubitus ulcer with underlying bony erosions, and increased presacral edema compared to prior. There is presumed underlying osteomyelitis. There is rather focal fluid and fat stranding surrounding the tip of the retrocecal appendix. By imaging, acute appendicitis cannot be excluded. Right-sided nephrolithiasis. Currently, there are several calculi in the right renal pelvis and ureter. There is no significant upstream dilation. ADDITIONAL FINDINGS: Numerous large liver masses are otherwise not well delineated. There is metastatic disease including to the lungs, lymph nodes, and bones, which demonstrate interval increase. The above findings, including the critical result of possible appendicitis were discussed with Dr. Blayne Easton by telephone on 05/22/2018 8:37 AM and it was ascertained that the content and urgency of the report was understood at the time of direct communication.
--- NOTE | 2018-05-22 11:00 | Cons- General Surgery ---
General Information and HPI Consulting Request Date of Consult: 05/22/18 Requested By: Garrett Ang MD Reason for Consult: Appendicitis Source of Information: old records Exam Limitations: unable to give history, dementia History of Present Illness: This is a 77-year-old male who presents to the medical service with sepsis indeterminate etiology. He was in his normal state of health at a nursing facility yesterday. He was found to be obtunded today. His baseline is out of nonverbal due to dementia. He is dependent on others for his cares. He has a chronic indwelling catheter. 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 Workup for his source of infection, he was sent for CT chest abdomen pelvis. Findings show concern for acute appendicitis. Patient cannot give any history. Allergies/Medications Allergies: Coded Allergies: No Known Allergies (02/09/18) Home Med List: Acetaminophen (Pain Relief) 325 MG TABLET 2 TAB PO Q6H PRN PAIN/TEMP>101 ( Reported) Acetaminophen (Acephen) 650 MG SUPP.RECT 1 SUPP MN Q6H PRN PAIN/TEMP>101 ( Reported) Amoxicillin/Potassium Clav (Augmentin 875-125 Tablet) 875 MG-125 MG TABLET 1 TAB PO BID Pneumonia Atenolol 25 MG TABLET 1 TAB PO DAILY BP (Reported) Bisacodyl (Dulcolax) 10 MG SUPP.RECT 1 SUP RC DAILY PRN CONSTIPATION ( Reported) Donepezil HCl (Aricept) 10 MG TABLET 1 TAB PO DAILY DEMENTIA (Reported) Ferrous Sulfate 325 MG (65 MG IRON) TABLET 1 TAB PO BID supplement Guaifenesin (Cough Syrup) 100 MG/5 ML LIQUID 10 ML PO Q6H PRN COUGH/CONGESTION (Reported) Hyoscyamine Sulfate 125 MCG/5 ML ELIXIR 1 ML SL Q4H PRN SECRETIONS (Reported) Insulin Glargine,Hum.rec.anlog (Lantus Solostar) 100 UNIT/ML (3 ML) INSULN.PEN 15 UNITS SC QAM DM (Reported) Insulin Lispro (Humalog) 100 UNIT/ML VIAL 0 SC TID DM (Reported) BEFORE MEALS Blood Insulin Sugar Units <80 0 81-100 2 101-200 4 201-250 6 251-300 8 301-350 10 351-400 12 >400 Call Doctor AT BEDTIME Blood Insulin Sugar Units <80 0 81-100 0 80-150 No change 151-200 1 201-250 2 251-300 3 301-350 4 351-400 6 >400 8 units Call Doctor Insulin-Lantus (Lantus) 100 UNIT/ML VIAL 9 UNITS SQ QHS DM (Reported) Latanoprost 0.005 % DROPS 1 GTT OS QHS LEFT EYE (Reported) Levothyroxine Sodium 88 MCG TABLET 1 TAB PO DAILY HYPOTHYROIDISM (Reported) Magnesium Hydroxide (Milk Of Magnesia) 400 MG/5 ML ORAL.SUSP 30 ML PO Q3D PRN CONSTIPATION (Reported) Magnesium Oxide (Magnesium) 400 MG TABLET 1 TAB PO DAILY LOW ELECTROLYTES ( Reported) Melatonin 5 MG TABLET 1 TAB PO QPM SLEEP (Reported) Memantine HCl (Namenda) 10 MG TABLET 1 TAB PO DAILY DEMENTIA (Reported) Metformin HCl 1,000 MG TABLET 1 TAB PO BID DIABETES (Reported) Mirtazapine (Remeron) 15 MG TABLET 1 TAB PO QPM UNKNOWN (Reported) Naloxone HCl (Narcan) 4 MG/ACTUATION SPRAY 4 MG JESUS ALBERTO AD PRN OPIOID INDUCED RESP. DEPRESSIO (Reported) Ondansetron HCl (Zofran) 4 MG TABLET 1 TAB PO Q4H PRN N/V (Reported) Rivaroxaban (Xarelto) 20 MG TABLET 1 TAB PO QPM ? DVT (Reported) with food Past History Medical History Blood Transfusion Hx: Yes Neurological: dementia EENT: NONE Cardiovascular: hypertension, hyperlipidemia, ATHEROSCLEROTIC HEART HEART FAILURE Respiratory: NONE Gastrointestinal: NONE Hepatic: NONE Renal: benign prost hyperplasia Musculoskeletal: MALNUTRITION Psychiatric: NONE Endocrine: diabetes, hypothyroidism Blood Disorders: DVT Cancer(s): MALIGNANT NEOPLASM R LUNG AND LIVER SLIVER LAP TENDER/Reproductive: NONE Surgical History Pertinent Surgical History: LOW MIDLINE ABDOMINAL SCAR, OPERATION UNKNOWN Family History Relations & Conditions If Any: MOTHER Heart disease Psychosocial History Where Do You Live? Senior Living Facility Smoking Status: Unknown If Ever Smoked ETOH Use: 6 Illicit Drug Use: UTD Living Will? unknown Power of Leather Stamper/HCP? yes Name of POA/HCP: spouse Review of Systems Review of Systems: Unobtainable Exam & Diagnostic Data Vital Signs and I&O Vital Signs Date Time Temp Pulse Resp B/P B/P Pulse O2 O2 Flow FiO2 Mean Ox Delivery Rate 05/22 0830 Nasal 3.0L Cannula 05/22 830 100 Nasal 50% Cannula 05/22 08 100 Non 60% ReBreather 05/22 08 95.6 84 16 100/54 100 Non 60% ReBreather 05/22 0800 100 Non 100% ReBreather 05/22 0656 86 24 88/51 100 Non 100% ReBreather 05/22 0648 80 85/48 100 Non 100% ReBreather 05/22 0635 83 26 104/50 100 Non 100% ReBreather 05/22 0616 100 Non 100% ReBreather 05/22 0614 78 74/38 05/22 0610 92 26 74/38 100 Non 100% ReBreather 05/22 0515 96.3 84 33 76/40 100 Non 100% ReBreather Intake & Output 05/22 0000 05/21 0000 Intake Total 2000 Output Total Balance 2000 Intake, IV 2000 Patient 143 lb Weight Weight Bed scale Measurement Method Physical Exam: General: Unresponsive. Breathing. Mouth open. Eyes closed. Does not open his eyes to stimuli no distress Chest: Nontender normal respiratory excursion normal respiratory effort Abdomen: Soft nontender nondistended no guarding no mass healed low midline scar Last 24 Hours of Labs: Laboratory Tests 05/22 05/22 05/22 0939 0800 0701 Chemistry Lactic Acid (0.7 - 2.1 mmol/L) Cancelled 3.4 H Toxicology Urine Opiates Screen (>2000 NG/ML) < 100 Methadone Screen (>300 NG/ML) < 40 Barbiturate Screen (>200 NG/ML) < 60 Ur Phencyclidine Scrn (>25 NG/ML) < 6.00 Amphetamines Screen (>1000 NG/ML) 305 U Benzodiazepines Scrn (>200 NG/ML) < 85 Urine Cocaine Screen (>300 NG/ML) < 50 Urine Cannabis Screen (>50 NG/ML) < 5.00 05/22 05/22 0618 0600 Chemistry Sodium (137 - 145 mmol/L) 134 L Potassium (3.5 - 5.1 mmol/L) 3.0 L Chloride (98 - 107 mmol/L) 108 H Carbon Dioxide (22 - 30 mmol/L) 18 L Anion Gap (5 - 16) 7 BUN (9 - 20 mg/dL) 28 H Creatinine (0.7 - 1.2 mg/dL) 0.8 Estimated GFR (>60 ml/min) > 60 BUN/Creatinine Ratio (7 - 25 %) 35.0 H Glucose (65 - 99 mg/dL) 105 H Lactic Acid (0.7 - 2.1 mmol/L) 3.7 H Calcium (8.4 - 10.2 mg/dL) 6.8 L Phosphorus (2.5 - 4.5 mg/dL) 2.6 Magnesium (1.6 - 2.3 mg/dL) 1.2 L Total Bilirubin (0.2 - 1.3 mg/dL) 1.1 AST (17 - 59 U/L) 163 H ALT (21 - 72 U/L) 61 Alkaline Phosphatase (< 127 U/L) 554 H Creatine Kinase (55 - 170 U/L) 178 H Troponin I (<0.11 ng/ml) < 0.01 Total Protein (6.3 - 8.2 g/dL) 4.5 L Albumin (3.5 - 5.0 g/dL) 1.8 L Globulin (1.9 - 4.2 gm/dL) 2.7 Albumin/Globulin Ratio (1.1 - 2.2 %) 0.7 L Hematology CBC w Diff MAN DIFF ORDERED WBC (4.8 - 10.8 /CUMM) 14.4 H RBC (4.70 - 6.10 /CUMM) 2.65 L Hgb (14.0 - 18.0 G/DL) 6.7 *L Hct (42 - 52 %) 20.4 L MCV (80.0 - 94.0 FL) 77.0 L MCH (27.0 - 31.0 PG) 25.5 L MCHC (33.0 - 37.0 G/DL) 33.1 RDW (11.5 - 14.5 %) 20.7 H Plt Count (130 - 400 /CUMM) 146 MPV (7.4 - 10.4 FL) 8.4 Segmented Neutrophils (42.2 - 75.2 %) 85 H Band Neutrophils (0.0 - 5.0 %) 10 H Lymphocytes (20.5 - 51.1 %) 3 L Monocytes (1.7 - 9.3 %) 2 Platelet Estimate (ADEQUATE) ADEQUATE Polychromasia 1+ Poikilocytosis 1+ Anisocytosis 1+ Microcytic Cells 1+ Ovalocytes 1+ Elliptocytes FEW Other Body Source Fld Total RBCs Counted (%) 100 Urines Urinalysis MOD H Urine Color (YEL,AMB,STR) YEL Urine Clarity (CLEAR) CLDY H Urine pH (5.0 - 8.0) 8.0 Ur Specific [place] (1.001 - 1.035) 1.020 Urine Protein (NEG,<30 MG/DL) >=300 H Urine Ketones (NEG) TRACE H Urine Nitrite (NEG) POS H Urine Bilirubin (NEG) NEG@ICTO Urine Urobilinogen (0.1 - 1.0 EU/dl) 2.0 H Ur Leukocyte Esterase (NEG) LARGE H Ur Microscopic SEDIMENT EXAMINED Urine RBC (0 - 5 /HPF) 25-50 H Urine WBC (0 - 2 /HPF) 50-75 H Urine Bacteria (NEG/NONE) MANY H Urine Mucus (FEW,NONE) FEW Micro UA Comment BUDDING YEAST H Urine Hemoglobin (NEG) LARGE H Urine Glucose (N MG/DL) NEG 05/22 0520 Blood Gas pH (7.35 - 7.45 PH) 7.48 H pCO2 (35 - 45 TORR) 24 L pO2 (80 - 100 TORR) 330 H HCO3 (21 - 28 MEQ/L) 17 L ABG O2 Sat (Measured) (>96.0 %) 99.0 P-50 (Temp Corrected) N Carboxyhemoglobin (1.5 - 5.0 %) 0.3 L O2 Concentration % 100 O2 Delivery Method NRB Miscellaneous Phlebotomy Draw Site RIGHT BRACHIAL Imaging Results: CT scan of the abdomen pelvis was personally reviewed. Findings show multiple liver masses. No free fluid no free air. There is minimal inflammatory changes around the appendix but in comparison to other areas in his body, more consistent with edema from anasarca. Increased pleural effusion on CT scan of the chest. Assessment/Plan Assessment/Plan My overall impression is that the CT scan findings regarding his appendix are not indicative of acute appendicitis. It is difficult to determine clinically if there is the typical progression of abdominal pain associated with acute appendicitis. However his physical examination is completely unrevealing without evidence of focal involuntary guarding or peritonitis. Therefore I feel that the findings on CT scan reflect anasarca with fluid around the appendix rather than true intrinsic appendiceal disease. For that reason combined with his underlying end-stage dementia and advanced poorly differentiated carcinoma, metastatic, I feel that no intervention regarding his appendix should be undertaken. Consider IV broad-spectrum antibiotics to cover anaerobes for medical management of possible appendicitis. However overall my impression is that his infectious disease is related to a pulmonary process. Strongly consider discussion with the family regarding limiting cares. Consult Acknowledgment - Thank you for your consult request.
[2018-05-22 12:00] VITALS: BP 86/54
[2018-05-22 12:06] LABS: MEAN CORPUSCULAR HGB 26.6 PG (27.0-31.0); MEAN CORPUSCULAR HGB CONC 33.7 G/DL (33.0-37.0); MEAN CORPUSCULAR VOLUME 78.9 FL (80.0-94.0); MEAN PLATELET VOLUME 8.2 FL (7.4-10.4); RBC DISTRIBUTION WIDTH 20.1 % (11.5-14.5); RED BLOOD CELL CT 3.05 /CUMM (4.70-6.10)
[2018-05-22 12:08] LABS: PLATELET COUNT 274 /CUMM (130-400); PT 27.4 SEC (9.4-12.5); WHITE BLOOD CELL COUNT 28.5 /CUMM (4.8-10.8)
[2018-05-22 16:00] VITALS: BP 92/50
[2018-05-23] VITALS: BP 106/54
[2018-05-23 04:48] LABS: HEMATOCRIT 22.9 % (42-52); MEAN CORPUSCULAR HGB 26.2 PG (27.0-31.0); MEAN CORPUSCULAR HGB CONC 33.3 G/DL (33.0-37.0); MEAN CORPUSCULAR VOLUME 78.7 FL (80.0-94.0); MEAN PLATELET VOLUME 7.8 FL (7.4-10.4); PLATELET COUNT 237 /CUMM (130-400); RBC DISTRIBUTION WIDTH 20.3 % (11.5-14.5); RED BLOOD CELL CT 2.91 /CUMM (4.70-6.10); WHITE BLOOD CELL COUNT 15.6 /CUMM (4.8-10.8)
--- NOTE | 2018-05-23 06:20 | RADIOLOGY REPORT ---
EXAMINATION: XR PORTABLE CHEST CLINICAL INFORMATION: Fever. Sepsis. COMPARISON: Chest x-ray May 22, 2018 TECHNIQUE: Portable frontal view of the chest was obtained. 5:44 AM FINDINGS: Status post median sternotomy. The cardiac and mediastinal contours are unchanged. Lung volume is low with central pulmonary vascular congestion and interstitial edema. The increased vascularity is similar to the chest x-ray of May 22, 2018. No large pleural effusion. The focal area of density in the right perihilar area is less pronounced on today's study and is likely due to the pulmonary vascularity. There is no focal consolidation. There is a right IJ catheter with tip at the caval atrial junction. There is no pneumothorax. IMPRESSION: Persistent mild central pulmonary vascular congestion accentuated by low inspiratory effort.
--- NOTE | 2018-05-23 07:43 | PN- Resident CRCU ---
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 Multiple bony lytic lesion Right-sided nephrolithiasis (right renal pelvis, distal ureteral) no hydronephrosis Hypothyroidism Diabetes Hypertension BPH chronic indwelling Altamirano catheter Dementia Stage IV, coccygeal ulcer Osteomyelitis of sacral bone Coronary artery disease, history of CABG 24 Hour Events: Vital signs-temperature 97.8, heart rate 76, normal sinus rhythm with frequent PVCs and PACs, respiratory rate 22, blood pressure 98/52, SPO2 98% of 2 L by nasal cannula Intake/output-7834/525 Blood workup-WBC 15.6, hemoglobin 7.6, hematocrit 22.9, platelet count 237, segmented neutrophils 83%, serum sodium 137, potassium 3.3, chloride 109, carbon dioxide 16, anion gap 13, BUN 24, creatinine 0.9, glucose 187, calcium 7.7, phosphorus 2.7, magnesium 1.6, total bilirubin 1.6, AST 231, ALT 63, alkaline phosphatase -, albumin 2.6 May 22, 2018 - Blood culture -growing gram-positive cocci and gram-negative rods Urine culture-pending LRTC-pending Objective Vital Signs & I&O Last 8 Hrs of Vitals and I&O: Vital signs-temperature 97.8, heart rate 76, normal sinus rhythm with frequent PVCs and PACs, respiratory rate 22, blood pressure 98/52, SPO2 98% of 2 L by nasal cannula Blood workup-W BC 15.6, hemoglobin 7.6, hematocrit 22.9, platelet count 237, granulocyte 83, Serum sodium 137, potassium 3.3, chloride 109, carbondiaoxide 16, anion gap 13, BUN 24, creatinine 0.9, glucose 187, calcium 7.7, phosphorus 2.7, magnesium 1.6, total bilirubin 1.6,AST 331, ALT 63, alkaline phosphatase 156. Exam General Appearance: cachetic, lethargic, thin Head: atraumatic Neck: supple, Right IJ in place Respiratory: bilateral generalized crackles, froathy secreations coming form mouth Cardiovascular: regular rate/rhythm Extremities: bilateral mild edema, chronic changes in extremeties Other Physical Findings: chachexic, decubitouse ulcers at sacrum Current Medications: Current Medications Sig/Nu Start time Last Medication Dose Route Stop Time Status Admin Albumin Human 25 GM Q8 05/22 0928 PR 05/23 IV 0517 Artificial Tears 2 GTT 4 TIMES/DAY 05/23 212 05/24 OPH 0819 Dextrose/Sodium 1,000 ML Q10H 05/22 08 DC 05/23 Chloride IV 0101 Furosemide 20 MG 7:30 AM, & 4:30 PM 05/23 1230 05/24 IV 0814 Insulin Aspart 0 TIDAC/HS 05/23 08 PR 05/23 SC 1231 Insulin Human Regular 0 Q6 05/23 2359 05/24 SC 0007 Magnesium Sulfate 1 GM ONCE ONE 05/24 0645 05/24 Dextrose/Water 100 ML IV 05/24 1044 0814 Norepinephrine 4 MG Q24H 05/23 1400 05/23 Dextrose/Water 250 ML IV 1638 Norepinephrine 4 MG Q8H 05/22 2200 DC 05/22 Dextrose/Water 250 ML IV 2326 Piperacillin Sod/ 3.375 GM Q6 05/22 2359 05/24 Tazobactam Sod IV 0553 Sodium Chloride 100 ML Potassium Chloride 20 MEQ ONCE ONE 05/24 08 DC IV 05/24 0801 Sodium Hypochlorite 1 ANETA DAILY 05/24 1015 [facility] Vancomycin HCl 1,000 MG DAILY 05/23 09 05/24 Sodium Chloride 250 ML IV 0942 Impression/Plan Impression/Problem List Impression: Patient is 77-year-old male BIBA from [facility] after found unconscious. His vitals at the time - blood pressure 80/50, SPO2 75% on 2 L per nasal cannula, respiratory rate 16, temperature 96.9.F. His vitals night before was 116/60 and saturation 92% on 2 L of oxygen.He was following Dr. Ramires. Assessment and plan- Acute diastolic heart failure leading to pulmonary edema - * Given IV lasix as needed and started on Inj Lasix 20mg IV BID * Decreased IV fluids , stopped IV albumin * Continue Norepinephrine as needed. 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(Pathology - primary hepatic carcinoma, a primary neuroendocrine neoplasm of the liver which is exceedingly rare, and a metastatic carcinoma with hepatoid differentiation) - Blood culture is growing Gr+/Gr-ve bacteria * We will continue antibiotic injection piptaz/ vancomycin * Norepinephrine drip as needed with target blood pressure of more than 100/80 * Strict intake output charting * Stop IV fluids * Keep head end of the bed elevated * Aspiration precaution Multiple osteolytic lesion on the bone -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 - palliative management UTI and hematuria with baseline history of multiple bladder/renal stone - UC negative * Continue Antibiotics Large sacral decubitus ulcer with underlying osteomyelitis - * Wound care consult * Palliative care to the coccyx ulcer * Offloading * Packing with Aquacel AG * Right Decubitouse ulcer - barrier cream-thin DuoDERM changed every several days * Clinitrone bed Acute appendicitis ruled out possibility mesenteric edema secondary to severe hypoalbuminemia treated conservatively * We stopped injection albumin 25%, 25 mg every 8 due to fluid overload Dementia, metastatic cancer - Palliative care consult- * Will consider consult for Dr. Kirby History of NSVT, DVT (2017) - * We hold Xeralto because of acute anemia, will watch for bleeding. Anemia - 7.6 * will transfuse as needed Type 2 DM -Hx of recurrent hypoglycemia probably Liver dysfunction due to Metastasis or pancreatic metastasis or NETs * Finger stick - Q4 * Novalog according to sliding scale Code - FC Diet - NPO DVT prphylaxis - ALPS Problem List: 1. Unresponsive 2. Septic shock 3. Sepsis 4. KINZA (acute kidney injury) Pain Ratin Tomorrow's Labs & Rationales: f/U CBC, ICU bundle, CXR Plan DVT/Prophylaxis: mitul Ferrer MD,[facility] 05/23/18 1020: Attending MD Review Statement Attending Sign Off Attending Cosign Statement: I have: examined this patient, reviewed aval EMR data, personally reviewd images, discussd w/resident/PA/ADVANCED MANUFACTURING ENGINEER, discussed mgmt plan w/yulissa, discussed mgmt plan w/CM, discussed mgmt plan w/pt, agreed w/resident/PA/ADVANCED MANUFACTURING ENGINEER, amended to note. Other Findings: Pt is a 77yo M w/ PMH of osteomyelitis of sacral bones, stage 4 coccyx ulcer, dementia, BPH (chronic indwelling altamirano catheter), HTN, DM, hypothyroidism, hx of DVT (2017?), poorly differenciated metastatic neuroenocrine malignancy liver vs lung with multiple bone mets, hisory of NSVT, Chronic anemia etc now with * Septic shock - worsening pna vs osteo coccyx vs intraabd sepsis due to appy - in the setting of worsening terminal malignancy, Ct sugg of mild appy and surg to see * Poor mental status with bilateral pin point pupils - rule out brain stem stroke vs met issues * Sig hypoglycemia due to prob sepsis and liver mets with poor liver synthetic function, vs neuroendocrine tumour secreting insulin like harmones * Advancing malignancy lung vs liver primary (neuroendocrine features) with multiple mets with a small effusion in the right not enought to safely tap PLAN cont iv abx, check cvp (keep at 8) Check glucose regulary Ask ID to see, surg on board and alert them about the cultures is aware and wishes the patient to be full code, and does not wish any primary rx for malignancy for now Other rx as noted above PRog dismal Will discuss with the again If worse will intubate
[2018-05-23 08:00] VITALS: BP 110/52
--- NOTE | 2018-05-23 13:23 | RADIOLOGY REPORT ---
EXAMINATION: XR PORTABLE CHEST CLINICAL INFORMATION: Shortness of breath, generalized crackles. Presumptive diagnosis of CHF. COMPARISON: Several prior chest x-rays, most recent of which is from earlier today. TECHNIQUE: Portable AP semierect view of the chest was obtained. FINDINGS: EKG these overlie the chest. Right jugular central venous line in place with tip in the mid SVC, unchanged. Cardiomediastinal silhouette is enlarged. Low lung volumes are seen with diffuse bilateral pulmonary opacities and central vascular indistinctness, suggestive of pulmonary edema. Superimposed linear atelectatic changes in the left midlung and in the right lung base noted. No significant effusion appreciated. No pneumothorax. Diffuse osteopenia is seen. IMPRESSION: 1. Right jugular central venous line in mid SVC. No pneumothorax. 2. Lung findings are consistent with pulmonary edema and scattered areas of linear atelectatic change. 3. No definite pleural effusion appreciated on single view plain film.
--- NOTE | 2018-05-23 14:40 | Cons- Infect Disease ---
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 He was found unresponsive the morning of admission when patient was being routinely checked by nursing staff. According to nursing staff at [facility], at the previous check a few hours before, the patient was responsive but was noticed to be hypoglycemic so staff gave him a snack to raise his blood sugar. His caregiver noticed some FC w/ blood tinged urine. When EMS arrived, they administed narcan without any affect. He was then brought to [place] ER in an unresponsive state. A central line was placed, anticipating treatment and subsequently patient was seen by admiting team. Patient remains lethargic. Noted w/ weak ineffective cough. Allergies/Medications Allergies: Coded Allergies: No Known Allergies (02/09/18) Home Med List: Acetaminophen (Pain Relief) 325 MG TABLET 2 TAB PO Q6H PRN PAIN/TEMP>101 ( Reported) Acetaminophen (Acephen) 650 MG SUPP.RECT 1 SUPP NE Q6H PRN PAIN/TEMP>101 ( Reported) Amoxicillin/Potassium Clav (Augmentin 875-125 Tablet) 875 MG-125 MG TABLET 1 TAB PO BID Pneumonia Atenolol 25 MG TABLET 1 TAB PO DAILY BP (Reported) Bisacodyl (Dulcolax) 10 MG SUPP.RECT 1 SUP RC DAILY PRN CONSTIPATION ( Reported) Donepezil HCl (Aricept) 10 MG TABLET 1 TAB PO DAILY DEMENTIA (Reported) Ferrous Sulfate 325 MG (65 MG IRON) TABLET 1 TAB PO BID supplement Guaifenesin (Cough Syrup) 100 MG/5 ML LIQUID 10 ML PO Q6H PRN COUGH/CONGESTION (Reported) Hyoscyamine Sulfate 125 MCG/5 ML ELIXIR 1 ML SL Q4H PRN SECRETIONS (Reported) Insulin Glargine,Hum.rec.anlog (Lantus Solostar) 100 UNIT/ML (3 ML) INSULN.PEN 15 UNITS SC QAM DM (Reported) Insulin Lispro (Humalog) 100 UNIT/ML VIAL 0 SC TID DM (Reported) BEFORE MEALS Blood Insulin Sugar Units <80 0 81-100 2 101-200 4 201-250 6 251-300 8 301-350 10 351-400 12 >400 Call Doctor AT BEDTIME Blood Insulin Sugar Units <80 0 81-100 0 80-150 No change 151-200 1 201-250 2 251-300 3 301-350 4 351-400 6 >400 8 units Call Doctor Insulin-Lantus (Lantus) 100 UNIT/ML VIAL 9 UNITS SQ QHS DM (Reported) Latanoprost 0.005 % DROPS 1 GTT OS QHS LEFT EYE (Reported) Levothyroxine Sodium 88 MCG TABLET 1 TAB PO DAILY HYPOTHYROIDISM (Reported) Magnesium Hydroxide (Milk Of Magnesia) 400 MG/5 ML ORAL.SUSP 30 ML PO Q3D PRN CONSTIPATION (Reported) Magnesium Oxide (Magnesium) 400 MG TABLET 1 TAB PO DAILY LOW ELECTROLYTES ( Reported) Melatonin 5 MG TABLET 1 TAB PO QPM SLEEP (Reported) Memantine HCl (Namenda) 10 MG TABLET 1 TAB PO DAILY DEMENTIA (Reported) Metformin HCl 1,000 MG TABLET 1 TAB PO BID DIABETES (Reported) Mirtazapine (Remeron) 15 MG TABLET 1 TAB PO QPM UNKNOWN (Reported) Naloxone HCl (Narcan) 4 MG/ACTUATION SPRAY 4 MG JESUS ALBERTO AD PRN OPIOID INDUCED RESP. DEPRESSIO (Reported) Ondansetron HCl (Zofran) 4 MG TABLET 1 TAB PO Q4H PRN N/V (Reported) Rivaroxaban (Xarelto) 20 MG TABLET 1 TAB PO QPM ? DVT (Reported) with food Current Medications: Current Medications Sig/Nu Start time Last Medication Dose Route Stop Time Status Admin Albumin Human 25 GM Q8 05/22 0928 DC 05/23 IV 0517 Ceftazidime 1,000 MG Q8H 05/22 1700 DC 05/22 IV 1747 Dextrose/Sodium 1,000 ML Q10H 05/22 0800 DC 05/23 [place]ide [place] 0101 Furosemide 20 MG 7:30 AM, & 4:30 PM 05/23 1230 AC 05/23 IV 1231 Furosemide 0 .STK-MED ONE 09/10 0941 DC .ROUTE Furosemide 20 MG ONCE ONE 05/23 930 DC 05/23 IV 05/23 931 0927 Furosemide 20 MG ONCE ONE 05/23 915 DC 05/23 IV 05/23 916 09 Furosemide 0 .STK-MED ONE 05/23 904 DC .ROUTE Insulin Aspart 0 TIDAC 05/23 0800 DC 05/22 SC 2325 Insulin Aspart 0 TIDAC/HS 05/23 0800 AC 05/23 SC 1231 Insulin Aspart 0 .STK-MED ONE 05/22 2325 DC SC Magnesium Sulfate 1 GM ONCE ONE 05/23 530 DC 05/23 Dextrose/Water 100 ML IV 05/23 929 0608 Non-Formulary 0 SEE ADMIN CRITERIA 05/22 2345 CAN Medication ANY Norepinephrine 4 MG Q24H 05/23 1400 AC Dextrose/Water 250 ML IV Norepinephrine 4 MG Q8H 05/22 2200 DC 05/22 Dextrose/Water 250 ML IV 2326 Norepinephrine 4 MG CONTINOUS INFUSION 05/22 2000 CAN Sodium Chloride 250 ML IV Norepinephrine 4 MG Q24H 05/22 1115 DC 05/22 Dextrose/Water 250 ML IV 05/22 215 1419 Piperacillin Sod/ 3.375 GM Q6 05/22 2359 AC 05/23 Tazobactam Sod IV 1231 Sodium Chloride 100 ML Potassium Chloride 20 MEQ Q1H 05/23 530 DC 05/23 IV 05/23 631 075 Vancomycin HCl 1,000 MG DAILY 05/23 900 AC 05/23 Sodium Chloride 250 ML IV 09 Past History Travel History Traveled to [place] past 21 day No Medical History Blood Transfusion Hx: Yes Neurological: dementia EENT: NONE Cardiovascular: hypertension, hyperlipidemia, ATHEROSCLEROTIC HEART HEART FAILURE Respiratory: NONE Gastrointestinal: NONE Hepatic: NONE Renal: benign prost hyperplasia Musculoskeletal: MALNUTRITION Psychiatric: NONE Endocrine: diabetes, hypothyroidism Blood Disorders: DVT Cancer(s): MALIGNANT NEOPLASM R LUNG AND 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 [facility] Smoking Status: Unknown If Ever Smoked ETOH Use: 6 Illicit Drug Use: UTD Living Will? unknown Power of Revenue Research Analyst/HCP? yes Name of POA/HCP: spouse Review of Systems Comments 12 points reviewed as noted, otherwise negative. Exam & Diagnostic Data Last 24 Hrs of Vital Signs/I&O Vital Signs Date Time Temp Pulse Resp B/P B/P Pulse O2 O2 Flow FiO2 Mean Ox Delivery Rate 05/23 1225 93 Nasal 4.0L Cannula 05/23 0835 92 Nasal 4.0L Cannula 05/23 08 97 Nasal 5.0L Cannula 05/23 08 78.0 87 20 110/52 97 Nasal 5.0L Cannula 05/23 0552 79 27 91/48 05/23 0400 98 Nasal 2.0L Cannula 05/23 0000 98 Nasal 2.0L Cannula 05/23 0000 98.2 80 20 106/54 97 Nasal 2.0L Cannula 05/22 2326 98.0 77 20 99/55 05/22 2232 99 Nasal 2.0L Cannula 05/22 2000 98 Nasal 2.0L Cannula 05/22 1800 97.5 05/22 1600 99 Nasal 2.0L Cannula 05/22 1600 97.8 82 18 92/50 98 Nasal 2.0L Cannula 05/22 1445 98 Nasal 2.0L Cannula Intake & Output 05/23 1600 05/23 0805/23 0000 Intake Total 1311.4 1290.8 Output Total 250 150 Balance 1061.4 1140.8 Intake, IV 1311.4 1290.8 Intake, Oral 0 0 Number 1 2 Bowel Movements Output, Urine 250 150 Physical Exam Other Physical Findings: General Appearance Acutely ill, frail elderly male Skin Stage IV coccygeal decubitus ulcer, Warm/Dry/Pale HEENT Atraumatic, EOMI Neck No JVD Cardiovascular Normal S1, Normal S2 Lungs Decreased BS both bases R>L, b/l rhonchi ant chest Abdomen Diminishes Bowel Sounds, distended; FC changed in Ed; blood tinged urine Neurological Opens eyes to voice, Responsive to touch Extremities No Cyanosis, No Edema, No Tenderness/Swelling Last 24 Hours of Lab Results: Laboratory Tests 05/23 05/23 0402 0400 Chemistry Sodium (137 - 145 mmol/L) 137 Potassium (3.5 - 5.1 mmol/L) 3.3 L Chloride (98 - 107 mmol/L) 109 H Carbon Dioxide (22 - 30 mmol/L) 16 L Anion Gap (5 - 16) 13 BUN (9 - 20 mg/dL) 24 H Creatinine (0.7 - 1.2 mg/dL) 0.9 Estimated GFR (>60 ml/min) > 60 Glucose (65 - 99 mg/dL) 187 H Insulin Level (3.0 - 25.0 mIU/mL) 14.2 C-Peptide Pending Calcium (8.4 - 10.2 mg/dL) 7.7 L Phosphorus (2.5 - 4.5 mg/dL) 2.7 Magnesium (1.6 - 2.3 mg/dL) 1.6 Total Bilirubin (0.2 - 1.3 mg/dL) 1.6 H AST (17 - 59 U/L) 331 H ALT (21 - 72 U/L) 63 Alkaline Phosphatase (< 127 U/L) 456 H Albumin (3.5 - 5.0 g/dL) 2.6 L Hematology CBC w Diff MAN DIFF ORDERED WBC (4.8 - 10.8 /CUMM) 15.6 H RBC (4.70 - 6.10 /CUMM) 2.91 L Hgb (14.0 - 18.0 G/DL) 7.6 L Hct (42 - 52 %) 22.9 L MCV (80.0 - 94.0 FL) 78.7 L MCH (27.0 - 31.0 PG) 26.2 L MCHC (33.0 - 37.0 G/DL) 33.3 RDW (11.5 - 14.5 %) 20.3 H Plt Count (130 - 400 /CUMM) 237 MPV (7.4 - 10.4 FL) 7.8 Segmented Neutrophils (42.2 - 75.2 %) 83 H Band Neutrophils (0.0 - 5.0 %) 5 Lymphocytes (20.5 - 51.1 %) 8 L Monocytes (1.7 - 9.3 %) 4 Platelet Estimate (ADEQUATE) ADEQUATE Polychromasia 1+ Hypochromic-Microcytic 1+ Poikilocytosis 1+ Last 24 Hours of Andrés Results: SPEC #: [id number] ERIN: 05/22/18 STATUS: RES RECD: 05/22/18 [facility] DR: Sadaf WASSERMAN,Perry Arredondo SOURCE: BLOOD ENTR: 05/22/[address]: Ryley WASSERMAN,Shannon Alcocer SPDESC: 1ST/VENOUS ORDERED: BLOOD CULTURE Procedure Result > BLOOD CULTURE REPORT Preliminary 05/23/18 GRAM STAIN SUGGESTIVE OF: GRAM NEGATIVE RODS GRAM POSITIVE COCCI IN CHAINS Called to/Readback by FLOR/ by ANJU 05/22/18 2315/2317 Procedure Result > GRAM STAIN Preliminary 05/23/18 WHITE BLOOD CELLS MANY SQUAMOUS CELLS FEW GRAM POSITIVE COCCI MODERATE GRAM NEGATIVE RODS MANY GRAM POSITIVE RODS MANY OTHER MOD HYPHAL ELEMENTS SEEN BUDDING YEAST > LOWER RESPIRATORY CULTURE Preliminary 05/23/18 Mixed tatianna after 1 day WITH: Heavy growth of: GRAM NEGATIVE RODS Identification and sensitivities to follow YEAST Diagnostic Data Recent Imaging Findings: CT IMPRESSION: CHEST: Interval increase in right pleural effusion. Dense opacification in the right lower lobe, in part related to known mass, however cannot exclude superimposed infectious process. Layering secretions within the trachea. Diffuse esophageal wall thickening as can be seen with esophagitis. ABDOMEN AND PELVIS: Large sacral decubitus ulcer with underlying bony erosions, and increased presacral edema compared to prior. There is presumed underlying osteomyelitis. There is rather focal fluid and fat stranding surrounding the tip of the retrocecal appendix. By imaging, acute appendicitis cannot be excluded. Right-sided nephrolithiasis. Currently, there are several calculi in the right renal pelvis and ureter. There is no significant upstream dilation. ADDITIONAL FINDINGS: Numerous large liver masses are otherwise not well delineated. There is metastatic disease including to the lungs, lymph nodes, and bones, which demonstrate interval increase. The above findings, including the critical result of possible appendicitis were discussed with Dr. Blayne Easton by telephone on 05/22/2018 8:37 AM and it was ascertained that the content and urgency of the report was understood at the time of direct communication. DICTATED BY: Sofia Cazares MD DATE/TIME DICTATED:05/22/18730 [facility] HOME:[facility] DATE/TIME TRANSCRIBED:05/22/18730 Assessment/Plan Assessment/Plan Impression: 77 y/o WM known w/ dementia, BPH, HTN, DM2, hypothyroidism, DVT previously on Xarelto, , chronic anemia secondary to metastatic lung cancer admitted 05/22/18 w/ SIRS/sepsis; BC + GPC/GNR; sputum cx preliminary GNR. Poorly differentiated metastatic lung cancer; CT chest w/ right pleural effusion ; dense opacification in the right lower lobe(mass/? post obstructive or aspiration pna), and metastatic disease including to the lungs, lymph nodes, and bones, which demonstrate interval increase. Question of ac appendicitis Hematuria/presumed traumatic; underlying nephrolithiasis Stage IV coccygeal ulcer with underlying osteomyelitis Leukocytosis Suggestion: #Patient terminally ill w/ poor prognosis; team addressing goal of care w/ patient's # Treated empirically w/ iv Zosyn/vancomycin pending final culture results; goal vancomycin trough 15-20. # F/u sx recom; monitor lactic acid # Pulm toilet # Trend CBc/BMP # Wound care eval Consult Acknowledgment - Thank you for your consult request.
[2018-05-23 16:00] VITALS: BP 106/50
--- NOTE | 2018-05-23 18:50 | PN- General Surgery ---
Subjective Subjective: Patient unable to give history. His is at the bedside who provides some insight for cares. Patient remains hypotensive on levophed. There is progressive dyspnea. Leukocytosis is somewhat improved. Blood cultures on admission show polymicrobial sepsis with gram-positive cocci and gram-negative rods. Review of Systems: Unobtainable Objective Vital Signs and I&Os Vital Signs Date Time Temp Pulse Resp B/P B/P Pulse O2 O2 Flow FiO2 Mean Ox Delivery Rate 05/23 1638 93 106/50 05/23 1600 98.4 93 23 106/50 96 Nasal 4.0L Cannula 05/23 1600 96 Nasal 4.0L Cannula 05/23 1225 93 Nasal 4.0L Cannula 05/23 1200 95 Nasal 4.0L Cannula 05/23 0835 92 Nasal 4.0L Cannula 05/23 0800 97 Nasal 5.0L Cannula 05/23 0800 78.0 87 20 110/52 97 Nasal 5.0L Cannula 05/23 0552 79 27 91/48 05/23 0400 98 Nasal 2.0L Cannula 05/23 0000 98 Nasal 2.0L Cannula 05/23 0000 98.2 80 20 106/54 97 Nasal 2.0L Cannula 05/22 2326 98.0 77 20 99/55 05/22 2232 99 Nasal 2.0L Cannula 05/22 2000 98 Nasal 2.0L Cannula Intake & Output 05/23 1600 05/23 0800 05/23 0000 05/22 1600 05/22 0800 05/22 0000 Intake Total 639 1311.4 1290.8 5132 2000 Output Total 600 250 150 100 Balance 39 1061.4 1140.8 5032 1999 Intake, Blood 330 Product Intake, IV 639 1311.4 1290.8 4802 1999 Intake, Oral 0 0 0 Number 0 1 2 2 Bowel Movements Output, Urine 600 250 150 100 Patient 143 lb Weight Weight Bed scale Measurement Method Physical Exam: General: He looks dyspneic at rest. Open mouth breathing. No response to verbal or painful stimuli. Chest: Increased respiratory effort and expiratory length. Abdomen is soft but difficult to examine for signs of peritonitis due to his severe expiratory effort. No peritonitis. No focal right lower quadrant tenderness. Current Medications: Current Medications Sig/Nu Start time Last Medication Dose Route Stop Time Status Admin Albumin Human 25 GM Q8 05/22 0928 DC 05/23 IV 0517 Ceftazidime 1,000 MG Q8H 05/22 1700 DC 05/22 IV 1747 Dextrose/Sodium 1,000 ML Q10H 05/22 0800 KS 05/23 Chloride IV 0101 Furosemide 20 MG 7:30 AM, & 4:30 PM 05/23 1230 05/23 IV 1625 Furosemide 0 .STK-MED ONE 05/23 0941 DC .ROUTE Furosemide 20 MG ONCE ONE 05/23 930 DC 05/23 IV 05/23 931 0927 Furosemide 20 MG ONCE ONE 05/23 915 DC 05/23 IV 05/23 916 09 Furosemide 0 .STK-MED ONE 05/23 904 DC .ROUTE Insulin Aspart 0 TIDAC 05/23 800 DC 05/22 SC 232 Insulin Aspart 0 TIDAC/HS 05/23 800 05/23 FL 1231 Insulin Aspart 0 .STK-MED ONE 05/22 2325 KS SC Magnesium Sulfate 1 GM ONCE ONE 05/23 530 KS 05/23 Dextrose/Water 100 ML IV 05/23 929 0608 Non-Formulary 0 SEE ADMIN CRITERIA 05/22 2345 CAN Medication ANY Norepinephrine 4 MG Q24H 05/23 1400 AC 05/23 Dextrose/Water 250 ML IV 1638 Norepinephrine 4 MG Q8H 05/22 2200 KS 05/22 Dextrose/Water 250 ML IV 2326 Norepinephrine 4 MG CONTINOUS INFUSION 05/22 2000 CAN Sodium Chloride 250 ML IV Norepinephrine 4 MG Q24H 05/22 1115 KS 05/22 Dextrose/Water 250 ML IV 05/22 2159 1419 Piperacillin Sod/ 3.375 GM Q6 05/22 2359 05/23 Tazobactam Sod IV 1730 Sodium Chloride 100 ML Potassium Chloride 20 MEQ Q1H 05/23 05 KS 05/23 IV 05/23 0631 0755 Vancomycin HCl 1,000 MG DAILY 05/23 900 05/23 Sodium Chloride 250 ML IV 0927 Results Last 48 Hours of Labs: Laboratory Tests 05/23 05/23 05/23 1637 1637 0402 Chemistry Sodium (137 - 145 mmol/L) Cancelled 138 137 Potassium (3.5 - 5.1 mmol/L) Cancelled 3.8 3.3 L Chloride (98 - 107 mmol/L) Cancelled 109 H 109 H Carbon Dioxide (22 - 30 mmol/L) Cancelled 19 L 16 L Anion Gap (5 - 16) Cancelled 10 13 BUN (9 - 20 mg/dL) Cancelled 24 H 24 H Creatinine (0.7 - 1.2 mg/dL) Cancelled 1.0 0.9 Estimated GFR (>60 ml/min) > 60 > 60 Glucose (65 - 99 mg/dL) Cancelled 131 H 187 H Insulin Level (3.0 - 25.0 mIU/mL) 14.2 Calcium (8.4 - 10.2 mg/dL) Cancelled 7.6 L 7.7 L Phosphorus (2.5 - 4.5 mg/dL) Cancelled 2.8 2.7 Magnesium (1.6 - 2.3 mg/dL) Cancelled 1.7 1.6 Total Bilirubin (0.2 - 1.3 mg/dL) Cancelled 1.6 H 1.6 H AST (17 - 59 U/L) Cancelled 326 H 331 H ALT (21 - 72 U/L) Cancelled 62 63 Alkaline Phosphatase (< 127 U/L) 456 H Troponin I (<0.11 ng/ml) 0.10 Albumin (3.5 - 5.0 g/dL) Cancelled 2.8 L 2.6 L Hematology CBC w Diff MAN DIFF ORDERED WBC (4.8 - 10.8 /CUMM) 15.6 H RBC (4.70 - 6.10 /CUMM) 2.91 L Hgb (14.0 - 18.0 G/DL) 7.6 L Hct (42 - 52 %) 22.9 L MCV (80.0 - 94.0 FL) 78.7 L MCH (27.0 - 31.0 PG) 26.2 L MCHC (33.0 - 37.0 G/DL) 33.3 RDW (11.5 - 14.5 %) 20.3 H Plt Count (130 - 400 /CUMM) 237 MPV (7.4 - 10.4 FL) 7.8 Segmented Neutrophils (42.2 - 75.2 %) 83 H Band Neutrophils (0.0 - 5.0 %) 5 Lymphocytes (20.5 - 51.1 %) 8 L Monocytes (1.7 - 9.3 %) 4 Platelet Estimate (ADEQUATE) ADEQUATE Polychromasia 1+ Hypochromic-Microcytic 1+ Poikilocytosis 1+ 05/23 05/22 05/22 0400 1120 1120 Chemistry C-Peptide Pending Lactic Acid (0.7 - 2.1 mmol/L) 2.6 H Ammonia (9 - 30 umol/L) 05/22 1120 0939 Chemistry Sodium (137 - 145 mmol/L) 134 L Potassium (3.5 - 5.1 mmol/L) 3.4 L Chloride (98 - 107 mmol/L) 107 Carbon Dioxide (22 - 30 mmol/L) 18 L Anion Gap (5 - 16) 9 BUN (9 - 20 mg/dL) 26 H Creatinine (0.7 - 1.2 mg/dL) 0.9 Estimated GFR (>60 ml/min) > 60 Glucose (65 - 99 mg/dL) 185 H Lactic Acid Cancelled Calcium (8.4 - 10.2 mg/dL) 7.4 L Phosphorus (2.5 - 4.5 mg/dL) 2.9 Magnesium (1.6 - 2.3 mg/dL) 1.9 Total Bilirubin (0.2 - 1.3 mg/dL) 1.9 H AST (17 - 59 U/L) 250 H ALT (21 - 72 U/L) 61 Albumin (3.5 - 5.0 g/dL) 2.4 L TSH &T3 &Free T4 Intrp (0.27 - 4.20 uIU/mL) 3.030 Coagulation PT (9.4 - 12.5 SEC) 27.4 H INR (0.90 - 1.17) 2.49 H Hematology CBC w Diff MAN DIFF ORDERED WBC (4.8 - 10.8 /CUMM) 28.5 H RBC (4.70 - 6.10 /CUMM) 3.05 L Hgb (14.0 - 18.0 G/DL) 8.1 L Hct (42 - 52 %) 24.0 L MCV (80.0 - 94.0 FL) 78.9 L MCH (27.0 - 31.0 PG) 26.6 L MCHC (33.0 - 37.0 G/DL) 33.7 RDW (11.5 - 14.5 %) 20.1 H Plt Count (130 - 400 /CUMM) 274 MPV (7.4 - 10.4 FL) 8.2 Segmented Neutrophils (42.2 - 75.2 %) 77 H Band Neutrophils (0.0 - 5.0 %) 15 H Lymphocytes (20.5 - 51.1 %) 4 L Monocytes (1.7 - 9.3 %) 4 Platelet Estimate (ADEQUATE) ADEQUATE Polychromasia 1+ Hypochromic-Microcytic 2+ Poikilocytosis 2+ Anisocytosis 1+ Microcytic Cells 1+ 05/22 05/22 05/22 0800 0701 0639 Chemistry Lactic Acid (0.7 - 2.1 mmol/L) 3.4 H Cancelled Toxicology Urine Opiates Screen (>2000 NG/ML) < 100 Methadone Screen (>300 NG/ML) < 40 Barbiturate Screen (>200 NG/ML) < 60 Ur Phencyclidine Scrn (>25 NG/ML) < 6.00 Amphetamines Screen (>1000 NG/ML) 305 U Benzodiazepines Scrn (>200 NG/ML) < 85 Urine Cocaine Screen (>300 NG/ML) < 50 Urine Cannabis Screen (>50 NG/ML) < 5.00 05/22 05/22 0618 0600 Chemistry Sodium (137 - 145 mmol/L) 134 L Potassium (3.5 - 5.1 mmol/L) 3.0 L Chloride (98 - 107 mmol/L) 108 H Carbon Dioxide (22 - 30 mmol/L) 18 L Anion Gap (5 - 16) 7 BUN (9 - 20 mg/dL) 28 H Creatinine (0.7 - 1.2 mg/dL) 0.8 Estimated GFR (>60 ml/min) > 60 BUN/Creatinine Ratio (7 - 25 %) 35.0 H Glucose (65 - 99 mg/dL) 105 H Lactic Acid (0.7 - 2.1 mmol/L) 3.7 H Calcium (8.4 - 10.2 mg/dL) 6.8 L Phosphorus (2.5 - 4.5 mg/dL) 2.6 Magnesium (1.6 - 2.3 mg/dL) 1.2 L Total Bilirubin (0.2 - 1.3 mg/dL) 1.1 AST (17 - 59 U/L) 163 H ALT (21 - 72 U/L) 61 Alkaline Phosphatase (< 127 U/L) 554 H Creatine Kinase (55 - 170 U/L) 178 H Troponin I (<0.11 ng/ml) < 0.01 Total Protein (6.3 - 8.2 g/dL) 4.5 L Albumin (3.5 - 5.0 g/dL) 1.8 L Globulin (1.9 - 4.2 gm/dL) 2.7 Albumin/Globulin Ratio (1.1 - 2.2 %) 0.7 L Hematology CBC w Diff MAN DIFF ORDERED WBC (4.8 - 10.8 /CUMM) 14.4 H RBC (4.70 - 6.10 /CUMM) 2.65 L Hgb (14.0 - 18.0 G/DL) 6.7 *L Hct (42 - 52 %) 20.4 L MCV (80.0 - 94.0 FL) 77.0 L MCH (27.0 - 31.0 PG) 25.5 L MCHC (33.0 - 37.0 G/DL) 33.1 RDW (11.5 - 14.5 %) 20.7 H Plt Count (130 - 400 /CUMM) 146 MPV (7.4 - 10.4 FL) 8.4 Segmented Neutrophils (42.2 - 75.2 %) 85 H Band Neutrophils (0.0 - 5.0 %) 10 H Lymphocytes (20.5 - 51.1 %) 3 L Monocytes (1.7 - 9.3 %) 2 Platelet Estimate (ADEQUATE) ADEQUATE Polychromasia 1+ Poikilocytosis 1+ Anisocytosis 1+ Microcytic Cells 1+ Ovalocytes 1+ Elliptocytes FEW Other Body Source Fld Total RBCs Counted (%) 100 Urines Urinalysis MOD H Urine Color (YEL,AMB,STR) YEL Urine Clarity (CLEAR) CLDY H Urine pH (5.0 - 8.0) 8.0 Ur Specific [place] (1.001 - 1.035) 1.020 Urine Protein (NEG,<30 MG/DL) >=300 H Urine Ketones (NEG) TRACE H Urine Nitrite (NEG) POS H Urine Bilirubin (NEG) NEG@ICTO Urine Urobilinogen (0.1 - 1.0 EU/dl) 2.0 H Ur Leukocyte Esterase (NEG) LARGE H Ur Microscopic SEDIMENT EXAMINED Urine RBC (0 - 5 /HPF) 25-50 H Urine WBC (0 - 2 /HPF) 50-75 H Urine Bacteria (NEG/NONE) MANY H Urine Mucus (FEW,NONE) FEW Micro UA Comment BUDDING YEAST H Urine Hemoglobin (NEG) LARGE H Urine Glucose (N MG/DL) NEG 05/22 0520 Blood Gas pH (7.35 - 7.45 PH) 7.48 H pCO2 (35 - 45 TORR) 24 L pO2 (80 - 100 TORR) 330 H HCO3 (21 - 28 MEQ/L) 17 L ABG O2 Sat (Measured) (>96.0 %) 99.0 P-50 (Temp Corrected) N Carboxyhemoglobin (1.5 - 5.0 %) 0.3 L O2 Concentration % 100 O2 Delivery Method NRB Miscellaneous Phlebotomy Draw Site RIGHT BRACHIAL Assessment/Plan Assessment/Plan Patient is progressive worsening. There is concern for polymicrobial sepsis. As such enteric process must be considered. No evidence of peritonitis which would warrant emergent surgical intervention. My impression is that this patient will unlikely survive any surgical intervention. His agrees. She declines surgical intervention regarding his appendix at this time. Recommend continued medical management of his polymicrobial bloodstream infection. Monitor examination for evidence of peritonitis.
[2018-05-24] VITALS: BP 104/62
[2018-05-24 05:11] LABS: HEMATOCRIT 24.2 % (42-52); MEAN CORPUSCULAR HGB 25.8 PG (27.0-31.0); MEAN CORPUSCULAR HGB CONC 33.1 G/DL (33.0-37.0); MEAN CORPUSCULAR VOLUME 77.7 FL (80.0-94.0); PLATELET COUNT 207 /CUMM (130-400); RBC DISTRIBUTION WIDTH 19.9 % (11.5-14.5); RED BLOOD CELL CT 3.11 /CUMM (4.70-6.10); WHITE BLOOD CELL COUNT 15.1 /CUMM (4.8-10.8)
--- NOTE | 2018-05-24 07:57 | Cons- Wound Care ---
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 He presented with a necrotic stage IV ulcer of the coccyx and unstageable large right buttock ulcer with 100% black eschar there is a smaller right posterior stage III ulcer present on admission. Patient remains hypotensive requiring pressors on broad-spectrum antibiotics. Allergies/Medications Allergies: Coded Allergies: No Known Allergies (02/09/18) Home Med List: Acetaminophen (Pain Relief) 325 MG TABLET 2 TAB PO Q6H PRN PAIN/TEMP>101 ( Reported) Acetaminophen (Acephen) 650 MG SUPP.RECT 1 SUPP [place] Q6H PRN PAIN/TEMP>101 ( Reported) Amoxicillin/Potassium Clav (Augmentin 875-125 Tablet) 875 MG-125 MG TABLET 1 TAB PO BID Pneumonia Atenolol 25 MG TABLET 1 TAB PO DAILY BP (Reported) Bisacodyl (Dulcolax) 10 MG SUPP.RECT 1 SUP RC DAILY PRN CONSTIPATION ( Reported) Donepezil HCl (Aricept) 10 MG TABLET 1 TAB PO DAILY DEMENTIA (Reported) Ferrous Sulfate 325 MG (65 MG IRON) TABLET 1 TAB PO BID supplement Guaifenesin (Cough Syrup) 100 MG/5 ML LIQUID 10 ML PO Q6H PRN COUGH/CONGESTION (Reported) Hyoscyamine Sulfate 125 MCG/5 ML ELIXIR 1 ML SL Q4H PRN SECRETIONS (Reported) Insulin Glargine,Hum.rec.anlog (Lantus Solostar) 100 UNIT/ML (3 ML) INSULN.PEN 15 UNITS SC QAM DM (Reported) Insulin Lispro (Humalog) 100 UNIT/ML VIAL 0 SC TID DM (Reported) BEFORE MEALS Blood Insulin Sugar Units <80 0 81-100 2 101-200 4 201-250 6 251-300 8 301-350 10 351-400 12 >400 Call Doctor AT BEDTIME Blood Insulin Sugar Units <80 0 81-100 0 80-150 No change 151-200 1 201-250 2 251-300 3 301-350 4 351-400 6 >400 8 units Call Doctor Insulin-Lantus (Lantus) 100 UNIT/ML VIAL 9 UNITS SQ QHS DM (Reported) Latanoprost 0.005 % DROPS 1 GTT OS QHS LEFT EYE (Reported) Levothyroxine Sodium 88 MCG TABLET 1 TAB PO DAILY HYPOTHYROIDISM (Reported) Magnesium Hydroxide (Milk Of Magnesia) 400 MG/5 ML ORAL.SUSP 30 ML PO Q3D PRN CONSTIPATION (Reported) Magnesium Oxide (Magnesium) 400 MG TABLET 1 TAB PO DAILY LOW ELECTROLYTES ( Reported) Melatonin 5 MG TABLET 1 TAB PO QPM SLEEP (Reported) Memantine HCl (Namenda) 10 MG TABLET 1 TAB PO DAILY DEMENTIA (Reported) Metformin HCl 1,000 MG TABLET 1 TAB PO BID DIABETES (Reported) Mirtazapine (Remeron) 15 MG TABLET 1 TAB PO QPM UNKNOWN (Reported) Naloxone HCl (Narcan) 4 MG/ACTUATION SPRAY 4 MG JESUS ALBERTO AD PRN OPIOID INDUCED RESP. DEPRESSIO (Reported) Ondansetron HCl (Zofran) 4 MG TABLET 1 TAB PO Q4H PRN N/V (Reported) Rivaroxaban (Xarelto) 20 MG TABLET 1 TAB PO QPM ? 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 Residential Facility Smoking Status: Unknown If Ever Smoked ETOH Use: 6 Illicit Drug Use: UTD Living Will? unknown Power of Cashier General/HCP? yes Name of POA/HCP: spouse Exam & Diagnostic Data Vital Signs and I&O Vital Signs Result Date Time Pulse Ox 93 05/24 040 O2 Delivery Nasal Cannula 05/24 400 O2 Flow Rate 4.0L 05/240 B/P 104/62 05/24 0000 Temp 98.0 05/24 0000 Pulse 96 05/24 0000 Resp 30 05/24 0000 Intake & Output 05/24 0000 / 1600 05/23 0800 Intake Total 315 455 9343.4 Output Total 1250 600 250 Balance -1014 39 1061.4 Intake, IV 324 909 8494.4 Intake, Oral 0 0 Number 0 1 Bowel Movements Output, Urine 1250 600 250 Exam of the coccyx shows there approximately to be a 3 x 3 cm necrotic stage IV decubitus ulcer with exposed bone wound is undermined circumferentially adjacent to it over the right buttock is a large unstageable necrotic ulcer measuring approximately 5 x 5 cm with 100% lack eschar there is odor present over the left posterior thigh is a small approximately one by one stage III pressure ulcer. CT scan of the pelvis shows evidence of soft tissue gas and osteomyelitis. Assessment/Plan Impression/Plan: 77-year-old with advanced dementia widely metastatic malignancy admitted with polymicrobial sepsis. Source may well be underlying soft tissue infection from his stage IV decubitus or necrotic right buttock ulcer. Patient is coagulopathic and overall clinical status makes aggressive surgical debridement unfeasible at this time. Should the patient improves and aggressive therapy wish to pursued formal surgical debridement and biopsy of exposed bone would be appropriate. In the interim recommend aggressive offloading with Clinitron bed which is being done pack necrotic decubitus ulcer with Dakin's moistened gauze quarter strength. Pending decision regarding surgical debridement right necrotic buttock wound can be covered with silver alginate. Topical enzymatic debridement likely to be of little benefit. [place] for healing is extremely poor given her overall condition metastatic disease and malnutrition Consult Acknowledgment - Thank you for your consult request.
--- NOTE | 2018-05-24 07:58 | PN- Resident CRCU ---
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 May 22, 2018 - Blood culture -enterococcus and gram-positive cocci Urine culture-multiple colonies, contamination LRTC-Klebsiella, yeast Objective Vital Signs & I&O Last 8 Hrs of Vitals and I&O: Vital signs-temperature 97.8, heart rate 104, normal sinus rhythm with frequent PVCs and PACs, respiratory rate 35, blood pressure 138/60, SPO2 98% of rebreather mask Blood workup-WBC 15.1, hemoglobin 8.0, hematocrit 24.2, platelets 207, serum sodium 141, potassium 3.6, chloride 111, carbon dioxide 21, anion gap 9, BUN 25, creatinine 1.1, serum glucose 79, vancomycin-11.5. Exam General Appearance: lethargic, mild distress Head: atraumatic Neck: supple, central line in right side of neck Respiratory: generalized crakles right > left; decreased air entry, Cardiovascular: regular rate/rhythm, tachycardia in between Gastrointestinal: soft , non tender, skin induration due to edema Extremities: chronic changes in extremeties Current Medications: Current Medications Sig/Nu Start time Last Medication Dose Route Stop Time Status Admin Albumin Human 25 GM Q8 05/22 0928 DC 05/23 IV 0517 Artificial Tears 2 GTT 4 TIMES/DAY 05/23 2121 05/24 OPH 0819 Dextrose/Sodium 1,000 ML Q10H 05/22 08 DC 05/23 Chloride IV 0101 Furosemide 20 MG 7:30 AM, & 4:30 PM 05/23 1230 AC 05/24 IV 0814 Insulin Aspart 0 TIDAC/HS 05/23 08 DC 05/23 SC 1231 Insulin Human Regular 0 Q6 05/23 2359 05/24 SC 0007 Magnesium Sulfate 1 GM ONCE ONE 05/24 0645 05/24 Dextrose/Water 100 ML IV 05/24 1044 0814 Norepinephrine 4 MG Q24H 05/23 1400 05/23 Dextrose/Water 250 ML IV 1638 Norepinephrine 4 MG Q8H 05/22 2200 DC 05/22 Dextrose/Water 250 ML IV 2326 Piperacillin Sod/ 3.375 GM Q6 05/22 2359 05/24 Tazobactam Sod IV 0553 Sodium Chloride 100 ML Potassium Chloride 20 MEQ ONCE ONE 05/24 08 DC IV 05/24 0801 Sodium Hypochlorite 1 ANETA DAILY 05/24 1015 UNVr TOP Vancomycin HCl 1,000 MG DAILY 05/23 09 05/24 Sodium Chloride 250 ML IV 0942 Impression/Plan Impression/Problem List Impression: Patient is 77-year-old male BIBA from [facility] after found unconscious. His vitals at the time - blood pressure 80/50, SPO2 75% on 2 L per nasal cannula, respiratory rate 16, temperature 96.9.F. His vitals night before was 116/60 and saturation 92% on 2 L of oxygen.He was following Dr. Ramires. Assessment and plan- Acute diastolic heart failure leading to pulmonary edema- * Given IV lasix as needed and started on Inj Lasix 40mg IV BID * Decreased IV fluids , stopped IV albumin * Continue Norepinephrine as needed. 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 (Pathology - primary hepatic carcinoma, a primary neuroendocrine neoplasm of the liver which is exceedingly rare, and a metastatic carcinoma with hepatoid differentiation) - * We will continue antibiotic injection piptaz/ vancomycin * Norepinephrine drip as needed with target blood pressure of more than 100/80 * Strict intake output charting * Stop IV fluids * Keep head end of the bed elevated * Aspiration precaution Multiple osteolytic lesion on the bone -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 - palliative management UTI and hematuria with baseline history of multiple bladder/renal stone - UC negative * Continue Antibiotics Large sacral decubitus ulcer with underlying osteomyelitis - * Wound care consult * Palliative care to the coccyx ulcer * Offloading * Packing with Aquacel AG * Right Decubitouse ulcer - barrier cream-thin DuoDERM changed every several days * Clinitrone bed Acute appendicitis, no clinical signs, unstable for surgery, undergoing conservative mananagement - treated conservatively * Blood culture is growing enetrococcus, gram negative rods and anaerobes cosnsitent with GI source, * Continue antibiotics * Watch fro clinical signs of peritonitis Dementia, metastatic cancer - Palliative care consult- * Will consider consult for Dr. Kirby History of NSVT, DVT (2017) - * We hold Xeralto because of acute anemia, will watch for bleeding. Anemia - 7.6 * will transfuse as needed Type 2 DM -Hx of recurrent hypoglycemia probably Liver dysfunction due to Metastasis or pancreatic metastasis or NETs * Finger stick - Q4 * Novalog according to sliding scale Code - FC Diet - NPO till pass swallow evaluation DVT prphylaxis - ALPS Problem List: 1. Unresponsive 2. Septic shock 3. Sepsis 4. KINZA (acute kidney injury) 5. Decubital ulcer Pain Ratin Tomorrow's Labs & Rationales: f/u CBC, ICU bundle Plan DVT/Prophylaxis: mechanical Carissa WASSERMAN,[facility] 05/24/18 0937: Attending MD Review Statement Attending Sign Off Attending Cosign Statement: I have: examined this patient, [facility] data, personally reviewd images, discussd w/resident/PA/[employer], discussed mgmt plan w/yulissa, discussed mgmt plan w/CM, discussed mgmt plan w/pt, agreed w/resident/PA/[employer], amended to note. Other Findings: Continues to do poorly Mental status is poor is aware Surg note reviewed Pt is a 77yo M w/ PMH of osteomyelitis of sacral bones, stage 4 coccyx ulcer, dementia, BPH (chronic indwelling altamirano catheter), HTN, DM, hypothyroidism, hx of DVT (2017?), poorly differenciated metastatic neuroenocrine malignancy liver vs lung with multiple bone mets, hisory of NSVT, Chronic anemia etc now with * Septic shock - Polymicrobial sepsis in a terminally ill pt - pna with sig osteo coccyx with intraabd sepsis due to appy probably - in the setting of worsening terminal malignancy, Ct sugg of mild appy and surg to see * Poor mental status multifactorial * Sig hypoglycemia due to prob sepsis and liver mets with poor liver synthetic function, vs neuroendocrine tumour secreting insulin like harmones * Advancing malignancy lung vs liver primary (neuroendocrine features) with multiple mets with a small effusion in the right not enought to safely tap PLAN cont iv abx, check cvp (keep at 8) Check glucose regulary Follow consultants note is aware and wishes the patient to be full code, and does not wish any primary rx for malignancy/ no surg for now Other rx as noted above PRog dismal Will discuss with the again If worse will intubate
[2018-05-24 08:00] VITALS: BP 138/60
--- NOTE | 2018-05-24 10:39 | PN- General Surgery ---
Subjective Subjective: patient stable overnight. he is nonverbal. no communication possible. remains tachypneic on levophed for hypotension. Review of Systems: unobtainable Objective Vital Signs and I&Os Vital Signs Date Time Temp Pulse Resp B/P B/P Pulse O2 O2 Flow FiO2 Mean Ox Delivery Rate 05/24 800 97.8 104 35 138/60 95 Nasal 4.0L Cannula 05/24 0800 94 Nasal 4.0L Cannula 05/24 0400 93 Nasal 4.0L Cannula 05/24 0000 94 Nasal 4.0L Cannula 05/24 0000 98.0 96 30 104/62 94 Nasal 4.0L Cannula 05/23 2052 96 Nasal 4.0L Cannula 05/23 2000 96 Nasal 4.0L Cannula 05/23 1638 93 106/50 05/23 1600 98.4 93 23 106/50 96 Nasal 4.0L Cannula 05/23 1600 96 Nasal 4.0L Cannula 05/23 1225 93 Nasal 4.0L Cannula 05/23 1200 95 Nasal 4.0L Cannula Intake & Output 05/24 1600 05/24 0800 05/24 0000 05/23 1600 05/23 0800 05/23 0000 Intake Total 292 327 654 9505.4 1290.8 Output Total 990 1250 600 250 150 Balance -698 -1014 39 1061.4 1140.8 Intake, IV 292 540 573 1884.4 1290.8 Intake, Oral 0 0 0 Number 0 0 1 2 Bowel Movements Output, Urine 990 1250 600 250 150 Physical Exam: gen; open mouth breathing. increased effort of breathing. moderate distress abd: soft, nontender, nondistended. no mass. Current Medications: Current Medications Sig/Nu Start time Last Medication Dose Route Stop Time Status Admin Albumin Human 25 GM Q8 05/22 0928 DC 05/23 IV 0517 Artificial Tears 2 GTT 4 TIMES/DAY 05/23 212 05/24 OPH 0819 Dextrose/Sodium 1,000 ML Q10H 05/22 800 DC 05/23 Chloride IV 0101 Furosemide 20 MG 7:30 AM, & 4:30 PM 05/23 1230 AC 05/24 IV 0814 Insulin Aspart 0 TIDAC/HS 05/23 800 DC 05/23 SC 1231 Insulin Human Regular 0 Q6 05/23 2359 05/24 SC 0007 Magnesium Sulfate 1 GM ONCE ONE 05/24 0645 05/24 Dextrose/Water 100 ML IV 05/24 1044 0814 Norepinephrine 4 MG Q24H 05/23 1400 AC 05/23 Dextrose/Water 250 ML IV 1638 Norepinephrine 4 MG Q8H 05/22 2200 DC 05/22 Dextrose/Water 250 ML IV 2326 Piperacillin Sod/ 3.375 GM Q6 05/22 2359 AC 05/24 Tazobactam Sod IV 0553 Sodium Chloride 100 ML Potassium Chloride 20 MEQ ONCE ONE 05/24 0800 DC 05/24 IV 05/24 0801 1032 Sodium Hypochlorite 1 ANETA DAILY 05/24 1015 05/24 TOP 1032 Vancomycin HCl 1,000 MG DAILY 05/23 09 05/24 Sodium Chloride 250 ML IV 0942 Results Last 48 Hours of Labs: Laboratory Tests 05/24 05/24 05/23 0812 0418 1637 Chemistry Sodium (137 - 145 mmol/L) 141 Cancelled Potassium (3.5 - 5.1 mmol/L) 3.6 Cancelled Chloride (98 - 107 mmol/L) 111 H Cancelled Carbon Dioxide (22 - 30 mmol/L) 21 L Cancelled Anion Gap (5 - 16) 9 Cancelled BUN (9 - 20 mg/dL) 25 H Cancelled Creatinine (0.7 - 1.2 mg/dL) 1.1 Cancelled Estimated GFR (>60 ml/min) > 60 Glucose (65 - 99 mg/dL) 79 Cancelled Lactic Acid (0.7 - 2.1 mmol/L) 1.3 Calcium (8.4 - 10.2 mg/dL) 7.7 L Cancelled Phosphorus (2.5 - 4.5 mg/dL) 2.7 Cancelled Magnesium (1.6 - 2.3 mg/dL) 1.6 Cancelled Total Bilirubin (0.2 - 1.3 mg/dL) 1.5 H Cancelled AST (17 - 59 U/L) 320 H Cancelled ALT (21 - 72 U/L) 57 Cancelled Albumin (3.5 - 5.0 g/dL) 2.7 L Cancelled Hematology CBC w Diff MAN DIFF ORDERED WBC (4.8 - 10.8 /CUMM) 15.1 H RBC (4.70 - 6.10 /CUMM) 3.11 L Hgb (14.0 - 18.0 G/DL) 8.0 L Hct (42 - 52 %) 24.2 L MCV (80.0 - 94.0 FL) 77.7 L MCH (27.0 - 31.0 PG) 25.8 L MCHC (33.0 - 37.0 G/DL) 33.1 RDW (11.5 - 14.5 %) 19.9 H Plt Count (130 - 400 /CUMM) 207 MPV (7.4 - 10.4 FL) 8.0 Segmented Neutrophils (42.2 - 75.2 %) 86 H Band Neutrophils (0.0 - 5.0 %) 2 Lymphocytes (20.5 - 51.1 %) 8 L Monocytes (1.7 - 9.3 %) 3 Eosinophils (0 - 5.0 %) 1 Platelet Estimate (ADEQUATE) ADEQUATE Polychromasia 1+ Poikilocytosis 1+ Anisocytosis 1+ Microcytic Cells 1+ Target Cells FEW Ovalocytes 1+ Elliptocytes FEW Other Body Source Fld Total RBCs Counted (%) 100 Toxicology Vancomycin Trough (10.0 - 20.0 ug/mL) 11.5 05/23 05/23 05/23 05/22 1637 0402 0400 1120 Chemistry Sodium (137 - 145 mmol/L) 138 137 Potassium (3.5 - 5.1 mmol/L) 3.8 3.3 L Chloride (98 - 107 mmol/L) 109 H 109 H Carbon Dioxide (22 - 30 mmol/L) 19 L 16 L Anion Gap (5 - 16) 10 13 BUN (9 - 20 mg/dL) 24 H 24 H Creatinine (0.7 - 1.2 mg/dL) 1.0 0.9 Estimated GFR (>60 ml/min) > 60 > 60 Glucose (65 - 99 mg/dL) 131 H 187 H Insulin Level (3.0 - 25.0 mIU/mL) 14.2 C-Peptide Pending Lactic Acid (0.7 - 2.1 mmol/L) 2.6 H Calcium (8.4 - 10.2 mg/dL) 7.6 L 7.7 L Phosphorus (2.5 - 4.5 mg/dL) 2.8 2.7 Magnesium (1.6 - 2.3 mg/dL) 1.7 1.6 Total Bilirubin (0.2 - 1.3 mg/dL) 1.6 H 1.6 H AST (17 - 59 U/L) 326 H 331 H ALT (21 - 72 U/L) 62 63 Alkaline Phosphatase (< 127 U/L) 456 H Troponin I (<0.11 ng/ml) 0.10 Albumin (3.5 - 5.0 g/dL) 2.8 L 2.6 L Hematology CBC w Diff MAN DIFF ORDERED WBC (4.8 - 10.8 /CUMM) 15.6 H RBC (4.70 - 6.10 /CUMM) 2.91 L Hgb (14.0 - 18.0 G/DL) 7.6 L Hct (42 - 52 %) 22.9 L MCV (80.0 - 94.0 FL) 78.7 L MCH (27.0 - 31.0 PG) 26.2 L MCHC (33.0 - 37.0 G/DL) 33.3 RDW (11.5 - 14.5 %) 20.3 H Plt Count (130 - 400 /CUMM) 237 MPV (7.4 - 10.4 FL) 7.8 Segmented Neutrophils (42.2 - 75.2 %) 83 H Band Neutrophils (0.0 - 5.0 %) 5 Lymphocytes (20.5 - 51.1 %) 8 L Monocytes (1.7 - 9.3 %) 4 Platelet Estimate (ADEQUATE) ADEQUATE Polychromasia 1+ Hypochromic-Microcytic 1+ Poikilocytosis 1+ 05/22 05/22 1120 1120 Chemistry Sodium (137 - 145 mmol/L) 134 L Potassium (3.5 - 5.1 mmol/L) 3.4 L Chloride (98 - 107 mmol/L) 107 Carbon Dioxide (22 - 30 mmol/L) 18 L Anion Gap (5 - 16) 9 BUN (9 - 20 mg/dL) 26 H Creatinine (0.7 - 1.2 mg/dL) 0.9 Estimated GFR (>60 ml/min) > 60 Glucose (65 - 99 mg/dL) 185 H Calcium (8.4 - 10.2 mg/dL) 7.4 L Phosphorus (2.5 - 4.5 mg/dL) 2.9 Magnesium (1.6 - 2.3 mg/dL) 1.9 Total Bilirubin (0.2 - 1.3 mg/dL) 1.9 H AST (17 - 59 U/L) 250 H ALT (21 - 72 U/L) 61 Ammonia (9 - 30 umol/L) 22 Albumin (3.5 - 5.0 g/dL) 2.4 L TSH &T3 &Free T4 Intrp (0.27 - 4.20 uIU/mL) 3.030 Coagulation PT (9.4 - 12.5 SEC) 27.4 H INR (0.90 - 1.17) 2.49 H Hematology CBC w Diff MAN DIFF ORDERED WBC (4.8 - 10.8 /CUMM) 28.5 H RBC (4.70 - 6.10 /CUMM) 3.05 L Hgb (14.0 - 18.0 G/DL) 8.1 L Hct (42 - 52 %) 24.0 L MCV (80.0 - 94.0 FL) 78.9 L MCH (27.0 - 31.0 PG) 26.6 L MCHC (33.0 - 37.0 G/DL) 33.7 RDW (11.5 - 14.5 %) 20.1 H Plt Count (130 - 400 /CUMM) 274 MPV (7.4 - 10.4 FL) 8.2 Segmented Neutrophils (42.2 - 75.2 %) 77 H Band Neutrophils (0.0 - 5.0 %) 15 H Lymphocytes (20.5 - 51.1 %) 4 L Monocytes (1.7 - 9.3 %) 4 Platelet Estimate (ADEQUATE) ADEQUATE Polychromasia 1+ Hypochromic-Microcytic 2+ Poikilocytosis 2+ Anisocytosis 1+ Microcytic Cells 1+ Assessment/Plan Assessment/Plan Stable sepsis on pressors and with respiratory failure on nasal cannula oxygen. his abdomen examination remains without peritonitis. Blood cultures appear to be enterococcus with gram neg rods and anaerobes, c/w enteric source. Continue broad spectrum antibiotics, serial abdominal examination.
--- NOTE | 2018-05-24 11:03 | ECHOCARDIOGRAM REPORT ---
JUANA LEON Age: 77 : 1940 Gender: M Exam Date: 05/23/2018 15:14 Exam Location: [facility] Ht (in): 66 Wt (lb): 143 BSA: 1.74 BP: 110 / 52 Ordering Physician: Ham Arreola MD Referring Physician: Larry Gallegos MD Technologist: Angie Roque [facility] Room Number: 109 Indications: Heart failure Rhythm: baseline artifact Technical Quality: Fair FINDINGS Left Ventricle Normal size left ventricle. Borderline concentric left ventricular hypertrophy. Normal left ventricular ejection fraction visually estimated at >60%. No obvious regional wall motion abnormalities. Right Ventricle Normal right ventricular size and function. Right Atrium Normal right atrial size. Left Atrium Normal left atrial size. Mitral Valve Mitral valve thickened. Moderate mitral annular calcification. Mild mitral regurgitation. Aortic Valve Diffuse thickening (sclerosis) of the aortic valve cusps without reduced excursion. Mild aortic regurgitation. No aortic stenosis. Tricuspid Valve Tricuspid valve not well visualized, grossly normal. No evidence of pulmonary hypertension. Mild tricuspid regurgitation. Pulmonic Valve Pulmonic valve not well visualized, grossly normal. Trace pulmonic regurgitation. Pericardium No pericardial effusion. Great Vessels Normal size aortic root. CONCLUSIONS Normal size left ventricle. Borderline concentric left ventricular hypertrophy. Normal left ventricular ejection fraction visually estimated at > 60%. Moderate mitral annular calcification. Mild mitral regurgitation. Mild aortic regurgitation. Diffuse thickening (sclerosis) of the aortic valve cusps without reduced excursion. Mild tricuspid regurgitation. Larry Gallegos M.D. (Electronically Signed) Final Date: 24 May 2018 10:57 MEASUREMENTS (Male / Female) Normal Values 2D ECHO LV Diastolic Diameter PLAX 4.0 cm 4.2 - 5.9 / 3.9 - 5.3 cm LV Systolic Diameter PLAX 2.1 cm 2.1 - 4.0 cm LV Fractional Shortening PLAX 47.5 % 25 - 46 % LV Ejection Fraction 2D Teich 79.4 % IVS Diastolic Thickness 1.1 cm LVPW Diastolic Thickness 1.2 cm LV Relative Wall Thickness 0.6 RV Internal Dim ED PLAX 2.6 cm 1.9 - 3.8 cm LVOT Diameter 1.9 cm Aortic Root Diameter 3.2 cm LA Systolic Diameter LX 3.8 cm 3.0 - 4.0 / 2.7 - 3.8 cm LA Volume 47.0 cm 18 - 58 / 22 - 52 cm Ascending Aorta Diameter 3.2 cm DOPPLER AV Peak Velocity 158.0 cm/s AV Peak Gradient 10.0 mmHg AV Mean Velocity 108.0 cm/s AV Mean Gradient 6.0 mmHg AV Velocity Time Integral 34.0 cm LVOT Peak Velocity 141.0 cm/s LVOT Peak Gradient 8.0 mmHg LVOT Mean Velocity 100.0 cm/s LVOT Mean Gradient 4.0 mmHg LVOT Velocity Time Integral 30.4 cm LVOT Stroke Volume 86.2 cm AV Area Cont Eq vti 2.5 cm AV Area Cont Eq pk 2.5 cm MV Peak Velocity 174.0 cm/s MV Peak Gradient 12.1 mmHg MV Mean Velocity 119.0 cm/s MV Mean Gradient 6.0 mmHg Mitral E Point Velocity 170.0 cm/s Mitral A Point Velocity 167.0 cm/s Mitral E to A Ratio 1.0 MV PHT Velocity 181.0 cm/s MV Deceleration Ashe 751.0 cm/s MV Pressure Half Time 72.3 ms MV Area PHT 3.0 cm MV Deceleration Time 254.0 ms TR Peak Velocity 269.0 cm/s TR Peak Gradient 28.9 mmHg Right Atrial Pressure 5.0 mmHg Pulmonary Artery Systolic Pressure 33.9 mmHg Right Ventricular Systolic Pressure 33.9 mmHg PV Peak Velocity 99.1 cm/s PV Peak Gradient 3.9 mmHg PV Mean Velocity 62.7 cm/s PV Mean Gradient 2.0 mmHg PV Velocity Time Integral 18.1 cm LV E' Lateral Velocity 5.9 cm/s Mitral E to LV E' Lateral Ratio 28.6 LV E' Septal Velocity 4.8 cm/s Mitral E to LV E' Septal Ratio 35.6
[2018-05-24 12:00] VITALS: BP 92/0
--- NOTE | 2018-05-24 12:22 | PN- Infect Dx ---
Subjective Subjective: Afebrile. He is unable to provide any history secondary to his dementia and intubated status. His blood pressure is stable off pressors Objective Last 24 Hrs of Vital Signs/I&O Vital Signs Date Time Temp Pulse Resp B/P B/P Pulse O2 O2 Flow FiO2 Mean Ox Delivery Rate 05/24 1207 94 BIPAP 40% 05/24 1140 94 94 05/24 0800 97.8 104 35 138/60 95 Nasal 4.0L Cannula 05/24 0800 94 Nasal 4.0L Cannula 05/24 0400 93 Nasal 4.0L Cannula 05/24 0000 94 Nasal 4.0L Cannula 05/24 0000 98.0 96 30 104/62 94 Nasal 4.0L Cannula 05/23 2052 96 Nasal 4.0L Cannula 05/23 2000 96 Nasal 4.0L Cannula 05/23 1638 93 106/50 05/23 1600 98.4 93 23 106/50 96 Nasal 4.0L Cannula 05/23 1600 96 Nasal 4.0L Cannula 05/23 1225 93 Nasal 4.0L Cannula Intake & Output 05/24 1600 05/24 0800 05/24 0000 Intake Total 292 236 Output Total 990 1250 Balance -698 -1014 Intake, IV 292 236 Number 0 Bowel Movements Output, Urine 990 1250 Physical Exam Other Physical Findings: He is awake but not responsive on the ventilator Neck right IJ triple-lumen catheter with no inflammation at the site Lungs bilateral crackles Heart regular rhythm with no murmur Abdomen is soft, with no obvious tenderness, positive bowel sounds Back necrotic sacral decubitus, with no surrounding erythema Extremities no cyanosis, clubbing or edema Cameron catheter remains in place Results Last 24 Hours of Lab Results: Laboratory Tests 05/24 05/24 05/23 0812 0418 1637 Chemistry Sodium (137 - 145 mmol/L) 141 Cancelled Potassium (3.5 - 5.1 mmol/L) 3.6 Cancelled Chloride (98 - 107 mmol/L) 111 H Cancelled Carbon Dioxide (22 - 30 mmol/L) 21 L Cancelled Anion Gap (5 - 16) 9 Cancelled BUN (9 - 20 mg/dL) 25 H Cancelled Creatinine (0.7 - 1.2 mg/dL) 1.1 Cancelled Estimated GFR (>60 ml/min) > 60 Glucose (65 - 99 mg/dL) 79 Cancelled Lactic Acid (0.7 - 2.1 mmol/L) 1.3 Calcium (8.4 - 10.2 mg/dL) 7.7 L Cancelled Phosphorus (2.5 - 4.5 mg/dL) 2.7 Cancelled Magnesium (1.6 - 2.3 mg/dL) 1.6 Cancelled Total Bilirubin (0.2 - 1.3 mg/dL) 1.5 H Cancelled AST (17 - 59 U/L) 320 H Cancelled ALT (21 - 72 U/L) 57 Cancelled Albumin (3.5 - 5.0 g/dL) 2.7 L Cancelled Hematology CBC w Diff MAN DIFF ORDERED WBC (4.8 - 10.8 /CUMM) 15.1 H RBC (4.70 - 6.10 /CUMM) 3.11 L Hgb (14.0 - 18.0 G/DL) 8.0 L Hct (42 - 52 %) 24.2 L MCV (80.0 - 94.0 FL) 77.7 L MCH (27.0 - 31.0 PG) 25.8 L MCHC (33.0 - 37.0 G/DL) 33.1 RDW (11.5 - 14.5 %) 19.9 H Plt Count (130 - 400 /CUMM) 207 MPV (7.4 - 10.4 FL) 8.0 Segmented Neutrophils (42.2 - 75.2 %) 86 H Band Neutrophils (0.0 - 5.0 %) 2 Lymphocytes (20.5 - 51.1 %) 8 L Monocytes (1.7 - 9.3 %) 3 Eosinophils (0 - 5.0 %) 1 Platelet Estimate (ADEQUATE) ADEQUATE Polychromasia 1+ Poikilocytosis 1+ Anisocytosis 1+ Microcytic Cells 1+ Target Cells FEW Ovalocytes 1+ Elliptocytes FEW Other Body Source Fld Total RBCs Counted (%) 100 Toxicology Vancomycin Trough (10.0 - 20.0 ug/mL) 11.5 09/10 1637 Chemistry Sodium (137 - 145 mmol/L) 138 Potassium (3.5 - 5.1 mmol/L) 3.8 Chloride (98 - 107 mmol/L) 109 H Carbon Dioxide (22 - 30 mmol/L) 19 L Anion Gap (5 - 16) 10 BUN (9 - 20 mg/dL) 24 H Creatinine (0.7 - 1.2 mg/dL) 1.0 Estimated GFR (>60 ml/min) > 60 Glucose (65 - 99 mg/dL) 131 H Calcium (8.4 - 10.2 mg/dL) 7.6 L Phosphorus (2.5 - 4.5 mg/dL) 2.8 Magnesium (1.6 - 2.3 mg/dL) 1.7 Total Bilirubin (0.2 - 1.3 mg/dL) 1.6 H AST (17 - 59 U/L) 326 H ALT (21 - 72 U/L) 62 Troponin I (<0.11 ng/ml) 0.10 Albumin (3.5 - 5.0 g/dL) 2.8 L Last 24 Hours of Andrés Results: Sputum culture May 22 positive for Klebsiella resistant to Ampicillin and yeast Blood cultures 2 May 22 positive for Enterococcus, a second gram-positive cocci and gram-negative rods Urine culture May 22 multiple colony types consistent with contamination Assessment/Plan ID Impression: Overall status is poor, though his temperatures remain normal and his white blood cell count has decreased, on Vancomycin and Zosyn for polymicrobial sepsis , most likely secondary to the necrotic sacral decubitus, which will require debridement if aggressive management is to be continued. Other possible sources of sepsis include appendicitis, given the CT findings, and a urinary tract infection, with an indwelling Cameron catheter prior to admission and right-sided nephrolithiasis. Given his underlying dementia and metastatic cancer feel that reevaluation of the overall level of care would be most appropriate. Suggestion: 1. Would pursue comfort measures given his poor prognosis 2. If plan to continue aggressive measures will need debridement of his sacral decubitus 3. Follow-up final cultures 4. Continue Vancomycin and Zosyn pending above
[2018-05-24 16:00] VITALS: BP 118/62
--- NOTE | 2018-05-24 16:34 | Event Note ---
Event Note Event Note: Discussed with the Ryanne Robison in detail about the patient's clinical status including septicemia, shock, requirement of the BiPAP secondary to recurrent diastolic heart failure, pressure support.We told that he may need debridement of the decubitus ulcer because of underlying osteomyelitis.She does not wanted any interventions and even does not want patient to be on the BiPAP. She was aware that he cannot undergo surgery because of the multiple comorbidities. She understood that patient is having disseminated malignancy which is not treatable. His prognosis poor.She did not want any intervention including future endotracheal intubation and resuscitation. She wanted patient to become comfortable.We told that, we respect her wishes and will change the CODE STATUS to comfort measure. We told that we can give him medication including opioid and benzodiazepine to make him comfortable. She was agreed with the plan. I had this conversation while the nurse Rebecca was there. We repeated everything and made her clear what she want and how can we help her. She understands what is comfort measures. She understands that end result, will be patient will be the . I told that if she changed her decision and again wants to reintroduce treatment than patient may need intubation. She understood it well. She wanted us to give some sedation, before we disconnect the BIPAP. She discussed with me about the plans of cremation. She was expecting that he may at 8:00PM. I told her, that it may take hrs or sometimes days. I also asked her if she consider [facility]. She refused and told us that she doesnt want to meet new group of care givers. She want to stay in ICU. Dr. Ferrer is aware.
--- NOTE | 2018-05-24 17:46 | Discharge Summary ---
Visit Information Visit Dates Admission Date: 05/22/18 Discharge Date: 06/01/2018 Hospital Course Course Attending Physician: Carissa WASSERMAN,Landon Pearson Primary Care Physician: Shannon Hedrick MD Hospital Course: Patient is 77-year-old male BIBA from [facility] after found unconscious. His vitals at the time of admission - blood pressure 80/50, SPO2 75% on 2 L per nasal cannula, respiratory rate 16, temperature 96.9.F. We admitted the patient to the ICU and treated for septicemia and shock and started on broad-spectrum antibiotic and pressure support. He continued to deteriorate. His blood culture was showing multiple bacteria, and CT scan showed evidence of appendicitis. We obtained a consult from surgery advised for conservative management, as patient was not stable for the surgery.We consulted wound care, they advised for possible debridement of decubitus ulcer as patient was having underlying osteomyelitis. Patient underwent multiple episodes of diastolic heart failure needed BiPAP. Discussed with the Ryanne Robison in detail about the patient's clinical status including septicemia, shock, requirement of the BiPAP secondary to recurrent diastolic heart failure, pressure support.We told that he may need debridement of the decubitus ulcer because of underlying osteomyelitis.She does not wanted any interventions and even does not want patient to be on the BiPAP. She was aware that he cannot undergo surgery because of the multiple comorbidities. She understood that patient is having disseminated malignancy which is not treatable. His prognosis poor.She did not want any intervention including future endotracheal intubation and resuscitation. She wanted patient to become comfortable. We told that, we respect her wishes and will change the CODE STATUS to comfort measure. 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 Acute appendicitis entering conservative management Dementia History of NSVT, DVT Xarelto on hold Anemia Type 2 diabetes with history of recurrent hypoglycemia probably due to liver involvement by NETs Additional Diagnosis: 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;Multiple bony lytic lesion Right-sided nephrolithiasis (right renal pelvis, distal ureteral), no hydronephrosis Hypothyroidism Hypertension BPH chronic indwelling Cameron catheter Stage IV coccygeal ulcer Coronary artery disease, history of CABG Discharge Disposition: SNF Discharge Instructions General Discharge Information Code Status: Comfort Care Only Patient's Diet: n/a Patient's Activity: n/a Follow-Up Instructions/Appts: n/a Copies To: Ryley WASSERMAN,Shannon Alcocer Attending MD Review Statement Documenting Attending: Carissa WASSERMAN,Landon Pearson Other Findings: Patient transitioned to hospice as per wishes.
[2018-05-25] VITALS: BP 92/60
[2018-05-25 08:00] VITALS: BP 106/60
--- NOTE | 2018-05-25 10:18 | PN- Resident CRCU ---
Impression/Plan Plan DVT/Prophylaxis: mechanical Code Status: Comfort Care Only
--- NOTE | 2018-05-25 11:31 | PN- Housestaff ---
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 Vital signs are stable. Review of Systems Constitutional: Reports: see HPI. Objective Last 24 Hrs of Vital Signs/I&O Vital Signs Date Time Temp Pulse Resp B/P B/P Pulse O2 O2 Flow FiO2 Mean Ox Delivery Rate 05/25 08 97.4 96 18 106/60 99 Nasal 4.0L Cannula 05/25 0800 98 Nasal 4.0L Cannula 05/25 0000 99 Nasal 4.0L Cannula 05/25 0000 97.5 104 28 92/60 99 Nasal 4.0L Cannula 05/24 2000 Nasal 4.0L Cannula 05/24 1706 89 99 05/24 1600 97.6 88 26 118/62 100 BIPAP 40% 05/24 1600 100 BIPAP 40% 05/24 1426 85 98 05/24 1207 94 BIPAP 40% 05/24 1200 95 BIPAP 40% 05/24 1200 97.8 92 37 92/0 95 Aerosol 40% Mask 05/24 1140 94 94 Intake & Output 05/25 1600 05/25 0800 05/25 0000 Intake Total 0 Output Total 1300 100 Balance -1300 -100 Intake, Oral 0 Output, Urine 1300 100 Physical Exam General Appearance: No Acute Distress Skin: No Rashes Cardiovascular: Regular Rate, Normal S1, Normal S2, No Murmurs Lungs: Clear to Auscultation Abdomen: Normal Bowel Sounds Assessment/Plan Assessment: Comfort measures -Continue morphine 2 mg every hour as needed anxiety agitation -Continue lorazepam IV 1 mg every hour as needed acute anxiety agitation -Continue scopolamine patch -Consider discontinuing Lasix -Continue normal saline nasal spray and he tears for comfort - is not interested in hospice evaluation Problem List: 1. Septic shock Pain Ratin Pain Location: n/a Pain Goal: Pain 4 or less Pain Plan: See medication Tomorrow's Labs & Rationales: None Landon Ferrer MD 05/25/18 1404: Attending MD Review Statement Attending Statement Attending MD Statement: examined this patient, discuss w/resident/PA/OUTSIDE CUTTER HAND, agreed w/resident/PA/OUTSIDE CUTTER HAND, discussed with family, reviewed EMR data (avail), discussed with nursing, discussed with case mgmt, reviewed images, amended to note Attending Assessment/Plan: Events and data reviewed Pt is comfort care Stop lorazepam Morphine prn DC all other meds Ok with scopalamine If still has secretions, nebs tid ipratropium Ok to the floor
[2018-05-25 15:53] VITALS: BP 110/70
[2018-05-26] VITALS: BP 110/70
[2018-05-26 08:00] VITALS: BP 114/60
--- NOTE | 2018-05-26 09:22 | PN- Housestaff ---
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 Vitals stable. No overnight events. Continue Morphine for compfort care. Review of Systems Constitutional: Reports: see HPI. Objective Last 24 Hrs of Vital Signs/I&O Vital Signs Date Time Temp Pulse Resp B/P B/P Pulse O2 O2 Flow FiO2 Mean Ox Delivery Rate 05/26 08 97.5 100 20 114/60 97 Nasal 4.0L Cannula 05/26 0800 97 Nasal 4.0L Cannula 05/26 0000 97 Nasal 4.0L Cannula 05/26 0000 96.7 91 22 110/70 97 Nasal 4.0L Cannula 05/25 2108 Nasal 4.0L Cannula 05/25 1556 99 Nasal 4.0L Cannula 05/25 1553 96.4 98 28 110/70 99 Nasal 4.0L Cannula Intake & Output 05/26 1600 05/26 0800 05/26 0000 Intake Total 0 Output Total 300 400 Balance -300 -400 Intake, IV 0 Number 0 Bowel Movements Output, Urine 300 400 Physical Exam General Appearance: No Acute Distress Skin: No Rashes Cardiovascular: Regular Rate, Normal S1, Normal S2, No Murmurs Lungs: Normal Air Movement, Bilateral ronchi Abdomen: Normal Bowel Sounds, Soft Assessment/Plan Assessment: Comfort measures -Continue morphine 2 mg every hour as needed anxiety agitation -Ipratropium nebs for secrtions -Continue normal saline nasal spray and he tears for comfort - is not interested in hospice evaluation Problem List: 1. Sepsis Pain Ratin Pain Location: N/A Pain Goal: Pain 4 or less Pain Plan: Morphine Tomorrow's Labs & Rationales: N/A
[2018-05-26 16:00] VITALS: BP 108/58
[2018-05-27 06:21] VITALS: BP 100/58
--- NOTE | 2018-05-27 07:22 | PN- Housestaff ---
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 He was resting comfortably. His was not at the bedside this morning. The patient is unresponsive. The nurse reports he responds to his name at times. Review of Systems Constitutional: Reports: see HPI. Objective Last 24 Hrs of Vital Signs/I&O Vital Signs Date Time Temp Pulse Resp B/P B/P Pulse O2 O2 Flow FiO2 Mean Ox Delivery Rate 05/27 0621 98.0 77 18 100/58 96 05/27 0000 Nasal 4.0L Cannula 05/26 2120 Nasal 4.0L Cannula 05/26 1600 97.8 88 18 108/58 97 Nasal 4.0L Cannula 05/26 1600 96 Nasal 4.0L Cannula 05/26 0910 94 Nasal 4.0L Cannula Intake & Output 05/27 1600 05/27 0800 05/27 0000 Intake Total 320 40 Output Total 250 150 Balance 70 -110 Intake, IV 320 40 Output, Urine 250 150 Physical Exam General Appearance: Alert, Oriented X3, Cooperative, No Acute Distress Neck: Supple Cardiovascular: Regular Rate, Normal S1, Normal S2, No Murmurs Lungs: Clear to Auscultation, bilateral crackles Assessment/Plan Assessment: 77yo M w/ PMH of dementia (mostly non-verbal), BPH (chronic indwelling altamirano catheter), HTN, DM2, hypothyroidism, hx of DVT previously on Xarelto, poorly differentiated metastatic lung cancer, chronic anemia secondary to metastatic lung cancer and 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 Patient was admitted to the ICU for septicemia and started on broad spectrum antibiotics. He continued to deteriorate. He was found to have appendicitis but was recommended conservative management by surgery given his medical condition. His refused debridement of his sacral ulcer. He was trasferred to [facility] service overnight for continuation of comfort measures. Plan: Comfort measures -Continue morphine 2 mg every hour as needed anxiety agitation -Ipratropium nebs for secrtions -Continue normal saline nasal spray and he tears for comfort - is not interested in hospice evaluation Problem List: 1. Unresponsive 2. Septic shock 3. Sepsis 4. Decubitus ulcer 5. Appendicitis Pain Ratin Pain Location: none Pain Goal: Remain pain free Pain Plan: comfort meausres Tomorrow's Labs & Rationales: none Ruth AnnAbelardo cortes 05/27/18 1040: Attending MD Review Statement Attending Statement Attending MD Statement: examined this patient, discuss w/resident/PA/PHONE TRIAGE SPECIALIST, agreed w/resident/PA/PHONE TRIAGE SPECIALIST, discussed with family, reviewed EMR data (avail), discussed with nursing, discussed with case mgmt, reviewed images, amended to note Attending Assessment/Plan: Continue comfort care Per patient's 's wishes patient on IV fluids low rate Patient is not interested in hospice evaluation as she does not believe in complete hospice care.
[2018-05-27 14:52] VITALS: BP 105/50
[2018-05-27 22:26] VITALS: BP 90/40
[2018-05-28 06:06] VITALS: BP 110/58
--- NOTE | 2018-05-28 09:12 | PN- Housestaff ---
See Addendum Subjective Follow-up For: Comfort care Subjective: Patient seen and examined. Unresponsive. Currently on comfort care. No acute distress. No overnight acute events reported. Review of Systems Constitutional: Reports: see HPI. Objective Last 24 Hrs of Vital Signs/I&O Vital Signs Date Time Temp Pulse Resp B/P B/P Pulse O2 O2 Flow FiO2 Mean Ox Delivery Rate 05/28 1003 94 Nasal 4.0L Cannula 05/28 0800 96 Nasal 3.5L Cannula 05/28 0606 99.3 115 22 110/58 96 Nasal 4.0L Cannula 05/28 0000 95 Nasal 4.0L Cannula 05/27 2226 99.9 118 18 90/40 95 Nasal Cannula 05/27 1658 97 Nasal 4.0L Cannula 05/27 1600 Nasal 4.0L Cannula 05/27 1452 98.2 73 18 105/50 94 Nasal Cannula 05/27 1206 Nasal 4.0L Cannula Intake & Output 05/28 1600 05/28 0800 05/28 0000 Intake Total 320 280 Output Total 100 50 Balance 220 230 Intake, IV 320 280 Intake, Oral 0 0 Number 0 Bowel Movements Output, Urine 100 50 Physical Exam General Appearance: No Acute Distress Cardiovascular: Normal S1, Normal S2 Current Medications: Current Medications Sig/Nu Start time Last Medication Dose Route Stop Time Status Admin Artificial Tears 2 GTT 4 TIMES/DAY 05/23 2121 AC 05/28 OPH 1035 Dextrose/Sodium 1,000 ML Q20H 05/26 1345 AC 05/26 Chloride IV 1343 Ipratropium [place] 2.5 ML TID 05/25 2100 AC INH Morphine Sulfate 2 MG Q1P PRN 05/24 1700 AC 05/28 IV 0113 Sodium Chloride 2 SPRAY Q4P PRN 05/24 1115 AC JESUS ALBERTO Sodium Hypochlorite 1 ANETA DAILY 05/24 1015 AC 05/28 TOP 1036 Assessment/Plan Assessment: 77yo M w/ PMH of dementia (mostly non-verbal), BPH (chronic indwelling altamirano catheter), HTN, DM2, hypothyroidism, hx of DVT previously on Xarelto, poorly differentiated metastatic lung cancer, chronic anemia secondary to metastatic lung cancer and 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 Patient was admitted to the ICU for septicemia and started on broad spectrum antibiotics. He continued to deteriorate. He was found to have appendicitis but was recommended conservative management by surgery given his medical condition. His refused debridement of his sacral ulcer. He was trasferred to [facility] service overnight for continuation of comfort measures. Plan: -Comfort measures -Continue morphine 2 mg every hour as needed anxiety agitation -Ipratropium nebs for secrtions -Continue normal saline nasal spray and he tears for comfort - is not interested in hospice evaluation Problem List: 1. Septic shock Pain Ratin Pain Location: NA Pain Goal: Remain pain free Pain Plan: NA Tomorrow's Labs & Rationales: NONE
[2018-05-28 14:59] VITALS: BP 128/60
[2018-05-29 05:55] VITALS: BP 118/58
--- NOTE | 2018-05-29 08:37 | PN- Housestaff ---
See Addendum Subjective Follow-up For: Sepsis Unresponsiveness Subjective: Patient was seen and examined at bedside. No acute events overnight. The patient is still unresponsive. Will discuss further plan of care with the . Review of Systems Constitutional: Reports: see HPI. Objective Last 24 Hrs of Vital Signs/I&O Vital Signs Date Time Temp Pulse Resp B/P B/P Pulse O2 O2 Flow FiO2 Mean Ox Delivery Rate 05/29 0555 98.4 107 18 118/58 95 Nasal 3.5L Cannula 05/28 2344 86 Nasal 3.5L Cannula 05/28 1459 98.9 78 16 128/60 86 Nasal 4.0L Cannula Intake & Output 05/29 1600 05/29 0800 05/29 0000 Intake Total 320 160 Output Total 100 Balance 220 160 Intake, IV 320 160 Intake, Oral 0 Output, Urine 100 Physical Exam General Appearance: Unresponsive Cardiovascular: Regular Rate, Normal S1, Normal S2 Lungs: Clear to Auscultation Abdomen: Normal Bowel Sounds, Soft Extremities: No Edema, Normal Pulses Assessment/Plan Assessment: 77yo M w/ PMH of dementia (mostly non-verbal), BPH (chronic indwelling altamirano catheter), HTN, DM2, hypothyroidism, hx of DVT previously on Xarelto, poorly differentiated metastatic lung cancer, chronic anemia secondary to metastatic lung cancer and stage IV coccygeal ulcer with underlying osteomyelitis [facility] Patient was admitted to the ICU for septicemia and started on broad spectrum antibiotics. He continued to deteriorate. He was found to have appendicitis but was recommended conservative management by surgery given his medical condition. His refused debridement of his sacral ulcer. He was trasferred to [facility] service overnight for continuation of comfort measures. Plan: -Comfort measures -Continue morphine 2 mg every hour as needed anxiety agitation -Ipratropium nebs for secrtions -Continue normal saline nasal spray and he tears for comfort - is not interested in hospice evaluation, will dicuss further plan of care with the . DVT prophylaxis Comfort measures Problem List: 1. Decubitus ulcer 2. Appendicitis 3. Unresponsive 4. Septic shock 5. Sepsis Pain Ratin Pain Location: none Pain Goal: Remain pain free Pain Plan: Morphine Tomorrow's Labs & Rationales: none
[2018-05-29 22:28] VITALS: BP 108/60
[2018-05-30 06:48] VITALS: BP 82/50
--- NOTE | 2018-05-30 07:28 | PN- Housestaff ---
Jane Neely 05/30/18 0728: Subjective Follow-up For: Sepsis Unresponsiveness Subjective: Patient was seen and examiend at bedside. No acute events overnight. He was hypotensive to 82/50 this morning. wants comfort feeding for the patient. She states she thinks he is hungry. She fed him ice-cream. The patient was coughing but she was adamant of feeding him. Review of Systems Constitutional: Reports: see HPI. Objective Last 24 Hrs of Vital Signs/I&O Vital Signs Date Time Temp Pulse Resp B/P B/P Pulse O2 O2 Flow FiO2 Mean Ox Delivery Rate 05/30 0800 94 Nasal 4.0L Cannula 05/30 0648 99.1 108 20 82/50 97 Nasal 4.0L Cannula 05/30 0000 Nasal 4.0L Cannula 05/29 2228 99.0 100 20 108/60 94 Nasal 4.0L Cannula 05/29 1600 Nasal 3.5L Cannula Intake & Output 05/30 1600 05/30 0800 05/30 0000 Intake Total 320 280 Output Total 100 Balance 220 280 Intake, IV 320 280 Intake, Oral 0 Output, Urine 100 Physical Exam General Appearance: non-responsive Cardiovascular: Regular Rate, Normal S1, Normal S2 Lungs: Clear to Auscultation Vascular: Normal Pulses, Pulses Symmetrical Assessment/Plan Assessment: 77yo M w/ PMH of dementia (mostly non-verbal), BPH (chronic indwelling altaimrano catheter), HTN, DM2, hypothyroidism, hx of DVT previously on Xarelto, poorly differentiated metastatic lung cancer, chronic anemia secondary to metastatic lung cancer and 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 Patient was admitted to the ICU for septicemia and started on broad spectrum antibiotics. He continued to deteriorate. He was found to have appendicitis but was recommended conservative management by surgery given his medical condition. His refused debridement of his sacral ulcer. He was trasferred to Gen Med service overnight for continuation of comfort measures. Plan: -Comfort measures -Continue morphine 2 mg every hour as needed anxiety agitation -Ipratropium nebs for secrtions -Continue normal saline nasal spray and he tears for comfort - is not interested in hospice evaluation, will dicuss further plan of care with the . DVT prophylaxis Comfort measures Problem List: 1. Decubitus ulcer 2. Unresponsive 3. Septic shock Pain Ratin Pain Location: none Pain Goal: Remain pain free Pain Plan: Morphine Tomorrow's Labs & Rationales: none Ruth AnnAbelardo cortes 05/30/18 1221: Attending MD Review Statement Attending Statement Attending MD Statement: examined this patient, discuss w/resident/PA/LIFE TESTER [employer], agreed w/resident/PA/LIFE TESTER [employer], discussed with family, reviewed EMR data (avail), discussed with nursing, discussed with case mgmt, reviewed images, amended to note Attending Assessment/Plan: Agree with above. Plans for comfort care ongoing. Can give comfort feeding as per wishes. Infrom for any updates.
[2018-05-30 14:24] VITALS: BP 84/50
--- NOTE | 2018-05-30 16:37 | Event Note ---
Event Note Event Note: Patient's was explained by several different providers the risk of aspiration if the patient is given food. She admantly demands the patient be fed and that it would be cruel to starve him since he is on comfort care. She was told that the patient is pending swallow evaluation but she states she fed ice- cream to the patient without issues of coughing or choking and she would absolutely want the patient to be given something to eat today. The situation was discussed with and who agreed that comfort feeding be ordered for the patient.
[2018-05-30 22:38] VITALS: BP 90/50
--- NOTE | 2018-05-31 07:20 | PN- Housestaff ---
Jane Neely 05/31/18 0720: Subjective Follow-up For: Sepsis Unresponsiveness Subjective: Patient seen and examined at bedside. Patient's admantly wants comfort feeding for the patient. She was explained risks associated with feeding the patient. The nurse informed me today that the called her this morning to tell her that she would not be able to [facility] given her health problems. The nurse informed her that swallow evaluation recommeded the patient be NPO. She still wants the patient to be given comfort feeds. Review of Systems Constitutional: Reports: see HPI. Objective Last 24 Hrs of Vital Signs/I&O Vital Signs Date Time Temp Pulse Resp B/P B/P Pulse O2 O2 Flow FiO2 Mean Ox Delivery Rate 05/31 0000 Nasal 4.0L Cannula 05/30 2238 98.1 94 18 90/50 98 Nasal Cannula 05/30 1548 Nasal 4.0L Cannula 05/30 1424 98.6 98 20 84/50 95 Intake & Output 05/31 1600 05/31 0800 05/31 0000 Intake Total 320 280 Output Total 50 150 Balance 270 130 Intake, IV 320 280 Output, Urine 50 150 Physical Exam General Appearance: Alert, Oriented X3, Cooperative, No Acute Distress Cardiovascular: Regular Rate, Normal S1, Normal S2, No Murmurs Lungs: bilateral severe rhonchi Assessment/Plan Assessment: 77yo M w/ PMH of dementia (mostly non-verbal), BPH (chronic indwelling altamirano catheter), HTN, DM2, hypothyroidism, hx of DVT previously on Xarelto, poorly differentiated metastatic lung cancer, chronic anemia secondary to metastatic lung cancer and 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 Patient was admitted to the ICU for septicemia and started on broad spectrum antibiotics. He continued to deteriorate. He was found to have appendicitis but was recommended conservative management by surgery given his medical condition. His refused debridement of his sacral ulcer. He was trasferred to Gen Med service overnight for continuation of comfort measures. Plan: -Comfort measures -Continue morphine 2 mg every hour as needed anxiety agitation -Ipratropium nebs for secrtions -Continue normal saline nasal spray and he tears for comfort -Patient is on comfort feeding - is not interested in hospice evaluation, will dicuss further plan of care with the . DVT prophylaxis Comfort measures Problem List: 1. Decubitus ulcer 2. Appendicitis 3. Unresponsive 4. Septic shock 5. Sepsis Pain Ratin Pain Location: none Pain Goal: Remain pain free Pain Plan: Morphine Tomorrow's Labs & Rationales: none Abelardo Vallecillo 05/31/18 1004: Attending MD Review Statement Attending Statement Attending MD Statement: examined this patient, discuss w/resident/PA/FUEL ASSEMBLER, agreed w/resident/PA/FUEL ASSEMBLER, discussed with family, reviewed EMR data (avail), discussed with nursing, discussed with case mgmt, reviewed images, amended to note Attending Assessment/Plan: Agree with above. Plans for comfort care ongoing. Can give comfort feeding as per wishes. Consult palliative care. Infrom for any updates. Arrange family meeting.
[2018-05-31 14:31] VITALS: BP 92/45
--- NOTE | 2018-05-31 17:34 | PN- Wound Care ---
Subjective Subjective: Patient's overall medical condition remains essentially unchanged he is on a [place] bed Objective Vital Signs and I&Os Vital Signs Result Date Time Pulse Ox 93 05/31 1431 B/P 92/45 05/31 1431 O2 Delivery Nasal Cannula 05/31 143 Temp 98.0 05/31 143 Pulse 58 05/31 1431 Resp 18 05/31 1431 O2 Flow Rate 4.0L 05/31 0800 Intake & Output 05/31 0000 05/30 1600 05/30 0800 Intake Total 280 320 320 Output Total 150 100 Balance 130 320 220 Intake, IV 280 320 320 Intake, Oral 0 0 Output, Urine 150 100 Necrotic buttock wound and stage IV coccyx decubitus wounds are unchanged. There are no new wound over his buttocks Impression/Plan Impression/Plan Impression/Plan: 77-year-old gentleman now Comfort Care has a large unstageable right buttock ulcer and stage IV coccyx ulcer which appear unchanged and have not progressed
--- NOTE | 2018-05-31 21:01 | Cons- Palliative Care ---
General Information and HPI Consulting Request Date of Consult: 05/31/18 Requested By: Abelardo Vallecillo MD Reason for Consult: pain management, non-pain symptom mgmt, care/transition planning Source old records Exam Limitations unable to give history History of Present Illness: 77M w/ multiple severe medical problems including: dementia, dysphagia, metastatic lung cancer, stage IV decubitus ulcers now returns to following unresponsive episode at [facility] where he resides for LTC. During this admission, patient has received aggressive medical care at the level of ICU and review of medical records indicates a diagnosis of appendicitis being treated conservatively given the patient's other underlying serious and life threatening illnesses. At this time, the patient's goals of care are comfort, however, he continues to receive IVF at the request of his . The palliative care team has been asked to assist with managing patient's comfort care - specifically related to oral intake. Per discussions with , the patient is receiving PO intake for comfort purposes. My discussion with the the housestaff and nursing reveals concerns on the part of the medical and nursing teams that this feeding when performed by the patient's is causing distress to the patient who has been observed to cough during these episodes. has been counseled not to "force feed" patient who has been identified with impaired swallowing by speech evaluation. Additionally, at this time, patient's care is for comfort only - I have discussed this with case management who indicated that [facility] is willing to readmit patient under comfort care with a clear specification as to oral intake and other care. The patient's is reportedly not consenting to discharge at this time. Today, along with Dr. Chua, her international sales manager, and nursing staff, I demonstrated comfort feeding to the patient of softened ice cream which he tolerated (and asked for) without signs of obvious aspiration. He tolerated this without coughing and appeared to enjoy this. Feeding consisted of providing the patient with 1/4 teaspoon of softened ice cream, allowing the patient 15-20 seconds to permit swallow. Allergies/Medications Allergies: Coded Allergies: No Known Allergies (02/09/18) Home Med List: Acetaminophen (Pain Relief) 325 MG TABLET 2 TAB PO Q6H PRN PAIN/TEMP>101 ( Reported) Acetaminophen (Acephen) 650 MG SUPP.RECT 1 SUPP TN Q6H PRN PAIN/TEMP>101 ( Reported) Amoxicillin/Potassium Clav (Augmentin 875-125 Tablet) 875 MG-125 MG TABLET 1 TAB PO BID Pneumonia Atenolol 25 MG TABLET 1 TAB PO DAILY BP (Reported) Bisacodyl (Dulcolax) 10 MG SUPP.RECT 1 SUP RC DAILY PRN CONSTIPATION ( Reported) Donepezil HCl (Aricept) 10 MG TABLET 1 TAB PO DAILY DEMENTIA (Reported) Ferrous Sulfate 325 MG (65 MG IRON) TABLET 1 TAB PO BID supplement Guaifenesin (Cough Syrup) 100 MG/5 ML LIQUID 10 ML PO Q6H PRN COUGH/CONGESTION (Reported) Hyoscyamine Sulfate 125 MCG/5 ML ELIXIR 1 ML SL Q4H PRN SECRETIONS (Reported) Insulin Glargine,Hum.rec.anlog (Lantus Solostar) 100 UNIT/ML (3 ML) INSULN.PEN 15 UNITS SC QAM DM (Reported) Insulin Lispro (Humalog) 100 UNIT/ML VIAL 0 SC TID DM (Reported) BEFORE MEALS Blood Insulin Sugar Units <80 0 81-100 2 101-200 4 201-250 6 251-300 8 301-350 10 351-400 12 >400 Call Doctor AT BEDTIME Blood Insulin Sugar Units <80 0 81-100 0 80-150 No change 151-200 1 201-250 2 251-300 3 301-350 4 351-400 6 >400 8 units Call Doctor Insulin-Lantus (Lantus) 100 UNIT/ML VIAL 9 UNITS SQ QHS DM (Reported) Latanoprost 0.005 % DROPS 1 GTT OS QHS LEFT EYE (Reported) Levothyroxine Sodium 88 MCG TABLET 1 TAB PO DAILY HYPOTHYROIDISM (Reported) Magnesium Hydroxide (Milk Of Magnesia) 400 MG/5 ML ORAL.SUSP 30 ML PO Q3D PRN CONSTIPATION (Reported) Magnesium Oxide (Magnesium) 400 MG TABLET 1 TAB PO DAILY LOW ELECTROLYTES ( Reported) Melatonin 5 MG TABLET 1 TAB PO QPM SLEEP (Reported) Memantine HCl (Namenda) 10 MG TABLET 1 TAB PO DAILY DEMENTIA (Reported) Metformin HCl 1,000 MG TABLET 1 TAB PO BID DIABETES (Reported) Mirtazapine (Remeron) 15 MG TABLET 1 TAB PO QPM UNKNOWN (Reported) Naloxone HCl (Narcan) 4 MG/ACTUATION SPRAY 4 MG JESUS ALBERTO AD PRN OPIOID INDUCED RESP. DEPRESSIO (Reported) Ondansetron HCl (Zofran) 4 MG TABLET 1 TAB PO Q4H PRN N/V (Reported) Rivaroxaban (Xarelto) 20 MG TABLET 1 TAB PO QPM ? DVT (Reported) with food Review of Systems Review of Systems: unable to obtain ROS Past History Medical History Blood Transfusion Hx Yes Neurological: dementia EENT: NONE Cardiovascular: hypertension, hyperlipidemia, ATHEROSCLEROTIC HEART HEART FAILURE Respiratory: NONE Gastrointestinal: NONE Hepatic: NONE Renal: benign prost hyperplasia Musculoskeletal: MALNUTRITION Psychiatric: NONE Endocrine: diabetes, hypothyroidism Blood Disorders: DVT Cancer(s): MALIGNANT NEOPLASM R LUNG AND LIVER WIRE TEMPERER/Reproductive: NONE Surgical History Surgical History: LOW MIDLINE ABDOMINAL SCAR, OPERATION UNKNOWN Family History Relations & Conditions If Any MOTHER Heart disease Psychosocial History Where Do You Live? [facility] Smoking Status: Unknown If Ever Smoked ETOH Use: 6 Illicit Drug Use: UTD Karnofsky Performance Scale: 20 Living Will? unknown Power of Range Aid/HCP? yes Name of POA/HCP: spouse Functional Ability ADLs Needs Assist: dressing, eating, toileting, bathing. Ambulation: non-ambulatory IADLs Needs Assist: shopping, housework, finances, food prep, telephone, transportation, medication admin. Exam & Diagnostic Data Last 24 Hrs of Vitals/I&Os: Vital Signs Date Time Temp Pulse Resp B/P B/P Pulse O2 O2 Flow FiO2 Mean Ox Delivery Rate 05/31 1431 98.0 58 18 92/45 93 Nasal Cannula 05/31 0800 96 Nasal 4.0L Cannula 05/31 0000 Nasal 4.0L Cannula 05/30 2238 98.1 94 18 90/50 98 Nasal Cannula Intake & Output 05/31 1600 05/31 0800 05/31 0000 Intake Total 200 320 280 Output Total 200 50 150 Balance 0 270 130 Intake, IV 200 320 280 Output, Urine 200 50 150 Physical Exam: elderly male in bed, NAD TLC in (R) neck Lungs - decreased BS CV - RRR Abd - soft Neuro - not oriented, immobile Assessment/Plan Assessment 77M / multiple life-threatening medical problems now on comfort care. Patient's Condition: serious Prognosis: grave Is Patient Decisional? no Case Discussed With: house staff, nurse(s), case management Goals of Care: comfort measures only Treatment Preferences: 1. Dysphagia - patient may be comfort-fed, but this must occur within the abilities and tolerance of the patient. He must not be given more than 1/4 of a teaspoon at a time (about as much as a pea sized bolus) of softened ice cream, pudding or other food of a similar consistency. The patient must be permitted adequate time to swallow this amount of food - which may take as 15-20 seconds or more. The patient's should be instructed on this technique and must follow this technique to avoid undue harm or distress to the patient. If she is unable to comply with this request, then it is recommended that she not perform this activity as it is against the best interests of the patient. 2. Disposition - comfort care may be provided at [facility], where the patient resides. This level of care does not require continued hospitalization. Detailed instructions can be provided to the facility. If necessary, a follow-up consultation at [facility] by the Palliative Care team may be considered. 3. Pain/Dyspnea - should the patient exhibit pain, or dyspnea, consider the use of oral morphine solution 2.5-5mg q2h PRN. 4. Prognosis - end of life is approaching, however, the continued use of IV hydration is likely to prolong his life, but is almost certainly not contributing to his comfort. This is often a sensitive subject and at this time I would just leave in place. He has a triple lumen catheter which will preclude a transfer to SNF. If he is to transfer back to SNF, a midline catheter may be necessary. Consult Acknowledgment - Thank you for your consult request.
[2018-05-31 22:13] VITALS: BP 110/60
[2018-06-01 06:45] VITALS: BP 100/70
--- NOTE | 2018-06-01 07:48 | PN- Housestaff ---
See Addendum Subjective Follow-up For: Sepsis Unresponsiveness Subjective: Patient was seen and examined at bedside. No acute events overnight. demonstrated comofort feeding for the patient in the afternoon yesterday, giving him about 2 cc of ice-cream at a given time and giving him adequate time to swallow. He also made recommendations for pain management and iv fluids. There would be a possible family meeting for deciding further plan of care for the patient. The patient was tachycardic to 107 earlier this morning. Review of Systems Constitutional: Reports: see HPI. Objective Last 24 Hrs of Vital Signs/I&O Vital Signs Date Time Temp Pulse Resp B/P B/P Pulse O2 O2 Flow FiO2 Mean Ox Delivery Rate 06/01 0645 97.8 100 20 100/70 98 Nasal 4.0L Cannula 06/01 0000 96 Nasal 4.0L Cannula 05/31 2213 98.4 107 22 110/60 96 Nasal Cannula 05/31 1431 98.0 58 18 92/45 93 Nasal Cannula Intake & Output 06/01 1600 06/01 0800 06/01 0000 Intake Total 320 320 Output Total 100 Balance 320 220 Intake, IV 320 320 Output, Urine 100 Physical Exam General Appearance: Patient opens mouth for feeding, and appropraitely answers yes or no to questions Neck: Supple Cardiovascular: Regular Rate, Normal S1, Normal S2 Lungs: severe rhonchi bilaterally Assessment/Plan Assessment: 77yo M w/ PMH of dementia (mostly non-verbal), BPH (chronic indwelling altamirano catheter), HTN, DM2, hypothyroidism, hx of DVT previously on Xarelto, poorly differentiated metastatic lung cancer, chronic anemia secondary to metastatic lung cancer and 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 Patient was admitted to the ICU for septicemia and started on broad spectrum antibiotics. He continued to deteriorate. He was found to have appendicitis but was recommended conservative management by surgery given his medical condition. His refused debridement of his sacral ulcer. He was trasferred to Gen Med service overnight for continuation of comfort measures. Plan: -Comfort measures -Continue morphine 2.5-5 mg every hour as needed anxiety agitation -Ipratropium nebs for secrtions -Continue normal saline nasal spray and he tears for comfort -Palliative care input appreciated. Will follow recommendations * Patient is on comfort feeding. Dr. Kirby demonstrated comfort feeding giving the patient about 2 cc of ice-cream giving him adequate time to swallow. He instructed may not be allowed to feed the patient if she does not follow instructions * He recommends patient be discharged to [facility] for further management -We will schedule a family meeting with the in the presence of case management to decide on further plan of care - is not interested in hospice evaluation, will dicuss further plan of care with the . DVT prophylaxis Comfort measures Problem List: 1. Decubitus ulcer 2. Appendicitis 3. Unresponsive 4. Septic shock Pain Ratin Pain Location: none Pain Goal: Remain pain free Pain Plan: Morphine Tomorrow's Labs & Rationales: none
== END 2018-06-01 12:47 | disposition hospice, home (50) | DRG 871 ==
LOC: ERH 05:12 → ERHI 06:02 → CRI 06:02 → ENRESERV 06:36 → CRI 07:08 → 2NA 05-26 21:51
PROVIDERS: Emergency Medicine; Internal Medicine; Internal Medicine Adolescent Medicine
PROC: 3E043XZ Introduction of Vasopressor into Central Vein, Percutaneous Approach (ICD-10-PCS; principal; 2018-05-22)
PROC: 30243N1 Transfusion of Nonautologous Red Blood Cells into Central Vein, Percutaneous Approach (ICD-10-PCS; 2018-05-22)
PROC: 02HV33Z Insertion of Infusion Device into Superior Vena Cava, Percutaneous Approach (ICD-10-PCS; 2018-05-22)
PROC: 5A09357 Assistance with Respiratory Ventilation, Less than 24 Consecutive Hours, Continuous Positive Airway Pressure (ICD-10-PCS; 2018-05-24)
DX: A41.81 Sepsis due to Enterococcus (principal); R65.21 Severe sepsis with septic shock; J96.01 Acute respiratory failure with hypoxia; J81.0 Acute pulmonary edema; L89.154 Pressure ulcer of sacral region, stage 4; L89.223 Pressure ulcer of left hip, stage 3; J15.0 Pneumonia due to Klebsiella pneumoniae; I50.31 Acute diastolic (congestive) heart failure; E46 Unspecified protein-calorie malnutrition; C34.90 Malignant neoplasm of unspecified part of unspecified bronchus or lung; E87.2 Acidosis; D62 Acute posthemorrhagic anemia; M86.9 Osteomyelitis, unspecified; C79.51 Secondary malignant neoplasm of bone; C77.9 Secondary and unspecified malignant neoplasm of lymph node, unspecified; C78.7 Secondary malignant neoplasm of liver and intrahepatic bile duct; R64 Cachexia; K35.80 Unspecified acute appendicitis; Z51.5 Encounter for palliative care; A41.89 Other specified sepsis; F03.90 Unspecified dementia, unspecified severity, without behavioral disturbance, psychotic disturbance, mood disturbance, and anxiety; E03.9 Hypothyroidism, unspecified; Z85.118 Personal history of other malignant neoplasm of bronchus and lung; E78.5 Hyperlipidemia, unspecified; Z68.23 Body mass index [BMI] 23.0-23.9, adult; I48.91 Unspecified atrial fibrillation; Z79.01 Long term (current) use of anticoagulants; E11.9 Type 2 diabetes mellitus without complications; Z79.84 Long term (current) use of oral hypoglycemic drugs; Z79.4 Long term (current) use of insulin; Z96.0 Presence of urogenital implants; Z86.718 Personal history of other venous thrombosis and embolism; D63.8 Anemia in other chronic diseases classified elsewhere; R31.9 Hematuria, unspecified; E87.6 Hypokalemia; E11.649 Type 2 diabetes mellitus with hypoglycemia without coma; E83.42 Hypomagnesemia; E11.69 Type 2 diabetes mellitus with other specified complication; I25.10 Atherosclerotic heart disease of native coronary artery without angina pectoris; Z95.1 Presence of aortocoronary bypass graft; R34 Anuria and oliguria; I50.9 Heart failure, unspecified; L89.310 Pressure ulcer of right buttock, unstageable; I11.0 Hypertensive heart disease with heart failure; N40.0 Benign prostatic hyperplasia without lower urinary tract symptoms; R13.10 Dysphagia, unspecified
CPT/HCPCS: 2NASP; CCU; 36415; 36592; 71045; 74176; 80307; 81001; 82436; 83525; 86920; 87040; 87070; 87071; 87086; 87147; 93005; 93010; 93306; 96374; 99291; J0610; J0713; J1815; J1940; J2543; J3370; J7040; J7042; P9016; P9047

== ENCOUNTER 2018-06-01 12:47 | Inpatient (IN) | payer OTHER ==
[2018-06-01 14:46] VITALS: BP 90/60
--- NOTE | 2018-06-01 16:22 | History & Physical ---
General Information and HPI Chief Complaint: admit to hopice Source of Information: family, old records Exam Limitations: unable to give history Associated Symptoms: dysphagia, dyspnea, pain History of Present Illness: Pt. is a 77 y.o. M with multiple medical problems including advanced dementia and stage IV sacrococcygeal decubitus ulcer with osteomyelitis and metastatic lung cancer, admitted to hospice due to dysphagia with anorexia related to his advanced dementia and cancer. Pt. has been receiving morphine for dressing changes and pain related to his ulcer. His has been feeding him small bites of ice cream. Pt. has congested cough at times and IVF is running. He denies pain at this time. 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 Unknown if ever smoked. No current alcohol use. Functional Ability: dependent for ADLs/IADLs Review of Systems Review of Systems Constitutional: Reports: see HPI. Exam & Diagnostic Data Last 24 Hrs of Vital Signs/I&O Vital Signs Date Time Temp Pulse Resp B/P B/P Pulse O2 O2 Flow FiO2 Mean Ox Delivery Rate 06/01 1446 99.8 105 18 90/60 93 Nasal Cannula Physical Exam General Appearance Alert, No Acute Distress Skin decubitus ulcer on sacrum not visualized, covered by dressing HEENT Atraumatic, mucus membranes dry Neck Supple, TLC on right Cardiovascular Regular Rate Lungs decreased breath sounds, congested cough. O2 4lnp Abdomen Soft, No Tenderness, decreased bowel sounds Neurological alert, minimally conversant. Follows some simple commands Extremities No Edema Reproductive (MALE) altamirano catheter in place Assessment/Plan Assessment: 77 y.o. 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 Plan: Discontinue IVF, as it is contributing to congestion and not adding to comfort or longevity Schedule morphine 2 mg IV every 8 hours and as needed dosing every hour Ativan 0.5 mg IV every 4 hours as needed for anxiety/restlesness Continue wound care with Dakins solution wet to dry, daily Scopolamine and robinul for secretions Comfort feeding in completely upright position, 1/4 tsp at a time with 15 sec intervals to process, only if alert, as per palliative recommedation. Reviewed with Discussed with nursing, round up ring hand and .
--- NOTE | 2018-06-01 20:02 | PN- Palliative Care Social Wrk ---
Social Work Assessment/Plan Social Work Assessment/Plan: Palliative Care consult request received yesterday for this 77 year old man who was admitted to the hospital on 05/22/18 from [facility], where patient is a jail resident. Patient suffers from dementia, metastatic lung cancer and coccyx wounds. Goals of care conversations have taken place multiple times. recently as last week, patients would not consider hospice for her . In fact, in documentation, the has said that she believes hospice to be Euthanasia. This morning, patients agreed to hospice consult. Mr. Wyman has been admitted to the hospice service today.
[2018-06-02 06:16] VITALS: BP 98/64
[2018-06-02 14:56] VITALS: BP 95/50
--- NOTE | 2018-06-02 14:57 | PN- Hospice ---
Subjective Subjective: Pt. appears comfortable. Nonverbal today but eyes open when touched or spoken to. Receiving morphine scheduled and used 2 doses as needed for discomfort overnight. No ativan given. Has used 3 doses Robinul. No oral intake and little urine output. Review of Systems Constitutional: Reports: see HPI. Objective Last 24 Hrs of Vital Signs/I&O Vital Signs Date Time Temp Pulse Resp B/P B/P Pulse O2 O2 Flow FiO2 Mean Ox Delivery Rate 06/02 1456 98.5 102 16 95/50 92 Nasal Cannula 06/02 0800 Nasal 4.0L Cannula 06/02 0616 98.0 109 12 98/64 94 Nasal 4.0L Cannula 06/02 0000 Nasal 4.0L Cannula 06/01 1600 Nasal 4.0L Cannula Intake & Output 06/02 1600 06/02 0800 06/02 0000 Intake Total 40 Output Total 25 100 Balance 15 -100 Intake, IV 40 Output, Urine 25 100 Physical Exam General Appearance: no apparent distress, awake, comfortable Head: normal appearance Ears, Nose, Throat: dry mucus membranes Respiratory: no respiratory distress, tracheal congestion with occasional cough Cardiovascular: tachycardia Extremities: no edema, no mottling Other Physical Findings: altamirano catheter with minimal dk yellow urine Current Medications: Current Medications Sig/Nu Start time Last Medication Dose Route Stop Time Status Admin Acetaminophen 650 MG Q4P PRN 06/01 1345 AC OH Artificial Tears 2 GTT Q2P PRN 06/01 1345 AC OU Bisacodyl 10 MG DAILY NEEDED PRN 06/01 1345 AC OH Glycerin/Mineral Oil 1 ANETA Q8P PRN 06/01 1345 AC TOP Glycopyrrolate 400 MCG Q4P PRN 06/02 0215 AC 06/02 IV 1416 Glycopyrrolate 400 MCG Q4P PRN 06/01 1345 DC SC Lorazepam 0.5 MG Q4P PRN 06/01 1345 AC IV Morphine Sulfate 2 MG Q8 06/01 1400 AC 06/02 IV 1416 Morphine Sulfate 2 MG Q1P PRN 06/01 1345 AC 06/02 IV 1015 Scopolamine HBr 1 PAT Q72 06/04 0900 06/02 TOP 0947 Scopolamine HBr 0 .STK-MED ONE 06/02 0946 DC TOP Sodium Hypochlorite 1 ANETA DAILY 06/02 09 06/02 TOP 0951 Assessment/Plan Hospice Assessment/Recommendations: 77 y.o. 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 Comfortable on scheduled and as needed morphine. For secretions--schedule Robinul 400mcg IV every 4 hours, continue as needed dosing Problem List: 1. Alzheimer's dementia 2. Hospice care 3. Metastatic primary lung cancer 4. Dysphagia 5. Anorexia
== END 2018-06-03 | disposition expired | DRG 180 ==
LOC: 2NA 12:47
DX: C34.90 Malignant neoplasm of unspecified part of unspecified bronchus or lung (principal); L89.154 Pressure ulcer of sacral region, stage 4; E46 Unspecified protein-calorie malnutrition; F03.90 Unspecified dementia, unspecified severity, without behavioral disturbance, psychotic disturbance, mood disturbance, and anxiety; R13.10 Dysphagia, unspecified; N40.0 Benign prostatic hyperplasia without lower urinary tract symptoms; E78.5 Hyperlipidemia, unspecified; E03.9 Hypothyroidism, unspecified
CPT/HCPCS: 2NASP